=== PATIENT | female | born 1950 | race Caucasian/White ===

== ENCOUNTER → 2020-01-04 09:43 | Outpatient (BNVA) | payer MEDICARE, SELFPAY | PROVIDERS: PCP Family Medicine; Visit Provider Surgery | DX: E66.01 Morbid (severe) obesity due to excess calories (principal); Z68.42 Body mass index [BMI] 45.0-49.9, adult; K21.9 Gastro-esophageal reflux disease without esophagitis; Z98.84 Bariatric surgery status | CPT/HCPCS: 99214 ==

== ENCOUNTER → 2020-01-10 12:24 | Outpatient (BNVA) | payer MEDICARE, SELFPAY | PROVIDERS: PCP Family Medicine; Referring Provider Family Medicine; Visit Provider Internal Medicine | DX: R06.02 Shortness of breath (principal); I10 Essential (primary) hypertension; E66.01 Morbid (severe) obesity due to excess calories; Z68.42 Body mass index [BMI] 45.0-49.9, adult; E78.5 Hyperlipidemia, unspecified; G47.33 Obstructive sleep apnea (adult) (pediatric); Z79.899 Other long term (current) drug therapy; Z99.89 Dependence on other enabling machines and devices | CPT/HCPCS: 99204 ==

== ENCOUNTER 2020-01-12 16:04 | Emergency (ER) | payer MEDICARE, SELFPAY ==
--- NOTE | 2020-01-12 16:14 | ED_ITS ---
HPI - Nausea/Vomiting/Diarrhea General Chief complaint: Dizziness Stated complaint: HEADACE, N/V/D, DIZZY Time Seen by Provider: 01/12/20 16:12 Source: patient and EMS Mode of arrival: EMS Limitations: language barrier History of Present Illness HPI Narrative: 1 hour of sudden dizziness. Patient with vomiting and diarrhea prior. Patient describes dizziness as room spinning MD elicited complaint: nausea, vomiting and diarrhea Onset (ago): hour(s) Description of vomiting: watery Description of diarrhea: watery Severity: moderate Related Data Home Medications Medication Instructions Recorded Confirmed albuterol sulfate 2.5 mg INHALATION QID 01/04/20 01/10/20 albuterol sulfate 90 mcg/actuation 2 puff INHALATION QID 01/04/20 01/10/20 aerosol inhaler ascorbate calcium (vitamin C) 500 500 mg PO DAILY PRN 01/04/20 01/10/20 mg tablet atenolol 25 mg tablet 25 mg PO DAILY 01/04/20 01/10/20 calcium carbonate 600 mg (1,500 1 tab PO DAILY 01/04/20 01/10/20 mg)-vitamin D3 200 unit tablet cholecalciferol (vitamin D3) 50 50 mcg PO DAILY 01/04/20 01/10/20 mcg (2,000 unit) capsule clonazepam 1 mg tablet 1 mg PO BID 01/04/20 01/10/20 fluticasone propionate 220 1 puff INHALATION BID 01/04/20 01/10/20 mcg/actuation HFA aerosol inhaler fluticasone propionate 50 1 spray INTRANASAL BID 01/04/20 01/10/20 mcg/actuation nasal spray,suspension loperamide 2 mg capsule 2 mg PO Q6H PRN 01/04/20 01/10/20 loratadine 10 mg tablet 10 mg PO DAILY 01/04/20 01/10/20 ondansetron 4 mg disintegrating 4 mg PO Q8H PRN 01/04/20 01/10/20 tablet pantoprazole 40 mg tablet,delayed 40 mg PO BID tab 01/04/20 01/10/20 release solifenacin 10 mg tablet 10 mg PO DAILY 01/04/20 01/10/20 sucralfate 100 mg/mL oral 10 ml PO BID 01/04/20 01/10/20 suspension vitamin E 200 unit capsule 200 unit PO DAILY PRN 01/04/20 01/10/20 lisinopril 20 mg tablet 20 mg PO DAILY 01/10/20 01/10/20 pravastatin 40 mg tablet 40 mg PO DAILY 01/10/20 01/10/20 Previous Rx's Medication Instructions Recorded meclizine 25 mg PO TID PRN #10 tab 01/12/20 ondansetron HCl [Zofran] 4 mg PO Q8H PRN #10 tab 01/12/20 Allergies Allergy/AdvReac Type Severity Reaction Status Date / Time atorvastatin [From Lipitor] Allergy Mild HIVES Verified 01/10/20 13:29 Review of Systems Constitutional: Constitutional: Reports no additional constitutional complaints Eyes: Eyes: Reports no additional eye complaints ENT: Reports dizziness Cardiovascular: Cardiovascular: Reports no additional cardiovascular complaints Respiratory: Respiratory: Reports as per HPI Gastrointestinal: Gastrointestinal: Reports no additional gastrointestinal complaints Genitourinary: Genitourinary: Reports no additional female genitourinary complaints Musculoskeletal: Musculoskeletal: Reports no additional musculoskeletal complaints Integumentary/Breasts: Skin/Breast: Denies rash Neurologic: Reports dizziness and Denies Sensory deficit (Neuro) Psychiatric: Psychiatric: Denies anxiety [facility] Past Medical History Medical History 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 Cervicalgia Chronic headaches Dyslipidemia Essential hypertension Fecal incontinence GERD (gastroesophageal reflux disease) Hiatal hernia History of gastroscopy Hypertension Morbid obesity due to excess calories Obstructive sleep apnea Other and unspecified hyperlipidemia Pulmonary nodule, right Thyroid nodule Urinary incontinence Surgical History H/O tooth extraction History of bilateral knee replacement History of bilateral tubal ligation History of carpal tunnel release History of cholecystectomy History of dacryocystorhinostomy History of herniorrhaphy History of laparoscopic appendectomy History of sleeve gastrectomy History of total abdominal hysterectomy and bilateral salpingo-oophorectomy S/p bilateral blepharoplasty Family History Family History Father No problems noted. Mother No problems noted. Daughter No problems noted. Daughter No problems noted. Son No problems noted. Son No problems noted. Social History Social History Alcohol intake: never Smoking Status: Never smoker Use of substances other than those prescribed or required for medical reasons: No Advance Directives: No Advance Directives Information Provided: Yes Physical Exam Vital Signs: Vital Signs: Vital Signs Temp Pulse Resp BP Pulse Ox 01/12/20 18:11 75 135/81 98 01/12/20 17:19 77 01/12/20 16:32 97.6 F 82 20 130/74 93 Body Mass Index 48.2 Const: Other: vomiting Nutritional Appearance: obese Orientation/consciousness: oriented to person and patient oriented x3 Limitations: no limitations HENMT: Head: Yes normal to inspection Ears: external ears normal General nose exam: Normal external nose present Mouth: Normal oral and palatal mucosa present and oropharynx normal Throat: Yes posterior oropharynx normal Eyes: General: appearance normal, both eyes and all related structures Neck: Other: supple Neck: Yes normal visual inspection Chest: Chest palpation & inspection: normal inspection of the chest Resp: Auscultation: clear to auscultation bilaterally Cardio: Jugular venous distension: no JVD Rate: regular rate Rhythm: regular rhythm Heart sounds: S1 normal heart sound present and S2 normal heart sound present GI: Other: obese nontender Palpation (GI): Soft to palpation, nontender and No hepatosplenomegaly present Auscultation: normal bowel sounds : General: Yes no CVA tenderness Back/Spine/Pelvis: Back: no CVA tenderness Skin: General skin exam: no rashes or lesions noted Neuro: General: oriented to person and patient oriented x3 Cranial nerves: Yes CN's II-XII intact bilaterally Motor exam (neuro): 5/5 motor strength present throughout Sensory Exam: No Sensory deficit (Neuro) Extrem: General: Yes normal to inspection Psych: Appearance: grossly normal Course Course Course Narrative: no vomiting resting comfortably MDM - Nausea/Vomiting/Diarrhea MDM Narrative Medical decision making narrative: patient with likely vertigo, will check for COVID and treated her gastritis Lab Data Result diagrams: 01/12/20 17:26 01/12/20 17:26 Labs: Lab Results 01/12/20 01/12/20 Range/Units 17:26 17:26 WBC 8.7 (4.8-10.8) X10*3/uL RBC 4.49 (4.20-5.50) X10*6/uL Hgb 13.6 (12.0-16.0) g/dl Hct 41.4 (37-47) % MCV 92.2 (80-98) fL MCH 30.3 (27.0-33.0) pg MCHC 32.9 (31.0-35.0) g/dl RDW 13.6 (11.0-16.0) % Plt Count 193 (160-400) X10*3/uL MPV 12.6 H (9.4-12.3) fL Immature Gran % (Auto) 0.3 (0.0-0.4) % Neut % (Auto) 77.5 H (45-73) % Lymph % (Auto) 13.6 L (20-40) % [place] % (Auto) 7.4 (2-11) % Eos % (Auto) 1.0 (0-4) % Baso % (Auto) 0.2 (0-2) % Lymph # (Auto) 1.2 (1.2-4.9) X10*3/uL [place] # (Auto) 0.6 (0.1-1.2) X10*3/uL Eos # (Auto) 0.1 (0.0-0.4) X10*3/uL Baso # (Auto) 0.0 (0.0-0.2) X10*3/uL Abs Immat Gran (auto) 0.03 (0.00-0.03) X10*3/uL Absolute Neuts (auto) 6.7 (2.0-8.3) X10*3/uL Absolute Nucleated RBC 0.000 (0.0-0.012) X10*3/uL Nucleated RBC % (auto) 0.0 (0.0-0.2) /100WBC Sodium 144 (135-145) mmol/L Potassium 4.5 (3.3-5.1) mmol/l Chloride 105 (96-108) mmol/L Carbon Dioxide 31 H (22-29) mmol/L Anion Gap 13 (12-20) BUN 20 H (9-16) mg/dL Creatinine 0.88 (0.5-1.4) mg/dL Estim Creat Clear Calc 64.1 Estimated GFR > 60 Random Glucose 133 H (60-115) mg/dL Calcium 10.1 (8.4-10.2) mg/dL Discharge Plan Discharge Clinical Impression: Acute vestibular neuronitis Qualifiers: Laterality: unspecified laterality Qualified Code(s): H81.20 - Vestibular neuronitis, unspecified ear Nausea & vomiting Qualifiers: Vomiting type: unspecified Vomiting Intractability: non-intractable Qualified Code(s): R11.2 - Nausea with vomiting, unspecified Patient Disposition: Home, Self-Care Instructions: Vertigo (ED) Prescriptions: New ondansetron HCl [Zofran] 4 mg tablet 4 mg PO Q8H PRN (Reason: nausea and vomiting) Qty: 10 RF: 0 meclizine 25 mg tablet 25 mg PO TID PRN (Reason: dizziness) Qty: 10 RF: 0 No Action sucralfate [Carafate] 100 mg/mL suspension 10 ml PO BID RF: 0 solifenacin [Vesicare] 10 mg tablet 10 mg PO DAILY RF: 0 clonazepam 1 mg tablet 1 mg PO BID RF: 0 albuterol sulfate 90 mcg/actuation HFA aerosol inhaler 2 puff inhalation QID RF: 0 albuterol sulfate 2.5 mg /3 mL (0.083 %) solution for nebulization 2.5 mg inhalation QID RF: 0 fluticasone propionate [Flonase Allergy Relief] 50 mcg/actuation spray,suspension 1 spray intranasal BID RF: 0 loratadine 10 mg tablet 10 mg PO DAILY RF: 0 cholecalciferol (vitamin D3) 50 mcg (2,000 unit) capsule 50 mcg PO DAILY RF: 0 atenolol 25 mg tablet 25 mg PO DAILY RF: 0 Flovent HFA 220 mcg/actuation HFA aerosol inhaler 1 puff inhalation BID RF: 0 pantoprazole 40 mg tablet,delayed release (DR/EC) 40 mg PO BID RF: 0 loperamide 2 mg capsule 2 mg PO Q6H PRNRF: 0 calcium carbonate-vitamin D3 600 mg(1,500mg) -200 unit tablet 1 tab PO DAILY RF: 0 ondansetron 4 mg tablet,disintegrating 4 mg PO Q8H PRNRF: 0 vitamin E 200 unit capsule 200 unit PO DAILY PRNRF: 0 ascorbate calcium (vitamin C) 500 mg tablet 500 mg PO DAILY PRNRF: 0 lisinopril 20 mg tablet 20 mg PO DAILY RF: 0 pravastatin 40 mg tablet 40 mg PO DAILY RF: 0 Referrals: Ailyn Monge MD [Primary Care Provider] - 2 days
[2020-01-12 16:32] VITALS: BP 128/62; BP 130/74; PULSE 80; PULSE 82; RESP 20; TEMP 36.4; O2SAT 93; O2SAT 97; BMI 48.2
[2020-01-12] MEDS: Meclizine HCl 25 MG TABLET 50 MG PO (17:17)
[2020-01-12] MEDS: 0.9 % Sodium Chloride 500 ML 1000 ML IV (17:18)
[2020-01-12 17:19] VITALS: PULSE 77
[2020-01-12 17:34] LABS: MANUAL DIFF FLAG NO
[2020-01-12 17:35] LABS: Basophils Percent Auto 0.2 % (0-2); Eosinophils Absolute Auto 0.1 X10*3/uL (0.0-0.4); Hematocrit 41.4 % (37-47); Hemoglobin 13.6 g/dl (12.0-16.0); Imm Gran Abs Auto 0.03 X10*3/uL (0.00-0.03); Imm Gran Pct Auto 0.3 % (0.0-0.4); Lymphocytes Absolute Auto 1.2 X10*3/uL (1.2-4.9); Lymphocytes Percent Auto 13.6 % (20-40); Mean Corpuscular HGB Conc 32.9 g/dl (31.0-35.0); Mean Corpuscular Hemoglobin 30.3 pg (27.0-33.0); Mean Corpuscular Volume 92.2 fL (80-98); Mean Platelet Volume 12.6 fL (9.4-12.3); Monocytes Absolute Auto 0.6 X10*3/uL (0.1-1.2); Monocytes Percent Auto 7.4 % (2-11); Neutrophils Absolute Auto 6.7 X10*3/uL (2.0-8.3); Neutrophils Percent Auto 77.5 % (45-73); Platelet Count 193 X10*3/uL (160-400); Red Blood Count 4.49 X10*6/uL (4.20-5.50); Red Cell Distribution Width 13.6 % (11.0-16.0); White Blood Count 8.7 X10*3/uL (4.8-10.8)
--- NOTE | 2020-01-12 18:10 | PC.NURSE ---
pt resting in the stretcher talking on the phone pt reports feeling better, denies dizziness/nausea a this time
[2020-01-12 18:11] VITALS: BP 135/81; PULSE 75; O2SAT 98
[2020-01-12 18:15] LABS: Anion Gap 13 (12-20); Blood Urea Nitrogen 20 mg/dL (9-16); Calcium 10.1 mg/dL (8.4-10.2); Carbon Dioxide 31 mmol/L (22-29); Chloride 105 mmol/L (96-108); Creatinine Clr Calc Pharmacy 64.1; Estimated Glomerular Filt Rate > 60; Glucose Random 133 mg/dL (60-115); Potassium 4.5 mmol/l (3.3-5.1); Sodium 144 mmol/L (135-145)
[2020-01-12 20:00] VITALS: PULSE 83; RESP 16; TEMP 36.4; O2SAT 139
== END 2020-01-12 20:48 | disposition home or self-care (01) ==
PROVIDERS: Emergency Provider Emergency Medicine; PCP Family Medicine
DX: H81.20 Vestibular neuronitis, unspecified ear (principal); R11.2 Nausea with vomiting, unspecified; Z79.899 Other long term (current) drug therapy
CPT/HCPCS: 36415; 80048; 85025; 87635; 96360; 99284

== ENCOUNTER 2020-01-27 08:35 | Outpatient (REF) | payer MEDICARE, SELFPAY | END 2020-01-27 08:36 | disposition home or self-care (01) | LOC: HO.LAB 08:35 | PROVIDERS: Visit Provider Internal Medicine | DX: Z20.828 Contact with and (suspected) exposure to other viral communicable diseases (principal) | CPT/HCPCS: U0003 ==

== ENCOUNTER 2020-02-02 10:18 | Inpatient (IN) | payer MEDICARE, SELFPAY ==
[2020-02-02 10:21] VITALS: BP 120/72; BP 97/65; PULSE 85; PULSE 90; RESP 27; TEMP 37.7; O2SAT 88; O2SAT 91; BMI 52.4
--- NOTE | 2020-02-02 10:22 | ED.SOB ---
HPI - SOB/Dyspnea General Chief Complaint: Dyspnea Stated Complaint: sob/cp/cuellar Time Seen by Provider: 02/02/20 10:22 Source: patient, EMS and foreign language interpreter Mode of arrival: EMS Limitations: no limitations History of Present Illness HPI Narrative: + covid test resulted yesterday (done on 01/26) has been sick for the past few days had a visitor who was COVID positive, EMS found her 85% on RA - 92% on 4L NC does not use O2 at home MD elicited complaint: shortness of breath Pertinent past history: asthma Onset (ago): day(s) (few) Context: recent illness Timing: constant Severity: moderate Exacerbating factors: exertion and coughing Relieving factors: oxygen Known history of: asthma Associated symptoms: chest pain, fever, cough, wheezing and nausea/vomiting Treatment prior to arrival: oxygen Related Data Home Medications Medication Instructions Recorded Confirmed fluticasone propion-salmeterol 1 puff PO BID 02/02/20 02/02/20 mirtazapine 1 tab PO BEDTIME 02/02/20 02/02/20 venlafaxine 1 cap PO DAILY 02/02/20 02/02/20 venlafaxine 150 mg PO 02/02/20 Allergies Allergy/AdvReac Type Severity Reaction Status Date / Time atorvastatin [From Lipitor] Allergy Mild HIVES Verified 01/10/20 13:29 Review of Systems Review of Systems: Constitutional : positive Fever, positive Chills, positive fatigue, positive Malaise ENT/Mouth : no sore throat, positive runny nose Eyes: No Discharge Cardiovascular : pos Chest Pain, pos SOB Respiratory : pos Cough, No Sputum Gastrointestinal : pos Nausea, No Vomiting, No Diarrhea Genitourinary : No Dysuria, No Urinary Frequency Musculoskeletal : positive Myalgia Skin : No rash Neuro : No Headache, no weakness no numbnes All other systems reviewed and are negative All other systems reviewed and are negative [facility] Past Medical History Attestation statement: The following information was validated with the patient. Medical History 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 Cervicalgia Chronic headaches Dyslipidemia Essential hypertension Fecal incontinence GERD (gastroesophageal reflux disease) Hiatal hernia History of gastroscopy Hypertension Morbid obesity due to excess calories Obstructive sleep apnea Other and unspecified hyperlipidemia Pulmonary nodule, right Thyroid nodule Urinary incontinence Surgical History H/O tooth extraction History of bilateral knee replacement History of bilateral tubal ligation History of carpal tunnel release History of cholecystectomy History of dacryocystorhinostomy History of herniorrhaphy History of laparoscopic appendectomy History of sleeve gastrectomy History of total abdominal hysterectomy and bilateral salpingo-oophorectomy S/p bilateral blepharoplasty Family History Family History Father No problems noted. Mother No problems noted. Daughter No problems noted. Daughter No problems noted. Son No problems noted. Son No problems noted. Social History Social History Alcohol intake: never Smoking Status: Never smoker Advance Directives: No Advance Directives Information Provided: No Physical Exam Vital Signs: Vital Signs: Last Vital Signs Temp 99.8 F 02/02/20 10:21 Pulse 85 02/02/20 10:21 Resp 27 H 02/02/20 10:21 BP 97/65 02/02/20 10:21 Pulse Ox 91 L 02/02/20 10:21 Body Mass Index 52.4 Appearance: Alert. Oriented X3. Mild acute distress. Eyes: Pupils equal, round and reactive to light. ENT: Pharynx normal. Neck: Normal inspection. Neck supple. CVS: Normal heart rate and rhythm. Pulses normal. Respiratory: Mild respiratory distress. Tachypnea Breath sounds rhonic and diminished. Abdomen: Soft and nontender. Skin: Skin warm and dry. Normal skin color. Normal skin turgor. Extremities: No lower extremity edema. No calf ttp Neuro: Oriented X 3. No motor deficit. No sensory deficit. Course Course Course Narrative: given O2 needs and CXR will admit for further workup MDM - SOB/Dyspnea MDM Narrative Medical decision making narrative: 69 yo female with asthma + COVID confirmed yesterday - here with URI symptoms chest pain that is reproduceable due to cough, hypoxia doing okay on O2, will need labs, CXR, cultures, IV antibiotics, neb treatment, given O2 need planned admit Lab Data Result diagrams: 02/02/20 10:44 02/02/20 10:44 Labs: Lab Results 02/02/20 02/02/20 02/02/20 Range/Units 10:44 10:44 10:44 WBC 4.6 L (4.8-10.8) X10*3/uL RBC 4.60 (4.20-5.50) X10*6/uL Hgb 13.6 (12.0-16.0) g/dl Hct 41.6 (37-47) % MCV 90.4 (80-98) fL MCH 29.6 (27.0-33.0) pg MCHC 32.7 (31.0-35.0) g/dl RDW 14.6 (11.0-16.0) % Plt Count 139 L D (160-400) X10*3/uL MPV Not Reportable Immature Gran % (Auto) 0.2 (0.0-0.4) % Neut % (Auto) 74.0 H (45-73) % Lymph % (Auto) 16.0 L (20-40) % [place] % (Auto) 9.4 (2-11) % Eos % (Auto) 0.2 (0-4) % Baso % (Auto) 0.2 (0-2) % Lymph # (Auto) 0.7 L (1.2-4.9) X10*3/uL [place] # (Auto) 0.4 (0.1-1.2) X10*3/uL Eos # (Auto) 0.0 (0.0-0.4) X10*3/uL Baso # (Auto) 0.0 (0.0-0.2) X10*3/uL Abs Immat Gran (auto) 0.01 (0.00-0.03) X10*3/uL Absolute Neuts (auto) 3.4 (2.0-8.3) X10*3/uL Absolute Nucleated RBC 0.000 (0.0-0.012) X10*3/uL Nucleated RBC % (auto) 0.0 (0.0-0.2) /100WBC Smear Tech's Comments VERIFIED PT (10.8-13.0) SEC INR (0.9-1.1) APTT (24.1-38.0) SEC Sodium 136 (135-145) mmol/L Potassium 4.6 (3.3-5.1) mmol/l Chloride 99 (96-108) mmol/L Carbon Dioxide 27 (22-29) mmol/L Anion Gap 15 (12-20) BUN 12 (9-16) mg/dL Creatinine 0.79 (0.5-1.4) mg/dL Estim Creat Clear Calc 69.1 Estimated GFR > 60 Random Glucose 120 H (60-115) mg/dL Lactic Acid (0.5-2.0) mmol/L Calcium 7.7 L D (8.4-10.2) mg/dL Magnesium (1.6-2.6) mg/dL Total Bilirubin (0.0-1.0) mg/dL Direct Bilirubin (0.0-0.5) mg/dL AST (5-31) U/L ALT (0-31) U/L Alkaline Phosphatase (39-117) U/L Lactate Dehydrogenase (122-220) U/L Total Creatine Kinase (26-140) U/L Troponin I High Sens (<3.5-17.0) ng/L B-Natriuretic Peptide 12 (<100) pg/mL Total Protein (6.5-8.0) g/dL Albumin (3.5-5.0) g/dL 02/02/20 02/02/20 02/02/20 Range/Units 10:44 10:44 10:44 WBC (4.8-10.8) X10*3/uL RBC (4.20-5.50) X10*6/uL Hgb (12.0-16.0) g/dl Hct (37-47) % MCV (80-98) fL MCH (27.0-33.0) pg MCHC (31.0-35.0) g/dl RDW (11.0-16.0) % Plt Count (160-400) X10*3/uL MPV Immature Gran % (Auto) (0.0-0.4) % Neut % (Auto) (45-73) % Lymph % (Auto) (20-40) % [place] % (Auto) (2-11) % Eos % (Auto) (0-4) % Baso % (Auto) (0-2) % Lymph # (Auto) (1.2-4.9) X10*3/uL [place] # (Auto) (0.1-1.2) X10*3/uL Eos # (Auto) (0.0-0.4) X10*3/uL Baso # (Auto) (0.0-0.2) X10*3/uL Abs Immat Gran (auto) (0.00-0.03) X10*3/uL Absolute Neuts (auto) (2.0-8.3) X10*3/uL Absolute Nucleated RBC (0.0-0.012) X10*3/uL Nucleated RBC % (auto) (0.0-0.2) /100WBC Smear Tech's Comments PT (10.8-13.0) SEC INR (0.9-1.1) APTT (24.1-38.0) SEC Sodium (135-145) mmol/L Potassium (3.3-5.1) mmol/l Chloride (96-108) mmol/L Carbon Dioxide (22-29) mmol/L Anion Gap (12-20) BUN (9-16) mg/dL Creatinine (0.5-1.4) mg/dL Estim Creat Clear Calc Estimated GFR Random Glucose (60-115) mg/dL Lactic Acid 0.8 (0.5-2.0) mmol/L Calcium (8.4-10.2) mg/dL Magnesium 2.0 (1.6-2.6) mg/dL Total Bilirubin 0.2 (0.0-1.0) mg/dL Direct Bilirubin 0.2 (0.0-0.5) mg/dL AST 71 H (5-31) U/L ALT 67 H (0-31) U/L Alkaline Phosphatase 76 (39-117) U/L Lactate Dehydrogenase 594 H (122-220) U/L Total Creatine Kinase 115 (26-140) U/L Troponin I High Sens 9.0 (<3.5-17.0) ng/L B-Natriuretic Peptide (<100) pg/mL Total Protein 6.8 (6.5-8.0) g/dL Albumin 3.8 (3.5-5.0) g/dL 02/02/20 Range/Units 10:45 WBC (4.8-10.8) X10*3/uL RBC (4.20-5.50) X10*6/uL Hgb (12.0-16.0) g/dl Hct (37-47) % MCV (80-98) fL MCH (27.0-33.0) pg MCHC (31.0-35.0) g/dl RDW (11.0-16.0) % Plt Count (160-400) X10*3/uL MPV Immature Gran % (Auto) (0.0-0.4) % Neut % (Auto) (45-73) % Lymph % (Auto) (20-40) % [place] % (Auto) (2-11) % Eos % (Auto) (0-4) % Baso % (Auto) (0-2) % Lymph # (Auto) (1.2-4.9) X10*3/uL [place] # (Auto) (0.1-1.2) X10*3/uL Eos # (Auto) (0.0-0.4) X10*3/uL Baso # (Auto) (0.0-0.2) X10*3/uL Abs Immat Gran (auto) (0.00-0.03) X10*3/uL Absolute Neuts (auto) (2.0-8.3) X10*3/uL Absolute Nucleated RBC (0.0-0.012) X10*3/uL Nucleated RBC % (auto) (0.0-0.2) /100WBC Smear Tech's Comments PT 13.3 H (10.8-13.0) SEC INR 1.1 (0.9-1.1) APTT 34.1 (24.1-38.0) SEC Sodium (135-145) mmol/L Potassium (3.3-5.1) mmol/l Chloride (96-108) mmol/L Carbon Dioxide (22-29) mmol/L Anion Gap (12-20) BUN (9-16) mg/dL Creatinine (0.5-1.4) mg/dL Estim Creat Clear Calc Estimated GFR Random Glucose (60-115) mg/dL Lactic Acid (0.5-2.0) mmol/L Calcium (8.4-10.2) mg/dL Magnesium (1.6-2.6) mg/dL Total Bilirubin (0.0-1.0) mg/dL Direct Bilirubin (0.0-0.5) mg/dL AST (5-31) U/L ALT (0-31) U/L Alkaline Phosphatase (39-117) U/L Lactate Dehydrogenase (122-220) U/L Total Creatine Kinase (26-140) U/L Troponin I High Sens (<3.5-17.0) ng/L B-Natriuretic Peptide (<100) pg/mL Total Protein (6.5-8.0) g/dL Albumin (3.5-5.0) g/dL ECG Data Attestation: I personally reviewed and interpreted this ECG as follows: ECG interpretation date: 02/02/20 ECG interpretation time: 10:33 Interpretation: Rate: 84 Rhythm: NSR [place]: left Normal P waves. Normal ITA. Normal QRS complex. ST T wave : nonspecific no LEO qTC: normal prior studies: no acute ischemia The study has been interpreted contemporaneously by me. . Discharge Plan Discharge Clinical Impression: Pneumonia due to 2019-nCoV, Hypoxia Patient Disposition: Admitted As Inpatient Prescriptions: No Action venlafaxine 75 mg capsule,extended release 24hr 1 cap PO DAILY RF: 0 venlafaxine 150 mg capsule,extended release 24hr 150 mg PO RF: 0 mirtazapine 30 mg tablet 1 tab PO BEDTIME RF: 0 fluticasone propion-salmeterol 250-50 mcg/dose blister with device 1 puff PO BID RF: 0
--- NOTE | 2020-02-02 10:23 | XR_ITS ---
EXAMINATION: XR CHEST CLINICAL INFORMATION: Dyspnea. COMPARISON: Chest 12/11/2019 TECHNIQUE: Frontal view of the chest was obtained. FINDINGS: Lungs are hyperexpanded with diffuse patchy opacities seen in both lungs likely infiltrate versus parenchymal edema. Lung bases cannot clearly visualized. The heart size and pulmonary vascularity is normal. No gross bony abnormality seen. XR/XR chest 1V IMPRESSION: Diffuse bilateral patchy opacities likely infiltrate versus edema. Chest x-ray 12/11/2019 was normal at
--- NOTE | 2020-02-02 10:23 | ECG_ITS ---
Test Reason : SOB,CP Blood Pressure : / mmHG Vent. Rate : 084 BPM Atrial Rate : 084 BPM P-R Int : 134 ms QRS Dur : 090 ms QT Int : 388 ms P-R-T Axes : 030 -42 003 degrees QTc Int : 458 ms Normal sinus rhythm Left axis deviation Pulmonary disease pattern Abnormal ECG When compared with ECG of 14-DEC-2018 07:38, No significant change was found Referred By: Linnea Patel Electronically Signed By:VAN VÁSQUEZ MD
[2020-02-02] MEDS: Albuterol Sulfate (0.083%) 2.5 MG/3 ML VIAL.NEB 5 MG INHALE (10:49)
[2020-02-02 10:58] LABS: Hematocrit 41.6 % (37-47); Hemoglobin 13.6 g/dl (12.0-16.0); MANUAL DIFF FLAG SCAN; Mean Corpuscular HGB Conc 32.7 g/dl (31.0-35.0); Red Cell Distribution Width 14.6 % (11.0-16.0); SCAN SMEAR FLAG 1
[2020-02-02 11:00] LABS: Basophils Percent Auto 0.2 % (0-2); Eosinophils Percent Auto 0.2 % (0-4); Imm Gran Abs Auto 0.01 X10*3/uL (0.00-0.03); Imm Gran Pct Auto 0.2 % (0.0-0.4); Lymphocytes Absolute Auto 0.7 X10*3/uL (1.2-4.9); Mean Corpuscular Hemoglobin 29.6 pg (27.0-33.0); Mean Corpuscular Volume 90.4 fL (80-98); Monocytes Absolute Auto 0.4 X10*3/uL (0.1-1.2); Monocytes Percent Auto 9.4 % (2-11); Neutrophils Absolute Auto 3.4 X10*3/uL (2.0-8.3); Platelet Count 139 X10*3/uL (160-400); White Blood Count 4.6 X10*3/uL (4.8-10.8)
[2020-02-02 11:08] LABS: PLT ABN DIST 1
[2020-02-02 11:08] LABS: INTERNATIONAL NORM RATIO 1.1 (0.9-1.1); Prothrombin Time 13.3 SEC (10.8-13.0)
[2020-02-02 11:11] LABS: Partial Thromboplastin Time 34.1 SEC (24.1-38.0)
[2020-02-02 11:25] LABS: Lactic Acid 0.8 mmol/L (0.5-2.0)
[2020-02-02 11:26] LABS: SLIDE REVIEW VERIFIED
[2020-02-02 11:32] LABS: Anion Gap 15 (12-20); Blood Urea Nitrogen 12 mg/dL (9-16); Calcium 7.7 mg/dL (8.4-10.2); Carbon Dioxide 27 mmol/L (22-29); Chloride 99 mmol/L (96-108); Creatinine Clr Calc Pharmacy 69.1; Estimated Glomerular Filt Rate > 60; Glucose Random 120 mg/dL (60-115); Potassium 4.6 mmol/l (3.3-5.1); Sodium 136 mmol/L (135-145)
[2020-02-02 11:37] LABS: B Type Natriuretic Peptide 12 pg/mL (<100)
[2020-02-02 11:44] LABS: Alanine Aminotransferase 67 U/L (0-31); Albumin Level 3.8 g/dL (3.5-5.0); Alkaline Phosphatase 76 U/L (39-117); Aspartate Amino Transferase 71 U/L (5-31); Bilirubin Direct 0.2 mg/dL (0.0-0.5); Bilirubin Total 0.2 mg/dL (0.0-1.0); Lactate Dehydrogenase 594 U/L (122-220); Total Protein 6.8 g/dL (6.5-8.0)
[2020-02-02 11:52] LABS: Ferritin 459 ng/mL (10-250)
[2020-02-02] MEDS: cefTRIAXone sodium 1 GM in 0.9 % Sodium Chloride 50 ML IV (11:53)
[2020-02-02] MEDS: Azithromycin 500 MG TABLET PO (11:53)
--- NOTE | 2020-02-02 11:54 | PC.NURSE ---
hospitalist in to see pt
[2020-02-02 12:57] VITALS: BP 105/47; PULSE 88; RESP 20; TEMP 37.4; O2SAT 89
--- NOTE | 2020-02-02 13:49 | PC.NURSE ---
REPORT TO BIPIN SANCHEZ.
--- NOTE | 2020-02-02 14:14 | PM.IMHP ---
History of Present Illness Date of Service: 02/02/20 Chief Complaint: shortness of breath, lethargy a 69 years old lady with PMH of hypertension, morbid obesity, HTN among others who presented to the hospital complaining of cough, difficulty breathing For the last 3 days. The patient was tested positive for COVID-19 infection on January 26. She reported doing fairly okay since then but her symptoms started to get worse over the last 3 days with more shortness of breath and coughing. Denies any fever or chills. Appetite acceptable. No change in bowel habit. In the emergency a chest x-ray showed bilateral infiltrates. She was started on nebulizer treatment and admitted for further evaluation and treatment. Review of Systems Review of Systems: No fever, chills , increase generalized weakness No chest pain, palpitation Moderate shortness of breath and coughing No abdominal pain, nausea or vomiting No urinary symptoms No any rash or wounds PMFSH Medical History 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 Cervicalgia Chronic headaches Dyslipidemia Essential hypertension Fecal incontinence GERD (gastroesophageal reflux disease) Hiatal hernia History of gastroscopy Hypertension Morbid obesity due to excess calories Obstructive sleep apnea Other and unspecified hyperlipidemia Pulmonary nodule, right Thyroid nodule Urinary incontinence Family History Father No problems noted. Mother No problems noted. Daughter No problems noted. Daughter No problems noted. Son No problems noted. Son No problems noted. Surgical History H/O tooth extraction History of bilateral knee replacement History of bilateral tubal ligation History of carpal tunnel release History of cholecystectomy History of dacryocystorhinostomy History of herniorrhaphy History of laparoscopic appendectomy History of sleeve gastrectomy History of total abdominal hysterectomy and bilateral salpingo-oophorectomy S/p bilateral blepharoplasty Social History Alcohol intake: never Smoking Status: Never smoker Use of substances other than those prescribed or required for medical reasons: No Advance Directives: No Advance Directives Information Provided: No Meds Allergies Allergy/AdvReac Type Severity Reaction Status Date / Time atorvastatin [From Lipitor] Allergy Mild HIVES Verified 01/10/20 13:29 Home Medications Medication Instructions Recorded Confirmed Type atenolol 1 tab PO BEDTIME 02/02/20 02/02/20 History calcium citrate-vitamin D3 1 tab PO BID 02/02/20 02/02/20 History clonazepam 1.5 tab PO BEDTIME PRN 02/02/20 02/02/20 History dicyclomine 1 cap PO TID PRN 02/02/20 02/02/20 History fluticasone propion-salmeterol 1 puff PO BID 02/02/20 02/02/20 History furosemide 10 mg PO QAM 02/02/20 02/02/20 History levothyroxine 75 mcg PO QAM 02/02/20 02/02/20 History lisinopril 20 mg PO QAM 02/02/20 02/02/20 History loperamide [Anti-Diarrheal 2 mg PO Q6H PRN 02/02/20 02/02/20 History (loperamide)] loratadine 10 mg PO QAM 02/02/20 02/02/20 History mirtazapine 1 tab PO BEDTIME 02/02/20 02/02/20 History omeprazole 20 mg PO BID 02/02/20 02/02/20 History ondansetron HCl 4 mg PO Q8H PRN 02/02/20 02/02/20 History pravastatin 40 mg PO BEDTIME 02/02/20 02/02/20 History sucralfate 10 ml PO BID 02/02/20 02/02/20 History venlafaxine 1 cap PO DAILY 02/02/20 02/02/20 History venlafaxine 150 mg PO DAILY 02/02/20 02/02/20 History Physical Exam Vital Signs and Narrative: Vital Signs: Last Vital Signs Temp 99.3 F 02/02/20 12:57 Pulse 88 02/02/20 12:57 Resp 20 02/02/20 12:57 BP 105/47 L 02/02/20 12:57 Pulse Ox 89 L 02/02/20 12:57 Body Mass Index 52.4 Constitutional : Alert, oriented, hypoxic Neck : Normal inspection, Supple Cardiovascular : RRR, S1 S2, no lower extremity edema Respiratory : decrease bilateral air entry, no crackles, wheezes or rhonchi Gastrointestinal: soft, lax, Normal bowel sounds, Non tender Skin : Warm/Dry, No rash Neurological : Alert & oriented x3, No focal deficit Results Labs CBC and Chem 7: 02/02/20 10:44 02/02/20 10:44 Labs: Laboratory Results - last 24 hr 02/02/20 02/02/20 02/02/20 10:44 10:44 10:44 MCV 90.4 MCH 29.6 MCHC 32.7 RDW 14.6 Plt Count 139 L D MPV Not Reportable Immature Gran % (Auto) 0.2 Neut % (Auto) 74.0 H Lymph % (Auto) 16.0 L [place] % (Auto) 9.4 Eos % (Auto) 0.2 Baso % (Auto) 0.2 Lymph # (Auto) 0.7 L [place] # (Auto) 0.4 Eos # (Auto) 0.0 Baso # (Auto) 0.0 Abs Immat Gran (auto) 0.01 Absolute Neuts (auto) 3.4 Absolute Nucleated RBC 0.000 Nucleated RBC % (auto) 0.0 Smear Tech's Comments VERIFIED PT INR APTT Anion Gap 15 Estim Creat Clear Calc 69.1 Estimated GFR > 60 Random Glucose 120 H Lactic Acid Calcium 7.7 L D Magnesium Ferritin Total Bilirubin Direct Bilirubin AST ALT Alkaline Phosphatase Lactate Dehydrogenase Total Creatine Kinase Troponin I High Sens B-Natriuretic Peptide 12 Total Protein Albumin 02/02/20 02/02/20 02/02/20 10:44 10:44 10:44 MCV MCH MCHC RDW Plt Count MPV Immature Gran % (Auto) Neut % (Auto) Lymph % (Auto) [place] % (Auto) Eos % (Auto) Baso % (Auto) Lymph # (Auto) [place] # (Auto) Eos # (Auto) Baso # (Auto) Abs Immat Gran (auto) Absolute Neuts (auto) Absolute Nucleated RBC Nucleated RBC % (auto) Smear Tech's Comments PT INR APTT Anion Gap Estim Creat Clear Calc Estimated GFR Random Glucose Lactic Acid 0.8 Calcium Magnesium 2.0 Ferritin 459 H Total Bilirubin 0.2 Direct Bilirubin 0.2 AST 71 H ALT 67 H Alkaline Phosphatase 76 Lactate Dehydrogenase 594 H Total Creatine Kinase 115 Troponin I High Sens 9.0 B-Natriuretic Peptide Total Protein 6.8 Albumin 3.8 02/02/20 10:45 MCV MCH MCHC RDW Plt Count MPV Immature Gran % (Auto) Neut % (Auto) Lymph % (Auto) [place] % (Auto) Eos % (Auto) Baso % (Auto) Lymph # (Auto) [place] # (Auto) Eos # (Auto) Baso # (Auto) Abs Immat Gran (auto) Absolute Neuts (auto) Absolute Nucleated RBC Nucleated RBC % (auto) Smear Tech's Comments PT 13.3 H INR 1.1 APTT 34.1 Anion Gap Estim Creat Clear Calc Estimated GFR Random Glucose Lactic Acid Calcium Magnesium Ferritin Total Bilirubin Direct Bilirubin AST ALT Alkaline Phosphatase Lactate Dehydrogenase Total Creatine Kinase Troponin I High Sens B-Natriuretic Peptide Total Protein Albumin Imaging Radiologist's Impressions: Impressions Chest X-Ray 02/02/20 10:23 IMPRESSION: Diffuse bilateral patchy opacities likely infiltrate versus edema. Chest x-ray 12/11/2019 was normal at Assessment and Plan (1) Pneumonia due to 2019-nCoV: Status: Acute (2) Acute respiratory failure with hypoxia: Status: Acute (3) Essential hypertension: Status: Acute (4) Morbid obesity due to excess calories: Problem details: Status: Acute (5) Dyslipidemia: Status: Acute (6) Hypertension: Status: Acute a 69 years old lady with PMH of hypertension, morbid obesity, HTN among others who presented to the hospital complaining of cough, difficulty breathing For the last 3 days. Acute hypoxic respiratory failure Secondary to COVID-19 pneumonia CXR as above O2 level dropped below 90s requiring O2 supplement to keep it Received ceftriaxone and azithromycin emergency, discontinue Keep on doxycycline IV for now Dexamethasone 6 mg DD Start nebulizers ATC and p.r.n. Consider from to severe, to contact id To get pulmonary input Hypertension continue atenolol and lisinopril Hypothyroidism Continue levothyroxine Mood Disorder Continue Effexor and Remeron DVT PPX Lovenox
[2020-02-02 16:00] VITALS: BP 140/78; PULSE 86; RESP 20; TEMP 35.6; O2SAT 93
--- NOTE | 2020-02-02 16:22 | P.CNID_ITS ---
History of Present Illness Data of Consult Service Date: 02/02/20 Requesting physician: Alanis Schulz Primary Care Provider: Unknown Physician HPI Reason for consult: shortness of breath She had visitor to her house last week who had COVID after She was tested 01/26 and found to be positive She has diarrhea ,watery and shortness of breath She has hypoxia and is on NRB now She is speaking in full sentences Review of Systems Review of Systems: Yes all other systems are reviewed and are negative [facility] Past Medical History Medical History 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 Cervicalgia Chronic headaches Dyslipidemia Essential hypertension Fecal incontinence GERD (gastroesophageal reflux disease) Hiatal hernia History of gastroscopy Hypertension Morbid obesity due to excess calories Obstructive sleep apnea Other and unspecified hyperlipidemia Pulmonary nodule, right Thyroid nodule Urinary incontinence Family History Family History Father No problems noted. Mother No problems noted. Daughter No problems noted. Daughter No problems noted. Son No problems noted. Son No problems noted. Surgical History Surgical History H/O tooth extraction History of bilateral knee replacement History of bilateral tubal ligation History of carpal tunnel release History of cholecystectomy History of dacryocystorhinostomy History of herniorrhaphy History of laparoscopic appendectomy History of sleeve gastrectomy History of total abdominal hysterectomy and bilateral salpingo-oophorectomy S/p bilateral blepharoplasty Social History Social History Household Members: Family Household Members Other:: grandson Housing: Apartment Do you presently have visiting nurse or other home services: Yes ([employer]) Alcohol intake: never Smoking Status: Never smoker Use of substances other than those prescribed or required for medical reasons: No Have you been hit, kicked, punched, or otherwise hurt by someone within the past year? If so, by whom?: No Do you feel safe in your current relationship?: No Is there a partner from a previous relationship who is making you feel unsafe now?: No Are you made to feel afraid or neglected: No Advance Directives: No Advance Directives Information Provided: No Do you have thoughts of harming others: None Do you have a plan to hurt others: No Plan Recently lost weight without trying: No Meds Allergies Allergy/AdvReac Type Severity Reaction Status Date / Time atorvastatin [From Lipitor] Allergy Mild HIVES Verified 01/10/20 13:29 Home Medications Medication Instructions Recorded Confirmed Type atenolol 1 tab PO BEDTIME 02/02/20 02/02/20 History calcium citrate-vitamin D3 1 tab PO BID 02/02/20 02/02/20 History clonazepam 1.5 tab PO BEDTIME PRN 02/02/20 02/02/20 History dicyclomine 1 cap PO TID PRN 02/02/20 02/02/20 History fluticasone propion-salmeterol 1 puff PO BID 02/02/20 02/02/20 History furosemide 10 mg PO QAM 02/02/20 02/02/20 History levothyroxine 75 mcg PO QAM 02/02/20 02/02/20 History lisinopril 20 mg PO QAM 02/02/20 02/02/20 History loperamide [Anti-Diarrheal 2 mg PO Q6H PRN 02/02/20 02/02/20 History (loperamide)] loratadine 10 mg PO QAM 02/02/20 02/02/20 History mirtazapine 1 tab PO BEDTIME 02/02/20 02/02/20 History omeprazole 20 mg PO BID 02/02/20 02/02/20 History ondansetron HCl 4 mg PO Q8H PRN 02/02/20 02/02/20 History pravastatin 40 mg PO BEDTIME 02/02/20 02/02/20 History sucralfate 10 ml PO BID 02/02/20 02/02/20 History venlafaxine 1 cap PO DAILY 02/02/20 02/02/20 History venlafaxine 150 mg PO DAILY 02/02/20 02/02/20 History Physical Exam Vital Signs: Vital Signs: Last Vital Signs Temp 99.3 F 02/02/20 12:57 Pulse 88 02/02/20 12:57 Resp 20 02/02/20 12:57 BP 105/47 L 02/02/20 12:57 Pulse Ox 89 L 02/02/20 12:57 Body Mass Index 52.4 Const: General: cooperative Orientation/consciousness: oriented to person, oriented to place and oriented to time HENMT: Head: Yes normal to inspection Ears: hearing grossly normal bilaterally Mouth: oropharynx normal Resp: Other: on high flow oxygen Effort & Inspection: abnormal respiratory pattern Cardio: Rate: regular rate Rhythm: regular rhythm GI: Inspection: Yes normal to inspection Skin: General skin exam: no rashes or lesions noted Neuro: General: oriented to person, oriented to place and oriented to time Extrem: General: Yes normal to inspection Psych: Mental Status: mental status grossly normal Assessment and Plan (1) Pneumonia due to 2019-nCoV: Problem details: She has hypoxia from COVID There are no other respiratory complaints such as no lobar pneumonia, or productive sputum Status: Acute Remdesivir and Dexamethasone Oxygen support Follow daily labs (2) Hypoxia: Status: Acute (3) Acute respiratory failure with hypoxia: Status: Acute Results Labs CBC & Chem 7: 02/02/20 10:44 02/02/20 10:44 Labs: Short CBC 02/02/20 Range/Units 10:44 WBC 4.6 L (4.8-10.8) X10*3/uL Hgb 13.6 (12.0-16.0) g/dl Hct 41.6 (37-47) % Plt Count 139 L D (160-400) X10*3/uL BMP 02/02/20 10:44 Sodium 136 Potassium 4.6 Chloride 99 Carbon Dioxide 27 BUN 12 Creatinine 0.79 Calcium 7.7 L D Cardiac Enzymes 02/02/20 Range/Units 10:44 Total Creatine Kinase 115 (26-140) U/L Liver Function 02/02/20 Range/Units 10:44 Total Bilirubin 0.2 (0.0-1.0) mg/dL Direct Bilirubin 0.2 (0.0-0.5) mg/dL AST 71 H (5-31) U/L ALT 67 H (0-31) U/L Alkaline Phosphatase 76 (39-117) U/L Albumin 3.8 (3.5-5.0) g/dL
[2020-02-02] MEDS: dexAMETHasone sod phosphate 4 MG/ML VIAL 6 MG IVPUSH (16:49)
[2020-02-02] MEDS: Doxycycline Hyclate 100 MG in 0.9 % Sodium Chloride 250 ML 166.67 MG IV (16:50)
[2020-02-02] MEDS: Enoxaparin Sodium 40 MG/0.4 ML SYRINGE SUBCUT (16:50)
[2020-02-02] MEDS: 0.9 % Sodium Chloride Flush 3 ML SYRINGE IVFLUSH (16:51)
[2020-02-02] MEDS: Remdesivir 200 MG in 0.9 % Sodium Chloride 210 ML 125 MG IV (17:59)
--- NOTE | 2020-02-02 18:22 | PC.NURSE ---
Upon arrival to the floor from the emergency department. Routine vital signs being taken by the insulation hoseman and pulse ox only reading 82-83% on 2 l via nc. Patient tritrated up to 6 L via nasal cannula with pulse ox unchanged. Repositioned up in bed. pt talking and neurologically intact. Placed on 55% ventimask with improvmeent up to 87-89%. Hospitalist made aware of pt change in condition. Respiratory called and 100% nonrebreather recommended at this time. Pt on nonrebreather and placed on continous pulse ox with improvement to 94%. Patient unable to tolerate being off o2 while attempting to eat dinner. sao2 as low as 79%. placed on 6L via nasal cannula and 100% nonrebreather with breaks with the mask in between bites. Patient educated to do so. Hospitalist updated on patient again. pt not in respiratory distress with the hypoxia episodes.
[2020-02-02 19:13] VITALS: BP 130/61; PULSE 80; RESP 18; TEMP 37.8; O2SAT 93
[2020-02-02] MEDS: clonazePAM 1 MG TABLET 1.5 MG PO (20:47)
[2020-02-02] MEDS: Dicyclomine HCl 10 MG CAPSULE PO (20:48)
[2020-02-02] MEDS: Mirtazapine 30 MG TABLET PO (20:48)
[2020-02-02] MEDS: Acetaminophen 325 MG TABLET 650 MG PO (20:48)
[2020-02-02 20:49] VITALS: PULSE 81
[2020-02-02] MEDS: Pravastatin Sodium 40 MG TABLET PO (20:49)
[2020-02-02] MEDS: atenoloL 25 MG TABLET PO (20:49)
[2020-02-02] MEDS: Omeprazole 20 MG CAPSULE.DR PO (20:50)
[2020-02-02 22:00] VITALS: TEMP 37.2
--- NOTE | 2020-02-02 23:10 | PM.CCN ---
Critical Care Event Note Summary Code activated: No Narrative: This case had a high probability of a clinically significant, sudden, or life threatening deterioration of this patient's condition which required my full and direct attention, intervention and personal management. 69 yo woman with bilateral COVID-19 pneumonia. Pt sleeping. On NRB FiO2 at 100% on 15L RR 18, Sat 95%. No increase in WOB; no access musc use. Safe to stay on IMC. Critical Care Time (minutes): 30
[2020-02-03] VITALS (15 sets, daily range): BP systolic 98–142; BP diastolic 56–72; PULSE 58–90; RESP 18–20; TEMP 36.1–37.2; O2SAT 90–94
[2020-02-03] MEDS: 0.9 % Sodium Chloride Flush 3 ML SYRINGE IVFLUSH ×4 (00:22→23:22)
[2020-02-03] MEDS: Doxycycline Hyclate 100 MG in 0.9 % Sodium Chloride 250 ML 166.67 MG IV ×2 (02:57→15:24)
--- NOTE | 2020-02-03 06:45 | PC.NURSE ---
Pt noted to have temp last noc of 100.1 oral at 0715pm. No stated complaints at thatr time. Per Dr Massey, order given for Tylenol PO. Tylenol given and temp came down to 99.0 oral at 10pm.
[2020-02-03 08:34] LABS: Hematocrit 45.1 % (37-47); Hemoglobin 14.3 g/dl (12.0-16.0); Imm Gran Abs Auto 0.02 X10*3/uL (0.00-0.03); Imm Gran Pct Auto 0.6 % (0.0-0.4); Lymphocytes Absolute Auto 0.8 X10*3/uL (1.2-4.9); MANUAL DIFF FLAG SCAN; Mean Corpuscular HGB Conc 31.7 g/dl (31.0-35.0); Mean Corpuscular Hemoglobin 29.1 pg (27.0-33.0); Mean Corpuscular Volume 91.7 fL (80-98); Monocytes Absolute Auto 0.5 X10*3/uL (0.1-1.2); Monocytes Percent Auto 15.1 % (2-11); Neutrophils Absolute Auto 2.1 X10*3/uL (2.0-8.3); Neutrophils Percent Auto 61.3 % (45-73); Platelet Count 171 X10*3/uL (160-400); Red Blood Count 4.92 X10*6/uL (4.20-5.50); Red Cell Distribution Width 14.8 % (11.0-16.0); SCAN SMEAR FLAG 1; White Blood Count 3.4 X10*3/uL (4.8-10.8)
[2020-02-03 08:48] LABS: D Dimer 285 NG/ML
[2020-02-03 08:59] LABS: SLIDE REVIEW VERIFIED
[2020-02-03 09:01] LABS: Anion Gap 12 (12-20); Blood Urea Nitrogen 18 mg/dL (9-16); C Reactive Protein 14.96 mg/dL (< or = 0.50); Calcium 7.9 mg/dL (8.4-10.2); Carbon Dioxide 29 mmol/L (22-29); Chloride 103 mmol/L (96-108); Creatinine Clr Calc Pharmacy 70.9; Estimated Glomerular Filt Rate > 60; Glucose Random 121 mg/dL (60-115); Lactate Dehydrogenase 636 U/L (122-220); Sodium 139 mmol/L (135-145)
[2020-02-03] MEDS: Furosemide 20 MG TABLET 10 MG PO (09:07)
[2020-02-03] MEDS: Levothyroxine Sodium 75 MCG TABLET PO (09:08)
[2020-02-03] MEDS: dexAMETHasone sod phosphate 4 MG/ML VIAL 6 MG IVPUSH (09:08)
[2020-02-03] MEDS: Omeprazole 20 MG CAPSULE.DR PO ×2 (09:08→21:44)
[2020-02-03] MEDS: Loratadine 10 MG TABLET PO (09:08)
[2020-02-03] MEDS: Venlafaxine HCl ER 150 MG CAP.ER.24H PO (09:08)
[2020-02-03] MEDS: lisinopriL 20 MG TABLET PO (09:09)
--- NOTE | 2020-02-03 10:19 | MHC.CM.PN ---
Patient is on the Covid Unit; CM spoke with Son/Tyrone @ [phone], with the assistance of a Yard Brakeman. Patient lives in an apartment with her Grandson and she uses a walker to assist with mobility. Patient receives COLLEGE ARCHIVIST & RN visits from [facility] and the goal for dc is to return home. CM has initiated and will follow for dc planning. IMM addressed with Tyrone and the original will be mailed certified letter to him and a copy has been placed on the chart. PCP is from [facility].
[2020-02-03] MEDS: Albuterol Sulfate 90 MCG 8 GM INHALER 4 PUFF INHALE ×3 (11:15→19:57)
--- NOTE | 2020-02-03 11:22 | P.EN_ITS ---
Event Note Date of Service: 02/03/2020 Event Note: 69 yo woman with bilat COVID-19 pneumonia. Sitting up in bed, full A&O, looks thoroughly comfortable and nontoxic. On plain NRBFM set on semi-flush (estimated FiO2 85-95%), RR is 18-20, Sat 87- 90% at this time. No access musc use, no incr in WOB whatsoever. Safe to stay on IMC. I'll see her again tomorrow morning. Time: [id number].
--- NOTE | 2020-02-03 15:20 | P.CONPL_ITS ---
History of Present Illness History of Present Illness Chief complaint: sob/cp/cuellar Narrative: 69 years old lady with PMH of hypertension, morbid obesity, HTN among others who presented to the hospital complaining of cough, difficulty breathing For the last 3 days. The patient was tested positive for COVID-19 infection on January 26. She reported doing fairly okay since then but her symptoms started to get worse over the last 3 days with more shortness of breath and coughing. Denies any fever or chills. Appetite acceptable. No change in bowel habit. She has had worsening respiratory symptoms. In the ER she was initially placed on a non-rebreather and subsequently now on the floor she has required h igh-flow. She still complaining of shortness of breath. She was started on dexamethasone also been this severe. At this point her chest x-ray demonstrates extensive airspace disease and also appears to have further decompensation respiratory status. Therefore, we need, some plasma to treat her worsening respiratory failure. In the room she was able to lay prone and she is going to do awake prone for now. Review of Systems Constitutional: Constitutional: Denies night sweats ENT: Denies change in voice, Denies lip swelling, Denies mouth pain, Reports nasal congestion, Reports nasal discharge and Denies tongue swelling Cardiovascular: Cardiovascular: Denies chest pain and Reports dyspnea Respiratory: Respiratory: Reports cough and Reports dyspnea Gastrointestinal: Gastrointestinal: Reports abdominal pain Musculoskeletal: Musculoskeletal: Denies no additional musculoskeletal complaints Neurologic: Denies Neuro-related abnormal movements Psychiatric: Psychiatric: Denies no additional psychiatric complaints Hematologic/Lymphatic: Hematologic/Lymphatic: Denies easy bleeding and Denies lymphadenopathy Allergic/Immunologic: Allergic/Immunologic: Denies lip swelling and Denies tongue swelling [facility] Past Medical History Medical History 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 Cervicalgia Chronic headaches Dyslipidemia Essential hypertension Fecal incontinence GERD (gastroesophageal reflux disease) Hiatal hernia History of gastroscopy Hypertension Morbid obesity due to excess calories Obstructive sleep apnea Other and unspecified hyperlipidemia Pulmonary nodule, right Thyroid nodule Urinary incontinence Family History Family History Father No problems noted. Mother No problems noted. Daughter No problems noted. Daughter No problems noted. Son No problems noted. Son No problems noted. Surgical History Surgical History H/O tooth extraction History of bilateral knee replacement History of bilateral tubal ligation History of carpal tunnel release History of cholecystectomy History of dacryocystorhinostomy History of herniorrhaphy History of laparoscopic appendectomy History of sleeve gastrectomy History of total abdominal hysterectomy and bilateral salpingo-oophorectomy S/p bilateral blepharoplasty Social History Social History Household Members: Family Household Members Other:: grandson Housing: Apartment Do you presently have visiting nurse or other home services: Yes ([employer]) Alcohol intake: never Smoking Status: Never smoker Use of substances other than those prescribed or required for medical reasons: No Have you been hit, kicked, punched, or otherwise hurt by someone within the past year? If so, by whom?: No Do you feel safe in your current relationship?: No Is there a partner from a previous relationship who is making you feel unsafe now?: No Are you made to feel afraid or neglected: No Advance Directives: No Advance Directives Information Provided: No Do you have thoughts of harming others: None Do you have a plan to hurt others: No Plan Recently lost weight without trying: No Meds Allergies Allergy/AdvReac Type Severity Reaction Status Date / Time atorvastatin [From Lipitor] Allergy Mild HIVES Verified 01/10/20 13:29 Home Medications Medication Instructions Recorded Confirmed Type atenolol 1 tab PO BEDTIME 02/02/20 02/02/20 History calcium citrate-vitamin D3 1 tab PO BID 02/02/20 02/02/20 History clonazepam 1.5 tab PO BEDTIME PRN 02/02/20 02/02/20 History dicyclomine 1 cap PO TID PRN 02/02/20 02/02/20 History fluticasone propion-salmeterol 1 puff PO BID 02/02/20 02/02/20 History furosemide 10 mg PO QAM 02/02/20 02/02/20 History levothyroxine 75 mcg PO QAM 02/02/20 02/02/20 History lisinopril 20 mg PO QAM 02/02/20 02/02/20 History loperamide [Anti-Diarrheal 2 mg PO Q6H PRN 02/02/20 02/02/20 History (loperamide)] loratadine 10 mg PO QAM 02/02/20 02/02/20 History mirtazapine 1 tab PO BEDTIME 02/02/20 02/02/20 History omeprazole 20 mg PO BID 02/02/20 02/02/20 History ondansetron HCl 4 mg PO Q8H PRN 02/02/20 02/02/20 History pravastatin 40 mg PO BEDTIME 02/02/20 02/02/20 History sucralfate 10 ml PO BID 02/02/20 02/02/20 History venlafaxine 1 cap PO DAILY 02/02/20 02/02/20 History venlafaxine 150 mg PO DAILY 02/02/20 02/02/20 History Physical Exam Vital Signs: Vital Signs: Last Vital Signs Temp 97 F 02/03/20 11:02 Pulse 60 02/03/20 11:02 Resp 20 02/03/20 15:19 BP 111/72 02/03/20 11:02 Pulse Ox 90 L 02/03/20 11:02 Body Mass Index 52.4 Const: General: alert and ill appearing HENMT: General nose exam: Abnormal external nose present and Nasal discharge present Eyes: Pupils: Equal, round and reactive pupils present Neck: Neck: Yes normal visual inspection, Yes full ROM and Yes no lymphadenopathy Chest: Chest palpation & inspection: normal inspection of the chest Resp: Auscultation: diminished lung sounds Cardio: Rate: regular rate Rhythm: regular rhythm Heart sounds: S1 normal heart sound present and S2 normal heart sound present GI: Palpation (GI): Soft to palpation and nontender Auscultation: normal bowel sounds : General: Yes no CVA tenderness Back/Spine/Pelvis: Back: no CVA tenderness Skin: General skin exam: rashes and/or lesions noted Neuro: Cranial nerves: Yes Equal, round and reactive pupils present Results Laboratory Findings CBC and BMP: 02/03/20 08:04 02/03/20 08:03 ABG, PT/INR, D-dimer: PT/INR, D-dimer PT 13.3 SEC (10.8-13.0) H 02/02/20 10:45 INR 1.1 (0.9-1.1) 02/02/20 10:45 D-Dimer 285 NG/ML 02/03/20 08:03 Abnormal lab findings: Abnormal Labs 02/02/20 02/02/20 02/02/20 10:44 10:44 10:44 WBC 4.6 L Plt Count 139 L D MPV Immature Gran % (Auto) Neut % (Auto) 74.0 H Lymph % (Auto) 16.0 L [place] % (Auto) Lymph # (Auto) 0.7 L PT BUN Random Glucose 120 H Calcium 7.7 L D Ferritin 459 H AST 71 H ALT 67 H Lactate Dehydrogenase 594 H C-Reactive Protein 02/02/20 02/03/20 02/03/20 10:45 08:03 08:04 WBC 3.4 L Plt Count MPV 13.0 H Immature Gran % (Auto) 0.6 H Neut % (Auto) Lymph % (Auto) [place] % (Auto) 15.1 H Lymph # (Auto) 0.8 L PT 13.3 H BUN 18 H Random Glucose 121 H Calcium 7.9 L Ferritin AST ALT Lactate Dehydrogenase 636 H C-Reactive Protein 14.96 H Microbiology: Microbiology 02/02/20 10:47 Blood - Venous Blood Culture - Preliminary 02/02/20 10:44 Blood - Venous Blood Culture - Preliminary Assessment and Plan (1) Acute respiratory failure with hypoxia: Problem details: Interval progression now on high-flow Status: Acute Continue high-flow to maintain a pulse ox greater than 90% Awake proning (2) Pneumonia due to 2019-nCoV: Problem details: She has hypoxia from COVID There are no other respiratory complaints such as no lobar pneumonia, or productive sputum Status: Acute Continuing Remdisivir Continue decadron IV Add convalecent plasma
[2020-02-03] MEDS: Enoxaparin Sodium 40 MG/0.4 ML SYRINGE SUBCUT (15:24)
--- NOTE | 2020-02-03 16:17 | P.PNIM_ITS ---
Subjective Subjective Date of Service: 02/03/20 Interval History: Seen and evaluated this morning Feels comfortable, denies any fever or chills O2 sat continue to drop with minimal movement Denies any chest pain, palpitation or cough Blood cultures growing Gram-positive cocci Hypoxic events overnight, reviewed by intensive care unit provider, feels safe [place] [facility] [place] Exam Vital Signs: Vital Signs: Last Vital Signs Temp 98.1 F 02/03/20 16:00 Pulse 58 02/03/20 16:00 Resp 20 02/03/20 16:00 BP 98/59 L 02/03/20 16:00 Pulse Ox 91 L 02/03/20 16:00 Body Mass Index 52.4 Constitutional : Alert, oriented, hypoxic Neck : Normal inspection, Supple Cardiovascular : RRR, S1 S2, no lower extremity edema Respiratory : decrease bilateral air entry, no crackles, wheezes or rhonchi Gastrointestinal: soft, lax, Normal bowel sounds, Non tender Skin : Warm/Dry, No rash Neurological : Alert & oriented x3, No focal deficit Objective Data Current Medications Generic Name Dose Route Start Last Admin Trade Name Freq PRN Reason Stop Dose Admin Acetaminophen 650 mg 02/02/20 13:45 02/02/20 20:48 Acetaminophen 325 Mg Tablet PO 650 mg Q6H PRN Administration Pain, Mild (Pain Scale 1-3) Al Hydroxide/Mg Hydroxide 30 ml 02/02/20 13:45 Magnesium Hydrox/Alum Hydrox 30 Ml Oral.Susp PO Q4H PRN Heartburn/Nausea Albuterol Sulfate 4 puff 02/03/20 12:00 02/03/20 15:17 Albuterol Sulfate 90 Mcg 8 Gm Inhaler INHALE 4 puff RQ4H WHILE AWAKE KENZIE Administration Atenolol 25 mg 02/02/20 21:00 02/02/20 20:49 Atenolol 25 Mg Tablet PO 25 mg BEDTIME KENZIE Administration Protocol Clonazepam 1.5 mg 02/02/20 13:45 02/02/20 20:47 Clonazepam 1 Mg Tablet PO 1.5 mg BEDTIME PRN Administration anxiety Dexamethasone Sodium Phosphate 6 mg 02/02/20 13:45 02/03/20 09:08 Dexamethasone Sod Phosphate 4 Mg/Ml Vial IVPUSH 6 mg DAILY KENZIE Administration Dicyclomine HCl 10 mg 02/02/20 13:45 11/06/20 20:48 Dicyclomine Hcl 10 Mg Capsule PO 10 mg TID PRN Administration Diarrhea Enoxaparin Sodium 40 mg 02/02/20 16:00 02/03/20 15:24 Enoxaparin Sodium 40 Mg/0.4 Ml Syringe SUBCUT 40 mg Q24H KENZIE Administration Furosemide 10 mg 02/03/20 09:00 02/03/20 09:07 Furosemide 20 Mg Tablet PO 10 mg DAILY KENZIE Administration Protocol Doxycycline Hyclate 100 mg/ 250 mls @ 166.67 mls/hr 02/02/20 15:00 02/03/20 15:24 Sodium Chloride IV 166.67 mls/hr Q12H KENZIE Administration Remdesivir 200 mg/ Sodium 250 mls @ 125 mls/hr 02/02/20 16:30 02/02/20 20:46 Chloride IV Infused ONCE KENZIE Infusion Remdesivir 100 mg/ Sodium 250 mls @ 125 mls/hr 02/03/20 17:00 Chloride IV 02/06/20 18:59 Q24H KENZIE Levothyroxine Sodium 75 mcg 02/03/20 09:00 02/03/20 09:08 Levothyroxine Sodium 75 Mcg Tablet PO 75 mcg DAILY KENZIE Administration Lisinopril 20 mg 02/03/20 09:00 02/03/20 09:09 Lisinopril 20 Mg Tablet PO 20 mg DAILY KENZIE Administration Protocol Loratadine 10 mg 02/03/20 09:00 02/03/20 09:08 Loratadine 10 Mg Tablet PO 10 mg DAILY KENZIE Administration Mirtazapine 30 mg 02/02/20 21:00 02/02/20 20:48 Mirtazapine 30 Mg Tablet PO 30 mg BEDTIME KENZIE Administration Omeprazole 20 mg 02/02/20 21:00 02/03/20 09:08 Omeprazole 20 Mg Capsule. PO 20 mg BID KENZIE Administration Ondansetron HCl 4 mg 02/02/20 13:45 Ondansetron Hcl 4 Mg/2 Ml Vial IVPUSH Q8H PRN Nausea and Vomiting Pharmacy Consult 1 each 02/02/20 10:22 Consult Rx Perform Med Rec MISCELLANE ONCE PRN Consult order Pravastatin Sodium 40 mg 02/02/20 21:00 02/02/20 20:49 Pravastatin Sodium 40 Mg Tablet PO 40 mg BEDTIME KENZIE Administration Sodium Chloride 3 ml 02/02/20 16:00 02/03/20 15:24 0.9 % Sodium Chloride Flush 3 Ml Syringe IVFLUSH 3 ml QSHIFT KENZIE Administration Venlafaxine HCl 150 mg 02/03/20 09:00 02/03/20 09:08 Venlafaxine Hcl Er 150 Mg Cap.Er.24h PO 150 mg DAILY KENZIE Administration Labs CBC & Chem 7: 02/03/20 08:04 02/03/20 08:03 Microbiology Microbiology Results: Microbiology 02/02/20 10:47 Blood - Venous Blood Culture - Preliminary 02/02/20 10:44 Blood - Venous Blood Culture - Preliminary Assessment and Plan (1) Pneumonia due to 2019-nCoV: Status: Acute (2) Acute respiratory failure with hypoxia: Status: Acute (3) Essential hypertension: Status: Acute (4) Morbid obesity due to excess calories: Problem details: Status: Acute (5) Dyslipidemia: Status: Acute (6) Hypertension: Status: Acute Assessment and Plan: a 69 years old lady with PMH of hypertension, morbid obesity, HTN among others who presented to the hospital complaining of cough, difficulty breathing For the last 3 days. Acute hypoxic respiratory failure Secondary to COVID-19 pneumonia CXR as above O2 level dropped below 90s requiring high-flow Received ceftriaxone and azithromycin emergency, discontinue Keep on doxycycline IV for now Dexamethasone 6 mg DD Inhalers ATC and p.r.n. Started on remdesivir Pulmonology input appreciated, to start plasma Infectious Disease input appreciated Positive blood culture Two bottles growing Gram-positive cocci Covered with doxycycline for now, not septic To discuss with infectious disease, could be contaminant To repeat blood cultures Hypertension continue atenolol and lisinopril Hypothyroidism Continue levothyroxine Mood Disorder Continue Effexor and Remeron DVT PPX Lovenox
[2020-02-03] MEDS: Remdesivir 100 MG in 0.9 % Sodium Chloride 230 ML 125 MG IV (17:21)
[2020-02-03] MEDS: clonazePAM 1 MG TABLET 1.5 MG PO (21:43)
[2020-02-03] MEDS: Dicyclomine HCl 10 MG CAPSULE PO (21:43)
[2020-02-03] MEDS: atenoloL 25 MG TABLET PO (21:44)
[2020-02-03] MEDS: Mirtazapine 30 MG TABLET PO (21:44)
[2020-02-03] MEDS: Pravastatin Sodium 40 MG TABLET PO (21:44)
[2020-02-03] MEDS: Acetaminophen 325 MG TABLET 650 MG PO (21:45)
[2020-02-04] VITALS (14 sets, daily range): BP systolic 88–132; BP diastolic 49–70; PULSE 48–110; RESP 18–24; TEMP 36.1–37.1; O2SAT 85–96
[2020-02-04] MEDS: Doxycycline Hyclate 100 MG in 0.9 % Sodium Chloride 250 ML 166.67 MG IV ×2 (03:12→14:26)
--- NOTE | 2020-02-04 03:25 | PC.NURSE ---
Pt's HR dipped to low 50's and as low as 47-48 multiple times tonite while pt sleeping. Pt able to be very easily aroused and HR would increased to mid 50s to high of 64. Pt denies any CP, palpitations, or any other stated complaints. I'm just sleeping, I'm fine per pt. Will continue to monitor. Safety measures in place and call peters within reach.
--- NOTE | 2020-02-04 06:26 | PM.EVENT ---
Event Note Date of Service: Today Event Note: Pt atenolol has been reduced from 25 to 12.5 due to bradycardia at bedtime. HR between 40-50s.
[2020-02-04 07:25] LABS: MANUAL DIFF FLAG SCAN; Mean Corpuscular Hemoglobin 29.2 pg (27.0-33.0); Mean Platelet Volume 13.1 fL (9.4-12.3); SCAN SMEAR FLAG 1
[2020-02-04 07:27] LABS: Hematocrit 39.7 % (37-47); Hemoglobin 12.4 g/dl (12.0-16.0); Imm Gran Abs Auto 0.03 X10*3/uL (0.00-0.03); Imm Gran Pct Auto 0.4 % (0.0-0.4); Lymphocytes Absolute Auto 1.1 X10*3/uL (1.2-4.9); Lymphocytes Percent Auto 14.1 % (20-40); Mean Corpuscular HGB Conc 31.2 g/dl (31.0-35.0); Mean Corpuscular Volume 93.4 fL (80-98); Monocytes Absolute Auto 0.7 X10*3/uL (0.1-1.2); Monocytes Percent Auto 9.5 % (2-11); Neutrophils Absolute Auto 5.9 X10*3/uL (2.0-8.3); Platelet Count 166 X10*3/uL (160-400); Red Blood Count 4.25 X10*6/uL (4.20-5.50); Red Cell Distribution Width 14.9 % (11.0-16.0); White Blood Count 7.8 X10*3/uL (4.8-10.8)
[2020-02-04] MEDS: Albuterol Sulfate 90 MCG 8 GM INHALER 4 PUFF INHALE ×4 (07:39→19:41)
[2020-02-04 07:49] LABS: Anion Gap 15 (12-20); Blood Urea Nitrogen 27 mg/dL (9-16); Calcium 7.8 mg/dL (8.4-10.2); Carbon Dioxide 25 mmol/L (22-29); Chloride 104 mmol/L (96-108); Creatinine Clr Calc Pharmacy 74.8; Estimated Glomerular Filt Rate > 60; Glucose Random 120 mg/dL (60-115); Potassium 4.8 mmol/l (3.3-5.1); Sodium 139 mmol/L (135-145)
[2020-02-04 07:56] LABS: PLT ABN DIST 1
[2020-02-04] MEDS: dexAMETHasone sod phosphate 4 MG/ML VIAL 6 MG IVPUSH (08:19)
[2020-02-04] MEDS: 0.9 % Sodium Chloride Flush 3 ML SYRINGE IVFLUSH ×3 (08:19→20:38)
[2020-02-04] MEDS: Furosemide 20 MG TABLET 10 MG PO (08:20)
[2020-02-04] MEDS: lisinopriL 20 MG TABLET PO (08:21)
[2020-02-04] MEDS: Venlafaxine HCl ER 150 MG CAP.ER.24H PO (08:21)
[2020-02-04] MEDS: Levothyroxine Sodium 75 MCG TABLET PO (08:21)
[2020-02-04] MEDS: Loratadine 10 MG TABLET PO (08:21)
[2020-02-04] MEDS: Thiamine HCL 100 MG TABLET 200 MG PO ×2 (08:21→20:37)
[2020-02-04] MEDS: Omeprazole 20 MG CAPSULE.DR PO ×2 (08:21→20:37)
[2020-02-04 08:48] LABS: SLIDE REVIEW VERIFIED
--- NOTE | 2020-02-04 13:44 | P.PNIM_ITS ---
Subjective Subjective Date of Service: 02/04/20 Interval History: Seen and evaluated this morning Feels comfortable, denies any fever or chills O2 sat continue to drop with minimal movement Denies any chest pain, palpitation or cough Blood cultures growing coagulase-negative Staph Hypoxic events overnight which while on oxygen, requiring increased oxygen supplement Constitutional No fever, chills or weakness No chest pain, palpitation Reporting shortness of breath with activity but overall feels fine, mild coughing No abdominal pain, nausea or vomiting No urinary symptoms No any rash or wounds Physical Exam Vital Signs: Vital Signs: Last Vital Signs Temp 97.9 F 02/04/20 11:33 Pulse 61 02/04/20 11:33 Resp 22 H 02/04/20 11:33 BP 108/68 02/04/20 11:33 Pulse Ox 96 02/04/20 11:33 Body Mass Index 52.4 Constitutional : Alert, oriented, hypoxic Neck : Normal inspection, Supple Cardiovascular : RRR, S1 S2, no lower extremity edema Respiratory : decrease bilateral air entry, no crackles, wheezes or rhonchi Gastrointestinal: soft, lax, Normal bowel sounds, Non tender Skin : Warm/Dry, No rash Neurological : Alert & oriented x3, No focal deficit Objective Data Current Medications Generic Name Dose Route Start Last Admin Trade Name Freq PRN Reason Stop Dose Admin Acetaminophen 650 mg 02/02/20 13:45 02/03/20 21:45 Acetaminophen 325 Mg Tablet PO 650 mg Q6H PRN Administration Pain, Mild (Pain Scale 1-3) Al Hydroxide/Mg Hydroxide 30 ml 02/02/20 13:45 Magnesium Hydrox/Alum Hydrox 30 Ml Oral.Susp PO Q4H PRN Heartburn/Nausea Albuterol Sulfate 4 puff 02/03/20 12:00 02/04/20 11:25 Albuterol Sulfate 90 Mcg 8 Gm Inhaler INHALE 4 puff RQ4H WHILE AWAKE KENZIE Administration Atenolol 12.5 mg 02/04/20 21:00 Atenolol 25 Mg Tablet PO BEDTIME KENZIE Protocol Clonazepam 1.5 mg 02/02/20 13:45 02/03/20 21:43 Clonazepam 1 Mg Tablet PO 1.5 mg BEDTIME PRN Administration anxiety Dexamethasone Sodium Phosphate 6 mg 02/02/20 13:45 02/04/20 08:19 Dexamethasone Sod Phosphate 4 Mg/Ml Vial IVPUSH 6 mg DAILY KENZIE Administration Dicyclomine HCl 10 mg 02/02/20 13:45 02/03/20 21:43 Dicyclomine Hcl 10 Mg Capsule PO 10 mg TID PRN Administration Diarrhea Enoxaparin Sodium 40 mg 02/02/20 16:00 02/03/20 15:24 Enoxaparin Sodium 40 Mg/0.4 Ml Syringe SUBCUT 40 mg Q24H KENZIE Administration Furosemide 10 mg 02/03/20 09:00 02/04/20 08:20 Furosemide 20 Mg Tablet PO 10 mg DAILY KENZIE Administration Protocol Doxycycline Hyclate 100 mg/ 250 mls @ 166.67 mls/hr 02/02/20 15:00 02/04/20 04:52 Sodium Chloride IV Infused Q12H KENZIE Infusion Remdesivir 100 mg/ Sodium 250 mls @ 125 mls/hr 02/03/20 17:00 02/03/20 19:29 Chloride IV 02/06/20 18:59 Infused Q24H KENZIE Infusion Levothyroxine Sodium 75 mcg 02/03/20 09:00 02/04/20 08:21 Levothyroxine Sodium 75 Mcg Tablet PO 75 mcg DAILY KENZIE Administration Lisinopril 20 mg 02/03/20 09:00 02/04/20 08:21 Lisinopril 20 Mg Tablet PO 20 mg DAILY KENZIE Administration Protocol Loratadine 10 mg 02/03/20 09:00 02/04/20 08:21 Loratadine 10 Mg Tablet PO 10 mg DAILY KENZIE Administration Melatonin 6 mg 02/04/20 21:00 Melatonin 3 Mg Tablet PO BEDTIME KENZIE Mirtazapine 30 mg 02/02/20 21:00 02/03/20 21:44 Mirtazapine 30 Mg Tablet PO 30 mg BEDTIME KENZIE Administration Omeprazole 20 mg 02/02/20 21:00 02/04/20 08:21 Omeprazole 20 Mg Capsule.Dr PO 20 mg BID KENZIE Administration Ondansetron HCl 4 mg 02/02/20 13:45 Ondansetron Hcl 4 Mg/2 Ml Vial IVPUSH Q8H PRN Nausea and Vomiting Pharmacy Consult 1 each 02/02/20 10:22 Consult Rx Perform Med Rec MISCELLANE ONCE PRN Consult order Pravastatin Sodium 40 mg 02/02/20 21:00 02/03/20 21:44 Pravastatin Sodium 40 Mg Tablet PO 40 mg BEDTIME KENZIE Administration Sodium Chloride 3 ml 02/02/20 16:00 02/04/20 08:19 0.9 % Sodium Chloride Flush 3 Ml Syringe IVFLUSH 3 ml QSHIFT KENZIE Administration Thiamine HCl 200 mg 02/04/20 09:00 02/04/20 08:21 Thiamine Hcl 100 Mg Tablet PO 200 mg BID KENZIE Administration Venlafaxine HCl 150 mg 02/03/20 09:00 02/04/20 08:21 Venlafaxine Hcl Er 150 Mg Cap.Er.24h PO 150 mg DAILY KENZIE Administration Labs CBC & Chem 7: 02/04/20 06:26 02/04/20 06:26 Microbiology Microbiology Results: Microbiology 02/02/20 10:47 Blood - Venous Blood Culture - Preliminary Coagulase-neg Staphyloccocus 02/02/20 10:44 Blood - Venous Blood Culture - Preliminary Coagulase-neg Staphyloccocus Assessment and Plan (1) Pneumonia due to 2019-nCoV: Status: Acute (2) Acute respiratory failure with hypoxia: Status: Acute (3) Essential hypertension: Status: Acute (4) Morbid obesity due to excess calories: Problem details: Status: Acute (5) Dyslipidemia: Status: Acute (6) Hypertension: Status: Acute Assessment and Plan: a 69 years old lady with PMH of hypertension, morbid obesity, HTN among others who presented to the hospital complaining of cough, difficulty breathing For th e last 3 days. Acute hypoxic respiratory failure Secondary to COVID-19 pneumonia CXR as above O2 level dropped below 90s requiring high-flow Keep on doxycycline IV for now Dexamethasone 6 mg DD Inhalers ATC and p.r.n. Started on remdesivir Pulmonology input appreciated, to start plasma Infectious Disease input appreciated Positive blood culture Seems to be contaminant of coagulase-negative Staph On doxycycline Id to follow Pending repeat blood cultures Hypertension continue atenolol and lisinopril Hypothyroidism Continue levothyroxine Mood Disorder Continue Effexor and Remeron DVT PPX Lovenox
[2020-02-04] MEDS: Enoxaparin Sodium 40 MG/0.4 ML SYRINGE SUBCUT (14:25)
--- NOTE | 2020-02-04 15:58 | PM.EVENT ---
Event Note Date of Service: 02/04/2020 Event Note: 69 yo woman with bilat COVID-19 pneumonia. Lying almost flat in bed, legs crossed, smiling and waving to me. Looks thoroughly comfortable and nontoxic, breathing easy. On HFNC 60L/100% with NRBFM on 15L. RR is about 20, with Sat 94%. No access musc use, no incr in WOB whatsoever. Safe to stay on IMC. Recommend the following: - Increase Lovenox to at least 80 mg bid - Change steroids to Solumedrol 80 mg bid - Add Pepcid 40 mg bid (oral or IV) - Add Vit D 50,000 units po, one dose, if she hasn't had it already - Add Vit C 1000 mg po qid - Add atorvastatin 80 mg daily (if no contraindication) - Check magnesium level daily, keep above 2.0. Time: 60388
[2020-02-04] MEDS: Remdesivir 100 MG in 0.9 % Sodium Chloride 230 ML 125 MG IV (16:47)
[2020-02-04] MEDS: atenoloL 25 MG TABLET 12.5 MG PO (20:37)
[2020-02-04] MEDS: clonazePAM 1 MG TABLET 1.5 MG PO (20:37)
[2020-02-04] MEDS: Melatonin 3 MG TABLET 6 MG PO (20:37)
[2020-02-04] MEDS: Pravastatin Sodium 40 MG TABLET PO (20:37)
[2020-02-04] MEDS: Mirtazapine 30 MG TABLET PO (20:37)
[2020-02-05] VITALS (12 sets, daily range): BP systolic 111–142; BP diastolic 57–79; PULSE 59–76; RESP 16–22; TEMP 36.1–36.9; O2SAT 86–91; BMI 52.4
[2020-02-05] MEDS: Doxycycline Hyclate 100 MG in 0.9 % Sodium Chloride 250 ML 166.67 MG IV (02:51)
[2020-02-05] MEDS: Albuterol Sulfate 90 MCG 8 GM INHALER 4 PUFF INHALE ×4 (07:13→19:07)
[2020-02-05] MEDS: Cholecalciferol (Vitamin D3) 25 MCG TABLET 50 MCG PO (08:58)
[2020-02-05] MEDS: Furosemide 20 MG TABLET 10 MG PO (08:58)
[2020-02-05] MEDS: Enoxaparin Sodium 80 MG/0.8 ML SYRINGE SUBCUT ×2 (08:58→20:47)
[2020-02-05] MEDS: lisinopriL 20 MG TABLET PO (08:59)
[2020-02-05] MEDS: 0.9 % Sodium Chloride Flush 3 ML SYRINGE IVFLUSH ×3 (08:59→20:47)
[2020-02-05] MEDS: Loratadine 10 MG TABLET PO (08:59)
[2020-02-05] MEDS: Levothyroxine Sodium 75 MCG TABLET PO (08:59)
[2020-02-05] MEDS: Omeprazole 20 MG CAPSULE.DR PO ×2 (08:59→20:45)
[2020-02-05] MEDS: Venlafaxine HCl ER 150 MG CAP.ER.24H PO (08:59)
[2020-02-05] MEDS: Thiamine HCL 100 MG TABLET 200 MG PO ×2 (08:59→20:45)
[2020-02-05 11:04] LABS: Hematocrit 42.3 % (37-47); Hemoglobin 13.4 g/dl (12.0-16.0); Mean Corpuscular HGB Conc 31.7 g/dl (31.0-35.0); Mean Corpuscular Hemoglobin 29.2 pg (27.0-33.0); Mean Corpuscular Volume 92.2 fL (80-98); Mean Platelet Volume 12.5 fL (9.4-12.3); Platelet Count 222 X10*3/uL (160-400); Red Blood Count 4.59 X10*6/uL (4.20-5.50); Red Cell Distribution Width 14.9 % (11.0-16.0); White Blood Count 8.8 X10*3/uL (4.8-10.8)
[2020-02-05 11:15] LABS: D Dimer 400 NG/ML
--- NOTE | 2020-02-05 11:26 | MHC.CM.PN ---
Patient continues on high flow oxygen. No DC today. DP home [employer]. Family will transport.
[2020-02-05 11:29] LABS: C Reactive Protein 5.26 mg/dL (< or = 0.50); Lactate Dehydrogenase 600 U/L (122-220)
[2020-02-05 11:30] LABS: Anion Gap 13 (12-20); Blood Urea Nitrogen 29 mg/dL (9-16); Carbon Dioxide 27 mmol/L (22-29); Chloride 110 mmol/L (96-108); Creatinine Clr Calc Pharmacy 74.8; Estimated Glomerular Filt Rate > 60; Glucose Random 85 mg/dL (60-115); Potassium 4.4 mmol/l (3.3-5.1); Sodium 146 mmol/L (135-145)
[2020-02-05 11:32] LABS: Magnesium 2.1 mg/dL (1.6-2.6)
[2020-02-05 11:41] LABS: Calcium 8.7 mg/dL (8.4-10.2)
--- NOTE | 2020-02-05 11:41 | HO.PM.IMPN ---
Subjective Subjective Interval History: Seen and evaluated this morning Feels comfortable, denies any fever or chills O2 sat continue to drop mid to low 80s with minimal movement while on high-flow and non-rebreather mask Denies any chest pain, palpitation Feels show mild shortness of breath but no pain Hypoxic events overnight which while on oxygen, requiring increased oxygen supplement Constitutional No fever, chills or weakness No chest pain, palpitation mild shortness of breath and coughing No abdominal pain, nausea or vomiting No urinary symptoms No any rash or wounds Physical Exam Vital Signs: Vital Signs: Last Vital Signs Temp 97.9 F 02/05/20 11:15 Pulse 69 02/05/20 11:15 Resp 22 H 02/05/20 11:25 BP 111/57 L 02/05/20 11:15 Pulse Ox 90 L 02/05/20 11:15 Body Mass Index 52.4 Constitutional : Alert, oriented, hypoxic Neck : Normal inspection, Supple Cardiovascular : RRR, S1 S2, no lower extremity edema Respiratory : decrease bilateral air entry, no crackles, wheezes but scattered rhonchi Gastrointestinal: soft, lax, Normal bowel sounds, Non tender Skin : Warm/Dry, No rash Neurological : Alert & oriented x3, No focal deficit Objective Data Current Medications Generic Name Dose Route Start Last Admin Trade Name Freq PRN Reason Stop Dose Admin Acetaminophen 650 mg 02/02/20 13:45 02/03/20 21:45 Acetaminophen 325 Mg Tablet PO 650 mg Q6H PRN Administration Pain, Mild (Pain Scale 1-3) Al Hydroxide/Mg Hydroxide 30 ml 02/02/20 13:45 Magnesium Hydrox/Alum Hydrox 30 Ml Oral.Susp PO Q4H PRN Heartburn/Nausea Albuterol Sulfate 4 puff 02/03/20 12:00 02/05/20 11:22 Albuterol Sulfate 90 Mcg 8 Gm Inhaler INHALE 4 puff RQ4H WHILE AWAKE KENZIE Administration Atenolol 12.5 mg 02/04/20 21:00 02/04/20 20:37 Atenolol 25 Mg Tablet PO 12.5 mg BEDTIME KENZIE Administration Protocol Clonazepam 1.5 mg 02/02/20 13:45 02/04/20 20:37 Clonazepam 1 Mg Tablet PO 1.5 mg BEDTIME PRN Administration anxiety Dicyclomine HCl 10 mg 02/02/20 13:45 02/03/20 21:43 Dicyclomine Hcl 10 Mg Capsule PO 10 mg TID PRN Administration Diarrhea Enoxaparin Sodium 80 mg 02/05/20 09:00 02/05/20 08:58 Enoxaparin Sodium 80 Mg/0.8 Ml Syringe SUBCUT 80 mg Q12H KENZIE Administration Furosemide 10 mg 02/03/20 09:00 02/05/20 08:58 Furosemide 20 Mg Tablet PO 10 mg DAILY KENZIE Administration Protocol Remdesivir 100 mg/ Sodium 250 mls @ 125 mls/hr 02/03/20 17:00 02/04/20 18:55 Chloride IV 02/06/20 18:59 Infused Q24H KENZIE Infusion Levothyroxine Sodium 75 mcg 02/03/20 09:00 02/05/20 08:59 Levothyroxine Sodium 75 Mcg Tablet PO 75 mcg DAILY KENZIE Administration Lisinopril 20 mg 02/03/20 09:00 02/05/20 08:59 Lisinopril 20 Mg Tablet PO 20 mg DAILY KENZIE Administration Protocol Loratadine 10 mg 02/03/20 09:00 02/05/20 08:59 Loratadine 10 Mg Tablet PO 10 mg DAILY KENZIE Administration Melatonin 6 mg 02/04/20 21:00 02/04/20 20:37 Melatonin 3 Mg Tablet PO 6 mg BEDTIME KENZIE Administration Methylprednisolone Sodium Succinate 40 mg 02/05/20 09:00 02/05/20 08:58 Methylprednisolone Sod Succ/Pf 40 Mg/Ml Vial IVPUSH 40 mg DAILY KENZIE Administration Mirtazapine 30 mg 02/02/20 21:00 02/04/20 20:37 Mirtazapine 30 Mg Tablet PO 30 mg BEDTIME KENZIE Administration Omeprazole 20 mg 02/02/20 21:00 02/05/20 08:59 Omeprazole 20 Mg Capsule.Dr PO 20 mg BID KENZIE Administration Ondansetron HCl 4 mg 02/02/20 13:45 Ondansetron Hcl 4 Mg/2 Ml Vial IVPUSH Q8H PRN Nausea and Vomiting Pharmacy Consult 1 each 02/02/20 10:22 Consult Rx Perform Med Rec MISCELLANE ONCE PRN Consult order Pravastatin Sodium 80 mg 02/05/20 21:00 Pravastatin Sodium 80 Mg Tablet PO BEDTIME KENZIE Sodium Chloride 3 ml 02/02/20 16:00 02/05/20 08:59 0.9 % Sodium Chloride Flush 3 Ml Syringe IVFLUSH 3 ml QSHIFT KENZIE Administration Thiamine HCl 200 mg 02/04/20 09:00 02/05/20 08:59 Thiamine Hcl 100 Mg Tablet PO 200 mg BID KENZIE Administration Venlafaxine HCl 150 mg 02/03/20 09:00 02/05/20 08:59 Venlafaxine Hcl Er 150 Mg Cap.Er.24h PO 150 mg DAILY KENZIE Administration Labs CBC & Chem 7: 02/05/20 10:47 02/05/20 10:47 Microbiology Microbiology Results: Microbiology 02/02/20 10:47 Blood - Venous Blood Culture - Preliminary Coagulase-neg Staphyloccocus 02/02/20 10:44 Blood - Venous Blood Culture - Preliminary Coagulase-neg Staphyloccocus 02/03/20 11:41 Blood - Venous Blood Culture - Preliminary No growth after 24 hours. 02/03/20 11:41 Blood - Venous Blood Culture - Preliminary No growth after 24 hours. Assessment and Plan (1) Pneumonia due to 2019-nCoV: Status: Acute (2) Acute respiratory failure with hypoxia: Status: Acute (3) Essential hypertension: Status: Acute (4) Morbid obesity due to excess calories: Problem details: Status: Acute (5) Dyslipidemia: Status: Acute (6) Hypertension: Status: Acute Assessment and Plan: a 69 years old lady with PMH of hypertension, morbid obesity, HTN among others who presented to the hospital complaining of cough, difficulty breathing For the last 3 days. Acute hypoxic respiratory failure Secondary to COVID-19 pneumonia CXR as above O2 level droppeing to 80s requiring high-flow and non-rebreather mask Keep on doxycycline IV for now Change Dexamethasone to Solumedrol Start full-dose Lovenox To give vitamin-C and vitamin-D Inhalers ATC and p.r.n. Continue on remdesivir Received treatment with plasma Pulmonology and Infectious Disease input appreciated Evaluated by microstrategy architect developer, collin butcher appreciated, will continue to monitor the need to go for the unit Positive blood culture Seems to be contaminant of coagulase-negative Staph On doxycycline Id to follow negative repeat blood cultures Hypertension continue atenolol and lisinopril Hypothyroidism Continue levothyroxine Mood Disorder Continue Effexor and Remeron DVT PPX Lovenox
[2020-02-05] MEDS: ondansetron HCL 4 MG/2 ML VIAL IVPUSH (12:33)
[2020-02-05] MEDS: Remdesivir 100 MG in 0.9 % Sodium Chloride 230 ML 125 MG IV (16:05)
[2020-02-05] MEDS: Pravastatin Sodium 80 MG TABLET PO (20:45)
[2020-02-05] MEDS: Melatonin 3 MG TABLET 6 MG PO (20:45)
[2020-02-05] MEDS: Mirtazapine 30 MG TABLET PO (20:45)
[2020-02-05] MEDS: atenoloL 25 MG TABLET 12.5 MG PO (20:46)
[2020-02-05] MEDS: clonazePAM 1 MG TABLET 1.5 MG PO (20:46)
[2020-02-06] VITALS (17 sets, daily range): BP systolic 96–129; BP diastolic 50–64; PULSE 52–92; RESP 18–57; TEMP 36.1–37.1; O2SAT 78–93
--- NOTE | 2020-02-06 | XR_ITS ---
EXAMINATION: XR CHEST CLINICAL INFORMATION: Hypoxic respiratory failure, Covid 19 infection. COMPARISON: None TECHNIQUE: Frontal view of the chest was obtained. FINDINGS: Again seen is bilateral diffuse airspace disease which appears worse when compared to the prior study. It is difficult to exclude pleural effusions. Heart size upper limits of normal. XR/XR chest 1V IMPRESSION: Worsening bilateral pulmonary infiltrates with diffuse airspace disease.
[2020-02-06] MEDS: Morphine Sulfate 4 MG/ML CARTRIDGE IVPUSH (01:59)
--- NOTE | 2020-02-06 02:08 | PC.NURSE ---
PT BECAME INCREASINGLY CONFUSED TONIGHT AND WAS CONSTANTLY PULLING OFF HER O2 AND SATS DROPPING TO 70S. PT HAS BEEN CONSISTENTLY HYPOXIC EVEN WITH O2 ON WITH SATS 82-86%. SHE REMAINS ON HIGH FLOW 60L 100% AND NRB 15L. LUNGS ARE DIMINISHED THROUGHOUT. MD NOTIFIED. PT GIVEN 4MG IV MORPHINE WITH NO EFFECT ON RESPIRATORY STATUS. O2 SATS STAYING 82-84%. RR 38. MD AWARE AND IS CURRENTLY CALLING FOR CRITICAL CARE CONSULT.
--- NOTE | 2020-02-06 03:45 | PC.NURSE ---
PA FROM ICU UP TO SEE PT. PT IS NOT IN ACUTE RESPIRATORY DISTRESS AND HE FEELS SHE IS NOT IN NEED OF ICU CARE AT THIS TIME. O2 STS REMAIN LOW 80S. PT CONTINUES TO PULL OFF O2. WILL CONTINUE TO MONITOR.
[2020-02-06] MEDS: Haloperidol Lactate 5 MG/ML VIAL 2.5 MG IVPUSH (03:59)
[2020-02-06 07:07] LABS: Hemoglobin 12.8 g/dl (12.0-16.0); Mean Corpuscular Hemoglobin 29.4 pg (27.0-33.0); Mean Platelet Volume 12.5 fL (9.4-12.3); Platelet Count 232 X10*3/uL (160-400); Red Blood Count 4.35 X10*6/uL (4.20-5.50); Red Cell Distribution Width 14.7 % (11.0-16.0); White Blood Count 10.7 X10*3/uL (4.8-10.8)
[2020-02-06] MEDS: Albuterol Sulfate 90 MCG 8 GM INHALER 4 PUFF INHALE ×3 (07:34→15:47)
[2020-02-06 07:38] LABS: Anion Gap 13 (12-20); Blood Urea Nitrogen 28 mg/dL (9-16); Calcium 8.3 mg/dL (8.4-10.2); Carbon Dioxide 27 mmol/L (22-29); Chloride 107 mmol/L (96-108); Creatinine Clr Calc Pharmacy 79.1; Estimated Glomerular Filt Rate > 60; Glucose Random 105 mg/dL (60-115); Potassium 4.4 mmol/l (3.3-5.1); Sodium 143 mmol/L (135-145)
[2020-02-06] MEDS: 0.9 % Sodium Chloride Flush 3 ML SYRINGE IVFLUSH ×2 (10:07→17:47)
[2020-02-06] MEDS: Enoxaparin Sodium 80 MG/0.8 ML SYRINGE SUBCUT (10:07)
[2020-02-06 10:20] LABS: Pt Ventilation O2% 100%
[2020-02-06 10:22] LABS: ABG PCO2 43 mmhg (32-45); Base Excess ABG 1.3; HCO3 ABG 27 mmol/l (22-26); PO2 ABG 51 mmhg (83-108); pH ABG 7.41 (7.35-7.45)
[2020-02-06 10:23] LABS: Oxygen Saturation ABG 87.4 %
[2020-02-06] MEDS: Furosemide 40 MG/4 ML VIAL IVPUSH (13:09)
--- NOTE | 2020-02-06 13:23 | PC.NURSE ---
Addendum entered by Samantha Spaulding RN 02/06/20 18:01: New order to TXR to ICU at this time Addendum entered by Samantha Spaulding RN 02/06/20 17:30: Pt didnt eat any meals today, too sleepy. Flynn put out ~1100ml thus far. In evening ~1700 pt began to desat 81-84% MD and resp notified- resp to room but pt is already at maxed out at 100% 60L hi lo and nonrebreather. MD and ICU MD to room as well to assess pt as well. Pt VS HR 60s BP 98/50 RR 22 sat now 89%. Pt seems to have her sat comes up once moved around in the bed. Will wake up with some shaking but falls back asleep quickly. STAT CXR and ABGs ordered. ICU MD not taking pt at this time as is not in distress and will wake up; is ok with sat 85 and above. CXR pending at this time. po2 is 47. PT currently sat 85-89% at this time. Pt has woken up a few times and pulls off both masks and desats to ~70s- continuously going in immediately to place masks back on patient. Will report situation to oncoming RN Original Note: Pt sat 85-88% on 100% 60L hiflo and 15L nonrebreather. Pt seemed to be a bit more drowsy this morning vs yesterday. Refused food even when aide offeed help. Pt rolls over and goes back to bed quickly. Will open eyes to shaking or pain- not just to speaking to her. discussed with MD - New set of ABGs ordered this am - see labs for #s, none critical at this time ICU MD took look at pt to assess need for ICU transfer or not - reccomended IV lasix and flynn cath at this time and to stay on IMC Two RNs to room to put in Flynn - pt getting very agitated - pulling off both masks, swinging at this RNs. yelling. Pt face turning blue, sat 70% - RNs trying to get pt to put masks back on but fighting. Two Irish speaking aides and two RNs eventually able to calm the patient down and able to put her masks back on. Explained to pt need for Flynn cath at this time- pt agreeable but then combative when insertion occurred- catheter was successfully placed and is draining clear yellow urine at this time. one time dose of IV lasix given. Pt now back to being sleepy, resting in bed with bursts of waking up and pulling mask off- telesitter in place and calling staff when pt does so, in order to get in there soon as possible to keep sats up. other high fall risk measures remain in place. sat 91% at this time on nonrebreather and hiflo
--- NOTE | 2020-02-06 15:36 | HO.PM.IMPN ---
Subjective Subjective Date of Service: 02/06/20 Interval History: the patient was seen and evaluated this morning Laying in bed, a sleepy, looks lethargic, wakes up upon stimulation but not as alert as the day before reported episodes of anxiety and restlessness overnight requiring IV Haldol doses Evaluated by ICU team who recommended no need to transfer her to to the unit Review of Systems Patient encephalopathic Physical Exam Vital Signs: Vital Signs: Last Vital Signs Temp 97.6 F 02/06/20 12:00 Pulse 62 02/06/20 12:00 Resp 22 H 02/06/20 12:00 BP 119/64 02/06/20 12:00 Pulse Ox 90 L 02/06/20 12:00 Body Mass Index 52.4 Constitutional : lethargic, hypoxic, on high-flow and non-rebreather oxygen Neck : Normal inspection, Supple Cardiovascular : RRR, S1 S2, trace lower extremity edema Respiratory : decrease bilateral air entry, no crackles, wheezes but scattered rhonchi Gastrointestinal: soft, lax, Normal bowel sounds, Non tender Skin : Warm/Dry, No rash Neurological : lethargic and sleepy, encephalopathic, No focal deficit Objective Data Current Medications Generic Name Dose Route Start Last Admin Trade Name Freq PRN Reason Stop Dose Admin Acetaminophen 650 mg 02/02/20 13:45 02/03/20 21:45 Acetaminophen 325 Mg Tablet PO 650 mg Q6H PRN Administration Pain, Mild (Pain Scale 1-3) Al Hydroxide/Mg Hydroxide 30 ml 02/02/20 13:45 Magnesium Hydrox/Alum Hydrox 30 Ml Oral.Susp PO Q4H PRN Heartburn/Nausea Albuterol Sulfate 4 puff 02/03/20 12:00 02/06/20 11:42 Albuterol Sulfate 90 Mcg 8 Gm Inhaler INHALE 4 puff RQ4H WHILE AWAKE KENZIE Administration Atenolol 12.5 mg 02/04/20 21:00 02/05/20 20:46 Atenolol 25 Mg Tablet PO 12.5 mg BEDTIME KENZIE Administration Protocol Dicyclomine HCl 10 mg 02/02/20 13:45 02/03/20 21:43 Dicyclomine Hcl 10 Mg Capsule PO 10 mg TID PRN Administration Diarrhea Enoxaparin Sodium 40 mg 02/07/20 10:00 Enoxaparin Sodium 40 Mg/0.4 Ml Syringe SUBCUT Q24H KENZIE Furosemide 10 mg 02/03/20 09:00 02/06/20 10:11 Furosemide 20 Mg Tablet PO Not Given DAILY KENZIE Protocol Remdesivir 100 mg/ Sodium 250 mls @ 125 mls/hr 02/03/20 17:00 02/05/20 18:26 Chloride IV 02/06/20 18:59 Infused Q24H KENZIE Infusion Levothyroxine Sodium 75 mcg 02/03/20 09:00 02/06/20 10:11 Levothyroxine Sodium 75 Mcg Tablet PO Not Given DAILY KENZIE Lisinopril 20 mg 02/03/20 09:00 02/06/20 10:11 Lisinopril 20 Mg Tablet PO Not Given DAILY KENZIE Protocol Loratadine 10 mg 02/03/20 09:00 02/06/20 10:11 Loratadine 10 Mg Tablet PO Not Given DAILY KENZIE Melatonin 6 mg 02/04/20 21:00 02/05/20 20:45 Melatonin 3 Mg Tablet PO 6 mg BEDTIME KENZIE Administration Methylprednisolone Sodium Succinate 40 mg 02/05/20 09:00 02/06/20 10:07 Methylprednisolone Sod Succ/Pf 40 Mg/Ml Vial IVPUSH 40 mg DAILY KENZIE Administration Mirtazapine 30 mg 02/02/20 21:00 02/05/20 20:45 Mirtazapine 30 Mg Tablet PO 30 mg BEDTIME KENZIE Administration Omeprazole 20 mg 02/02/20 21:00 02/06/20 10:11 Omeprazole 20 Mg Capsule.Dr PO Not Given BID KENZIE Ondansetron HCl 4 mg 02/02/20 13:45 02/05/20 12:33 Ondansetron Hcl 4 Mg/2 Ml Vial IVPUSH 4 mg Q8H PRN Administration Nausea and Vomiting Pharmacy Consult 1 each 02/02/20 10:22 Consult Rx Perform Med Rec MISCELLANE ONCE PRN Consult order Pravastatin Sodium 80 mg 02/05/20 21:00 02/05/20 20:45 Pravastatin Sodium 80 Mg Tablet PO 80 mg BEDTIME KENZIE Administration Quetiapine Fumarate 50 mg 02/06/20 21:00 Quetiapine Fumarate 50 Mg Tablet PO BEDTIME KENZIE Sodium Chloride 3 ml 02/02/20 16:00 02/06/20 10:07 0.9 % Sodium Chloride Flush 3 Ml Syringe IVFLUSH 3 ml QSHIFT KENZIE Administration Thiamine HCl 200 mg 02/04/20 09:00 02/06/20 10:11 Thiamine Hcl 100 Mg Tablet PO Not Given BID KENZIE Venlafaxine HCl 150 mg 02/03/20 09:00 02/06/20 10:12 Venlafaxine Hcl Er 150 Mg Cap.Er.24h PO Not Given DAILY KENZIE Labs CBC & Chem 7: 02/06/20 06:08 02/06/20 06:08 Microbiology Microbiology Results: Microbiology 02/02/20 10:47 Blood - Venous Blood Culture - Preliminary Staphylococcus epidermidis 02/02/20 10:44 Blood - Venous Blood Culture - Preliminary Coagulase-neg Staphyloccocus Coagulase-neg Staphyloccocus#2 02/03/20 11:41 Blood - Venous Blood Culture - Preliminary No growth after 48 hours. 02/03/20 11:41 Blood - Venous Blood Culture - Preliminary No growth after 48 hours. Assessment and Plan (1) Pneumonia due to 2019-nCoV: Status: Acute (2) Acute respiratory failure with hypoxia: Status: Acute (3) Essential hypertension: Status: Acute (4) Morbid obesity due to excess calories: Problem details: Status: Acute (5) Dyslipidemia: Status: Acute (6) Hypertension: Status: Acute Assessment and Plan: a 69 years old lady with PMH of hypertension, morbid obesity, HTN among others who presented to the hospital complaining of cough, difficulty breathing For the last 3 days. Acute hypoxic respiratory failure Secondary to COVID-19 pneumonia O2 level droppeing to 80s requiring high-flow and non-rebreather mask Keep on doxycycline IV for now Change Dexamethasone to Solumedrol To give vitamin-C and vitamin-D Inhalers ATC and p.r.n. Continue on remdesivir Received treatment with plasma Pulmonology and Infectious Disease input appreciated Toxic encephalopathy Secondary to being medicated by Haldol overnight for anxiety Avoid using extra dose of Haldol Re orientation Acute hyperactive delirium secondary to illness, hospital stay, steroid usage keeps removing the oxygen and oxygen level drops to 70s Recurrent Re orientation Discontinue benzodiazepine To use Seroquel at bedtime Positive blood culture contaminant of coagulase-negative Staph On doxycycline Id to follow negative repeat blood cultures Hypertension continue atenolol and lisinopril Hypothyroidism Continue levothyroxine Mood Disorder Continue Effexor and Remeron DVT PPX Lovenox
--- NOTE | 2020-02-06 17:10 | P.EN_ITS ---
Event Note Date of Service: 02/06/20 Event Note: I was contacted by the nurse around for sort to evaluate the sandeep ent for worsening hypoxemia and altered mentation. I went to the bedside along with the respiratory therapist. Patient is maxed out on oxygen 100% high-flow and non-rebreather. She is mentally altered and barely waking up her eyes with stimulation. She is mildly tachypneic mid 20s. To check ABG and repeat chest x-ray Discussed with Dr. Feng from ICU as the patient might need to be intubated at this point Given the continuous deterioration over the last day. He will evaluate the patient and decide on the next step
[2020-02-06 17:32] LABS: Pt Ventilation O2% 100%
[2020-02-06 17:34] LABS: ABG PCO2 46 mmhg (32-45); Base Excess ABG 3.4; HCO3 ABG 29 mmol/l (22-26); pH ABG 7.41 (7.35-7.45)
[2020-02-06 17:35] LABS: Oxygen Saturation ABG 82.6 %
[2020-02-06 17:36] LABS: PO2 ABG 47 mmhg (83-108)
[2020-02-06] MEDS: Remdesivir 100 MG in 0.9 % Sodium Chloride 230 ML 125 MG IV (17:45)
--- NOTE | 2020-02-06 19:33 | PC.NURSE ---
PT ADMITT[place] [facility] [place] REBREATHER AND KEEPS PULLING MASK OFF /PLACED ON BIPAP 12 THEN INCREASED TO 14 WITH IMPROVEMENT IN 02 TO 90& TV 367 MV 11.3 PT SEEMED TO SETTLE DOWN
--- NOTE | 2020-02-06 20:50 | W.PM.CCCN ---
History of Present Illness Data of Consult Service Date: 02/06/20 Requesting physician: Connie Garcia Primary Care Provider: Unknown HPI Reason for consult: Acute respiratory failure with hypoxemia, transfer from the floor to ICU HPI: Patient who is a 69-year-old female and has an underlying history of asthma, Carlson's esophagus, benign neoplasm of the colon, cervicalgia, chronic headache, hypertension, hyperlipidemia, fecal incontinence, GERD, hiatal hernia, hypertension, morbid obesity, obstructive sleep apnea, right pulmonary nodule, thyroid nodule, urinary incontinence, she was initially seen in the emergency room on 02/02/2020 with complaints of shortness of breath, cough, chest pain and headache, she was given the result of a positive COVID test done on 01/26 and had been sick for the past few days prior to admission. The ER workup did not reveal any signs of sepsis, lab work was overall unremarkable and there was no electrolyte abnormalities. At the time, the patient was found to have an O2 sat of 85% on room air improved with nasal cannula at 4 L, she does not use oxygen at home. Patient has been on the floor and was being treated with steroids and remdesivir; patient did have p.r.n. inhalers but no nebulizations was given, she was treated with full-dose subcu heparin for a few days. Due to mental status changes and agitation, although had been given. I did see the patient last night per the hospitalist's request and at the time, the patient was not hypoxic, she had a few short-lived runs of oxygen levels in the high 80s but her mental status appeared well when I spoke to her in [place], her lungs were clear and she was tolerating the high-flow O2 and non-rebreather mask well without any accessory muscle usage or tachypnea. This evening however the patient had decompensated, her oxygen level had dropped to as low as 78% while on the non-rebreather mask as well as high-flow O2 and her blood gas revealed a slight increase in her CO2. Due to concerns of worsening hypoxic status and decompensation, patient was transferred to the ICU where she was immediately placed on CPAP. ROS: Denies headache, no visual changes, lightheadedness or dizziness, no history of seizures or strokes, no history of eye or ear problems, no sore throat, sputum production, denies chest pain, palpitations, no coronary disease, pulmonary disease, no hemoptysis, denies any melena, hematochezia, liver or kidney problems, no dysuria, hematuria, no leg swelling, no history of DVT or PE. All other review of systems negative. Past Medical History: As above Past Surgical History: bilateral knee replacement surgery, tubal ligation, carpal tunnel release, cholecystectomy, herniorrhaphy, appendectomy, gastric sleeve surgery, TAHSOO, bilateral blepharoplasty Family history: Noncontributory Social History: Lives at home there is no history of alcohol Tylenol or drug use. CODE STATUS: FULL CODE Baseline Functionality: Normally ambulates on her own without any assistive devices, lives at home. Does not use oxygen. Allergies: Lipitor (hives) Home Medications: Atenolol unknown does 1 tablet at bedtime Vitamin D3 1 tablet p.o. b.i.d. Clonazepam and unknown dose 1.5 tablets at bedtime Dicyclomine 1 cap p.o. t.i.d. p.r.n. Fluticasone 1 puff p.o. b.i.d. Lasix 10 mg p.o. daily Levothyroxine 75 mcg p.o. daily Lisinopril 20 mg p.o. daily Loperamide 2 mg p.o. q.6 hours p.r.n. Loratadine 10 mg daily mirtazapine 1 tablet at bedtime unknown dose Omeprazole 20 mg p.o. b.i.d. Ondansetron 4 mg p.o. q.8 hours p.r.n. Pravastatin 40 mg p.o. at bedtime Sucralfate 10 mL p.o. b.i.d. venlafaxine 150 mg p.o. daily PHYSICAL EXAM: VS: Blood pressure 1 nodule 56, heart rate 63, respirations 20, O2 sat 93% on CPAP of 14 with FiO2 of 75. General: Alert oriented x3 no acute distress. Speaking full sentences in [place]. Speech is well articulated, thought process is coherent. Following all commands. Skin: Intact, no lesions, edema, erythema, clubbing or cyanosis. No ulcers. HEENT: Head is normocephalic, atraumatic, pupils equal round reactive to light accommodation bilaterally. Extraocular movements appear intact. Buccal mucosa is moist, Neck is supple without lymphadenopathy. Cardiac: Clear S1-S2, no murmurs rubs or gallops. Pulmonary: Clear to auscultation, no wheezes, rales or rhonchi. Abdomen: Protuberant, positive bowel sounds in all 4 quadrants. Soft, nontender, no rebound or guarding. Musculoskeletal: Moving all 4 extremities upon request a major joints, there is no crepitus or tenderness. The strength is 5/5 bilaterally and throughout all 4 extremities. Gait not assessed at this point. Neurologic: As above, cranial nerves 2-12 are grossly intact. No focal deficits noted. Motor strength as above. Vascular: 2+ pulses upper and lower extremities distally. SIGNIFICANT LABORATORY DATA: Today's labs show white count 10.7, hemoglobin 12.8, hematocrit 40, platelet count 242, sodium 143, potassium 4.4, chloride 107, carbon dioxide 27, BUN 28, creatinine 0.69, calcium 8.3. Review of her previous labs do not show significant increase in her D-dimer. Blood gas from these even in shows pH of 7.41, pCO2 of 46, PO2 47, HC03 of 29 base excess 3.4. Initial microbiology results showed Staph epi and coagulase-negative staphylococci, BUT repeat blood cultures showed no growth after 48 hours. REVIEW OF IMAGES: Worsening bilateral pulmonary infiltrates with diffuse airspace disease. EKG REVIEW: EKG from 02/02/2020 shows normal sinus rhythm, left axis deviation, pulmonary disease pattern, no significant changes in comparison to prior EKG from 2019. ASSESSMENT AND PLAN: 1. Acute hypoxic respiratory failure 2. COVID-19 infection and viral Infiltrates 3. Acute kidney injury with BUN to creatinine ratio greater than 40 4. Clinical dehydration likely due to insensible losses 5. History of asthma which may be contributing to 1. 6. History of hypertension, stable 7. Obstructive sleep apnea Patient is transferred to ICU, was placed on CPAP of 12 which she did not tolerate, we had to increase this to 14 and with an FiO2 of 75, she has an O2 sat of 90-92%. It is unclear if the patient uses CPAP at home. I will start DuoNebs 4 times a day for wheezing and bronchoconstriction. Start her on gentle IV fluids as she is oliguric and her Bun/Cr ratio is > 40; repeat labs in the morning including a blood gas. Monitor I's and O's. Continue with other medications, including steroids, she has completed the treatment with remdesivir. GI PROPHYLAXIS: Omeprazole DVT PROPHYLAXIS: Lovenox 40 mg subcu daily Critical care time used for critical evaluation of this patient, diagnosis, treatment and coordination of care, review her records and documentation TOTAL CRITICAL CARE TIME 90 MIN . Patient's care was discussed in detail with Dr. Feng. He is aware of all the above as well as the plan of care for this patient. Review of Systems Neurologic: Denies Neuro-related abnormal movements PMFSH Past Medical History Medical History 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 Cervicalgia Chronic headaches Dyslipidemia Essential hypertension Fecal incontinence GERD (gastroesophageal reflux disease) Hiatal hernia History of gastroscopy Hypertension Morbid obesity due to excess calories Obstructive sleep apnea Other and unspecified hyperlipidemia Pulmonary nodule, right Thyroid nodule Urinary incontinence Family History Family History Father No problems noted. Mother No problems noted. Daughter No problems noted. Daughter No problems noted. Son No problems noted. Son No problems noted. Surgical History Surgical History H/O tooth extraction History of bilateral knee replacement History of bilateral tubal ligation History of carpal tunnel release History of cholecystectomy History of dacryocystorhinostomy History of herniorrhaphy History of laparoscopic appendectomy History of sleeve gastrectomy History of total abdominal hysterectomy and bilateral salpingo-oophorectomy S/p bilateral blepharoplasty Social History Social History Household Members: Family Household Members Other:: grandson Housing: Apartment Do you presently have visiting nurse or other home services: Yes ([employer]) Alcohol intake: never Smoking Status: Never smoker Use of substances other than those prescribed or required for medical reasons: No Currently Displaying Signs/Symptoms of Drug Intoxication Withdrawal: No Have you been hit, kicked, punched, or otherwise hurt by someone within the past year? If so, by whom?: No Do you feel safe in your current relationship?: No Is there a partner from a previous relationship who is making you feel unsafe now?: No Are you made to feel afraid or neglected: No Advance Directives: No Advance Directives Information Provided: No Do you have thoughts of harming others: None Do you have a plan to hurt others: No Plan Recently lost weight without trying: No Meds Allergies Allergy/AdvReac Type Severity Reaction Status Date / Time atorvastatin [From Lipitor] Allergy Mild HIVES Verified 01/10/20 13:29 Home Medications Medication Instructions Recorded Confirmed Type atenolol 1 tab PO BEDTIME 02/02/20 02/02/20 History calcium citrate-vitamin D3 1 tab PO BID 02/02/20 02/02/20 History clonazepam 1.5 tab PO BEDTIME PRN 02/02/20 02/02/20 History dicyclomine 1 cap PO TID PRN 02/02/20 02/02/20 History fluticasone propion-salmeterol 1 puff PO BID 02/02/20 02/02/20 History furosemide 10 mg PO QAM 02/02/20 02/02/20 History levothyroxine 75 mcg PO QAM 02/02/20 02/02/20 History lisinopril 20 mg PO QAM 02/02/20 02/02/20 History loperamide [Anti-Diarrheal 2 mg PO Q6H PRN 02/02/20 02/02/20 History (loperamide)] loratadine 10 mg PO QAM 02/02/20 02/02/20 History mirtazapine 1 tab PO BEDTIME 02/02/20 02/02/20 History omeprazole 20 mg PO BID 02/02/20 02/02/20 History ondansetron HCl 4 mg PO Q8H PRN 02/02/20 02/02/20 History pravastatin 40 mg PO BEDTIME 02/02/20 02/02/20 History sucralfate 10 ml PO BID 02/02/20 02/02/20 History venlafaxine 1 cap PO DAILY 02/02/20 02/02/20 History venlafaxine 150 mg PO DAILY 02/02/20 02/02/20 History Physical Exam Vital Signs: Vital Signs: Last Vital Signs Temp 98 F 02/06/20 18:51 Pulse 63 02/06/20 18:51 Resp 28 H 02/06/20 20:43 BP 120/64 02/06/20 18:51 Pulse Ox 78 L 02/06/20 18:51 Body Mass Index 52.4 Results Labs CBC & Chem 7: 02/06/20 06:08 02/06/20 06:08 Labs: Short CBC 02/06/20 Range/Units 06:08 WBC 10.7 (4.8-10.8) X10*3/uL Hgb 12.8 (12.0-16.0) g/dl Hct 40.0 (37-47) % Plt Count 232 (160-400) X10*3/uL BMP 02/06/20 06:08 Sodium 143 Potassium 4.4 Chloride 107 Carbon Dioxide 27 BUN 28 H Creatinine 0.69 Calcium 8.3 L Microbiology Microbiology Results: Microbiology 02/02/20 10:47 Blood - Venous Blood Culture - Preliminary Staphylococcus epidermidis 02/02/20 10:44 Blood - Venous Blood Culture - Preliminary Coagulase-neg Staphyloccocus Coagulase-neg Staphyloccocus#2 02/03/20 11:41 Blood - Venous Blood Culture - Preliminary No growth after 48 hours. 02/03/20 11:41 Blood - Venous Blood Culture - Preliminary No growth after 48 hours.
[2020-02-06] MEDS: Sodium Chloride 0.45 % 1,000 ML 80 ML IVCONT (21:38)
[2020-02-07] VITALS (34 sets, daily range): BP systolic 90–145; BP diastolic 47–89; PULSE 54–101; RESP 18–36; TEMP 36.3–37.6; O2SAT 88–98; BMI 52.4
--- NOTE | 2020-02-07 | XR_ITS ---
EXAMINATION: XR CHEST CLINICAL INFORMATION: ET tube placement COMPARISON: Previous chest x-ray from yesterday TECHNIQUE: Frontal view of the chest was obtained. FINDINGS: There is a new endotracheal tube with tip projecting over the right proximal mainstem bronchus. There is a nasogastric tube projects over the stomach. The tip is not seen. The right is a right jugular line with tip projecting over the SVC. The cardiac, hilar and mediastinal contours appear prominent. This may be related to increasing adjacent airspace disease. Lung volumes are low. There is bilateral diffuse multilobar airspace disease increased from yesterday's exam. There is no pleural effusion or pneumothorax. XR/XR chest 1V IMPRESSION: Endotracheal tube tip projects over the right proximal mainstem bronchus. Nasogastric tube projects over the stomach. Tip is not seen. Right jugular line tip projects over SVC. Low lung volumes and increasing bilateral multilobar airspace disease.
[2020-02-07] MEDS: 0.9 % Sodium Chloride Flush 3 ML SYRINGE IVFLUSH ×2 (00:05→16:18)
[2020-02-07] MEDS: Morphine Sulfate 2 MG/ML CARTRIDGE IVPUSH ×2 (03:28→05:21)
[2020-02-07 06:07] LABS: Hematocrit 40.8 % (37-47); Hemoglobin 13.1 g/dl (12.0-16.0); Mean Corpuscular HGB Conc 32.1 g/dl (31.0-35.0); Mean Corpuscular Hemoglobin 29.2 pg (27.0-33.0); Mean Corpuscular Volume 91.1 fL (80-98); Mean Platelet Volume 12.4 fL (9.4-12.3); Platelet Count 195 X10*3/uL (160-400); Red Blood Count 4.48 X10*6/uL (4.20-5.50); Red Cell Distribution Width 15.1 % (11.0-16.0); White Blood Count 12.6 X10*3/uL (4.8-10.8)
[2020-02-07 06:26] LABS: Albumin Level 3.2 g/dL (3.5-5.0); Anion Gap 17 (12-20); Blood Urea Nitrogen 37 mg/dL (9-16); Calcium 8.4 mg/dL (8.4-10.2); Carbon Dioxide 22 mmol/L (22-29); Chloride 106 mmol/L (96-108); Creatinine Clr Calc Pharmacy 76.9; Estimated Glomerular Filt Rate > 60; Glucose Random 99 mg/dL (60-115); Magnesium 2.2 mg/dL (1.6-2.6); Phosphorus 3.1 mg/dL (2.7-4.5); Potassium 4.1 mmol/l (3.3-5.1); Sodium 141 mmol/L (135-145)
[2020-02-07 06:32] LABS: Base Excess VBG -0.4 mmol/L; HCO3 VBG 21 mmol/L; Oxygen Saturation VBG 98.5 %; PCO2 VBG 25 mmhg; PO2 VBG 118 mmhg; pH VBG 7.53 (7.32-7.43)
[2020-02-07] MEDS: Haloperidol Lactate 5 MG/ML VIAL 10 MG IM (08:32)
[2020-02-07] MEDS: Albuterol/Iprat 2.5/0.5MG 3 ML AMPUL.NEB INHALE (08:35)
--- NOTE | 2020-02-07 09:09 | W.PM.CCHP ---
Procedures Intubation Consent for Procedure: Emergent-no informed consent obtained Sedative: other (etomidate) Laryngoscope: fiber optic video scope ET tube size: 7.5 ET tube uncuffed: No Tube placement confirmation: visualized tube passing through cords, equal breath sounds bilaterally and confirmation by capnometry Patient tolerated procedure: well Intubation complications: none
--- NOTE | 2020-02-07 09:47 | W.PM.CCHP ---
Procedures Central Line Placement Right IJ: Consent for Procedure: Emergent-no informed consent obtained Sterile Technique Used: Yes MD prep: mask, gown and gloves Central line prep: Povidone-Iodine 1% Ultrasound used for placement: Yes Central line lumen inserted: triple Post procedure: sutured in place Post procedure x-ray: tip of catheter in good position Patient tolerated procedure: well Complications: none
[2020-02-07] MEDS: fentaNYL citrate/PF 100 MCG/2 ML VIAL IVPUSH (10:33)
[2020-02-07] MEDS: Levothyroxine Sodium 75 MCG TABLET PO (10:47)
[2020-02-07] MEDS: Enoxaparin Sodium 40 MG/0.4 ML SYRINGE SUBCUT (10:47)
[2020-02-07] MEDS: fentaNYL citrate/NS 1,000 MCG/100 ML PLAST..BAG 10 MCG IVCONT ×2 (11:07→16:18)
--- NOTE | 2020-02-07 11:16 | MHC.CLN ---
IF TF NEEDED; RECOMMEND PROMOTE AT MAX GOAL RATE 35CC/HR WITH 120CC FREE WATER Q 6HRS TO PROVIDE 840KCALS (23KCALS/KG), 52G PROTEIN (1.3G/KG), 1185CC TOTAL WATER FROM FORMULA AND FLUSHES (30CC/HR) MONITOR TOLERANCE, RESIDUALS AND LYTES
--- NOTE | 2020-02-07 11:35 | PM.CCPN ---
Subjective Subjective Date of Service: 02/07/20 Interval History: 69-year-old lady with underlying history of asthma morbid obesity CARTER, hypertension, anxiety/depression positive for COVID-19 outpatient on 01/27/2020, admitted with dyspnea on 02/02/2020. Hospital course complicated by progressive hypoxemia requiring transfer to intensive care unit on 02/06/2020 and intubation 02/07/2020. Patient has received remdesivir and dexamethasone. Physical Exam Vital Signs: Vital Signs: Last Vital Signs Temp 99.1 F 02/07/20 08:00 Pulse 98 02/07/20 10:00 Resp 25 H 02/07/20 10:00 BP 110/65 02/07/20 10:00 Pulse Ox 92 02/07/20 10:00 Body Mass Index 52.4 Const: General: no acute distress and other ( Sedated on the vent) Nutritional Appearance: obese Eyes: Sclerae: sclerae normal EOM: EOMs intact bilaterally Neck: Neck: Yes no lymphadenopathy, Yes trachea midline and Yes supple Resp: Auscultation: crackles bilateral and diffuse Cardio: Rate: regular rate Rhythm: regular rhythm Heart sounds: no gallops, no murmurs and no rubs GI: Palpation (GI): Soft to palpation and Other GI palpation findings present ( Nontender) Auscultation: normal bowel sounds Extrem: General: No clubbing, No cyanosis and Yes edema ( 1+ bilateral) Objective Data Labs CBC & Chem 7: 02/07/20 05:36 02/07/20 05:36 Labs: Laboratory Results - last 24 hr 02/06/20 02/07/20 02/07/20 17:20 05:36 05:36 WBC 12.6 H RBC 4.48 Hgb 13.1 Hct 40.8 MCV 91.1 MCH 29.2 MCHC 32.1 RDW 15.1 Plt Count 195 MPV 12.4 H Absolute Nucleated RBC 0.000 Nucleated RBC % (auto) 0.0 ABG pH 7.41 ABG pCO2 46 H ABG pO2 47 L* ABG HCO3 29 H ABG O2 Saturation 82.6 ABG Base Excess 3.4 VBG pH VBG pCO2 VBG Oxygen Liters/Min VBG pO2 VBG HCO3 VBG O2 Saturation VBG Base Excess Oxygen Given 100% Sodium 141 Potassium 4.1 Chloride 106 Carbon Dioxide 22 Anion Gap 17 BUN 37 H Creatinine 0.71 Estim Creat Clear Calc 76.9 Estimated GFR > 60 Random Glucose 99 Calcium 8.4 Phosphorus 3.1 Magnesium 2.2 Albumin 3.2 L 02/07/20 02/07/20 05:36 05:37 WBC RBC Hgb Hct MCV MCH MCHC RDW Plt Count MPV Absolute Nucleated RBC Nucleated RBC % (auto) ABG pH ABG pCO2 ABG pO2 ABG HCO3 ABG O2 Saturation ABG Base Excess VBG pH 7.53 H VBG pCO2 25 VBG Oxygen Liters/Min Not Reportable VBG pO2 118 VBG HCO3 21 VBG O2 Saturation 98.5 VBG Base Excess -0.4 Oxygen Given Sodium Potassium Chloride Carbon Dioxide Anion Gap BUN Creatinine Estim Creat Clear Calc Estimated GFR Random Glucose Calcium Phosphorus Cancelled Magnesium Cancelled Albumin Cancelled Microbiology Microbiology Results: Microbiology 02/02/20 10:47 Blood - Venous Blood Culture - Final Staphylococcus epidermidis 02/02/20 10:44 Blood - Venous Blood Culture - Final Staphylococcus epidermidis Staphylococcus epidermidis#2 02/03/20 11:41 Blood - Venous Blood Culture - Preliminary No growth after 48 hours. 02/03/20 11:41 Blood - Venous Blood Culture - Preliminary No growth after 48 hours. Progress Note: A&P Assessment and plan (1) Acute respiratory failure with hypoxia: Status: Acute Assessment and Plan: Assessment: 69-year-old lady with underlying morbid obesity, asthma, CARTER admitted with acute hypoxic respiratory failure secondary COVID-19 ARDS with progressive hypoxemia, now requiring ventilatory support. Plan: Neuro: No acute issues. Cardiac: No acute issues. Pulmonary: COVID-19 related acute hypoxic respiratory failure /ARDS. Continue to titrate off ventilatory support as tolerated. Renal: No acute issues. Endo: No acute issues. GI: No acute issues. ID: No acute issues Heme/Onc: No acute issues. Psych: Underlying depression with psychotic features. Miscellaneous: No acute issues. Prophylaxis: Lovenox, famotidine Diet: tube feeds Critical care time spent: 90 minutes excluding separately billable procedures (2) Acute respiratory distress syndrome (ARDS) due to COVID-19 virus: Status: Acute Time Spent With Patient Time: Total time spent is greater than 50% in coordination of care (as documented) at patient's floor/unit and/or counseling patient: Total time spent with greater than 50% in coordination of care (as documented) at patient's floor/unit and/or counseling patient:: 0 Critical Care Time Critical Care Time (minutes): 90
[2020-02-07] MEDS: Albumin Human 25 % 100 ML IV ×2 (13:38→20:39)
[2020-02-07] MEDS: propofoL 1,000 MG/100 ML VIAL 32.94 MG IVCONT (13:39)
[2020-02-07] MEDS: Chlorhexidine Gluc Oral Rinse 15 ML MOUTHWASH BUCCAL ×2 (13:40→20:39)
[2020-02-07] MEDS: Midazolam HCl/PF 2 MG/2 ML VIAL 4 MG IM (13:40)
--- NOTE | 2020-02-07 14:38 | PC.NURSE ---
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
[2020-02-07 15:07] LABS: Dexamethasone >1000 ng/dL
[2020-02-07] MEDS: propofoL 1,000 MG/100 ML VIAL 19.76 MG IVCONT (20:39)
[2020-02-08] VITALS (29 sets, daily range): BP systolic 90–137; BP diastolic 49–69; PULSE 58–102; RESP 11–25; TEMP 36.5–38.1; O2SAT 89–98
[2020-02-08] MEDS: 0.9 % Sodium Chloride Flush 3 ML SYRINGE IVFLUSH ×4 (00:22→23:23)
[2020-02-08] MEDS: Albumin Human 25 % 100 ML IV ×2 (00:42→06:46)
[2020-02-08] MEDS: propofoL 1,000 MG/100 ML VIAL 9.88 MG IVCONT (04:09)
[2020-02-08] MEDS: fentaNYL citrate/NS 1,000 MCG/100 ML PLAST..BAG 7 MCG IVCONT (04:09)
[2020-02-08 06:07] LABS: Basophils Percent Auto 0.1 % (0-2); Hematocrit 36.3 % (37-47); Hemoglobin 11.1 g/dl (12.0-16.0); Imm Gran Abs Auto 0.12 X10*3/uL (0.00-0.03); Lymphocytes Absolute Auto 0.6 X10*3/uL (1.2-4.9); Lymphocytes Percent Auto 5.2 % (20-40); MANUAL DIFF FLAG SCAN; Mean Corpuscular HGB Conc 30.6 g/dl (31.0-35.0); Mean Corpuscular Hemoglobin 29.1 pg (27.0-33.0); Mean Corpuscular Volume 95.3 fL (80-98); Mean Platelet Volume 12.1 fL (9.4-12.3); Monocytes Absolute Auto 0.4 X10*3/uL (0.1-1.2); Monocytes Percent Auto 3.5 % (2-11); Neutrophils Absolute Auto 10.5 X10*3/uL (2.0-8.3); Neutrophils Percent Auto 90.2 % (45-73); Platelet Count 248 X10*3/uL (160-400); Red Blood Count 3.81 X10*6/uL (4.20-5.50); Red Cell Distribution Width 15.5 % (11.0-16.0); SCAN SMEAR FLAG 1; White Blood Count 11.6 X10*3/uL (4.8-10.8)
[2020-02-08 06:32] LABS: SLIDE REVIEW VERIFIED
[2020-02-08 06:42] LABS: Base Excess VBG 3.1 mmol/L; HCO3 VBG 30 mmol/L; Oxygen Saturation VBG 88.8 %; PCO2 VBG 65 mmhg; PO2 VBG 59 mmhg; pH VBG 7.29 (7.32-7.43)
[2020-02-08 06:57] LABS: Alanine Aminotransferase 26 U/L (0-31); Albumin Level 3.8 g/dL (3.5-5.0); Alkaline Phosphatase 67 U/L (39-117); Anion Gap 15 (12-20); Aspartate Amino Transferase 28 U/L (5-31); Bilirubin Total 0.5 mg/dL (0.0-1.0); Blood Urea Nitrogen 54 mg/dL (9-16); Calcium 8.9 mg/dL (8.4-10.2); Carbon Dioxide 28 mmol/L (22-29); Chloride 108 mmol/L (96-108); Creatinine Clr Calc Pharmacy 49.2; Estimated Glomerular Filt Rate 48; Glucose Random 103 mg/dL (60-115); Magnesium 2.6 mg/dL (1.6-2.6); Phosphorus 4.6 mg/dL (2.7-4.5); Potassium 4.6 mmol/l (3.3-5.1); Sodium 146 mmol/L (135-145); Total Protein 6.3 g/dL (6.5-8.0)
[2020-02-08] MEDS: Famotidine/PF 20 MG/2 ML VIAL IVPUSH (10:37)
[2020-02-08] MEDS: Chlorhexidine Gluc Oral Rinse 15 ML MOUTHWASH BUCCAL ×3 (10:37→22:42)
[2020-02-08] MEDS: Enoxaparin Sodium 40 MG/0.4 ML SYRINGE SUBCUT (10:37)
[2020-02-08] MEDS: Levothyroxine Sodium 75 MCG TABLET PO (10:38)
--- NOTE | 2020-02-08 10:38 | PM.CCPN ---
Subjective Subjective Date of Service: 02/08/20 Interval History: 69-year-old lady with underlying history of asthma morbid obesity CARTER, hypertension, anxiety/depression positive for COVID-19 outpatient on 01/27/2020, admitted with dyspnea on 02/02/2020. Hospital course complicated by progressive hypoxemia requiring transfer to intensive care unit on 02/06/2020 and intubation 02/07/2020. Patient has received remdesivir and dexamethasone. No events overnight. Physical Exam Vital Signs: Vital Signs: Last Vital Signs Temp 99.3 F 02/08/20 10:00 Pulse 76 02/08/20 10:00 Resp 17 02/08/20 10:00 BP 113/55 L 02/08/20 10:00 Pulse Ox 93 02/08/20 10:00 Body Mass Index 52.4 Const: General: no acute distress and other ( Sedated on the vent) Nutritional Appearance: obese Eyes: Sclerae: sclerae normal Neck: Neck: Yes no lymphadenopathy, Yes trachea midline and Yes supple Resp: Auscultation: crackles bilateral and diffuse Cardio: Rate: regular rate Rhythm: regular rhythm Heart sounds: no gallops, no murmurs and no rubs GI: Palpation (GI): Soft to palpation and Other GI palpation findings present ( Nontender) Auscultation: normal bowel sounds Extrem: General: No clubbing, No cyanosis and Yes edema ( 1+ bilateral) Objective Data Labs CBC & Chem 7: 02/08/20 05:42 02/08/20 05:42 Labs: Laboratory Results - last 24 hr 02/03/20 02/08/20 02/08/20 08:12 05:42 05:42 WBC 11.6 H RBC 3.81 L Hgb 11.1 L Hct 36.3 L MCV 95.3 MCH 29.1 MCHC 30.6 L RDW 15.5 Plt Count 248 D MPV 12.1 Immature Gran % (Auto) 1.0 H Neut % (Auto) 90.2 H Lymph % (Auto) 5.2 L [place] % (Auto) 3.5 Eos % (Auto) 0.0 Baso % (Auto) 0.1 Lymph # (Auto) 0.6 L [place] # (Auto) 0.4 Eos # (Auto) 0.0 Baso # (Auto) 0.0 Abs Immat Gran (auto) 0.12 H Absolute Neuts (auto) 10.5 H Absolute Nucleated RBC 0.000 Nucleated RBC % (auto) 0.0 Smear Tech's Comments VERIFIED VBG pH VBG pCO2 VBG Oxygen Liters/Min VBG pO2 VBG HCO3 VBG O2 Saturation VBG Base Excess Sodium 146 H Potassium 4.6 Chloride 108 Carbon Dioxide 28 Anion Gap 15 BUN 54 H Creatinine 1.11 Estim Creat Clear Calc 49.2 Estimated GFR 48 Random Glucose 103 Calcium 8.9 Phosphorus 4.6 H Magnesium 2.6 Total Bilirubin 0.5 AST 28 D ALT 26 Alkaline Phosphatase 67 Total Protein 6.3 L Albumin 3.8 Dexamethasone >1000 02/08/20 05:42 WBC RBC Hgb Hct MCV MCH MCHC RDW Plt Count MPV Immature Gran % (Auto) Neut % (Auto) Lymph % (Auto) [place] % (Auto) Eos % (Auto) Baso % (Auto) Lymph # (Auto) [place] # (Auto) Eos # (Auto) Baso # (Auto) Abs Immat Gran (auto) Absolute Neuts (auto) Absolute Nucleated RBC Nucleated RBC % (auto) Smear Tech's Comments VBG pH 7.29 L VBG pCO2 65 VBG Oxygen Liters/Min Not Reportable VBG pO2 59 VBG HCO3 30 VBG O2 Saturation 88.8 VBG Base Excess 3.1 Sodium Potassium Chloride Carbon Dioxide Anion Gap BUN Creatinine Estim Creat Clear Calc Estimated GFR Random Glucose Calcium Phosphorus Magnesium Total Bilirubin AST ALT Alkaline Phosphatase Total Protein Albumin Dexamethasone Microbiology Microbiology Results: Microbiology 02/02/20 10:47 Blood - Venous Blood Culture - Final Staphylococcus epidermidis 02/02/20 10:44 Blood - Venous Blood Culture - Final Staphylococcus epidermidis Staphylococcus epidermidis#2 02/03/20 11:41 Blood - Venous Blood Culture - Preliminary No growth after 48 hours. 02/03/20 11:41 Blood - Venous Blood Culture - Preliminary No growth after 48 hours. Progress Note: A&P Assessment and plan (1) Acute respiratory distress syndrome (ARDS) due to COVID-19 virus: Status: Acute Assessment and Plan: Assessment: 69-year-old lady with underlying morbid obesity, asthma, CARTER admitted with acute hypoxic respiratory failure secondary COVID-19 ARDS with progressive hypoxemia, now requiring ventilatory support. Plan: Neuro: No acute issues. Cardiac: No acute issues. Pulmonary: COVID-19 related acute hypoxic respiratory failure /ARDS. Continue to titrate off ventilatory support as tolerated. Renal: No acute issues. Endo: No acute issues. GI: No acute issues. ID: No acute issues Heme/Onc: No acute issues. Psych: Underlying depression with psychotic features. Miscellaneous: No acute issues. Prophylaxis: Lovenox, famotidine Diet: tube feeds Critical care time spent: 60 minutes (2) Acute respiratory failure with hypoxia: Status: Acute Time Spent With Patient Time: Total time spent is greater than 50% in coordination of care (as documented) at patient's floor/unit and/or counseling patient: Total time spent with greater than 50% in coordination of care (as documented) at patient's floor/unit and/or counseling patient:: 0 Critical Care Time Critical Care Time (minutes): 60
[2020-02-08] MEDS: lamoTRIgine 25 MG TABLET PO ×2 (13:06→22:42)
[2020-02-08] MEDS: propofoL 1,000 MG/100 ML VIAL 22.4 MG IVCONT (14:28)
[2020-02-08] MEDS: fentaNYL citrate/NS 1,000 MCG/100 ML PLAST..BAG 8 MCG IVCONT (16:56)
[2020-02-08] MEDS: propofoL 1,000 MG/100 ML VIAL 17.13 MG IVCONT (19:04)
--- NOTE | 2020-02-08 19:31 | PC.NURSE ---
Assumed care at 05:00. Patient sedated on propofol and fentanyl, arousable to light pain, + cough and + gag, becomes restless with oral care and suctioning. Found to be pulling at restraints, stacking breaths, bucking vent, tachycardia, and restless, still not following commands, required uptitration of propofol to a max of 36 and now back down to 26; fentanyl uptitrated to 80 for vent synchrony, well tolerated. patient with thick white oral secretions initially, appears to be mouth moisturizer, patient was blocking mouth care with tongue initially, but with successive mouthcare, oral secretions clear. Small amount of inline secretions, clear, thin. Lung sounds dim at bases. Continues with #7.5 ETT, 20 cm maryjo, AC settings 18; 450; 10; 70% FiO2; mn
[2020-02-08] MEDS: Mirtazapine 30 MG TABLET PO (22:42)
[2020-02-09] VITALS (30 sets, daily range): BP systolic 89–144; BP diastolic 50–69; PULSE 65–124; RESP 17–35; TEMP 37.5–38.1; O2SAT 87–94
[2020-02-09] MEDS: propofoL 1,000 MG/100 ML VIAL 19.76 MG IVCONT ×2 (00:23→04:58)
[2020-02-09] MEDS: fentaNYL citrate/NS 1,000 MCG/100 ML PLAST..BAG 10 MCG IVCONT (04:57)
[2020-02-09 06:04] LABS: Basophils Percent Auto 0.1 % (0-2); Hematocrit 36.2 % (37-47); Imm Gran Abs Auto 0.18 X10*3/uL (0.00-0.03); Imm Gran Pct Auto 1.8 % (0.0-0.4); Lymphocytes Absolute Auto 0.6 X10*3/uL (1.2-4.9); Lymphocytes Percent Auto 5.7 % (20-40); MANUAL DIFF FLAG SCAN; Mean Corpuscular HGB Conc 30.4 g/dl (31.0-35.0); Mean Corpuscular Hemoglobin 29.3 pg (27.0-33.0); Mean Corpuscular Volume 96.5 fL (80-98); Mean Platelet Volume 11.7 fL (9.4-12.3); Monocytes Absolute Auto 0.4 X10*3/uL (0.1-1.2); Monocytes Percent Auto 4.1 % (2-11); Neutrophils Percent Auto 88.3 % (45-73); Platelet Count 240 X10*3/uL (160-400); Red Blood Count 3.75 X10*6/uL (4.20-5.50); Red Cell Distribution Width 15.4 % (11.0-16.0); SCAN SMEAR FLAG 1; White Blood Count 10.2 X10*3/uL (4.8-10.8)
[2020-02-09 06:12] LABS: SLIDE REVIEW VERIFIED
[2020-02-09 06:33] LABS: PCO2 VBG 60 mmhg; PO2 VBG 47 mmhg; pH VBG 7.33 (7.32-7.43)
[2020-02-09 06:34] LABS: Base Excess VBG 3.3 mmol/L; HCO3 VBG 31 mmol/L; Oxygen Saturation VBG 82.9 %
[2020-02-09 06:51] LABS: Albumin Level 3.8 g/dL (3.5-5.0); Anion Gap 11 (12-20); Blood Urea Nitrogen 63 mg/dL (9-16); Calcium 9.5 mg/dL (8.4-10.2); Carbon Dioxide 32 mmol/L (22-29); Chloride 108 mmol/L (96-108); Estimated Glomerular Filt Rate 51; Glucose Random 133 mg/dL (60-115); Potassium 4.8 mmol/l (3.3-5.1); Sodium 146 mmol/L (135-145)
[2020-02-09] MEDS: 0.9 % Sodium Chloride Flush 3 ML SYRINGE IVFLUSH ×3 (08:00→23:51)
[2020-02-09] MEDS: Famotidine/PF 20 MG/2 ML VIAL IVPUSH (08:00)
[2020-02-09] MEDS: Chlorhexidine Gluc Oral Rinse 15 ML MOUTHWASH BUCCAL ×3 (08:00→20:26)
[2020-02-09] MEDS: Levothyroxine Sodium 75 MCG TABLET PO (08:01)
[2020-02-09] MEDS: lamoTRIgine 25 MG TABLET PO ×2 (08:01→20:27)
--- NOTE | 2020-02-09 09:59 | MHC.CLN ---
F/U PROMOTE RUNNING AT MAX GOAL RATE 35CC/HR WITH 120CC FREE WATER Q 6HRS TO PROVIDE 840KCALS (23KCALS/KG), 52G PROTEIN (1.3G/KG), 1185CC TOTAL WATER FROM FORMULA AND FLUSHES (30CC/HR) RECOMMEND INCREASING WATER FLUSHES TO 240CC Q 6 HRS; 1665CC TOTAL (27CC/KG BASED ON IBW) MONITOR TOLERANCE, RESIDUALS AND LYTES FOLLOWING
[2020-02-09] MEDS: propofoL 1,000 MG/100 ML VIAL 21.08 MG IVCONT (10:52)
[2020-02-09] MEDS: Enoxaparin Sodium 40 MG/0.4 ML SYRINGE SUBCUT (10:53)
[2020-02-09] MEDS: fentaNYL citrate/NS 1,000 MCG/100 ML PLAST..BAG 15 MCG IVCONT (14:11)
--- NOTE | 2020-02-09 14:12 | P.PNCC_ITS ---
Subjective Subjective Date of Service: 02/09/20 Interval History: 69-year-old lady with underlying history of asthma morbid obesity CARTER, hypertension, anxiety/depression positive for COVID-19 outpatient on 01/27/2020, admitted with dyspnea on 02/02/2020. Hospital course complicated by progressive hypoxemia requiring transfer to intensive care unit on 02/06/2020 and intubation 02/07/2020. Patient has received remdesivir and dexamethasone. No events overnight. Physical Exam Vital Signs: Vital Signs: Last Vital Signs Temp 100.4 F 02/09/20 13:57 Pulse 75 02/09/20 13:57 Resp 18 02/09/20 13:57 BP 100/57 L 02/09/20 13:57 Pulse Ox 93 02/09/20 13:57 Body Mass Index 52.4 Const: General: no acute distress and other ( Sedated on the vent) Nutritional Appearance: obese Eyes: Sclerae: sclerae normal EOM: EOMs intact bilaterally Neck: Neck: Yes no lymphadenopathy, Yes trachea midline and Yes supple Resp: Auscultation: crackles bilateral and diffuse Cardio: Rate: regular rate Rhythm: regular rhythm Heart sounds: no gallops, no murmurs and no rubs GI: Palpation (GI): Soft to palpation and Other GI palpation findings present ( Nontender) Auscultation: normal bowel sounds Extrem: General: No clubbing, No cyanosis and Yes edema ( 1+ bilateral) Objective Data Labs CBC & Chem 7: 02/09/20 05:40 02/09/20 05:40 Labs: Laboratory Results - last 24 hr 02/09/20 02/09/20 02/09/20 05:30 05:40 05:40 WBC 10.2 RBC 3.75 L Hgb 11.0 L Hct 36.2 L MCV 96.5 MCH 29.3 MCHC 30.4 L RDW 15.4 Plt Count 240 MPV 11.7 Immature Gran % (Auto) 1.8 H Neut % (Auto) 88.3 H Lymph % (Auto) 5.7 L [place] % (Auto) 4.1 Eos % (Auto) 0.0 Baso % (Auto) 0.1 Lymph # (Auto) 0.6 L [place] # (Auto) 0.4 Eos # (Auto) 0.0 Baso # (Auto) 0.0 Abs Immat Gran (auto) 0.18 H Absolute Neuts (auto) 9.0 H Absolute Nucleated RBC 0.000 Nucleated RBC % (auto) 0.0 Smear Tech's Comments VERIFIED VBG pH 7.33 VBG pCO2 60 VBG Oxygen Liters/Min Not Reportable VBG pO2 47 VBG HCO3 31 VBG O2 Saturation 82.9 VBG Base Excess 3.3 Sodium 146 H Potassium 4.8 Chloride 108 Carbon Dioxide 32 H Anion Gap 11 L BUN 63 H Creatinine 1.07 Estim Creat Clear Calc 51.0 Estimated GFR 51 Random Glucose 133 H Calcium 9.5 D Phosphorus 3.0 Magnesium 3.0 H Albumin 3.8 Microbiology Microbiology Results: Microbiology 02/03/20 11:41 Blood - Venous Blood Culture - Final No growth after 5 days. 02/03/20 11:41 Blood - Venous Blood Culture - Final No growth after 5 days. 02/02/20 10:47 Blood - Venous Blood Culture - Final Staphylococcus epidermidis 02/02/20 10:44 Blood - Venous Blood Culture - Final Staphylococcus epidermidis Staphylococcus epidermidis#2 Progress Note: A&P Assessment and plan (1) Acute respiratory distress syndrome (ARDS) due to COVID-19 virus: Status: Acute Assessment and Plan: Assessment: 69-year-old lady with underlying morbid obesity, asthma, CARTER admitted with acute hypoxic respiratory failure secondary COVID-19 ARDS with progressive hypoxemia, now requiring ventilatory support. Plan: Neuro: No acute issues. Cardiac: No acute issues. Pulmonary: COVID-19 related acute hypoxic respiratory failure /ARDS. Continue to titrate off ventilatory support as tolerated. Renal: No acute issues. Endo: No acute issues. GI: No acute issues. ID: viral sepsis secondary to COVID-19. Continue on systemic glucocorticoids. Heme/Onc: No acute issues. Psych: Underlying depression with psychotic features. Miscellaneous: No acute issues. Prophylaxis: Lovenox, famotidine Diet: tube feeds Critical care time spent: 60 minutes (2) Acute respiratory failure with hypoxia: Status: Acute Time Spent With Patient Time: Total time spent is greater than 50% in coordination of care (as documented) at patient's floor/unit and/or counseling patient: Total time spent with greater than 50% in coordination of care (as documented) at patient's floor/unit and/or counseling patient:: 0 Critical Care Time Critical Care Time (minutes): 60
[2020-02-09] MEDS: propofoL 1,000 MG/100 ML VIAL 32.94 MG IVCONT ×2 (16:15→17:10)
[2020-02-09] MEDS: propofoL 200 MG/20 ML VIAL 20 MG IVPUSH (19:41)
--- NOTE | 2020-02-09 19:48 | PC.NURSE ---
CARE ASSUMED AT 07:00. SEDATE ON PROPOFOL 30 GTT AND FENTANYL 100 GTT STRUGGLES WITH ORAL AND ETT SUCTIONING. SEDATION VACATION OK'D PER DR. WINTERS, VERY POOR TOLERATION BY PATIENT: DID NOT FOLLOW COMMANDS, WAS VERY AGITATED AND ANXIOUS AND NOT CONSOLABLE OR REDIRECTABLE, AND WAS VERY DIFFICULT TO RE-SEDATE. PROPOFOL UP TO 50, NOW DOWN TO 40. FENTANYL GTT UP TO 160, NOW 140. PAT ON MONITOR WITH SINUS ARRHYTHMIA AND FREQUENT PACS AND PVCS. DR. WINTERS AT BEDSIDE, ORDERED IV PUSH PROPOFOL WELL CARDIZEM GTT, BUT PATIENT'S TACHYCARDIA RESOLVED BEFORE CARDIZEM STARTED. TRANSIENT LOW BPS AFTER PROPOFOL BOLUS; MD AWARE AND ORDER FOR LEVOPHED, WHICH WHEN STARTED IMMEDIATELY RASIED BP TO 170'S/107 RANGE, AND WAS IMMEDIATELY SHUT OFF. PATIENT NOW MORE STABLE BUT ON HIGHER SEDATION; TOLERATES REPOSITIONING AND SUCTIONING, +COUGH AND + GAG, PUPILS EQUAL AND REACTIVE TO LIGHT. CONTINUES ON AC/VC SETTINGS AC 18; TV 450; PEEP 10; FIO2 80%. MINUTE VOLUMES 9-10. INLINE SECRETIONS SMALL CLEAR AND THIN, MINIMAL ORAL SECRETIONS. TF DIET H20 FLUSHES INCREASED TO 240 Q6 HOURS. NO BM THIS SHIFT. UOP 35-75 CCS / HOUR, AND DARK TERE COLORED.
[2020-02-09] MEDS: Mirtazapine 30 MG TABLET PO (20:26)
[2020-02-09] MEDS: propofoL 1,000 MG/100 ML VIAL 26.35 MG IVCONT (20:27)
[2020-02-09] MEDS: fentaNYL citrate/NS 1,000 MCG/100 ML PLAST..BAG 14 MCG IVCONT (21:36)
[2020-02-10] VITALS (32 sets, daily range): BP systolic 86–132; BP diastolic 50–81; PULSE 49–71; RESP 17–18; TEMP 36.4–37.6; O2SAT 9–96
[2020-02-10] MEDS: propofoL 1,000 MG/100 ML VIAL 26.35 MG IVCONT (00:52)
[2020-02-10] MEDS: propofoL 1,000 MG/100 ML VIAL 19.76 MG IVCONT ×2 (05:40→11:35)
[2020-02-10 05:53] LABS: MANUAL DIFF FLAG NO
[2020-02-10 05:54] LABS: Basophils Percent Auto 0.1 % (0-2); Eosinophils Percent Auto 0.3 % (0-4); Hematocrit 36.7 % (37-47); Hemoglobin 11.1 g/dl (12.0-16.0); Imm Gran Abs Auto 0.25 X10*3/uL (0.00-0.03); Imm Gran Pct Auto 2.4 % (0.0-0.4); Lymphocytes Absolute Auto 0.9 X10*3/uL (1.2-4.9); Lymphocytes Percent Auto 8.1 % (20-40); Mean Corpuscular HGB Conc 30.2 g/dl (31.0-35.0); Mean Corpuscular Volume 95.8 fL (80-98); Mean Platelet Volume 11.6 fL (9.4-12.3); Monocytes Absolute Auto 0.5 X10*3/uL (0.1-1.2); Monocytes Percent Auto 4.9 % (2-11); Neutrophils Absolute Auto 8.9 X10*3/uL (2.0-8.3); Neutrophils Percent Auto 84.2 % (45-73); Platelet Count 243 X10*3/uL (160-400); Red Blood Count 3.83 X10*6/uL (4.20-5.50); Red Cell Distribution Width 15.2 % (11.0-16.0); White Blood Count 10.5 X10*3/uL (4.8-10.8)
[2020-02-10 06:02] LABS: Base Excess VBG 1.8 mmol/L; HCO3 VBG 29 mmol/L; Oxygen Saturation VBG 89.7 %; PCO2 VBG 58 mmhg; PO2 VBG 58 mmhg; pH VBG 7.32 (7.32-7.43)
[2020-02-10 06:20] LABS: Albumin Level 3.5 g/dL (3.5-5.0); Anion Gap 11 (12-20); Blood Urea Nitrogen 66 mg/dL (9-16); Calcium 9.4 mg/dL (8.4-10.2); Carbon Dioxide 30 mmol/L (22-29); Chloride 106 mmol/L (96-108); Estimated Glomerular Filt Rate 52; Glucose Random 155 mg/dL (60-115); Magnesium 2.9 mg/dL (1.6-2.6); Phosphorus 3.3 mg/dL (2.7-4.5); Potassium 4.8 mmol/l (3.3-5.1); Sodium 142 mmol/L (135-145)
[2020-02-10] MEDS: fentaNYL citrate/NS 1,000 MCG/100 ML PLAST..BAG 10 MCG IVCONT (07:14)
[2020-02-10] MEDS: lamoTRIgine 25 MG TABLET PO ×2 (08:36→21:30)
[2020-02-10] MEDS: Chlorhexidine Gluc Oral Rinse 15 ML MOUTHWASH BUCCAL ×3 (08:36→21:30)
[2020-02-10] MEDS: Famotidine/PF 20 MG/2 ML VIAL IVPUSH (08:36)
[2020-02-10] MEDS: Levothyroxine Sodium 75 MCG TABLET PO (08:36)
[2020-02-10] MEDS: 0.9 % Sodium Chloride Flush 3 ML SYRINGE IVFLUSH ×3 (08:36→23:35)
[2020-02-10] MEDS: Enoxaparin Sodium 40 MG/0.4 ML SYRINGE SUBCUT (08:36)
--- NOTE | 2020-02-10 09:03 | PC.NURSE ---
Addendum entered by Blanca Camarillo RN 02/10/20 13:49: HR dipping into 20s. Propofol decreased from 30mcg/kg/min to 28mcg/kg/min. Fentanyl increased from 100cg/hr to 150mcg/hr. Pt compliant with vent at this time. HR now in 60s Sinus radha. Daughter Martha able to speak to her mother via [employer]. Update given. Addendum entered by Blanca Camarillo RN 02/10/20 09:19: Pt still unable to tollerate lower dose of propofol as she is non-compliant with the vent. Her rate was increased back to 30mcg/kg/hr. Levophed remains off. Will continues to assess BP. Original Note: Pt bradicardic starting overnight. She was well sedate with miniman cough/gag with suctioning and flaccid with repositioning. Propofol weaned from 30mcg/kg/min to 25mcg/kg/min. HR and BP trending up well but pt unable to tollerate that dose with non-compliance on the vent observed. She was increased to 27.5mcg/kg/min with good vent compliance and improvement in HR and trend up in BP. Levophed turned off. Will re-assess BP.
--- NOTE | 2020-02-10 10:10 | PM.CCPN ---
Subjective Subjective Date of Service: 02/10/20 Interval History: 69-year-old lady with underlying history of asthma morbid obesity CARTER, hypertension, anxiety/depression positive for COVID-19 outpatient on 01/27/2020, admitted with dyspnea on 02/02/2020. Hospital course complicated by progressive hypoxemia requiring transfer to intensive care unit on 02/06/2020 and intubation 02/07/2020. Patient has received remdesivir and dexamethasone. Events overnight. Continues to have high FiO2 requirements. Physical Exam Vital Signs: Vital Signs: Last Vital Signs Temp 98.4 F 02/10/20 10:00 Pulse 70 02/10/20 10:00 Resp 18 02/10/20 10:00 BP 113/71 02/10/20 10:00 Pulse Ox 95 02/10/20 10:00 Body Mass Index 52.4 Const: General: no acute distress and other ( sedated on the vent) Nutritional Appearance: obese Eyes: Sclerae: sclerae normal Neck: Neck: Yes no lymphadenopathy, Yes trachea midline and Yes supple Resp: Auscultation: crackles bilateral and diffuse Cardio: Rate: regular rate Rhythm: regular rhythm Heart sounds: no gallops, no murmurs and no rubs GI: Palpation (GI): Soft to palpation and Other GI palpation findings present ( Nontender) Auscultation: normal bowel sounds Extrem: General: No clubbing, No cyanosis and Yes edema ( 1+ bilateral) Objective Data Labs CBC & Chem 7: 02/10/20 05:40 02/10/20 05:40 Labs: Laboratory Results - last 24 hr 02/10/20 02/10/20 02/10/20 05:40 05:40 05:40 WBC 10.5 RBC 3.83 L Hgb 11.1 L Hct 36.7 L MCV 95.8 MCH 29.0 MCHC 30.2 L RDW 15.2 Plt Count 243 MPV 11.6 Immature Gran % (Auto) 2.4 H Neut % (Auto) 84.2 H Lymph % (Auto) 8.1 L [place] % (Auto) 4.9 Eos % (Auto) 0.3 Baso % (Auto) 0.1 Lymph # (Auto) 0.9 L [place] # (Auto) 0.5 Eos # (Auto) 0.0 Baso # (Auto) 0.0 Abs Immat Gran (auto) 0.25 H Absolute Neuts (auto) 8.9 H Absolute Nucleated RBC 0.000 Nucleated RBC % (auto) 0.0 VBG pH 7.32 VBG pCO2 58 VBG Oxygen Liters/Min TNP VBG pO2 58 VBG HCO3 29 VBG O2 Saturation 89.7 VBG Base Excess 1.8 Sodium 142 Potassium 4.8 Chloride 106 Carbon Dioxide 30 H Anion Gap 11 L BUN 66 H Creatinine 1.05 Estim Creat Clear Calc 52.0 Estimated GFR 52 Random Glucose 155 H Calcium 9.4 Phosphorus 3.3 Magnesium 2.9 H Albumin 3.5 Microbiology Microbiology Results: Microbiology 02/03/20 11:41 Blood - Venous Blood Culture - Final No growth after 5 days. 02/03/20 11:41 Blood - Venous Blood Culture - Final No growth after 5 days. 02/02/20 10:47 Blood - Venous Blood Culture - Final Staphylococcus epidermidis 02/02/20 10:44 Blood - Venous Blood Culture - Final Staphylococcus epidermidis Staphylococcus epidermidis#2 Progress Note: A&P Assessment and plan (1) Acute respiratory distress syndrome (ARDS) due to COVID-19 virus: Status: Acute Assessment and Plan: Assessment: 69-year-old lady with underlying morbid obesity, asthma, CARTER admitted with acute hypoxic respiratory failure secondary COVID-19 ARDS with progressive hypoxemia, now requiring ventilatory support. Plan: Neuro: No acute issues. Cardiac: No acute issues. Pulmonary: COVID-19 related acute hypoxic respiratory failure /ARDS. Continue to titrate off ventilatory support as tolerated. Renal: No acute issues. Endo: No acute issues. GI: No acute issues. ID: Viral sepsis secondary to COVID-19. Continue on systemic glucocorticoids. Heme/Onc: No acute issues. Psych: Underlying depression with psychotic features. Miscellaneous: No acute issues. Prophylaxis: Lovenox, famotidine Diet: tube feeds Critical care time spent: 60 minutes (2) Acute respiratory failure with hypoxia: Status: Acute (3) Morbid obesity due to excess calories: Problem details: Status: Acute Time Spent With Patient Time: Total time spent is greater than 50% in coordination of care (as documented) at patient's floor/unit and/or counseling patient: Total time spent with greater than 50% in coordination of care (as documented) at patient's floor/unit and/or counseling patient:: 0 Critical Care Time Critical Care Time (minutes): 60
--- NOTE | 2020-02-10 14:34 | MHC.CM.PN ---
Patient remains intubated/vented in ICU. Patient is from home with services through [facility]. Continue to monitor for d/c needs.
[2020-02-10] MEDS: propofoL 1,000 MG/100 ML VIAL 18.45 MG IVCONT (15:46)
[2020-02-10] MEDS: fentaNYL citrate/NS 1,000 MCG/100 ML PLAST..BAG 15 MCG IVCONT (15:47)
[2020-02-10] MEDS: Mirtazapine 30 MG TABLET PO (21:30)
[2020-02-10] MEDS: propofoL 1,000 MG/100 ML VIAL 15.81 MG IVCONT (21:31)
[2020-02-10] MEDS: fentaNYL citrate/NS 1,000 MCG/100 ML PLAST..BAG 17.5 MCG IVCONT (21:31)
[2020-02-11] VITALS (30 sets, daily range): BP systolic 94–142; BP diastolic 55–77; PULSE 51–72; RESP 17–19; TEMP 36.4–37.6; O2SAT 92–97
--- NOTE | 2020-02-11 | XR_ITS ---
EXAMINATION: XR CHEST CLINICAL INFORMATION: Hypoxia COMPARISON: Chest x-ray 02/07/2020 TECHNIQUE: Frontal view of the chest was obtained. FINDINGS: Endotracheal tube terminates approximately 6 cm above the level of the jenna.. Enteric tube is poorly visualized but appears to terminate below the level of the diaphragm. Right IJ catheter in similar position terminating within the mid SVC. Stable cardiac silhouette. The lungs are adequately aerated. Patchy bilateral airspace disease appears similar in prominence although there does appear to be slightly improved aeration of the lung bases. No gross lobar consolidation appreciated. No pleural effusion or pneumothorax. XR/XR chest 1V IMPRESSION: -Stable support apparatus. -Persistent patchy bilateral airspace disease although there does appear to be slightly improved aeration of the lung bases.
[2020-02-11] MEDS: fentaNYL citrate/NS 1,000 MCG/100 ML PLAST..BAG 15 MCG IVCONT ×4 (02:16→17:40)
[2020-02-11] MEDS: propofoL 1,000 MG/100 ML VIAL 15.81 MG IVCONT ×3 (02:16→15:26)
[2020-02-11 05:25] LABS: MANUAL DIFF FLAG NO
[2020-02-11 05:29] LABS: Eosinophils Absolute Auto 0.1 X10*3/uL (0.0-0.4); Eosinophils Percent Auto 1.6 % (0-4); Hematocrit 35.1 % (37-47); Hemoglobin 10.8 g/dl (12.0-16.0); Imm Gran Abs Auto 0.16 X10*3/uL (0.00-0.03); Imm Gran Pct Auto 2.4 % (0.0-0.4); Lymphocytes Absolute Auto 0.8 X10*3/uL (1.2-4.9); Lymphocytes Percent Auto 11.5 % (20-40); Mean Corpuscular HGB Conc 30.8 g/dl (31.0-35.0); Mean Corpuscular Hemoglobin 29.4 pg (27.0-33.0); Mean Corpuscular Volume 95.6 fL (80-98); Mean Platelet Volume 11.1 fL (9.4-12.3); Monocytes Absolute Auto 0.5 X10*3/uL (0.1-1.2); Monocytes Percent Auto 6.7 % (2-11); Neutrophils Absolute Auto 5.2 X10*3/uL (2.0-8.3); Neutrophils Percent Auto 77.8 % (45-73); Platelet Count 196 X10*3/uL (160-400); Red Blood Count 3.67 X10*6/uL (4.20-5.50); Red Cell Distribution Width 14.6 % (11.0-16.0); White Blood Count 6.7 X10*3/uL (4.8-10.8)
[2020-02-11 05:37] LABS: Base Excess VBG 5.4 mmol/L; HCO3 VBG 34 mmol/L; Oxygen Saturation VBG 91.6 %; PCO2 VBG 69 mmhg; PO2 VBG 61 mmhg; pH VBG 7.31 (7.32-7.43)
[2020-02-11 05:58] LABS: Albumin Level 3.1 g/dL (3.5-5.0); Anion Gap 8 (12-20); Blood Urea Nitrogen 58 mg/dL (9-16); Calcium 9.2 mg/dL (8.4-10.2); Carbon Dioxide 34 mmol/L (22-29); Chloride 106 mmol/L (96-108); Estimated Glomerular Filt Rate > 60; Glucose Random 110 mg/dL (60-115); Magnesium 2.6 mg/dL (1.6-2.6); Potassium 5.2 mmol/l (3.3-5.1); Sodium 143 mmol/L (135-145)
[2020-02-11] MEDS: Enoxaparin Sodium 40 MG/0.4 ML SYRINGE SUBCUT (08:21)
[2020-02-11] MEDS: Chlorhexidine Gluc Oral Rinse 15 ML MOUTHWASH BUCCAL ×3 (08:21→20:43)
[2020-02-11] MEDS: Levothyroxine Sodium 75 MCG TABLET PO (08:22)
[2020-02-11] MEDS: Famotidine/PF 20 MG/2 ML VIAL IVPUSH (08:22)
[2020-02-11] MEDS: lamoTRIgine 25 MG TABLET PO ×2 (08:22→20:43)
--- NOTE | 2020-02-11 10:16 | P.PNCC_ITS ---
Subjective Subjective Date of Service: 02/11/20 Interval History: 69-year-old lady with underlying history of asthma morbid obesity CARTER, hypertension, anxiety/depression positive for COVID-19 outpatient on 01/27/2020, admitted with dyspnea on 02/02/2020. Hospital course complicated by progressive hypoxemia requiring transfer to intensive care unit on 02/06/2020 and intubation 02/07/2020. Patient has received remdesivir and dexamethasone. No events overnight. FiO2 requirements are slowly improving. Physical Exam Vital Signs: Vital Signs: Last Vital Signs Temp 97.5 F 02/11/20 04:04 Pulse 62 02/11/20 06:05 Resp 18 02/11/20 06:05 BP 109/62 02/11/20 06:05 Pulse Ox 95 02/11/20 06:05 Body Mass Index 52.4 Const: General: no acute distress and other ( Sedated on the vent) Nutritional Appearance: obese Eyes: Sclerae: sclerae normal EOM: EOMs intact bilaterally Neck: Neck: Yes no lymphadenopathy, Yes trachea midline and Yes supple Resp: Effort & Inspection: normal respiratory effort and no respiratory distress Auscultation: clear to auscultation bilaterally Cardio: Rate: regular rate Rhythm: regular rhythm Heart sounds: no gallops, no murmurs and no rubs GI: Palpation (GI): Soft to palpation and Other GI palpation findings present ( Nontender) Auscultation: normal bowel sounds Extrem: General: No clubbing, No cyanosis and Yes edema ( 1+ bilateral) Objective Data Labs CBC & Chem 7: 02/11/20 05:06 02/11/20 05:06 Labs: Laboratory Results - last 24 hr 02/11/20 02/11/20 02/11/20 05:06 05:06 05:06 WBC 6.7 RBC 3.67 L Hgb 10.8 L Hct 35.1 L MCV 95.6 MCH 29.4 MCHC 30.8 L RDW 14.6 Plt Count 196 MPV 11.1 Immature Gran % (Auto) 2.4 H Neut % (Auto) 77.8 H Lymph % (Auto) 11.5 L [place] % (Auto) 6.7 Eos % (Auto) 1.6 Baso % (Auto) 0.0 Lymph # (Auto) 0.8 L [place] # (Auto) 0.5 Eos # (Auto) 0.1 Baso # (Auto) 0.0 Abs Immat Gran (auto) 0.16 H Absolute Neuts (auto) 5.2 Absolute Nucleated RBC 0.000 Nucleated RBC % (auto) 0.0 VBG pH 7.31 L VBG pCO2 69 VBG Oxygen Liters/Min TNP VBG pO2 61 VBG HCO3 34 VBG O2 Saturation 91.6 VBG Base Excess 5.4 Sodium 143 Potassium 5.2 H Chloride 106 Carbon Dioxide 34 H Anion Gap 8 L BUN 58 H Creatinine 0.78 Estim Creat Clear Calc 70.0 Estimated GFR > 60 Random Glucose 110 Calcium 9.2 Phosphorus 3.0 Magnesium 2.6 Albumin 3.1 L Microbiology Microbiology Results: Microbiology 02/03/20 11:41 Blood - Venous Blood Culture - Final No growth after 5 days. 02/03/20 11:41 Blood - Venous Blood Culture - Final No growth after 5 days. 02/02/20 10:47 Blood - Venous Blood Culture - Final Staphylococcus epidermidis 02/02/20 10:44 Blood - Venous Blood Culture - Final Staphylococcus epidermidis Staphylococcus epidermidis#2 Progress Note: A&P Assessment and plan (1) Acute respiratory distress syndrome (ARDS) due to COVID-19 virus: Status: Acute Assessment and Plan: Assessment: 69-year-old lady with underlying morbid obesity, asthma, CARTER admitted with acute hypoxic respiratory failure secondary COVID-19 ARDS with progressive hypoxemia, now requiring ventilatory support. Plan: Neuro: No acute issues. Cardiac: No acute issues. Pulmonary: COVID-19 related acute hypoxic respiratory failure /ARDS. Improving slowly. Continue to titrate off ventilatory support as tolerated. Renal: No acute issues. Endo: No acute issues. GI: No acute issues. ID: Viral sepsis secondary to COVID-19. Continue on systemic glucocorticoids. Heme/Onc: No acute issues. Psych: Underlying depression with psychotic features. Miscellaneous: No acute issues. Prophylaxis: Lovenox, famotidine Diet: tube feeds Critical care time spent: 60 minutes (2) Acute respiratory failure with hypoxia: Status: Acute Time Spent With Patient Time: Total time spent is greater than 50% in coordination of care (as documented) at patient's floor/unit and/or counseling patient: Total time spent with greater than 50% in coordination of care (as documented) at patient's floor/unit and/or counseling patient:: 0 Critical Care Time Critical Care Time (minutes): 60
[2020-02-11] MEDS: Furosemide 20 MG/2 ML VIAL IVPUSH (10:23)
[2020-02-11] MEDS: 0.9 % Sodium Chloride Flush 3 ML SYRINGE IVFLUSH ×3 (10:24→20:43)
--- NOTE | 2020-02-11 14:55 | PC.NURSE ---
sedation vacation x30 minutes propofol decreased to 22mcg/kg/min fentanyl decreased to 100mcg/hr
[2020-02-11] MEDS: Mirtazapine 30 MG TABLET PO (20:43)
[2020-02-11] MEDS: propofoL 1,000 MG/100 ML VIAL 9.88 MG IVCONT (23:15)
[2020-02-12] VITALS (32 sets, daily range): BP systolic 88–185; BP diastolic 58–113; PULSE 48–131; RESP 12–68; TEMP 36.6–37.5; O2SAT 89–96
--- NOTE | 2020-02-12 | CT_ITS ---
EXAMINATION: CT ANGIOGRAM BRAIN, HEAD CLINICAL INFORMATION: Altered mental status. COMPARISON: CT scan of the head 11/10/2017. TECHNIQUE: Test bolus sequences followed by intravenous administration of 75 mL of Omnipaque 350 intravenous contrast. Helical imaging was performed in the axial plane from the skull base to the vertex. Delayed postcontrast imaging of the head was also performed. The data was processed at the automation technologist workstation for generation of MIP sequences. Three-dimensional volume rendered reformatted images were also generated at an offline 3-D workstation. Arterial stenoses are measured in accordance with NASCET criteria or similar method if applicable. This CT examination was performed using dose optimization techniques as appropriate, variously including the following: *Automated exposure control *Adjustment of mA and/or kV according to patient size (this includes techniques or standardized protocols for targeted exams where dose is matched to indication/reason for exam; i.e. extremities or head) *Use of iterative reconstruction technique DLP: 2475 mGy-cm FINDINGS: There is an acute intraparenchymal hematoma involving the subcortical white matter of the right cerebral hemisphere at the junction of the temporal and occipital lobes best illustrated on axial image 37 of 86 series 7 measuring approximately 1.2 cm in diameter and there is a margin of perilesional vasogenic edema. A much smaller subcortical hematoma within the left cerebral hemisphere measuring 0.6 cm in diameter is well visualized on axial image 31 of the same series. There are multiple additional tiny foci of acute blood visualized within the subcortical white matter of both frontal lobes and the corpus callosum. A trace volume of acute subarachnoid blood is also visualized within a sulcus over the left frontal convexity best illustrated on axial image 23 of 35 series 5. There is no intracranial mass effect or midline shift. No abnormal extra-axial collection. Lateral and third ventricles are proportionate to the subarachnoid spaces. No hydrocephalus. Delayed postcontrast images reveal no central filling defect within the dural venous sinuses to suggest the presence of an acute venous sinus thrombosis. The distal extra cranial internal carotid arteries are widely patent. The intracranial internal carotid arteries are patent. The intradural vertebral artery segments and basilar artery are patent. Anterior, middle, and posterior cerebral artery complexes are normal. No high-grade stenosis or proximal occlusion is visualized within the intracranial vessels. CT/CT angio head IMPRESSION: There are multiple acute intraparenchymal hemorrhages primarily distributed within the subcortical white matter of both cerebral hemispheres and within the corpus callosum, the etiology of which is uncertain on the basis of this examination. There is also trace acute subarachnoid blood layering within one of the sulci over the left cerebral convexity. In the absence of recent trauma these findings may represent a manifestation of cerebral amyloid angiopathy or an underlying coagulopathy. No evidence of dural venous sinus thrombosis is demonstrated on delayed postcontrast imaging. Arterial bolus phase reveals no acute arterial finding. Specifically no high-grade stenosis or proximal occlusion is visualized within the intracranial vessels. This critical result was discussed with Yani Wooten MD at 6:08 PM on 02/12/2020 and it was ascertained that the content and urgency of the report was understood at the time of direct communication.
--- NOTE | 2020-02-12 | XR_ITS ---
EXAMINATION: XR ABDOMEN KUB CLINICAL INDICATION: Intolerance of tube feedings. COMPARISON: Radionuclide gastric emptying study 05/11/2019; chest radiograph 02/11/2020. TECHNIQUE: AP x3 views of the abdomen. FINDINGS: There is mild gaseous distention of the stomach. There is scattered gas in the small and large bowel of normal caliber. There is no pneumatosis or abnormal collections of gas. Surgical clips seen right abdomen and small mesh ring tacks overlying lower quadrants. There is nasogastric tube with distal end overlying the stomach. Temperature probe seen overlying the distal thoracic esophagus. There is right internal jugular central venous line with tip at mid SVC. Pulmonary scattered airspace opacities similar to decreased from prior chest radiograph. XR/XR KUB IMPRESSION: 1. Mild gaseous distention of the stomach. Scattered gas in small and large bowel of normal caliber. 2. NG tube in stomach. 3. Pulmonary groundglass opacity stable to decreased from prior chest 02/11/2020.
[2020-02-12] MEDS: fentaNYL citrate/NS 1,000 MCG/100 ML PLAST..BAG 10 MCG IVCONT (03:50)
[2020-02-12 05:47] LABS: MANUAL DIFF FLAG NO
[2020-02-12 05:50] LABS: Basophils Percent Auto 0.1 % (0-2); Eosinophils Absolute Auto 0.1 X10*3/uL (0.0-0.4); Eosinophils Percent Auto 0.6 % (0-4); Hematocrit 40.9 % (37-47); Hemoglobin 12.9 g/dl (12.0-16.0); Imm Gran Abs Auto 0.29 X10*3/uL (0.00-0.03); Imm Gran Pct Auto 2.8 % (0.0-0.4); Lymphocytes Absolute Auto 1.3 X10*3/uL (1.2-4.9); Lymphocytes Percent Auto 12.9 % (20-40); Mean Corpuscular HGB Conc 31.5 g/dl (31.0-35.0); Mean Corpuscular Hemoglobin 29.4 pg (27.0-33.0); Mean Corpuscular Volume 93.2 fL (80-98); Mean Platelet Volume 11.3 fL (9.4-12.3); Monocytes Absolute Auto 0.8 X10*3/uL (0.1-1.2); Monocytes Percent Auto 7.4 % (2-11); Neutrophils Absolute Auto 7.8 X10*3/uL (2.0-8.3); Neutrophils Percent Auto 76.2 % (45-73); Platelet Count 223 X10*3/uL (160-400); Red Blood Count 4.39 X10*6/uL (4.20-5.50); Red Cell Distribution Width 14.1 % (11.0-16.0); White Blood Count 10.3 X10*3/uL (4.8-10.8)
[2020-02-12 05:57] LABS: Base Excess VBG 4.6 mmol/L; HCO3 VBG 29 mmol/L; Oxygen Saturation VBG 85.6 %; PCO2 VBG 42 mmhg; PO2 VBG 47 mmhg; pH VBG 7.46 (7.32-7.43)
--- NOTE | 2020-02-12 06:06 | PC.NURSE ---
UPON INITIAL ASSESSMENT, PT FLACCID, NOT RESTRAINED, PROPOFOL AT 20 AND FENTANYL AT 100. SBP 80s, HR 40-60s. AT APPROX 0400, SBP 160s, HR 120s, RR 30, PT REACHING FOR ETT, BUCKING VENT. RESTRAINTS APPLIED. SEDATION TITRATED PER EMAR. ETT #7.5, 22 MARILU. AC SETTINGS CURRENTLY 18/450/8/45%. PARMAR IN PLACE, UOP 50-100 ML/HR. NO SKIN ISSUES. REPO Q2H, AIR LOSS BED.
[2020-02-12 06:16] LABS: Albumin Level 3.8 g/dL (3.5-5.0); Anion Gap 15 (12-20); Blood Urea Nitrogen 56 mg/dL (9-16); Calcium 9.9 mg/dL (8.4-10.2); Carbon Dioxide 31 mmol/L (22-29); Chloride 101 mmol/L (96-108); Creatinine Clr Calc Pharmacy 63.5; Estimated Glomerular Filt Rate > 60; Glucose Random 99 mg/dL (60-115); Magnesium 2.4 mg/dL (1.6-2.6); Phosphorus 2.4 mg/dL (2.7-4.5); Potassium 4.7 mmol/l (3.3-5.1); Sodium 142 mmol/L (135-145)
--- NOTE | 2020-02-12 07:07 | PM.CCPN ---
Subjective Subjective Date of Service: 02/12/20 Interval History: 69-year-old morbidly obese individual with underlying hypertension presents with bilateral COVID-19 pneumonitis and ARDS with acute hypoxic respiratory failure and altered mental status with agitated delirium requiring intubation and currently has had FiO2 weaned to 45% and has a minutes ventilatory requirement now of under 9 liters/minute and significant weaning of positive expiratory pressure and we might consider weaning the sedation and assessing cognitive function and if appropriate attempt weaning ventilator and I have checked the serial chest x-rays which are clearing and reflect her improved clinical course Physical Exam Vital Signs: Vital Signs: Last Vital Signs Temp 98.8 F 02/12/20 07:00 Pulse 68 02/12/20 07:00 Resp 18 02/12/20 07:00 BP 97/58 L 02/12/20 07:00 Pulse Ox 91 L 02/12/20 07:00 Body Mass Index 52.4 Const: Other: we weaned sedation this morning and the patient had no demonstrable cognitive function and became increasingly agitated and then on pressure support markedly tachypneic with considerable respiratory work neurologically she was nonfocal with equal tone and reflexes and strength cardiac exam with normal S1 and S2 no gallops or murmurs good bilateral carotid upstrokes and no neck vein distension chest with coarse ventilator breath sounds but copious secretions abdomen is soft with positive bowel sounds and nontender with no organomegaly extremities with no evidence of livedo or acrocyanosis and peripheral pulses are palpable Objective Data Labs CBC & Chem 7: 02/12/20 05:32 02/12/20 05:32 Labs: Laboratory Results - last 24 hr 02/12/20 02/12/20 02/12/20 05:32 05:32 05:32 WBC 10.3 RBC 4.39 Hgb 12.9 Hct 40.9 MCV 93.2 MCH 29.4 MCHC 31.5 RDW 14.1 Plt Count 223 MPV 11.3 Immature Gran % (Auto) 2.8 H Neut % (Auto) 76.2 H Lymph % (Auto) 12.9 L [place] % (Auto) 7.4 Eos % (Auto) 0.6 Baso % (Auto) 0.1 Lymph # (Auto) 1.3 [place] # (Auto) 0.8 Eos # (Auto) 0.1 Baso # (Auto) 0.0 Abs Immat Gran (auto) 0.29 H Absolute Neuts (auto) 7.8 Absolute Nucleated RBC 0.000 Nucleated RBC % (auto) 0.0 VBG pH 7.46 H VBG pCO2 42 VBG Oxygen Liters/Min Not Reportable VBG pO2 47 VBG HCO3 29 VBG O2 Saturation 85.6 VBG Base Excess 4.6 Sodium 142 Potassium 4.7 Chloride 101 Carbon Dioxide 31 H Anion Gap 15 BUN 56 H Creatinine 0.86 Estim Creat Clear Calc 63.5 Estimated GFR > 60 Random Glucose 99 Calcium 9.9 D Phosphorus 2.4 L Magnesium 2.4 Albumin 3.8 D Microbiology Microbiology Results: Microbiology 02/03/20 11:41 Blood - Venous Blood Culture - Final No growth after 5 days. 02/03/20 11:41 Blood - Venous Blood Culture - Final No growth after 5 days. 02/02/20 10:47 Blood - Venous Blood Culture - Final Staphylococcus epidermidis 02/02/20 10:44 Blood - Venous Blood Culture - Final Staphylococcus epidermidis Staphylococcus epidermidis#2 Progress Note: A&P Assessment and plan (1) Acute respiratory distress syndrome (ARDS) due to COVID-19 virus: Status: Acute (2) Acute respiratory failure with hypoxia: Status: Acute (3) Pneumonia due to 2019-nCoV: Status: Acute (4) Hypoxia: Status: Acute (5) Other and unspecified hyperlipidemia: Status: Acute (6) Essential hypertension: Status: Acute (7) SOB (shortness of breath): Status: Acute (8) Morbid obesity due to excess calories: Problem details: Status: Acute (9) Dyslipidemia: Status: Acute (10) Hypertension: Status: Acute (11) Delirium due to another medical condition, acute, hyperactive: Status: Acute Assessment and Plan: because of persistent ileus and intolerance to tube feedings did a flat plate of the abdomen which failed to show an obstructive pattern nor even a significant ileus pattern and there was no free air will order a CT scan of the head with contrast specially venous phase because of potential COVID related hypercoagulability to rule out anatomic disease including venous thrombosis recent dated on dexmedetomidine and placed on assist control Time Spent With Patient Time: Total time spent is greater than 50% in coordination of care (as documented) at patient's floor/unit and/or counseling patient: Total time spent with greater than 50% in coordination of care (as documented) at patient's floor/unit and/or counseling patient:: 60
[2020-02-12] MEDS: 0.9 % Sodium Chloride Flush 3 ML SYRINGE IVFLUSH ×2 (07:33→17:01)
[2020-02-12] MEDS: Famotidine/PF 20 MG/2 ML VIAL IVPUSH (07:33)
[2020-02-12] MEDS: propofoL 1,000 MG/100 ML VIAL 19.76 MG IVCONT (07:34)
[2020-02-12] MEDS: Levothyroxine Sodium 75 MCG TABLET PO (07:34)
[2020-02-12] MEDS: lamoTRIgine 25 MG TABLET PO ×2 (07:34→20:48)
[2020-02-12] MEDS: Chlorhexidine Gluc Oral Rinse 15 ML MOUTHWASH BUCCAL ×3 (07:34→20:48)
--- NOTE | 2020-02-12 09:25 | ECG_ITS ---
Test Reason : rhythm change Blood Pressure : / mmHG Vent. Rate : 059 BPM Atrial Rate : 059 BPM P-R Int : 144 ms QRS Dur : 096 ms QT Int : 438 ms P-R-T Axes : 004 -24 -06 degrees QTc Int : 433 ms Sinus bradycardia Left anterior fascicular block T-wave inversion in Inferior leads Abnormal ECG No previous ECGs available Referred By: Josy Valenzuela Electronically Signed By:VAN VÁSQUEZ MD
--- NOTE | 2020-02-12 09:44 | MHC.CLN ---
F/U POSSIBLE EXTUBATION TODAY PROMOTE WAS ON HOLD D/T HIGH RESIDUAL TO RE-START TODAY; MAX GOAL RATE 35CC/HR WITH 240CC FREE WATER Q 6HRS TO PROVIDE 840KCALS (1188KCALS WITH SEDATION; 30KCALS/KG BASED ON IBW), 52G PROTEIN (1.3G/KG), 1665CC TOTAL WATER FROM FORMULA AND FLUSHES (27CC/KG BASED ON IBW) MONITOR TOLERANCE, RESIDUALS AND LYTES FOLLOWING
[2020-02-12] MEDS: dexmedeTOMIDidine HCL/NS 400 MCG/100 ML INFUS..BTL 10.98 MCG IVCONT (10:56)
--- NOTE | 2020-02-12 11:13 | PC.NURSE ---
07:45 Started sedation vacation per MD. 09:00 patient placed on PSv 20/5 45%. Patient noted to be bucking the vent, bitting ET, and kicking her feed but unable to open her eyes or follow commands. HR 120s and SBP 180s. 10:45 patient started on Percedex per MD. Per MD, patient's weight for Percedex IV pump set to 100 kg.
[2020-02-12] MEDS: Midazolam HCl/PF 2 MG/2 ML VIAL 4 MG IVPUSH (11:35)
[2020-02-12] MEDS: Lactated Ringers 1,000 ML 100 ML IVCONT (12:05)
[2020-02-12] MEDS: Enoxaparin Sodium 40 MG/0.4 ML SYRINGE SUBCUT (12:05)
[2020-02-12] MEDS: dilTIAZem HCL 125 MG in 0.9 % Sodium Chloride 100 ML 10 MG IVCONT (12:06)
[2020-02-12] MEDS: dexmedeTOMIDidine HCL/NS 400 MCG/100 ML INFUS..BTL 27.45 MCG IVCONT ×2 (14:31→18:13)
[2020-02-12] MEDS: iohexoL 350 MG/ML 100 ML INFUS..BTL IV (16:32)
[2020-02-12] MEDS: Lactated Ringers 1,000 ML 200 ML IVCONT (17:05)
[2020-02-12 19:32] LABS: INTERNATIONAL NORM RATIO 1.1 (0.9-1.1)
[2020-02-12 19:34] LABS: Partial Thromboplastin Time 29.8 SEC (24.1-38.0)
[2020-02-12 19:35] LABS: D Dimer 4469 NG/ML
[2020-02-12 19:54] LABS: Erythrocyte Sedimentation Rate 28 MM/HR (0-20)
[2020-02-12] MEDS: propofoL 1,000 MG/100 ML VIAL 13.18 MG IVCONT (20:44)
[2020-02-12] MEDS: Mirtazapine 30 MG TABLET PO (20:48)
[2020-02-13] VITALS (31 sets, daily range): BP systolic 100–156; BP diastolic 59–97; PULSE 52–90; RESP 14–28; TEMP 20–37.6; O2SAT 93–99
[2020-02-13] MEDS: Lactated Ringers 1,000 ML 100 ML IVCONT ×3 (00:10→19:38)
[2020-02-13] MEDS: propofoL 1,000 MG/100 ML VIAL 26.35 MG IVCONT ×7 (02:36→22:37)
[2020-02-13 05:47] LABS: MANUAL DIFF FLAG NO
[2020-02-13 05:51] LABS: Basophils Percent Auto 0.1 % (0-2); Eosinophils Percent Auto 0.3 % (0-4); Hematocrit 37.1 % (37-47); Hemoglobin 11.8 g/dl (12.0-16.0); Imm Gran Abs Auto 0.16 X10*3/uL (0.00-0.03); Imm Gran Pct Auto 1.4 % (0.0-0.4); Lymphocytes Absolute Auto 1.3 X10*3/uL (1.2-4.9); Lymphocytes Percent Auto 11.3 % (20-40); Mean Corpuscular HGB Conc 31.8 g/dl (31.0-35.0); Mean Corpuscular Hemoglobin 29.2 pg (27.0-33.0); Mean Corpuscular Volume 91.8 fL (80-98); Mean Platelet Volume 11.5 fL (9.4-12.3); Monocytes Absolute Auto 0.9 X10*3/uL (0.1-1.2); Monocytes Percent Auto 8.5 % (2-11); Neutrophils Absolute Auto 8.7 X10*3/uL (2.0-8.3); Neutrophils Percent Auto 78.4 % (45-73); Platelet Count 187 X10*3/uL (160-400); Red Blood Count 4.04 X10*6/uL (4.20-5.50); Red Cell Distribution Width 13.8 % (11.0-16.0); White Blood Count 11.1 X10*3/uL (4.8-10.8)
[2020-02-13 06:06] LABS: Base Excess VBG 7.4 mmol/L; HCO3 VBG 33 mmol/L; PCO2 VBG 49 mmhg; PO2 VBG 36 mmhg; pH VBG 7.44 (7.32-7.43)
[2020-02-13 06:18] LABS: Albumin Level 3.2 g/dL (3.5-5.0); Anion Gap 10 (12-20); Blood Urea Nitrogen 42 mg/dL (9-16); Carbon Dioxide 33 mmol/L (22-29); Chloride 104 mmol/L (96-108); Creatinine Clr Calc Pharmacy 73.8; Estimated Glomerular Filt Rate > 60; Glucose Random 80 mg/dL (60-115); Magnesium 2.1 mg/dL (1.6-2.6); Phosphorus 2.7 mg/dL (2.7-4.5); Potassium 4.2 mmol/l (3.3-5.1); Sodium 143 mmol/L (135-145)
[2020-02-13] MEDS: levoFLOXacin/D5W 750 MG/150 ML PIGGYBACK 100 MG IV (07:58)
[2020-02-13] MEDS: Famotidine/PF 20 MG/2 ML VIAL IVPUSH (07:58)
[2020-02-13] MEDS: Chlorhexidine Gluc Oral Rinse 15 ML MOUTHWASH BUCCAL ×3 (07:58→20:06)
[2020-02-13] MEDS: Levothyroxine Sodium 75 MCG TABLET PO (07:58)
[2020-02-13] MEDS: 0.9 % Sodium Chloride Flush 3 ML SYRINGE IVFLUSH ×3 (07:58→23:19)
[2020-02-13] MEDS: lamoTRIgine 25 MG TABLET PO ×2 (07:58→20:06)
--- NOTE | 2020-02-13 09:25 | EEG_ITS ---
The background activity consists of low voltage 3 to 4 hertz delta with superimposed 1 hertz sharp and slow complexes that are blunted and are seen with a frontal accentuation symmetrically over both hemispheres with 1 hertz periodic discharge throughout on the EEG. No clinical seizures are identified. The patient was on propofol. IMPRESSION: This is a markedly abnormal EEG due to diffuse background slowing and periodic [id number] voltage, blunted sharp and slow complexes seen over both hemispheres that appeared These findings can be seen in the background of cerebral hypoxia, encephalitis as well as metabolic encephalopathies. There is no definite evidence of a status epilepticus. Followup EEG in 24 to 48 hours is recommended. MD YULIYA Camargo/OWEN / [id number]
--- NOTE | 2020-02-13 09:30 | CA_ITS ---
Transthoracic Echocardiogram Patient (Last, First, Middle): Sade Ascencio, Gender: Female Date of : 1950 Age: 69 Procedure Date: 02/13/2020 Procedure Type: Transthoracic Echocardiogram Location: ICU Height: 149.86 cm Weight: 109.77 kg BSA: 2.00 m2 Heart Rate: bpm BP: 134 / 84 mmHg Manager Technical Sales: MARIELA Hua MD: Yani Wooten MD Symptoms: bilat cerebral infarcts Study Quality: Technically Difficult ECG Rhythm: Sinus Conclusions: - The left ventricular systolic function is normal. The visually estimated ejection fraction is between 60-65%. - No obvious valvular pathology seen on this study. Findings Left Ventricle Normal left ventricular cavity size. The left ventricular systolic function is normal. The visually estimated ejection fraction is between 60-65%. There is no evidence of regional wall motion abnormalities. Evidence suggests grade I (mild) diastolic dysfunction. Right Ventricle Normal right ventricular cavity size and systolic function. Atria The left atrium is moderately dilated. The right atrium is normal in size. Aortic Valve There is a normal trileaflet aortic valve. There is mild calcification of the aortic valve. There is no aortic valve stenosis. There is trace (trivial) aortic valve regurgitation. Mitral Valve The mitral valve appears normal. There is mild mitral annular calcification. There is trace mitral valve regurgitation. There is no mitral valve stenosis. Pulmonic Valve The pulmonic valve was not well visualized. Tricuspid Valve Normal tricuspid valve structure. There is trace tricuspid valve regurgitation. Estimated RVSP 33mmHg + RAP (patient on ventilator). Great Vessels There is mild dilatation of the ascending aorta measuring 3.70 cm. Venous The inferior vena cava is normal in size and collapses greater than 50% with inspiration. Pericardium/Pleural There is no evidence of pericardial effusion. Prior Study Comparison No prior study available for comparison. Recommendations, Care & Conclusions No obvious valvular pathology seen on this study. Measurements 2D Linear Measurements Ao Root: 3.50 2.1-3.5 cm LA Diam: 3.70 2.7-3.8/3.0-4.0 cm LVOT Diam: 2.00 3.0+(-)1.3 cm 2D Systolic Function EF 4C: 57.60 >55% EF 2C: 75.00 >55% EF BiP: 66.20 >55% Mitral Valve MV Pk E: 0.56 MV PK A: 0.77 MV Decel Time: 158.00 E/A: 0.70 E'Lateral: 9.14 E'Medial: 4.46 E/E' Med: 12.50 E/E' Lat: 6.10 Aortic Valve AoV Pk Jorge: 1.68 AoV Mn Jorge: 1.31 AoV VTI: 0.29 AoV Pk Grad: 11.00 Aov Mn Grad: 7.00 DANNY Cont.VTI: 2.55 LVOT LVOT Pk Jorge: 1.39 LVOT Mn Jorge: 0.84 LVOT VTI: 0.24 LVOT Pk Grad: 8.00 LVOT Mn Grad: 3.00 LVOT Diam: 2.00 LVOT Area: 3.14 Diastolic Function MV Pk E: 0.56 MV Pk A: 0.77 E/A: 0.70 E'Medial: 4.46 E/E' Med: 12.50 E' Laterial: 9.14 E/E' Lat: 6.10 Tricuspid Valve RA Press: 8.00 Great Vessels Aorta Ao Root-2D: 3.50 2.0-3.7 cm Ao Asc: 3.70 2.1-3.4 cm Updated in Other Vendor System with Status of Final Gurvinder Skinner MD electronically signed on 02/13/2020 5:21:47 PM with status of Final
--- NOTE | 2020-02-13 12:10 | P.PNCC_ITS ---
Subjective Subjective Date of Service: 02/13/20 Interval History: 69-year-old female with severe bilateral COVID-19 pneumonitis and ARDS who was progressing on the ventilator with reduced FiO2 but unable to wean because of persistent delirium and CT scan with contrast indicated multiple bilateral hemorrhagic infarcts in the face of a rising D-dimer at 4000 but no evidence of venous thrombosis beginning to produce marked increase in in sputum and culture was obtained and g stain failed to reveal any organisms but just significant polys blood culture from the 6th grew 2/2 bottles of methicillin sensitive Staph epidermidis susceptible to Levaquin which I gave her 1 dose of today and echo shows preserved LV and RV function just a small area of nonspecific thickening on 1 of the aortic valve, sugars and will probably at some point need a transesophageal echo but there is no significant valvular dysfunction based on this vascular finding intracranially I increased the steroids but I believe it is overall safer to maintain the DVT prophylaxis with 40 mg of once daily Lovenox Physical Exam Vital Signs: Vital Signs: Last Vital Signs Temp 99.3 F 02/13/20 11:49 Pulse 86 02/13/20 11:49 Resp 14 02/13/20 11:49 BP 144/88 H 02/13/20 11:49 Pulse Ox 97 02/13/20 11:49 Body Mass Index 52.4 Const: Other: on exam she is neurologically nonfocal and is arousable to pain with equal tone and reflexes no neck vein distension and normal bilateral carotid upstrokes and normal S1 and S2 with no gallops or murmurs chest with coarse bilateral ventilator related sounds abdomen is benign reduced but present bowel sounds but not distended and no guarding extremities with preserved skin no decubiti I know livedo and no acrocyanosis Objective Data Labs CBC & Chem 7: 02/13/20 05:35 02/13/20 05:35 Labs: Laboratory Results - last 24 hr 02/12/20 02/12/20 02/13/20 18:23 18:52 05:35 WBC 11.1 H RBC 4.04 L Hgb 11.8 L Hct 37.1 MCV 91.8 MCH 29.2 MCHC 31.8 RDW 13.8 Plt Count 187 MPV 11.5 Immature Gran % (Auto) 1.4 H Neut % (Auto) 78.4 H Lymph % (Auto) 11.3 L [place] % (Auto) 8.5 Eos % (Auto) 0.3 Baso % (Auto) 0.1 Lymph # (Auto) 1.3 [place] # (Auto) 0.9 Eos # (Auto) 0.0 Baso # (Auto) 0.0 Abs Immat Gran (auto) 0.16 H Absolute Neuts (auto) 8.7 H Absolute Nucleated RBC 0.000 Nucleated RBC % (auto) 0.0 ESR 28 H PT 13.0 INR 1.1 APTT 29.8 D-Dimer 4469 VBG pH VBG pCO2 VBG pO2 VBG HCO3 VBG O2 Saturation VBG Base Excess Sodium Potassium Chloride Carbon Dioxide Anion Gap BUN Creatinine Estim Creat Clear Calc Estimated GFR Random Glucose Calcium Phosphorus Magnesium Albumin 02/13/20 02/13/20 05:35 05:35 WBC RBC Hgb Hct MCV MCH MCHC RDW Plt Count MPV Immature Gran % (Auto) Neut % (Auto) Lymph % (Auto) [place] % (Auto) Eos % (Auto) Baso % (Auto) Lymph # (Auto) [place] # (Auto) Eos # (Auto) Baso # (Auto) Abs Immat Gran (auto) Absolute Neuts (auto) Absolute Nucleated RBC Nucleated RBC % (auto) ESR PT INR APTT D-Dimer VBG pH 7.44 H VBG pCO2 49 VBG pO2 36 VBG HCO3 33 VBG O2 Saturation 70.0 VBG Base Excess 7.4 Sodium 143 Potassium 4.2 Chloride 104 Carbon Dioxide 33 H Anion Gap 10 L BUN 42 H Creatinine 0.74 Estim Creat Clear Calc 73.8 Estimated GFR > 60 Random Glucose 80 Calcium 9.0 D Phosphorus 2.7 Magnesium 2.1 Albumin 3.2 L Microbiology Microbiology Results: Microbiology 02/12/20 19:13 Sputum - Suctioned Gram Stain - Final 02/12/20 19:13 Sputum - Suctioned Sputum Culture - Preliminary Culture in progress. 02/03/20 11:41 Blood - Venous Blood Culture - Final No growth after 5 days. 02/03/20 11:41 Blood - Venous Blood Culture - Final No growth after 5 days. 02/02/20 10:47 Blood - Venous Blood Culture - Final Staphylococcus epidermidis 02/02/20 10:44 Blood - Venous Blood Culture - Final Staphylococcus epidermidis Staphylococcus epidermidis#2 Progress Note: A&P Assessment and plan (1) Delirium due to another medical condition, acute, hyperactive: Status: Acute (2) Acute respiratory distress syndrome (ARDS) due to COVID-19 virus: Status: Acute (3) Acute respiratory failure with hypoxia: Status: Acute (4) Pneumonia due to 2019-nCoV: Status: Acute (5) Hypoxia: Status: Acute (6) Other and unspecified hyperlipidemia: Status: Acute (7) Essential hypertension: Status: Acute (8) SOB (shortness of breath): Status: Acute (9) Morbid obesity due to excess calories: Problem details: Status: Acute (10) Dyslipidemia: Status: Acute (11) Hypertension: Status: Acute (12) Cerebrovascular accident, embolic: Status: Acute Assessment and Plan: given the potentially embolic situation echo done raising a question of a small vegetation on aortic valvular, sure which needs transesophageal echo corroboration but more likely some insight to venous or arterial thrombosis and with the elevated D-dimer I a.m. increasing the Decadron but due to hemorrhagic nature I can not increase anticoagulation but have discussed this issue with the neuro ICU at [facility] and they have agreed to take her as a patient will check EEG today just to be sure were not missing some nonconvulsive complex seizure Time Spent With Patient Time: Total time spent is greater than 50% in coordination of care (as documented) at patient's floor/unit and/or counseling patient: Total time spent with greater than 50% in coordination of care (as documented) at patient's floor/unit and/or counseling patient:: 45
[2020-02-13] MEDS: Caspofungin Acetate 70 MG in 0.9 % Sodium Chloride 250 ML 250 MG IV (12:44)
[2020-02-13] MEDS: Enoxaparin Sodium 40 MG/0.4 ML SYRINGE SUBCUT (15:38)
--- NOTE | 2020-02-13 18:34 | P.CNNE_ITS ---
History of Present Illness Data of Consult Service Date: 02/13/20 Primary Care Provider: Unknown Physician HPI Reason for consult: altered mental status and cerebral hemorrhages or complicating COVID 19 This is a 69-year-old woman with a history of hypertension and obesity who tested positive for Covid 19 on January 26 and was doing fairly well till February 01 when she started to have more shortness of breath and presented to the emergency room where she was found to have bilateral infiltrates in the lungs and was admitted. She has been in the ICU now for 10 days on a vent and every attempt to wean off the vent has led to agitation and her mental status has not improved. Part of her workup included a CT scan of the brain that was done today, on February 12, and showed a subcortical cerebral hemorrhage about 1.5cm with some surrounding edema in the right posterior parietal occipital and temporal region and a smaller intracerebral hemorrhage of 1 cm in the left temporoparietal region as well has multiple punctate areas of cortical hemorrhages throughout both hemispheres as well has some evidence of a small amount of subarachnoid blood. Subsequently, she had an EEG to rule out status epilepticus. The EEG showed continuous 1 Hz periodic complexes with a blunted sharp and slow wave diffusely over both hemispheres with a frontal accentuatioon consistent with diffuse cerebral dysfunction such as seen with hypoxic encephalopathy, encephalitis, and sometimes with metabolic encephalopathies. The patient did not show any definite evidence of status epilepticus on the EEG. I was asked to evaluate her. Patient is on propofol and on a vent and therefore examination was not conducted. Review of Systems Eyes: Eyes: Reports no additional eye complaints ENT: Reports system reviewed and no additional complaints, except as documented Cardiovascular: Cardiovascular: Reports no additional cardiovascular complaints Respiratory: Respiratory: Reports no additional respiratory complaints Gastrointestinal: Gastrointestinal: Reports no additional gastrointestinal complaints Musculoskeletal: Musculoskeletal: Reports no additional musculoskeletal complaints Integumentary/Breasts: Skin/Breast: Reports system reviewed and no additional complaints, except as docu Neurologic: Denies Neuro-related abnormal movements Psychiatric: Psychiatric: Reports as per HPI Endocrine: Endocrine: Reports no additional endocrine complaints Hematologic/Lymphatic: Hematologic/Lymphatic: Reports no additional hematologic/lymphatic complaints Allergic/Immunologic: Allergic/Immunologic: Reports no additional allergic/immunologic complaints PMFSH Past Medical History Medical History 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 Cervicalgia Chronic headaches Dyslipidemia Essential hypertension Fecal incontinence GERD (gastroesophageal reflux disease) Hiatal hernia History of gastroscopy Hypertension Morbid obesity due to excess calories Obstructive sleep apnea Other and unspecified hyperlipidemia Pulmonary nodule, right Thyroid nodule Urinary incontinence Family History Family History Father No problems noted. Mother No problems noted. Daughter No problems noted. Daughter No problems noted. Son No problems noted. Son No problems noted. Surgical History Surgical History H/O tooth extraction History of bilateral knee replacement History of bilateral tubal ligation History of carpal tunnel release History of cholecystectomy History of dacryocystorhinostomy History of herniorrhaphy History of laparoscopic appendectomy History of sleeve gastrectomy History of total abdominal hysterectomy and bilateral salpingo-oophorectomy S/p bilateral blepharoplasty Social History Social History Household Members: Family Household Members Other:: grandson Housing: Apartment Do you presently have visiting nurse or other home services: Yes ([employer]) Alcohol intake: never Smoking Status: Never smoker Use of substances other than those prescribed or required for medical reasons: No Currently Displaying Signs/Symptoms of Drug Intoxication Withdrawal: No Have you been hit, kicked, punched, or otherwise hurt by someone within the past year? If so, by whom?: No Do you feel safe in your current relationship?: No Is there a partner from a previous relationship who is making you feel unsafe now?: No Are you made to feel afraid or neglected: No Advance Directives: No Advance Directives Information Provided: No Do you have thoughts of harming others: None Do you have a plan to hurt others: No Plan Recently lost weight without trying: No Meds Allergies Allergy/AdvReac Type Severity Reaction Status Date / Time atorvastatin [From Lipitor] Allergy Mild HIVES Verified 01/10/20 13:29 Home Medications Medication Instructions Recorded Confirmed Type atenolol 1 tab PO BEDTIME 02/02/20 02/02/20 History calcium citrate-vitamin D3 1 tab PO BID 02/02/20 02/02/20 History clonazepam 1.5 tab PO BEDTIME PRN 02/02/20 02/02/20 History dicyclomine 1 cap PO TID PRN 02/02/20 02/02/20 History fluticasone propion-salmeterol 1 puff PO BID 02/02/20 02/02/20 History furosemide 10 mg PO QAM 02/02/20 02/02/20 History levothyroxine 75 mcg PO QAM 02/02/20 02/02/20 History lisinopril 20 mg PO QAM 02/02/20 02/02/20 History loperamide [Anti-Diarrheal 2 mg PO Q6H PRN 02/02/20 02/02/20 History (loperamide)] loratadine 10 mg PO QAM 02/02/20 02/02/20 History mirtazapine 1 tab PO BEDTIME 02/02/20 02/02/20 History omeprazole 20 mg PO BID 02/02/20 02/02/20 History ondansetron HCl 4 mg PO Q8H PRN 02/02/20 02/02/20 History pravastatin 40 mg PO BEDTIME 02/02/20 02/02/20 History sucralfate 10 ml PO BID 02/02/20 02/02/20 History venlafaxine 1 cap PO DAILY 02/02/20 02/02/20 History venlafaxine 150 mg PO DAILY 02/02/20 02/02/20 History Physical Exam Vital Signs: Vital Signs: Last Vital Signs Temp 99.0 F 02/13/20 18:00 Pulse 75 02/13/20 18:00 Resp 15 02/13/20 18:00 BP 134/78 02/13/20 18:00 Pulse Ox 96 02/13/20 18:00 Body Mass Index 52.4 Const: Other: Patient is on propofol and intubated on a respirator Nutritional Appearance: well nourished and obese HENMT: Head: Yes normal to inspection, Yes normocephalic and Yes atraumatic General nose exam: Normal external nose present Eyes: General: appearance normal, both eyes and all related structures Alignment and Position: alignment normal Eyelids: Yes eyelids normal Conjunctivae: conjunctivae normal Sclerae: sclerae normal Corneas: corneas normal Direct Ophthalmoscopy: normal light reflex Neck: Neck: Yes normal visual inspection and Yes full ROM Thyroid: Thyroid normal Carotids: normal carotid upstroke and bounding pulses Chest: Chest palpation & inspection: normal inspection of the chest Resp: Other: vented Auscultation: diminished lung sounds Cardio: Rate: regular rate Rhythm: regular rhythm Heart sounds: S1 nor mal heart sound present and S2 normal heart sound present Peripheral pulses: Peripheral pulses 2+ throughout GI: Inspection: Yes normal to inspection Percussion: Yes normal to percussion Auscultation: normal bowel sounds Rectal Exam - Female: deferred Back/Spine/Pelvis: Cervical Spine: normal cervical lordosis and cervical ROM normal Thoracic/Lumbar Spine: thoracic and lumbar spine normal to inspection Skin: General skin exam: no rashes or lesions noted Neuro: Other: Unresponsive. A meaningful neurological examination will could not be conducted because the patient is paralyzed on propofol on a vent Speech: Other speech findings present (Neuro) Deep tendon reflexes (DTR's): Right triceps reflex intensity grade: 0, Left triceps reflex intensity grade: 0, Rt Biceps (C5, C6): 0, Left biceps reflex intensity grade: 0, Right brachioradialis reflex intensity grade: 2+, Left brachioradialis reflex intensity grade: 2+, Right patellar reflex intensity grade: 0, Left patellar reflex intensity grade: 0, Right ankle reflex intensity grade: 0 and Left ankle reflex intensity grade: 0 Plantar Reflex Responses: downgoing: right, left and bilateral Pupils: Normal pupillary reactivity/response: bilateral Extrem: General: Yes normal to inspection, Yes normal exam except as noted and Yes no pedal edema Psych: Appearance: grossly normal Mental Status: mental status grossly normal Speech and movement: Normal speech and movement present and Clear speech present Affect: normal affect Attitude: cooperative Thought process: Normal thought process present Results Labs CBC & Chem 7: 02/13/20 05:35 02/13/20 05:35 Labs: Short CBC 02/13/20 Range/Units 05:35 WBC 11.1 H (4.8-10.8) X10*3/uL Hgb 11.8 L (12.0-16.0) g/dl Hct 37.1 (37-47) % Plt Count 187 (160-400) X10*3/uL BMP 02/13/20 05:35 Sodium 143 Potassium 4.2 Chloride 104 Carbon Dioxide 33 H BUN 42 H Creatinine 0.74 Calcium 9.0 D Liver Function 11/17/20 Range/Units 05:35 Albumin 3.2 L (3.5-5.0) g/dL Microbiology Microbiology Results: Microbiology 02/12/20 19:13 Sputum - Suctioned Gram Stain - Final 02/12/20 19:13 Sputum - Suctioned Sputum Culture - Preliminary Culture in progress. 02/03/20 11:41 Blood - Venous Blood Culture - Final No growth after 5 days. 02/03/20 11:41 Blood - Venous Blood Culture - Final No growth after 5 days. 02/02/20 10:47 Blood - Venous Blood Culture - Final Staphylococcus epidermidis 02/02/20 10:44 Blood - Venous Blood Culture - Final Staphylococcus epidermidis Staphylococcus epidermidis#2 Assessment and Plan (1) Cerebrovascular accident, embolic: Problem details: Multiple areas of cerebral hemorrhage over both hemispheres most of which are punctate except for 2 areas in the right temporal parietal and left temporal parietal areas Status: Acute Continue current dose of Decadron. No surgical intervention is indicated. There is no evidence of intracranial vascular occlusion and no evidence of cerebral sinus thrombosis (2) Delirium due to another medical condition, acute, hyperactive: Status: Acute Treatment of medical problems Covid and Decadron (3) Acute respiratory distress syndrome (ARDS) due to COVID-19 virus: Status: Acute (4) Pneumonia due to 2019-nCoV: Status: Acute (5) Hypoxia: Status: Acute (6) Essential hypertension: Status: Acute (7) Morbid obesity due to excess calories: Problem details: Status: Acute Procedures Abscess I/D Date of Service: 02/13/20
[2020-02-13] MEDS: dexAMETHasone sod phosphate 4 MG/ML VIAL 6 MG IVPUSH (20:06)
[2020-02-14] VITALS (16 sets, daily range): BP systolic 99–143; BP diastolic 57–96; PULSE 0–86; RESP 13–62; TEMP 36.1–37.5; O2SAT 91–99
[2020-02-14] MEDS: propofoL 1,000 MG/100 ML VIAL 26.35 MG IVCONT ×2 (02:21→05:56)
[2020-02-14 05:56] LABS: Hematocrit 32.5 % (37-47); Hemoglobin 10.7 g/dl (12.0-16.0); Imm Gran Abs Auto 0.11 X10*3/uL (0.00-0.03); Imm Gran Pct Auto 1.4 % (0.0-0.4); Lymphocytes Absolute Auto 0.6 X10*3/uL (1.2-4.9); Lymphocytes Percent Auto 7.9 % (20-40); MANUAL DIFF FLAG SCAN; Mean Corpuscular HGB Conc 32.9 g/dl (31.0-35.0); Mean Corpuscular Hemoglobin 29.6 pg (27.0-33.0); Mean Platelet Volume 12.3 fL (9.4-12.3); Monocytes Absolute Auto 0.5 X10*3/uL (0.1-1.2); Monocytes Percent Auto 6.4 % (2-11); Neutrophils Absolute Auto 6.6 X10*3/uL (2.0-8.3); Neutrophils Percent Auto 84.3 % (45-73); Platelet Count 164 X10*3/uL (160-400); Red Blood Count 3.61 X10*6/uL (4.20-5.50); Red Cell Distribution Width 13.9 % (11.0-16.0); SCAN SMEAR FLAG 1; White Blood Count 7.9 X10*3/uL (4.8-10.8)
[2020-02-14] MEDS: Lactated Ringers 1,000 ML 100 ML IVCONT (05:56)
[2020-02-14 06:02] LABS: SLIDE REVIEW VERIFIED
[2020-02-14 06:23] LABS: Base Excess VBG 8.4 mmol/L; D Dimer 3471 NG/ML; HCO3 VBG 32 mmol/L; Oxygen Saturation VBG 73.2 %; PCO2 VBG 42 mmhg; PO2 VBG 35 mmhg; pH VBG 7.51 (7.32-7.43)
[2020-02-14 06:36] LABS: Anion Gap 11 (12-20); Blood Urea Nitrogen 27 mg/dL (9-16); Carbon Dioxide 30 mmol/L (22-29); Chloride 102 mmol/L (96-108); Creatinine Clr Calc Pharmacy 73.8; Estimated Glomerular Filt Rate > 60; Glucose Random 128 mg/dL (60-115); Magnesium 2.1 mg/dL (1.6-2.6); Phosphorus 4.1 mg/dL (2.7-4.5); Potassium 4.2 mmol/l (3.3-5.1); Sodium 139 mmol/L (135-145)
--- NOTE | 2020-02-14 06:41 | PC.NURSE ---
brother in-law kaitlynn and daughter called for status reort. using kazakh interpretter questions answered and plan care discussed. pt is sedated. she has episodes of coughing jags where she has abnormal extension of upper extremities. tongue protrudes from mouth. she does not follow commands. awaiting bed availability at [facility]. pt has needed frequent endotracheal suctioning. thick lee secreations removed from airway. breath sounds are with scattered i/e rhonchi. hemodynamically stable. ecg displays sb-sr. propofol has been increased to 50mg/kg/hr for ventilatory management. tube feedings advanced to 30 ml/hr. free water 240 ml q 6hr. u/o has been 100-200ml/hr. pt incontinent of a large liquid brown stool.
[2020-02-14 07:44] LABS: SARS COV2 IgG Positive (Negative)
[2020-02-14] MEDS: Chlorhexidine Gluc Oral Rinse 15 ML MOUTHWASH BUCCAL (07:52)
[2020-02-14] MEDS: dexAMETHasone sod phosphate 4 MG/ML VIAL 6 MG IVPUSH (07:52)
[2020-02-14] MEDS: levoFLOXacin/D5W 500 MG/100 ML PIGGYBACK 100 MG IV (07:52)
[2020-02-14] MEDS: 0.9 % Sodium Chloride Flush 3 ML SYRINGE IVFLUSH (07:53)
[2020-02-14] MEDS: Famotidine/PF 20 MG/2 ML VIAL IVPUSH (07:53)
[2020-02-14] MEDS: lamoTRIgine 25 MG TABLET PO (07:53)
[2020-02-14] MEDS: Levothyroxine Sodium 75 MCG TABLET PO (07:53)
--- NOTE | 2020-02-14 08:55 | P.DS_ITS ---
DS: Providers Provider Date of admission: 02/02/20 12:51 Date of discharge: 02/14/20 Primary care physician: Unknown Physician Admitting clinician: Alanis Schulz Attending physician on admission: Alanis Schulz Consults: 02/02/20 12:51 Consult to Infectious Diseases Routine Consulting Provider: Sarah Howard Reason for consultation: Eval for hypoxic faiure 2/2 Covid19 infection Consult to Pulmonology Routine Consulting Provider: [facility] Reason for consultation: Evaluation for hypoxic resp. failure 2/2 Covid19 02/12/20 18:10 Consult to Neurology Routine Consulting Provider: [facility] Reason for consultation: multiple bilat. hemorrhagic infarcts Has provider been notified: Yes Attending physician on discharge: Yani Wooten Discharging clinician: Yani Wooten DS: Transfer Hospital Acceptance Reason for Transfer: multiple bilateral hemorrhagic subcortical infarcts with persistent delirium Name of Facility: [facility] to neurocritical care unit Accepting Provider: Dr. Jony Cunningham DS: Diagnosis Discharge Diagnosis (1) Cerebrovascular accident, embolic: Status: Acute Problem details: Multiple areas of cerebral hemorrhage over both hemispheres most of which are punctate except for 2 areas in the right temporal parietal and left temporal parietal areas (2) Delirium due to another medical condition, acute, hyperactive: Status: Acute Problem details: blood cultures that were done on February 01 showed 2/2 bottles with methicillin sensitive Staph epidermidis and was not treated so I began treating on February 12 with Levaquin so today is day 2 and there was 1 small area of thickening on a commissure of the aortic valve which might need therefore a DON to confirm or rule out endocarditis given her cerebral picture (3) Acute respiratory distress syndrome (ARDS) due to COVID-19 virus: Status: Acute Problem details: now intubated 8-9 days with a right internal jugular triple-lumen central venous pressure catheter (4) Pneumonia due to 2019-nCoV: Status: Acute Problem details: already received complete course of remdesivir and IV Decadron (5) Hypoxia: Status: Acute Problem details: current FiO2 is about 50% with tidal volume between 506 100 cc on assist control (6) Essential hypertension: Status: Acute Problem details: well controlled with normal bedside echocardiography indicating normal LV and RV function (7) Morbid obesity due to excess calories: Status: Acute Problem details: she has a history of untreated obstructive sleep apnea and background of reflux with Carlson's esophagus and most recent H pylori positivity was in September DS: Medications Discharge Medications Home Medications: Home Medications Medication Instructions Recorded Confirmed atenolol 1 tab PO BEDTIME 02/02/20 02/02/20 calcium citrate-vitamin D3 1 tab PO BID 02/02/20 02/02/20 clonazepam 1.5 tab PO BEDTIME PRN 02/02/20 02/02/20 dicyclomine 1 cap PO TID PRN 02/02/20 02/02/20 fluticasone propion-salmeterol 1 puff PO BID 02/02/20 02/02/20 furosemide 10 mg PO QAM 02/02/20 02/02/20 levothyroxine 75 mcg PO QAM 02/02/20 02/02/20 lisinopril 20 mg PO QAM 02/02/20 02/02/20 loperamide [Anti-Diarrheal 2 mg PO Q6H PRN 02/02/20 02/02/20 (loperamide)] loratadine 10 mg PO QAM 02/02/20 02/02/20 mirtazapine 1 tab PO BEDTIME 02/02/20 02/02/20 omeprazole 20 mg PO BID 02/02/20 02/02/20 ondansetron HCl 4 mg PO Q8H PRN 02/02/20 02/02/20 pravastatin 40 mg PO BEDTIME 02/02/20 02/02/20 sucralfate 10 ml PO BID 02/02/20 02/02/20 venlafaxine 1 cap PO DAILY 02/02/20 02/02/20 venlafaxine 150 mg PO DAILY 02/02/20 02/02/20 DS: Summary Hospital Course Hospital Course: so she has been in the hospital for 18 days intubated for 8-9 during which time we have been able to wean her FiO2 and her peep and chest x-ray is definitely clearing and surveillance sputum culture for 2 days shows no growth and currently being treated for a positive blood culture 2/2 bottles from the 6th that showed JANNA he but no treatment until yesterday when I started her on IV Levaquin and today's weaning trial still does not demonstrate cognitive function although she is awakening with less agitation which in itself is a positive nonfocal exam including bilaterally reactive pupils currently accepting feedings up to 30 cc/hour no longer having residuals and she never had renal dysfunction or cardiac dysfunction as a complication but with such a long persistent delirium CT scan that was done showed multiple bilateral hemorrhagic infarcts with an elevated D-dimer of of 4500 and other than replacing her on high-dose Decadron I felt I had nothing more to offer for this coagulopathic picture but because of the MS SC bacteremia I worry about endocarditis in the need for a DON Status at Discharge Cognitive/behavioral status at discharge: awakens but no meaningful cognitive function Functional status at discharge: bed bound Time Spent with Patient Time attestation: Total time spent providing and/or coordinating discharge services: Discharge coordination time: Greater than 30 minutes Quality: Stroke Reason for No Antithrombin at DC: Contraindicated Reason for No Anticoagulant at DC: Contraindicated Onset of Symptoms Date: 01/27/20 Physical Exam Vital Signs: Vital Signs: Last Vital Signs Temp 97.5 F 02/14/20 07:00 Pulse 54 02/14/20 07:00 Resp 14 02/14/20 07:00 BP 109/70 02/14/20 07:00 Pulse Ox 94 02/14/20 07:00 Body Mass Index 52.4 awakens but no cognitive function but nonfocal neurologic no neck vein distension and good bilateral carotid upstrokes with no bruits cardiac exam with normal S1 and normal S2 no gallops or murmurs chest with just course ventilator related breath sounds but no adventitious sounds abdomen is soft with good bowel sounds and no organomegaly periphery skin is intact no pressure wounds no acrocyanosis no livedo DS: Data Data Completed and Pending Labs on day of discharge: 02/02/20 Breakfast Low Sodium Diet 02/02/20 10:22 Albuterol Sulfate (0.083%) [Ventolin (0.083%)] 5 mg INHALE ONCE ONE Azithromycin [Zithromax] 500 mg PO ONCE ONE cefTRIAXone sodium [Rocephin] 1 gm 0.9 % Sodium Chloride [Ns] 50 ml IV ONCE 02/02/20 10:23 ECG 12 lead EKG Stat EKG Documentation DIRECTED XR chest 1V Stat 02/02/20 10:41 Albuterol Sulfate (0.083%) [Ventolin (0.083%)] 2.5 mg .ROUTE .STK-MED ONE 02/02/20 10:44 B Type Natriuretic Peptide Stat Basic Metabolic Panel Stat Complete Blood Count Auto Diff Stat Creatine Kinase Total Stat Ferritin Stat Lactate Dehydrogenase Stat Lactic Acid Stat Liver Panel Stat Magnesium Stat SLIDE REVIEW Stat Troponin-I High Sensitivity Stat 02/02/20 10:45 Partial Thromboplastin Time Stat Prothrombin Time INR Stat 02/02/20 10:47 Blood Culture X2 [BC] Stat 02/02/20 11:46 Azithromycin [Zithromax] 500 mg .ROUTE .ST-MED ONE 02/02/20 11:47 cefTRIAXone sodium [Rocephin] 1 gm .ROUTE .[facility] ONE 02/02/20 12:43 Transfer Order Routine 02/02/20 13:45 Acetaminophen [Tylenol] 650 mg PO Q6H PRN Dicyclomine HCl [Bentyl] 10 mg PO TID PRN Magnesium Hydrox/Alum Hydrox [Maalox] 30 ml PO Q4H PRN clonazePAM [KlonoPIN] 1.5 mg PO BEDTIME PRN dexAMETHasone sod phosphate [Decadron] 6 mg IVPUSH DAILY ondansetron HCL [Zofran] 4 mg IVPUSH Q8H PRN 02/02/20 13:45 Intake and Output QSHIFTE Pulse Oximetry Q4HR 02/02/20 14:34 Albuterol Sulfate (0.083%) [Ventolin (0.083%)] 2.5 mg INHALE RQ4H PRN 02/02/20 15:00 Doxycycline Hyclate [Vibramycin] 100 mg 0.9 % Sodium Chloride [Ns] 250 ml IV Q12H 02/02/20 16:00 Albuterol/Iprat 2.5/0.5MG 3 ML [Duoneb] 3 ml INHALE RQ4H WHILE AWAKE Enoxaparin Sodium [Lovenox] 40 mg SUBCUT Q24H 02/02/20 16:30 Remdesivir 200 mg 0.9 % Sodium Chloride [Ns] 210 ml IV ONCE 02/02/20 16:41 Doxycycline Hyclate [Vibramycin] 100 mg IV .[facility] ONE 02/02/20 21:00 Mirtazapine [Remeron] 30 mg PO BEDTIME Omeprazole [PriLOSEC] 20 mg PO BID Pravastatin Sodium [Pravachol] 40 mg PO BEDTIME atenoloL [Tenormin] 25 mg PO BEDTIME 02/03/20 02:49 Doxycycline Hyclate [Vibramycin] 100 mg IV .STK-MED ONE 02/03/20 08:03 Basic Metabolic Panel DAILY@0600 C Reactive Protein Routine Creatine Kinase Total Routine D Dimer Routine Lactate Dehydrogenase Routine Procalcitonin Routine 02/03/20 08:04 Complete Blood Count Auto Diff DAILY@0600 SLIDE REVIEW Routine 02/03/20 08:12 Dexamethasone Routine 02/03/20 09:00 Furosemide [Lasix] 10 mg PO DAILY Loratadine [Claritin] 10 mg PO DAILY Venlafaxine HCl ER [Effexor XR] 150 mg PO DAILY lisinopriL [Zestril] 20 mg PO DAILY 02/03/20 11:41 Blood Culture X2 [BC] Routine 02/03/20 12:00 Albuterol Sulfate [Ventolin] 4 puff INHALE RQ4H WHILE AWAKE 02/03/20 15:20 Doxycycline Hyclate [Vibramycin] 100 mg IV .STK-MED ONE 02/03/20 15:38 Convalescent Covid Plasma Urgent Type and Screen Urgent 02/03/20 17:00 Remdesivir 100 mg 0.9 % Sodium Chloride [Ns] 230 ml IV Q24H Remdesivir 100 mg 0.9 % Sodium Chloride [Ns] 230 ml IV Q24H 02/04/20 03:08 Doxycycline Hyclate [Vibramycin] 100 mg IV .STK-MED ONE 02/04/20 06:26 Basic Metabolic Panel DAILY@0600 Complete Blood Count Auto Diff DAILY@0600 SLIDE REVIEW Routine 02/04/20 09:00 Thiamine HCL [Vitamin B-1] 200 mg PO BID 02/04/20 14:17 Doxycycline Hyclate [Vibramycin] 100 mg IV .STK-MED ONE 02/04/20 21:00 Melatonin 6 mg PO BEDTIME atenoloL [Tenormin] 12.5 mg PO BEDTIME 02/05/20 02:48 Doxycycline Hyclate [Vibramycin] 100 mg IV .STK-MED ONE 02/05/20 08:09 Cholecalciferol (Vitamin D3) [Vitamin D3] 50 mcg PO ONCE ONE 02/05/20 08:15 methylPREDNISolone Sod Succ/PF [SOLU-MedroL] 80 mg IVPUSH Q12H 02/05/20 09:00 Ascorbic Acid [Vitamin C] 1,000 mg PO BID Enoxaparin Sodium [Lovenox] 80 mg SUBCUT Q12H Famotidine [Pepcid] 40 mg PO BID methylPREDNISolone Sod Succ/PF [SOLU-MedroL] 40 mg IVPUSH DAILY 02/05/20 10:47 Basic Metabolic Panel Routine C Reactive Protein Routine Complete Blood Count no Diff Routine D Dimer Routine Lactate Dehydrogenase Routine Magnesium Routine 02/05/20 21:00 Pravastatin Sodium [Pravachol] 80 mg PO BEDTIME 02/06/20 XR chest 1V Stat 02/06/20 01:43 Haloperidol Lactate [Haldol] 2.5 mg IV ONCE ONE 02/06/20 01:46 Morphine Sulfate 4 mg IVPUSH ONCE ONE 02/06/20 03:50 Haloperidol Lactate [Haldol] 2.5 mg IVPUSH ONCE ONE 02/06/20 06:08 Basic Metabolic Panel DAILY@0600 Complete Blood Count no Diff DAILY@0600 02/06/20 10:15 Arterial Blood Gas Routine 02/06/20 11:10 clonazePAM [KlonoPIN] 0.5 mg PO BEDTIME PRN 02/06/20 11:57 Furosemide [Lasix] 40 mg IVPUSH ONCE ONE 02/06/20 17:20 Arterial Blood Gas Routine 02/06/20 17:45 Transfer Order Routine 02/06/20 20:42 RT BiPAP/CPAP CONT 02/06/20 21:00 QUEtiapine Fumarate [SEROquel] 50 mg PO BEDTIME 02/06/20 21:45 Sodium Chloride 0.45 % 1,000 ml IVCONT 80 mls/hr 02/07/20 XR chest 1V Stat 02/07/20 03:02 Morphine Sulfate 2 mg .ROUTE .STK-MED ONE 02/07/20 03:03 Morphine Sulfate 2 mg IVPUSH Q2H PRN 02/07/20 05:36 Albumin Level Routine Basic Metabolic Panel DAILY@0600 Complete Blood Count no Diff DAILY@0600 Magnesium Routine Phosphorus Routine 02/07/20 05:37 Venous Blood Gas DAILY 02/07/20 08:00 Albuterol/Iprat 2.5/0.5MG 3 ML [Duoneb] 3 ml INHALE RQ6H WHILE AWAKE 02/07/20 08:27 Haloperidol Lactate [Haldol] 10 mg IM STAT STA 02/07/20 08:55 LORazepam [Ativan] 4 mg IM STAT STA Midazolam HCl/PF [Versed] 2 mg IVPUSH .STK-MED ONE 02/07/20 09:00 Restraint - Non Violent 24 HOURS 02/07/20 09:03 Etomidate [Amidate] 20 mg IVPUSH .STK-MED ONE 02/07/20 09:04 propofoL [Diprivan] 1,000 mg in 100 ml IVCONT As directed 02/07/20 09:33 fentaNYL citrate/PF [Sublimaze] 100 mcg .ROUTE .STK-MED ONE 02/07/20 09:45 fentaNYL citrate/PF [Sublimaze] 100 mcg IVPUSH ONCE ONE 02/07/20 10:55 Naloxone HCl [Narcan] 0.2 mg IVPUSH Q2M PRN 02/07/20 11:00 fentaNYL citrate/NS [Sublimaze/NS] 1,000 mcg in 100 ml IVCONT Per Protocol mcg/hr 02/07/20 11:07 Midazolam HCl/PF [Versed] 4 mg IM ONCE ONE 02/07/20 11:45 propofoL [Diprivan] 1,000 mg in 100 ml IVCONT Per Protocol mcg/kg/min 02/07/20 13:30 Albumin Human 25 % [Kedbumin 25 %] 100 ml IV Q6H 02/07/20 Lunch NPO Diet 02/08/20 02:45 NON-Behavioral Restraint Q24H Non-behavioral order assessment ONCE 02/08/20 05:42 Complete Blood Count Auto Diff DAILY@0600 Comprehensive Met. Panel DAILY@0600 Magnesium DAILY Phosphorus DAILY SLIDE REVIEW Routine Venous Blood Gas DAILY 02/08/20 Breakfast Tube Feeding Diet 02/09/20 02:02 NON-Behavioral Restraint Q24H 02/09/20 02:04 Non-behavioral order assessment ONCE 02/09/20 05:30 Venous Blood Gas DAILY 02/09/20 05:40 Albumin Level Routine Basic Metabolic Panel DAILY@0600 Complete Blood Count Auto Diff DAILY@0600 Magnesium DAILY Phosphorus DAILY SLIDE REVIEW Routine 02/09/20 10:00 Tube Feeding Assessment Q4HR 02/09/20 10:50 propofoL [Diprivan] 200 mg IVPUSH .STK-MED ONE 02/09/20 11:08 Norepinephrine Bitartrate/NS [Levophed] 8 mg in 250 ml IVCONT As directed 02/09/20 11:35 propofoL [Diprivan] 20 mg IVPUSH ONCE ONE 02/09/20 12:00 0.9 % Sodium Chloride [Ns] 100 ml dilTIAZem HCL [Cardizem] 125 mg IVCONT Per Protocol mg/hr 02/10/20 02:45 NON-Behavioral Restraint Q24H 02/10/20 02:56 Non-behavioral order assessment ONCE 02/10/20 03:30 Norepinephrine Bitartrate/NS [Levophed] 8 mg in 250 ml IVCONT Per Protocol mcg/kg/min 02/10/20 05:40 Albumin Level Routine Basic Metabolic Panel DAILY@0600 Complete Blood Count Auto Diff DAILY@0600 Magnesium DAILY Phosphorus DAILY Venous Blood Gas DAILY 02/11/20 XR chest 1V Stat 02/11/20 02:45 NON-Behavioral Restraint Q24H 02/11/20 04:19 Non-behavioral order assessment ONCE 02/11/20 05:06 Albumin Level Routine Basic Metabolic Panel DAILY@0600 Complete Blood Count Auto Diff DAILY@0600 Magnesium DAILY Phosphorus DAILY Venous Blood Gas DAILY 02/11/20 08:39 Furosemide [Lasix] 20 mg IVPUSH ONCE ONE 02/12/20 CT angio head Stat XR KUB Stat 02/12/20 03:42 Restraint - Non Violent 24 HOURS 02/12/20 03:43 NON-Behavioral Restraint Q24H 02/12/20 05:32 Albumin Level Routine Basic Metabolic Panel DAILY@0600 Complete Blood Count Auto Diff DAILY@0600 Magnesium DAILY Phosphorus DAILY Venous Blood Gas DAILY 02/12/20 09:25 ECG 12 lead EKG Routine 02/12/20 10:34 dexmedeTOMIDidine HCL/NS [Precedex] 400 mcg in 100 ml IVCONT As directed 02/12/20 10:45 dexmedeTOMIDidine HCL/NS [Precedex] 400 mcg in 100 ml IVCONT Titrate mcg/kg/hr 02/12/20 11:28 Midazolam HCl/PF [Versed] 4 mg IVPUSH ONCE ONE 02/12/20 11:29 Midazolam HCl/PF [Versed] 2 mg .ROUTE .STK-MED ONE 02/12/20 11:54 dilTIAZem HCL [Cardizem] 125 mg IVCONT .STK-MED ONE 02/12/20 16:31 iohexoL 350 MG/ML [Omnipaque 350 MG/ML] 100 ml IV ONCE ONE 02/12/20 18:23 D Dimer Stat Partial Thromboplastin Time Stat Prothrombin Time INR Stat 02/12/20 18:52 Erythrocyte Sedimentation Rate Stat 02/13/20 05:35 Albumin Level Routine Basic Metabolic Panel Routine Complete Blood Count Auto Diff Routine Magnesium Routine Phosphorus Routine Venous Blood Gas Routine 02/13/20 06:27 levoFLOXacin/D5W [Levaquin] 750 mg in 150 ml IV ONCE 02/13/20 09:25 EKG Documentation DIRECTED 02/13/20 09:30 CA echo transthoracic complete Routine 02/13/20 11:16 Caspofungin Acetate [Cancidas] 70 mg 0.9 % Sodium Chloride [Ns] 250 ml IV ONCE 02/14/20 05:19 Albumin Level Routine Basic Metabolic Panel Routine Complete Blood Count Auto Diff Routine D Dimer Stat Magnesium Routine Phosphorus Routine SARS COV2 IgG Routine SLIDE REVIEW Routine Venous Blood Gas Stat Laboratory Last Values WBC 7.9 X10*3/uL (4.8-10.8) 02/14/20 05:19 RBC 3.61 X10*6/uL (4.20-5.50) L 02/14/20 05:19 Hgb 10.7 g/dl (12.0-16.0) L 02/14/20 05:19 Hct 32.5 % (37-47) L 02/14/20 05:19 MCV 90.0 fL (80-98) 02/14/20 05:19 MCH 29.6 pg (27.0-33.0) 02/14/20 05:19 MCHC 32.9 g/dl (31.0-35.0) 02/14/20 05:19 RDW 13.9 % (11.0-16.0) 02/14/20 05:19 Plt Count 164 X10*3/uL (160-400) 02/14/20 05:19 MPV 12.3 fL (9.4-12.3) 02/14/20 05:19 Immature Gran % (Auto) 1.4 % (0.0-0.4) H 02/14/20 05:19 Neut % (Auto) 84.3 % (45-73) H 02/14/20 05:19 Lymph % (Auto) 7.9 % (20-40) L 02/14/20 05:19 Stanly % (Auto) 6.4 % (2-11) 02/14/20 05:19 Eos % (Auto) 0.0 % (0-4) 02/14/20 05:19 Baso % (Auto) 0.0 % (0-2) 02/14/20 05:19 Lymph # (Auto) 0.6 X10*3/uL (1.2-4.9) L 02/14/20 05:19 Stanly # (Auto) 0.5 X10*3/uL (0.1-1.2) 02/14/20 05:19 Eos # (Auto) 0.0 X10*3/uL (0.0-0.4) 02/14/20 05:19 Baso # (Auto) 0.0 X10*3/uL (0.0-0.2) 02/14/20 05:19 Abs Immat Gran (auto) 0.11 X10*3/uL (0.00-0.03) H 02/14/20 05:19 Absolute Neuts (auto) 6.6 X10*3/uL (2.0-8.3) 02/14/20 05:19 Absolute Nucleated RBC 0.000 X10*3/uL (0.0-0.012) 02/14/20 05:19 Nucleated RBC % (auto) 0.0 /100WBC (0.0-0.2) 02/14/20 05:19 Smear Tech's Comments VERIFIED 02/14/20 05:19 ESR 28 MM/HR (0-20) H 02/12/20 18:52 PT 13.0 SEC (10.8-13.0) 02/12/20 18:23 INR 1.1 (0.9-1.1) 02/12/20 18:23 APTT 29.8 SEC (24.1-38.0) 02/12/20 18:23 D-Dimer 3471 NG/ML 02/14/20 05:19 ABG pH 7.41 (7.35-7.45) 02/06/20 17:20 ABG pCO2 46 mmhg (32-45) H 02/06/20 17:20 ABG pO2 47 mmhg (83-108) L* 02/06/20 17:20 ABG HCO3 29 mmol/l (22-26) H 02/06/20 17:20 ABG O2 Saturation 82.6 % 02/06/20 17:20 ABG Base Excess 3.4 02/06/20 17:20 VBG pH 7.51 (7.32-7.43) H 02/14/20 05:19 VBG pCO2 42 mmhg 02/14/20 05:19 VBG Oxygen Liters/Min Not Reportable 02/12/20 05:32 VBG pO2 35 mmhg 02/14/20 05:19 VBG HCO3 32 mmol/L 02/14/20 05:19 VBG O2 Saturation 73.2 % 02/14/20 05:19 VBG Base Excess 8.4 mmol/L 02/14/20 05:19 Oxygen Given 100% 02/06/20 17:20 Sodium 139 mmol/L (135-145) 02/14/20 05:19 Potassium 4.2 mmol/l (3.3-5.1) 02/14/20 05:19 Chloride 102 mmol/L (96-108) 02/14/20 05:19 Carbon Dioxide 30 mmol/L (22-29) H 02/14/20 05:19 Anion Gap 11 (12-20) L 02/14/20 05:19 BUN 27 mg/dL (9-16) H 02/14/20 05:19 Creatinine 0.74 mg/dL (0.5-1.4) 02/14/20 05:19 Estim Creat Clear Calc 73.8 02/14/20 05:19 Estimated GFR > 60 02/14/20 05:19 Random Glucose 128 mg/dL (60-115) H D 02/14/20 05:19 Lactic Acid 0.8 mmol/L (0.5-2.0) 02/02/20 10:44 Calcium 9.0 mg/dL (8.4-10.2) 02/14/20 05:19 Phosphorus 4.1 mg/dL (2.7-4.5) 02/14/20 05:19 Magnesium 2.1 mg/dL (1.6-2.6) 02/14/20 05:19 Ferritin 459 ng/mL (10-250) H 02/02/20 10:44 Total Bilirubin 0.5 mg/dL (0.0-1.0) 02/08/20 05:42 Direct Bilirubin 0.2 mg/dL (0.0-0.5) 02/02/20 10:44 AST 28 U/L (5-31) D 02/08/20 05:42 ALT 26 U/L (0-31) 02/08/20 05:42 Alkaline Phosphatase 67 U/L (39-117) 02/08/20 05:42 Lactate Dehydrogenase 600 U/L (122-220) H 02/05/20 10:47 Total Creatine Kinase 125 U/L (26-140) 02/03/20 08:03 Troponin I High Sens 9.0 ng/L (<3.5-17.0) 02/02/20 10:44 C-Reactive Protein 5.26 mg/dL (< or = 0.50) H 02/05/20 10:47 B-Natriuretic Peptide 12 pg/mL (<100) 02/02/20 10:44 Total Protein 6.3 g/dL (6.5-8.0) L 02/08/20 05:42 Albumin 3.0 g/dL (3.5-5.0) L 02/14/20 05:19 Procalcitonin 0.10 ng/mL 02/03/20 08:03 Dexamethasone >1000 ng/dL 02/03/20 08:12 SARS-CoV-2 IgG Ab Positive (Negative) 02/14/20 05:19 Blood Type O Positive 02/03/20 15:38 Antibody Screen NEGATIVE 02/03/20 15:38 Preliminary micro results at discharge 02/12/20 18:52 Blood Culture - Preliminary Blood - Venous No growth after 24 hours. 02/12/20 18:52 Blood Culture - Preliminary Blood - Venous No growth after 24 hours. 02/12/20 19:13 Sputum Culture - Preliminary Sputum - Suctioned Culture in progress. Discharge Plan Discharge Patient Disposition: er [facility] Referrals: Physician,Unknown [Primary Care Provider] - Discharge Medications: No Action venlafaxine 75 mg capsule,extended release 24hr 1 cap PO DAILY RF: 0 venlafaxine 150 mg capsule,extended release 24hr 150 mg PO DAILY RF: 0 mirtazapine 30 mg tablet 1 tab PO BEDTIME RF: 0 fluticasone propion-salmeterol 250-50 mcg/dose blister with device 1 puff PO BID RF: 0 pravastatin 40 mg tablet 40 mg PO BEDTIME RF: 0 sucralfate 100 mg/mL suspension 10 ml PO BID RF: 0 lisinopril 20 mg tablet 20 mg PO QAM RF: 0 ondansetron HCl 4 mg tablet 4 mg PO Q8H PRN (Reason: nausea/vomiting) RF: 0 clonazepam 1 mg tablet 1.5 tab PO BEDTIME PRN (Reason: anxiety) RF: 0 loperamide [Anti-Diarrheal (loperamide)] 2 mg tablet 2 mg PO Q6H PRN (Reason: Diarrhea) RF: 0 atenolol 25 mg tablet 1 tab PO BEDTIME RF: 0 levothyroxine 75 mcg tablet 75 mcg PO QAM RF: 0 omeprazole 20 mg capsule,delayed release(DR/EC) 20 mg PO BID RF: 0 furosemide 20 mg tablet 10 mg PO QAM RF: 0 dicyclomine 10 mg capsule 1 cap PO TID PRN (Reason: Diarrhea) RF: 0 loratadine 10 mg tablet 10 mg PO QAM RF: 0 calcium citrate-vitamin D3 315 mg-5 mcg (200 unit) tablet 1 tab PO BID RF: 0 Discharge Orders: Discharge Order (Routine); Ordered 02/14/20 Ordered By: Yani Wooten Activity on Discharge: Rest with bed elevated Visit Report Forms: Patient Portal Discharge page Care Plan Goals: transfer to acute care hospital in particular neuro intensive care Health Concerns: neuro intensive care for multiple bilateral hemorrhagic CVAs possible DON to rule out embolic source Plan of Treatment: continued dexamethasone and should complete course of IV Levaquin for the MSSA G bacteremia
[2020-02-14] MEDS: propofoL 1,000 MG/100 ML VIAL 32.94 MG IVCONT (09:17)
--- NOTE | 2020-02-14 09:23 | MHC.INPTTRAN ---
Addendum entered by Lety Lopez RN 02/14/20 12:11: 100cc Propofol given to [facility] for transport Addendum entered by Lety Lopez RN 02/14/20 11:50: Handoff given to [facility] at [facility] - patient picked up by [facility] at 1140 - VSS - 97.0, 45 HR, 99/57, 93% ON 50% FIO2. Family called and updated on patient transfer. Original Note: Patient admitted on 02/01 - previously positive COVID at home, posiitve COVID antibody. Patient had worsening SOB at home and was 84% on room air upon arrival to ED. Patient initially admitted to medical floors but experienced worsening hypoxemia requiring intubation on 02/06. ETT 7.5 22cm at the lip - Vent setting AC 14, TV 600, PEEP 8 FIO2 50%. Lung sounds diminished throughout, moderate amount of white/clear inline secretions. Currently sedated on propofol gtt at 50mcg. Brief sedation vacation preformed 02/13 0815 - patient responsive to painful stimuli, pupils PERRLA, but unable to follow commands, positive cough and gag. Head CTA preformed showing multiple acute introparenchymal hemorrhages and trace subarachnoid blood requiring transfer to [facility]. SR HR 70-80's on monitor, no ectopy noted. R IJ TLC patent - dressing changed 02/13 0900. Currently on Lovenox 40mq q24hr for DVT. DDIMER 3471. Abdomen soft, normal bowel sounds throughout, last BM 02/13 liquid brown. Currently on tube feedings of promote at 35cc/hr, no residuals. Urine output 325cc/hr concentrated over 3hrs. Skin warm dry and pink, no skin integrity concerns. BC positive for Staph x2 - currently on Levquin 500mg Q24hr. Thrush noted - started on Caspofungin 50mg q24hr.
[2020-02-14] MEDS: Enoxaparin Sodium 40 MG/0.4 ML SYRINGE SUBCUT (09:35)
--- NOTE | 2020-02-14 12:03 | MHC.CM.PN ---
Patient intubated/vented in ICU. Will be transferring to [facility] today. Continue to monitor for d/c needs.
--- NOTE | 2020-03-01 11:09 | MHC.STROKE ---
Late entry for 02/13/20 estimated NIHSS = 25, obtained from Neurologist exam. unknown onset of symptoms could be 02/12/20, patient was sedated on a vent prior to discovery of symptoms at 02/12/20 0600 per nurses notes, MD exam noted at 1325. Transferred to [facility].
== END 2020-02-14 11:40 | disposition short-term general hospital (02) | DRG 871 ==
LOC: HO.ED 11:48 → HO.IMC 13:02 → HO.ICU 02-06 17:52
PROVIDERS: Internal Medicine Pulmonary Disease; Physician Assistant; Admitting Provider Student in an Organized Health Care Education/Training Program; Emergency Provider Emergency Medicine; Visit Provider Internal Medicine Cardiovascular Disease
DX: A41.89 Other specified sepsis (principal); U07.1 COVID-19; J12.89 Other viral pneumonia; G92 Toxic encephalopathy; I63.40 Cerebral infarction due to embolism of unspecified cerebral artery; J80 Acute respiratory distress syndrome; Z68.43 Body mass index [BMI] 50.0-59.9, adult; N17.9 Acute kidney failure, unspecified; E66.01 Morbid (severe) obesity due to excess calories; E03.9 Hypothyroidism, unspecified; I10 Essential (primary) hypertension; E78.5 Hyperlipidemia, unspecified; Z98.84 Bariatric surgery status; K21.9 Gastro-esophageal reflux disease without esophagitis; Z96.653 Presence of artificial knee joint, bilateral; Z79.890 Hormone replacement therapy; F39 Unspecified mood [affective] disorder; E86.0 Dehydration; G47.33 Obstructive sleep apnea (adult) (pediatric)
CPT/HCPCS: 36415; 70496; 71045; 74018; 80048; 80053; 80076; 80299; 82040; 82550; 82728; 82803; 83605; 83615; 83735; 83880; 84100; 84145; 84484; 85025; 85027; 85379; 85610; 85652; 85730; 86140; 86769; 86850; 86900; 86901; 87040; 87070; 87077; 87147; 87185; 87186; 87205; 93005; 93306; 94003; 94640; 94660; 94799; 95816; 96365; 99223; 99284; 99285; C1758; J0637; J0696; J1100; J1650; J1940; J1956; J2250; J2270; J2405; J2920; J3010; J3490; P9047; Q9967

== ENCOUNTER → 2020-02-14 08:16 | Outpatient (BNVA) | payer MEDICARE, SELFPAY | PROVIDERS: Visit Provider Dietitian, Registered | DX: Z76.89 Persons encountering health services in other specified circumstances (principal) ==

== ENCOUNTER 2020-04-04 16:00 | Emergency (ER) | payer MEDICARE, SELFPAY ==
[2020-04-04 19:33] VITALS: BP 141/77; PULSE 100; RESP 18; TEMP 36.4; O2SAT 98; BMI 32.5
--- NOTE | 2020-04-04 19:56 | CT_ITS ---
EXAMINATION: CT ABDOMEN AND PELVIS WITHOUT CONTRAST CLINICAL INFORMATION: Left lower quadrant pain. Concern for diverticulitis COMPARISON: CT abdomen pelvis 05/28/2018 TECHNIQUE: Multidetector volumetric imaging was performed from the superior aspect of the liver through the pubic symphysis. Sagittal and coronal reformatted images were obtained on the technologist's workstation. This CT examination was performed using dose optimization techniques as appropriate, variously including the following: *Automated exposure control *Adjustment of mA and/or kV according to patient size (this includes techniques or standardized protocols for targeted exams where dose is matched to indication/reason for exam; i.e. extremities or head) *Use of iterative reconstruction technique DLP: 808 mGy-cm FINDINGS: LUNG BASES: The visualized lung bases are unremarkable. LIVER, GALLBLADDER, AND BILIARY TREE: The liver is normal in size, shape, and attenuation. No focal hepatic lesion or biliary ductal dilatation is present. The gallbladder is unremarkable with no evidence of radiopaque gallstones, gallbladder wall thickening, or obvious pericholecystic inflammatory changes. PANCREAS: Unremarkable. SPLEEN: Unremarkable. ADRENAL GLANDS: Unremarkable. KIDNEYS AND URETERS: The kidneys are normal in size, shape, and attenuation. No hydronephrosis, hydroureter, or calculi seen. No perinephric stranding. Exophytic cyst upper pole left kidney measuring 4 cm. BLADDER: Unremarkable. GASTROINTESTINAL TRACT: There are scattered diverticula of the sigmoid colon and left colon. There is no diverticulitis. There is no bowel wall thickening /edema. There is no bowel obstruction. There is a moderate to large volume of stool in the colon. The appendix is nonvisualized . Surgical clips adjacent to the cecum likely from prior appendectomy. The small bowel loops are unremarkable. Surgical sutures associated with stomach. Moderate-sized hiatal hernia. ABDOMINAL WALL: Surgical mesh at the anterior abdominal wall. No recurrent hernia. LYMPH NODES: Normal. VASCULAR: Unremarkable. PELVIC VISCERA: Uterus is absent. There is no adnexal abnormality. OSSEOUS STRUCTURES: Multilevel degenerative spondylosis of the spine. Grade 1 anterolisthesis of L4 on L5. CT/CT abdomen pelvis wo con IMPRESSION: No acute abnormality CT scan abdomen pelvis. There is diverticulosis of the colon but no diverticulitis, no acute abnormality of bowel.
--- NOTE | 2020-04-04 20:08 | ED.ABDPAIN ---
HPI - Abdominal Pain General Chief Complaint: Nausea/Vomiting/Diarrhea Stated Complaint: vomitting Time Seen by Provider: 04/04/20 19:55 Source: patient Mode of arrival: ambulatory Limitations: language barrier History of Present Illness HPI narrative: Patient been nauseated vomiting for last 1 week unable to eat much today she noticed left lower abdominal pain no fever no chills no shortness of breath patient does have occasional cough recently on 01/26 patient had COVID had ARDS intubated and transferred to [facility] for ECMO treatment MD elicited complaint: abdominal pain Pertinent past history: none Onset (ago): day(s) (1) Pain Consistency: intermittent Location: LLQ Severity: mild Quality: dull Radiation: none Exacerbating factors: eating and movement Relieving factors: nothing Associated symptoms: nausea and vomiting Related Data Home Medications Medication Instructions Recorded Confirmed levothyroxine 75 mcg PO QAM 02/02/20 02/02/20 Previous Rx's Medication Instructions Recorded levofloxacin 500 mg PO DAILY 7 Days #7 tab 04/05/20 ondansetron 4 mg PO Q6-8H PRN #7 tab 04/05/20 Allergies Allergy/AdvReac Type Severity Reaction Status Date / Time atorvastatin [From Lipitor] Allergy Mild HIVES Verified 01/10/20 13:29 Review of Systems Review of Systems Constitutional : No Weight loss, No Fever, No Chills ENT/Mouth : No sore throat, No Rhinorrhea Eyes: No Eye Pain, No Swelling Cardiovascular : No Chest Pain, no palpitations Respiratory : ++ Cough, No Sputum, no shortness of breath Gastrointestinal : +++Nausea, No Vomiting, No Diarrhea, +++ abdominal Pain, no black stools Genitourinary : No Dysuria, No Urinary Frequency Musculoskeletal : No joint pain, No Myalgias, No Joint Swelling Skin : No Skin Lesions, No rash Neuro : No Weakness, No Numbness, No Dizziness, No Headache Psych : No Anxiety/Panic, No Depression Heme/Lymph: No Bruising, No Lymphadenopathy Endocrine : No Polyuria, No Polydipsia All other systems reviewed and are negative Physical Exam Vital Signs: Vital Signs: Last Vital Signs Temp 97.4 F 04/05/20 00:00 Pulse 90 04/05/20 00:00 Resp 18 04/05/20 00:00 BP 111/63 04/05/20 00:00 Pulse Ox 94 04/05/20 00:00 Body Mass Index 32.5 Appearance: Alert. Oriented X3. No acute distress. Eyes: Pupils equal, round and reactive to light. ENT: Pharynx normal. Neck: Normal inspection. Neck supple. CVS: Normal heart rate and rhythm. Pulses normal. Respiratory: No respiratory distress. Breath sounds normal. Abdomen: Soft deep tenderness left lower quadrant no rebound tenderness or guarding, Bowel sounds are present, no mass palpable, no CVA tenderness Skin: Skin warm and dry. Normal skin color. Normal skin turgor. Extremities: No lower extremity edema. Neuro: Oriented X 3. No motor deficit. No sensory deficit. MDM - Abdominal Pain MDM Narrative Medical decision making narrative: Patient with left lower abdominal pain with vomiting for last 1 week no fever noticed lab showed normal WBC count elevated lactic acid 2.8 and urine shows wbc's suggestive of UTI patient is not septic clinically lactic acidosis is secondary to dehydration will give 2 L of IV fluids repeat lactic acid give IV Rocephin for UTI patient able to take p.o. fluids now plan to discharge patient home, repeat lactic acid is 1.9 patient feeling much better now Differential Diagnosis Differential diagnosis: Likely abdominal pain, calculus of kidney, pancreatitis and renal colic Medical Records Attestation: I reviewed the patient's medical records. Lab Data Attestation: I reviewed the patient's lab results. Result diagrams: 04/04/20 20:08 04/04/20 20:08 Labs: Lab Results 04/04/20 04/04/20 04/04/20 Range/Units 20:08 20:08 20:08 WBC 8.6 (4.8-10.8) X10*3/uL RBC 4.86 D (4.20-5.50) X10*6/uL Hgb 14.7 D (12.0-16.0) g/dl Hct 45.3 D (37-47) % MCV 93.2 (80-98) fL MCH 30.2 (27.0-33.0) pg MCHC 32.5 (31.0-35.0) g/dl RDW 15.7 (11.0-16.0) % Plt Count 275 D (160-400) X10*3/uL MPV 12.6 H (9.4-12.3) fL Immature Gran % (Auto) 0.2 (0.0-0.4) % Neut % (Auto) 54.9 (45-73) % Lymph % (Auto) 34.3 (20-40) % [place] % (Auto) 7.8 (2-11) % Eos % (Auto) 2.3 (0-4) % Baso % (Auto) 0.5 (0-2) % Lymph # (Auto) 3.0 (1.2-4.9) X10*3/uL [place] # (Auto) 0.7 (0.1-1.2) X10*3/uL Eos # (Auto) 0.2 (0.0-0.4) X10*3/uL Baso # (Auto) 0.0 (0.0-0.2) X10*3/uL Abs Immat Gran (auto) 0.02 (0.00-0.03) X10*3/uL Absolute Neuts (auto) 4.7 (2.0-8.3) X10*3/uL Absolute Nucleated RBC 0.000 (0.0-0.012) X10*3/uL Nucleated RBC % (auto) 0.0 (0.0-0.2) /100WBC PT 14.1 H (10.8-13.0) SEC INR 1.2 H (0.9-1.1) Sodium 140 (135-145) mmol/L Potassium 4.0 (3.3-5.1) mmol/l Chloride 102 (96-108) mmol/L Carbon Dioxide 24 (22-29) mmol/L Anion Gap 18 (12-20) BUN 19 H (9-16) mg/dL Creatinine 0.73 (0.5-1.4) mg/dL Estim Creat Clear Calc 88.9 Estimated GFR > 60 Random Glucose 156 H (60-115) mg/dL Lactic Acid (0.5-2.0) mmol/L Lactic Acid Fup @ 2Hr (0.5-2.0) mmol/L Calcium 10.3 H D (8.4-10.2) mg/dL Total Bilirubin 0.3 (0.0-1.0) mg/dL Direct Bilirubin < 0.2 (0.0-0.5) mg/dL AST 33 H (5-31) U/L ALT 38 H (0-31) U/L Alkaline Phosphatase 71 (39-117) U/L Total Protein 7.3 (6.5-8.0) g/dL Albumin 4.2 D (3.5-5.0) g/dL Lipase 27 (8-78) U/L Urine Color Urine Appearance Urine pH (5.0-8.0) Ur Specific [place] (1.005-1.025) Urine Protein (NEG-TRACE) MG/DL Urine Glucose (UA) (NEG) MG/DL Urine Ketones (NEG) MG/DL Urine Blood (NEG) Urine Nitrite (NEG) Ur Leukocyte Esterase (NEG) Urine RBC (0) /HPF Urine WBC (0-4) /HPF Ur Squamous Epith Cells /LPF Calcium Oxalate Crystal /LPF Urine Bacteria /LPF Urine Mucus /LPF Urine Yeast /HPF 04/04/20 04/04/20 04/04/20 Range/Units 20:08 23:02 23:02 WBC (4.8-10.8) X10*3/uL RBC (4.20-5.50) X10*6/uL Hgb (12.0-16.0) g/dl Hct (37-47) % MCV (80-98) fL MCH (27.0-33.0) pg MCHC (31.0-35.0) g/dl RDW (11.0-16.0) % Plt Count (160-400) X10*3/uL MPV (9.4-12.3) fL Immature Gran % (Auto) (0.0-0.4) % Neut % (Auto) (45-73) % Lymph % (Auto) (20-40) % [place] % (Auto) (2-11) % Eos % (Auto) (0-4) % Baso % (Auto) (0-2) % Lymph # (Auto) (1.2-4.9) X10*3/uL [place] # (Auto) (0.1-1.2) X10*3/uL Eos # (Auto) (0.0-0.4) X10*3/uL Baso # (Auto) (0.0-0.2) X10*3/uL Abs Immat Gran (auto) (0.00-0.03) X10*3/uL Absolute Neuts (auto) (2.0-8.3) X10*3/uL Absolute Nucleated RBC (0.0-0.012) X10*3/uL Nucleated RBC % (auto) (0.0-0.2) /100WBC PT (10.8-13.0) SEC INR (0.9-1.1) Sodium (135-145) mmol/L Potassium (3.3-5.1) mmol/l Chloride (96-108) mmol/L Carbon Dioxide (22-29) mmol/L Anion Gap (12-20) BUN (9-16) mg/dL Creatinine (0.5-1.4) mg/dL Estim Creat Clear Calc Estimated GFR Random Glucose (60-115) mg/dL Lactic Acid 2.8 H* (0.5-2.0) mmol/L Lactic Acid Fup @ 2Hr 1.9 (0.5-2.0) mmol/L Calcium (8.4-10.2) mg/dL Total Bilirubin (0.0-1.0) mg/dL Direct Bilirubin (0.0-0.5) mg/dL AST (5-31) U/L ALT (0-31) U/L Alkaline Phosphatase (39-117) U/L Total Protein (6.5-8.0) g/dL Albumin (3.5-5.0) g/dL Lipase (8-78) U/L Urine Color YELLOW Urine Appearance CLOUDY Urine pH 6.0 (5.0-8.0) Ur Specific [place] >= 1.030 H (1.005-1.025) Urine Protein TRACE (NEG-TRACE) MG/DL Urine Glucose (UA) NEG (NEG) MG/DL Urine Ketones NEG (NEG) MG/DL Urine Blood TRACE (NEG) Urine Nitrite NEG (NEG) Ur Leukocyte Esterase 2+ H (NEG) Urine RBC 10-14 H (0) /HPF Urine WBC 50-75 H (0-4) /HPF Ur Squamous Epith Cells 1+ /LPF Calcium Oxalate Crystal 2+ /LPF Urine Bacteria 2+ /LPF Urine Mucus 2+ /LPF Urine Yeast 1+ /HPF Discharge Plan Discharge Clinical Impression: UTI (urinary tract infection) Qualifiers: Urinary tract infection type: acute cystitis Hematuria presence: without hematuria Qualified Code(s): N30.00 - Acute cystitis without hematuria Patient Disposition: Home, Self-Care Instructions: Urinary Tract Infection in Women (ED) Additional Instructions: Drink plenty of fluids take antibiotic as prescribed Report to the ER if increased vomiting or abdominal pain Prescriptions: New levofloxacin 500 mg tablet 500 mg PO DAILY 7 Days Qty: 7 RF: 0 ondansetron 4 mg tablet,disintegrating 4 mg PO Q6-8H PRN (Reason: nausea and vomiting) Qty: 7 RF: 0 No Action levothyroxine 75 mcg tablet 75 mcg PO QAM RF: 0 Print Language: Amharic [facility] Past Medical History Medical History 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 Cervicalgia Chronic headaches Dyslipidemia Essential hypertension Fecal incontinence GERD (gastroesophageal reflux disease) Hiatal hernia History of gastroscopy Hypertension Morbid obesity due to excess calories Obstructive sleep apnea Other and unspecified hyperlipidemia Pulmonary nodule, right Thyroid nodule Urinary incontinence Surgical History H/O tooth extraction History of bilateral knee replacement History of bilateral tubal ligation History of carpal tunnel release History of cholecystectomy History of dacryocystorhinostomy History of herniorrhaphy History of laparoscopic appendectomy History of sleeve gastrectomy History of total abdominal hysterectomy and bilateral salpingo-oophorectomy S/p bilateral blepharoplasty Family History Family History Father No problems noted. Mother No problems noted. Daughter No problems noted. Daughter No problems noted. Son No problems noted. Son No problems noted. Social History Social History Household Members: Family Housing: Apartment Alcohol intake: never Smoking Status: Never smoker Smoked in Last 30 Days: No Advance Directives: No Advance Directives Information Provided: Yes
--- NOTE | 2020-04-04 20:09 | XR_ITS ---
EXAMINATION: XR CHEST CLINICAL INFORMATION: Cough with history of Covid COMPARISON: 02/11/2020 TECHNIQUE: Frontal view of the chest was obtained. FINDINGS: Since the prior study there has been significant improvement in appearances with marked improvement in the scattered patchy airspace disease. Some minimal abnormality may remain at the left lung base. This heart size normal. No pleural effusions or CHF. Degenerative changes again noted in the left shoulder. XR/XR chest 1V IMPRESSION: Significant improvement since prior study with only some minimal remaining abnormality at the left lung base.
[2020-04-04] MEDS: 0.9 % Sodium Chloride 1,000 ML 999 ML IVCONT ×2 (20:14→22:19)
[2020-04-04] MEDS: ondansetron HCL 4 MG/2 ML VIAL IVPUSH (20:17)
[2020-04-04 20:18] VITALS: BP 125/78; PULSE 104; RESP 13; TEMP 36.7; O2SAT 94
[2020-04-04 20:36] LABS: Basophils Percent Auto 0.5 % (0-2); Eosinophils Absolute Auto 0.2 X10*3/uL (0.0-0.4); Eosinophils Percent Auto 2.3 % (0-4); Hematocrit 45.3 % (37-47); Hemoglobin 14.7 g/dl (12.0-16.0); Imm Gran Abs Auto 0.02 X10*3/uL (0.00-0.03); Imm Gran Pct Auto 0.2 % (0.0-0.4); Lymphocytes Percent Auto 34.3 % (20-40); MANUAL DIFF FLAG NO; Mean Corpuscular HGB Conc 32.5 g/dl (31.0-35.0); Mean Corpuscular Hemoglobin 30.2 pg (27.0-33.0); Mean Corpuscular Volume 93.2 fL (80-98); Mean Platelet Volume 12.6 fL (9.4-12.3); Monocytes Absolute Auto 0.7 X10*3/uL (0.1-1.2); Monocytes Percent Auto 7.8 % (2-11); Neutrophils Absolute Auto 4.7 X10*3/uL (2.0-8.3); Neutrophils Percent Auto 54.9 % (45-73); Platelet Count 275 X10*3/uL (160-400); Red Blood Count 4.86 X10*6/uL (4.20-5.50); Red Cell Distribution Width 15.7 % (11.0-16.0); White Blood Count 8.6 X10*3/uL (4.8-10.8)
[2020-04-04 20:54] LABS: INTERNATIONAL NORM RATIO 1.2 (0.9-1.1); Prothrombin Time 14.1 SEC (10.8-13.0)
[2020-04-04 21:01] LABS: Alanine Aminotransferase 38 U/L (0-31); Albumin Level 4.2 g/dL (3.5-5.0); Alkaline Phosphatase 71 U/L (39-117); Anion Gap 18 (12-20); Aspartate Amino Transferase 33 U/L (5-31); Bilirubin Direct < 0.2 mg/dL (0.0-0.5); Bilirubin Total 0.3 mg/dL (0.0-1.0); Blood Urea Nitrogen 19 mg/dL (9-16); Calcium 10.3 mg/dL (8.4-10.2); Carbon Dioxide 24 mmol/L (22-29); Chloride 102 mmol/L (96-108); Creatinine Clr Calc Pharmacy 88.9; Estimated Glomerular Filt Rate > 60; Glucose Random 156 mg/dL (60-115); Lipase 27 U/L (8-78); Sodium 140 mmol/L (135-145); Total Protein 7.3 g/dL (6.5-8.0)
[2020-04-04 21:10] LABS: Lactic Acid 2.8 mmol/L (0.5-2.0)
[2020-04-04 22:00] VITALS: BP 125/52; PULSE 100; RESP 20; TEMP 36.8; O2SAT 96
[2020-04-04 22:38] LABS: Reflex Lactate? Lactic Acid Added
[2020-04-04 23:17] LABS: Glucose Urine UA NEG (NEG); Leukocyte Esterase Urine 2+ (NEG); Nitrite Urine NEG (NEG); Specific Gravity - Urine >= 1.030 (1.005-1.025); Urine Blood TRACE (NEG); Urine Ketones NEG (NEG); Urine Protein TRACE MG/DL (NEG-TRACE)
[2020-04-04 23:19] LABS: Appearance Urine CLOUDY; Color Urine YELLOW
[2020-04-04 23:26] LABS: Bacteria Urine 2+ /LPF; Calcium Oxalate Crystals Urine 2+ /LPF; Mucus Urine 2+ /LPF; Squamous Epithelial Cell Urine 1+ /LPF; WBC Urine 50-75 /HPF (0-4)
[2020-04-04 23:36] LABS: ~Lactic Acid-LAB USE ONLY 1.9 mmol/L (0.5-2.0)
[2020-04-05] VITALS: BP 111/63; PULSE 90; RESP 18; TEMP 36.3; O2SAT 94
[2020-04-05] MEDS: cefTRIAXone sodium 1 GM in 0.9 % Sodium Chloride 50 ML IV (00:06)
== END 2020-04-05 00:52 | disposition home or self-care (01) ==
PROVIDERS: Emergency Provider Internal Medicine; PCP Family Medicine
DX: N30.00 Acute cystitis without hematuria (principal); R10.32 Left lower quadrant pain; Z86.16 Personal history of COVID-19; I10 Essential (primary) hypertension
CPT/HCPCS: 36415; 71045; 74176; 80048; 80076; 81001; 83605; 83690; 85025; 85610; 87040; 87086; 99284; J0696; J2405

== ENCOUNTER 2020-04-09 16:01 | Emergency (ER) | payer MEDICARE, SELFPAY ==
[2020-04-09] VITALS (8 sets, daily range): BP systolic 72–158; BP diastolic 53–108; PULSE 89–113; RESP 16–18; TEMP 36.6–36.7; O2SAT 94–96; BMI 45.6
--- NOTE | 2020-04-09 22:29 | CT_ITS ---
EXAMINATION: CT HEAD WITHOUT CONTRAST CLINICAL INFORMATION: dizziness for 3 weeks. COMPARISON: 02/12/2020 TECHNIQUE: Contiguous axial imaging was performed from the skull base to vertex without intravenous administration of contrast. This CT examination was performed using dose optimization techniques as appropriate, variously including the following: *Automated exposure control *Adjustment of mA and/or kV according to patient size (this includes techniques or standardized protocols for targeted exams where dose is matched to indication/reason for exam; i.e. extremities or head) *Use of iterative reconstruction technique DLP: 670 mGy-cm FINDINGS: There is no evidence of acute intracranial hemorrhage or territorial infarction. Previously seen foci of intracerebral hemorrhage have resolved since the prior study without significant residual abnormal parenchymal attenuation. Previously subarachnoid blood products have also resolved. No abnormal mass effect or midline shift is seen. Malone to white matter differentiation is well preserved. No extra-axial fluid collections are identified. The ventricles are normal in size. There is no significant abnormal attenuation within the brain parenchyma. The osseous structures and soft tissues are normal. The mastoid air cells and visualized portions of the paranasal sinuses are well aerated. CT/CT head/brain wo con IMPRESSION: No acute intracranial pathology. Previously seen foci of intracranial hemorrhage resolved since the prior study without significant residual abnormal parenchymal attenuation. No new intracranial hemorrhage.
--- NOTE | 2020-04-09 22:30 | ECG_ITS ---
Test Reason : ABDOMINAL PAIN Blood Pressure : / mmHG Vent. Rate : 084 BPM Atrial Rate : 084 BPM P-R Int : 156 ms QRS Dur : 106 ms QT Int : 384 ms P-R-T Axes : 052 -54 017 degrees QTc Int : 453 ms Normal sinus rhythm Pulmonary disease pattern Incomplete right bundle branch block Left anterior fascicular block Abnormal ECG When compared with ECG of 12-FEB-2020 21:34, Incomplete right bundle branch block is now Present Referred By: Bari Go Electronically Signed By:ANTONIO MALAGON MD
--- NOTE | 2020-04-09 22:39 | CT_ITS ---
EXAMINATION: CT ABDOMEN AND PELVIS WITHOUT CONTRAST CLINICAL INFORMATION: LLQ pain. diverticulitis? COMPARISON: 04/04/2020 TECHNIQUE: Multidetector volumetric imaging was performed from the superior aspect of the liver through the pubic symphysis. Sagittal and coronal reformatted images were obtained on the technologist's workstation. This CT examination was performed using dose optimization techniques as appropriate, variously including the following: *Automated exposure control *Adjustment of mA and/or kV according to patient size (this includes techniques or standardized protocols for targeted exams where dose is matched to indication/reason for exam; i.e. extremities or head) *Use of iterative reconstruction technique DLP: 815 mGy-cm FINDINGS: LUNG BASES: Patchy groundglass nodular airspace opacities are present within the lingula and, to a lesser extent, the left lower lobe. There is mild dependent atelectasis in the lung bases. Small to moderate-sized hiatal hernia. Fluid is present within the distended esophagus. LIVER, GALLBLADDER, AND BILIARY TREE: The liver is normal in size, shape, and attenuation. No focal hepatic lesion or biliary ductal dilatation is present. Gallbladder surgically absent. PANCREAS: Unremarkable. SPLEEN: Unremarkable. ADRENAL GLANDS: Unremarkable. KIDNEYS AND URETERS: At the upper pole the left kidney, there is a 5.1 cm exophytic fluid density cyst which appears unchanged from prior. No new renal lesions. No nephrolithiasis or hydronephrosis. Ureters appear normal in course and caliber. BLADDER: Unremarkable. GASTROINTESTINAL TRACT: Chain sutures are again seen in the region of the proximal stomach, unchanged from prior, possibly a vertical banded gastroplasty. The gastric lumen is narrowed at the site of the surgery. No appreciable bypass is identified. Chain amisha are present in the region of the cecum. Appendix appears absent no findings of acute appendicitis. There is mild colonic diverticulosis. No findings of acute diverticulitis are identified. Stomach, small bowel, and colon are normal in caliber without bowel wall thickening or surrounding inflammatory changes. ABDOMINAL WALL: Postsurgical changes of prior ventral mesh hernia repair in the infraumbilical/suprapubic region. No recurrent hernias are identified in this region. No appreciable pockets of fluid are identified. Very small fat-containing umbilical hernias are present in the midline in the epigastric region. No bowel involvement. LYMPH NODES: Normal. VASCULAR: Atherosclerotic calcifications are present in the abdominal aorta and iliac arteries. No aneurysmal dilatation. PELVIC VISCERA: Uterus is not well seen, likely surgically absent. No adnexal lesions. OSSEOUS STRUCTURES: Grade 1 anterolisthesis of L4 on L5 with marked associated facet arthropathy. There is diffuse idiopathic skeletal hyperostosis in the lower thoracic spine. Degenerative osseous fusion is present at L5-S1. Otherwise mild multilevel degenerative disc disease. No acute osseous abnormalities. Mild osteoarthritis in the hips and SI joints. CT/CT abdomen pelvis wo con IMPRESSION: 1. Small to moderate-sized hiatal hernia with fluid distention of the distal esophagus. This may be due to delayed passage of contrast material through the proximal stomach at the site of prior surgery (query prior bariatric surgery/vertical banded gastroplasty). 2. Mild colonic diverticulosis without evidence of acute diverticulitis.
[2020-04-09 23:15] LABS: MANUAL DIFF FLAG NO
[2020-04-09 23:18] LABS: Basophils Percent Auto 0.3 % (0-2); Eosinophils Absolute Auto 0.3 X10*3/uL (0.0-0.4); Eosinophils Percent Auto 2.6 % (0-4); Hemoglobin 14.4 g/dl (12.0-16.0); Imm Gran Abs Auto 0.02 X10*3/uL (0.00-0.03); Imm Gran Pct Auto 0.2 % (0.0-0.4); Lymphocytes Absolute Auto 2.8 X10*3/uL (1.2-4.9); Lymphocytes Percent Auto 29.4 % (20-40); Mean Corpuscular Hemoglobin 29.9 pg (27.0-33.0); Mean Corpuscular Volume 93.6 fL (80-98); Mean Platelet Volume 12.9 fL (9.4-12.3); Monocytes Absolute Auto 0.9 X10*3/uL (0.1-1.2); Monocytes Percent Auto 9.7 % (2-11); Neutrophils Absolute Auto 5.5 X10*3/uL (2.0-8.3); Neutrophils Percent Auto 57.8 % (45-73); Platelet Count 253 X10*3/uL (160-400); Red Blood Count 4.81 X10*6/uL (4.20-5.50); Red Cell Distribution Width 15.4 % (11.0-16.0); White Blood Count 9.5 X10*3/uL (4.8-10.8)
[2020-04-09 23:26] LABS: INTERNATIONAL NORM RATIO 1.2 (0.9-1.1); Prothrombin Time 13.9 SEC (10.8-13.0)
[2020-04-09 23:29] LABS: Partial Thromboplastin Time 34.2 SEC (24.1-38.0)
[2020-04-09] MEDS: 0.9 % Sodium Chloride 1,000 ML 999 ML IV (23:43)
[2020-04-09 23:44] LABS: Troponin-I High Sensitivity 7.7 ng/L (<3.5-17.0)
[2020-04-09] MEDS: Meclizine HCl 25 MG TABLET PO (23:45)
[2020-04-09 23:46] LABS: Alanine Aminotransferase 34 U/L (0-31); Albumin Level 4.3 g/dL (3.5-5.0); Alkaline Phosphatase 70 U/L (39-117); Anion Gap 16 (12-20); Aspartate Amino Transferase 28 U/L (5-31); Bilirubin Direct 0.2 mg/dL (0.0-0.5); Bilirubin Total 0.3 mg/dL (0.0-1.0); Blood Urea Nitrogen 16 mg/dL (9-16); Calcium 10.7 mg/dL (8.4-10.2); Carbon Dioxide 29 mmol/L (22-29); Chloride 102 mmol/L (96-108); Creatinine Clr Calc Pharmacy 64.9; Estimated Glomerular Filt Rate > 60; Glucose Random 140 mg/dL (60-115); Lipase 22 U/L (8-78); Potassium 4.1 mmol/l (3.3-5.1); Sodium 143 mmol/L (135-145); Total Protein 7.1 g/dL (6.5-8.0)
[2020-04-10 00:23] LABS: Glucose Urine UA NEG (NEG); Leukocyte Esterase Urine NEG (NEG); Nitrite Urine NEG (NEG); PH 5.5 (5.0-8.0); Specific Gravity - Urine >= 1.030 (1.005-1.025); Urine Blood TRACE (NEG); Urine Ketones NEG (NEG); Urine Protein 1+ MG/DL (NEG-TRACE)
[2020-04-10 00:26] LABS: Appearance Urine HAZY; Color Urine DARK YELLOW
--- NOTE | 2020-04-10 01:04 | PC.NURSE ---
update given to family in [place]
[2020-04-10 01:10] LABS: Calcium Oxalate Crystals Urine 1+ /LPF; Granular Casts Urine 0-2 /LPF; Hyaline Casts Urine 0-2 /LPF; Mucus Urine 4+ /LPF; Squamous Epithelial Cell Urine TRACE /LPF; UACC CULT YES; Uric Acid Crystals Urine TRACE /LPF
[2020-04-10 01:21] VITALS: BP 114/74; PULSE 78
[2020-04-10 01:22] VITALS: BP 113/62; BP 171/79; PULSE 86; PULSE 95
[2020-04-10 01:23] VITALS: BP 114/74; PULSE 79; RESP 16; O2SAT 96
--- NOTE | 2020-04-10 01:45 | ED_ITS ---
HPI - General Adult General Chief complaint: Recheck/Abnormal Lab/Rx Stated complaint: VOMITTING Time Seen by Provider: 04/09/20 22:27 Source: patient Mode of arrival: wheelchair Limitations: no limitations History of Present Illness HPI narrative: Patient presents to ED for low blood pressure, orthostatic hypotension, and vomiting and nausea home. Patient states dizziness with nausea off and on for the past 2 weeks. Patient states while home 11:00 number morning her COORDINATOR OF PLACEMENT checked her blood pressure and it was very low when she stood up she felt dizzy. Patient was seen in the past for the same thing and was informed that was dehydration. Patient admits to decrease in appetite and drinking fluids due to nausea.. Patient also states left lower quadrant pain. Patient denies any chest pain or shortness of breath. Patient denies passing out Related Data Home Medications Medication Instructions Recorded Confirmed levothyroxine 75 mcg PO QAM 02/02/20 02/02/20 Previous Rx's Medication Instructions Recorded levofloxacin 500 mg PO DAILY 7 Days #7 tab 04/05/20 ondansetron 4 mg PO Q6-8H PRN #7 tab 04/05/20 Allergies Allergy/AdvReac Type Severity Reaction Status Date / Time atorvastatin [From Lipitor] Allergy Mild HIVES Verified 04/09/20 16:40 Review of Systems Review of Systems: Yes all other systems are reviewed and are negative Constitutional: Constitutional: Reports as per HPI and Reports no additional constitutional complaints Eyes: Eyes: Reports as per HPI and Reports no additional eye complaints ENT: Reports system reviewed and no additional complaints, except as documented and Reports as per HPI Cardiovascular: Cardiovascular: Reports as per HPI and Reports no additional cardiovascular complaints Respiratory: Respiratory: Reports as per HPI and Reports no additional respiratory complaints Gastrointestinal: Gastrointestinal: Reports as per HPI and Reports no additional gastrointestinal complaints Musculoskeletal: Musculoskeletal: Reports no additional musculoskeletal complaints and Reports as per HPI Neurologic: Reports system reviewed and no additional complaints, except as documented and Reports as per HPI Psychiatric: Psychiatric: Reports no additional psychiatric complaints and Reports as per HPI PMF Past Medical History Medical History 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 Cervicalgia Chronic headaches Dyslipidemia Essential hypertension Fecal incontinence GERD (gastroesophageal reflux disease) Hiatal hernia History of gastroscopy Hypertension Morbid obesity due to excess calories Obstructive sleep apnea Other and unspecified hyperlipidemia Pulmonary nodule, right Thyroid nodule Urinary incontinence Surgical History H/O tooth extraction History of bilateral knee replacement History of bilateral tubal ligation History of carpal tunnel release History of cholecystectomy History of dacryocystorhinostomy History of herniorrhaphy History of laparoscopic appendectomy History of sleeve gastrectomy History of total abdominal hysterectomy and bilateral salpingo-oophorectomy S/p bilateral blepharoplasty Family History Family History Father No problems noted. Mother No problems noted. Daughter No problems noted. Daughter No problems noted. Son No problems noted. Son No problems noted. Social History Social History Household Members: Family Housing: Apartment Alcohol intake: never Smoking Status: Never smoker Smoked in Last 30 Days: No Use of substances other than those prescribed or required for medical reasons: No Advance Directives: No Advance Directives Information Provided: Yes Physical Exam Vital Signs: Vital Signs: Last Vital Signs Temp 98.0 F 04/09/20 22:34 Pulse 79 04/10/20 01:23 Resp 16 04/10/20 01:23 BP 114/74 04/10/20 01:23 Pulse Ox 96 04/10/20 01:23 Body Mass Index 45.6 Const: General: cooperative, healthy appearing, comfortable, no acute distress, well developed, alert, awake and Physically active Orientation/consciousness: patient oriented x3 HENMT: Head: Yes normal to inspection, Yes No palpable skull fracture present, Yes normocephalic and Yes atraumatic Eyes: Other: Negative nystagmus General: appearance normal, both eyes and all related structures Neck: Neck: Yes normal visual inspection, Yes full ROM, Yes no lymphadenopathy, Yes no meningeal signs, Yes trachea midline, Yes supple and No tender Chest: Chest palpation & inspection: normal inspection of the chest and normal palpation of entire chest wall Resp: Effort & Inspection: normal respiratory effort and able to speak in complete sentences Auscultation: clear to auscultation bilaterally Cardio: Jugular venous distension: no JVD Heart sounds: S1 normal heart sound present and S2 normal heart sound present GI: Inspection: Yes normal to inspection Palpation (GI): Soft to palpation, not firm, Tenderness to palpation present (GI) (Mild) in the LLQ, no guarding an d not rigid : General: No CVA tenderness and Yes no CVA tenderness Back/Spine/Pelvis: Back: no CVA tenderness, No CVA tenderness and No back tenderness Skin: General skin exam: no rashes or lesions noted and elasticity normal Neuro: Other: Negative for facial droop. Negative slurred speech. Negative pronator drift. Motor and strength of all extremities are equal and 5+. Negative Romberg. General: patient oriented x3, no meningeal signs and CN's II- XI intact bilaterally Cranial nerves: Yes CN's II-XII intact bilaterally Course Course Course Narrative: Patient will be evaluated including head CT, basic labs, troponin, EKG, and UA. Patient also be sent for abdominal CT scan Reevaluation(s) Reevaluation #1: Initial orthostatic hypotension was positive. Systolic dropped from 133 to 98. Patient states feeling dizzy. Patient will be given IV fluids. Patient labs and head CT/abdominal CT is pending. Time: 22:00 Reevaluation #2: Patient repeat orthostatics came back negative. Systolic increased from 114 to 171. Patient states she feel better after fluids. Patient usually ambulate with a walker. So I held the patient's hands and she walked around the ER without dizziness. Gait was normal. Second troponin sent. UA negative for UTI. Head CT negative for bleed or signs of stroke. Physical exam negative for neuro deficit. Abdominal CT negative for diverticulitis or any other abdominal etiology. Time: 01:53 Reevaluation #3: Patient's 2nd troponin did not increased by 50%. Patient is safe for discharge. History& physical exam negative for stroke. Orthostatic resolved. Diagnosis dehydration. Patient given Diflucan 1 dose for yeast in urine. Time: 02:26 Medical Decision Making MDM Narrative Medical decision making narrative: Dehydration. Dizziness Lab Data Result diagrams: 04/09/20 22:59 04/09/20 22:59 Labs: Lab Results 04/09/20 04/09/20 04/09/20 Range/Units 22:59 22:59 22:59 WBC 9.5 (4.8-10.8) X10*3/uL RBC 4.81 (4.20-5.50) X10*6/uL Hgb 14.4 (12.0-16.0) g/dl Hct 45.0 (37-47) % MCV 93.6 (80-98) fL MCH 29.9 (27.0-33.0) pg MCHC 32.0 (31.0-35.0) g/dl RDW 15.4 (11.0-16.0) % Plt Count 253 (160-400) X10*3/uL MPV 12.9 H (9.4-12.3) fL Immature Gran % (Auto) 0.2 (0.0-0.4) % Neut % (Auto) 57.8 (45-73) % Lymph % (Auto) 29.4 (20-40) % Saunders % (Auto) 9.7 (2-11) % Eos % (Auto) 2.6 (0-4) % Baso % (Auto) 0.3 (0-2) % Lymph # (Auto) 2.8 (1.2-4.9) X10*3/uL Saunders # (Auto) 0.9 (0.1-1.2) X10*3/uL Eos # (Auto) 0.3 (0.0-0.4) X10*3/uL Baso # (Auto) 0.0 (0.0-0.2) X10*3/uL Abs Immat Gran (auto) 0.02 (0.00-0.03) X10*3/uL Absolute Neuts (auto) 5.5 (2.0-8.3) X10*3/uL Absolute Nucleated RBC 0.000 (0.0-0.012) X10*3/uL Nucleated RBC % (auto) 0.0 (0.0-0.2) /100WBC PT 13.9 H (10.8-13.0) SEC INR 1.2 H (0.9-1.1) APTT 34.2 (24.1-38.0) SEC Sodium 143 (135-145) mmol/L Potassium 4.1 (3.3-5.1) mmol/l Chloride 102 (96-108) mmol/L Carbon Dioxide 29 (22-29) mmol/L Anion Gap 16 (12-20) BUN 16 (9-16) mg/dL Creatinine 0.77 (0.5-1.4) mg/dL Estim Creat Clear Calc 64.9 Estimated GFR > 60 Random Glucose 140 H (60-115) mg/dL Calcium 10.7 H (8.4-10.2) mg/dL Total Bilirubin 0.3 (0.0-1.0) mg/dL Direct Bilirubin 0.2 (0.0-0.5) mg/dL AST 28 (5-31) U/L ALT 34 H (0-31) U/L Alkaline Phosphatase 70 (39-117) U/L Troponin I High Sens (<3.5-17.0) ng/L Total Protein 7.1 (6.5-8.0) g/dL Albumin 4.3 (3.5-5.0) g/dL Lipase 22 (8-78) U/L Urine Color Urine Appearance Urine pH (5.0-8.0) Ur Specific [place] (1.005-1.025) Urine Protein (NEG-TRACE) MG/DL Urine Glucose (UA) (NEG) MG/DL Urine Ketones (NEG) MG/DL Urine Blood (NEG) Urine Nitrite (NEG) Ur Leukocyte Esterase (NEG) Urine RBC (0) /HPF Urine WBC (0-4) /HPF Ur Squamous Epith Cells /LPF Calcium Oxalate Crystal /LPF Uric Acid Crystals /LPF Urine Bacteria /LPF Hyaline Casts /LPF Granular Casts /LPF Urine Mucus /LPF Urine Yeast /HPF 04/09/20 04/10/20 04/10/20 Range/Units 22:59 00:05 01:28 WBC (4.8-10.8) X10*3/uL RBC (4.20-5.50) X10*6/uL Hgb (12.0-16.0) g/dl Hct (37-47) % MCV (80-98) fL MCH (27.0-33.0) pg MCHC (31.0-35.0) g/dl RDW (11.0-16.0) % Plt Count (160-400) X10*3/uL MPV (9.4-12.3) fL Immature Gran % (Auto) (0.0-0.4) % Neut % (Auto) (45-73) % Lymph % (Auto) (20-40) % Saunders % (Auto) (2-11) % Eos % (Auto) (0-4) % Baso % (Auto) (0-2) % Lymph # (Auto) (1.2-4.9) X10*3/uL Saunders # (Auto) (0.1-1.2) X10*3/uL Eos # (Auto) (0.0-0.4) X10*3/uL Baso # (Auto) (0.0-0.2) X10*3/uL Abs Immat Gran (auto) (0.00-0.03) X10*3/uL Absolute Neuts (auto) (2.0-8.3) X10*3/uL Absolute Nucleated RBC (0.0-0.012) X10*3/uL Nucleated RBC % (auto) (0.0-0.2) /100WBC PT (10.8-13.0) SEC INR (0.9-1.1) APTT (24.1-38.0) SEC Sodium (135-145) mmol/L Potassium (3.3-5.1) mmol/l Chloride (96-108) mmol/L Carbon Dioxide (22-29) mmol/L Anion Gap (12-20) BUN (9-16) mg/dL Creatinine (0.5-1.4) mg/dL Estim Creat Clear Calc Estimated GFR Random Glucose (60-115) mg/dL Calcium (8.4-10.2) mg/dL Total Bilirubin (0.0-1.0) mg/dL Direct Bilirubin (0.0-0.5) mg/dL AST (5-31) U/L ALT (0-31) U/L Alkaline Phosphatase (39-117) U/L Troponin I High Sens 7.7 7.9 (<3.5-17.0) ng/L Total Protein (6.5-8.0) g/dL Albumin (3.5-5.0) g/dL Lipase (8-78) U/L Urine Color DARK YELLOW Urine Appearance HAZY Urine pH 5.5 (5.0-8.0) Ur Specific [place] >= 1.030 H (1.005-1.025) Urine Protein 1+ H (NEG-TRACE) MG/DL Urine Glucose (UA) NEG (NEG) MG/DL Urine Ketones NEG (NEG) MG/DL Urine Blood TRACE (NEG) Urine Nitrite NEG (NEG) Ur Leukocyte Esterase NEG (NEG) Urine RBC 1-4 (0) /HPF Urine WBC 15-29 H (0-4) /HPF Ur Squamous Epith Cells TRACE /LPF Calcium Oxalate Crystal 1+ /LPF Uric Acid Crystals TRACE /LPF Urine Bacteria NONE /LPF Hyaline Casts 0-2 /LPF Granular Casts 0-2 /LPF Urine Mucus 4+ /LPF Urine Yeast 2+ /HPF ECG Data Interpretation: Normal sinus rhythm. Ventricular rate 84. Pr interval 156. QRS on the 6th. QTC 453. Negative STEMI. Discharge Plan Discharge Clinical Impression: Dehydration, Dizziness Patient Disposition: Home, Self-Care Instructions: Dehydration (ED), Dizziness (ED) Additional Instructions: Return to the ED immediately for any chest pain, shortness of breath, slurred speech, loss of vision, paralysis, worsening dizziness, calf pain, coughing up blood, swelling of legs, headache, weakness, passing out, or any other co ncerning symptoms. Please follow-up with the PCP Prescriptions: No Action levothyroxine 75 mcg tablet 75 mcg PO QAM RF: 0 levofloxacin 500 mg tablet 500 mg PO DAILY 7 Days Qty: 7 RF: 0 ondansetron 4 mg tablet,disintegrating 4 mg PO Q6-8H PRN (Reason: nausea and vomiting) Qty: 7 RF: 0 Print Language: Greek
[2020-04-10 02:03] LABS: Troponin-I High Sensitivity 7.9 ng/L (<3.5-17.0)
[2020-04-10] MEDS: Fluconazole 100 MG TABLET PO (03:11)
== END 2020-04-10 03:36 | disposition home or self-care (01) ==
PROVIDERS: Physician Assistant; Emergency Provider Emergency Medicine; PCP Family Medicine
DX: E86.0 Dehydration (principal); R42 Dizziness and giddiness; R10.32 Left lower quadrant pain; R11.2 Nausea with vomiting, unspecified; Z79.899 Other long term (current) drug therapy
CPT/HCPCS: 36415; 70450; 74176; 80053; 80076; 81001; 82248; 83690; 84484; 85025; 85610; 85730; 87086; 93005; 96360; 96361; 99284

== ENCOUNTER 2020-04-22 13:31 | Emergency (ER) | payer MEDICARE, SELFPAY ==
[2020-04-22] VITALS (7 sets, daily range): BP systolic 107–135; BP diastolic 58–88; PULSE 83–108; RESP 15–18; TEMP 36.6–37.1; O2SAT 94–97; BMI 45.4
--- NOTE | 2020-04-22 17:59 | ED.GENADULT ---
HPI - General Adult General Chief complaint: Abdominal Pain Stated complaint: nausea,vomiting,high blood pressure Time Seen by Provider: 04/22/20 17:57 Source: patient Mode of arrival: ambulatory Limitations: no limitations History of Present Illness HPI narrative: 69-year-old female with a past medical history of asthma, Carlson's esophagus, chronic headaches, high cholesterol, hypertension, GERD, gastric sleeve, hiatal hernia, hypothyroidism, morbid obesity, CARTER complaints of nausea and vomiting which has been pending chronic problem for several months. She tells me the vomiting occurs after eating. She has associated epigastric discomfort. She denies any diarrhea. She tells me she does have intermittent constipation and takes MiraLax for this. Her last bowel movement was 2 days ago. She tells me that she did have an endoscopy and colonoscopy and the [facility] last year but does not know the results of these. She does not take any PPI. She did have a prolonged hospitalization in December of 2019 with intubation and ECMO for COVID with pneumonia. Of note, patient has been followed by bariatric surgery for this same problem and was thought to be secondary to underlying GERD and esophagitis. She is supposed to be on Protonix 40 mg twice daily Related Data Home Medications Medication Instructions Recorded Confirmed levothyroxine 75 mcg PO QAM 02/02/20 02/02/20 Previous Rx's Medication Instructions Recorded levofloxacin 500 mg PO DAILY 7 Days #7 tab 04/05/20 ondansetron 4 mg PO Q6-8H PRN #7 tab 04/05/20 linaclotide 72 mcg capsule 72 mcg PO QAM 30 Days #30 cap 04/18/20 cephalexin 500 mg PO Q12H #14 cap 04/22/20 ondansetron 4 mg PO Q6H PRN #10 tab 04/22/20 Allergies Allergy/AdvReac Type Severity Reaction Status Date / Time atorvastatin [From Lipitor] Allergy Mild HIVES Verified 04/09/20 16:40 Review of Systems Review of Systems: Yes all other systems are reviewed and are negative Constitutional: Constitutional: Reports no additional constitutional complaints, Denies body ache(s), Denies chills, Denies fever(s), Denies headache(s) and Denies weakness Eyes: Eyes: Reports no additional eye complaints and Denies change in vision ENT: Reports system reviewed and no additional complaints, except as documented, Denies dizziness, Denies headache(s), Denies nasal congestion, Denies nasal discharge and Denies neck pain Cardiovascular: Cardiovascular: Reports no additional cardiovascular complaints, Denies chest pain, Denies leg edema and Denies dyspnea Respiratory: Respiratory: Reports no additional respiratory complaints, Denies cough and Denies dyspnea Gastrointestinal: Gastrointestinal: Reports no additional gastrointestinal complaints, Reports abdominal pain (epigastric), Reports constipation, Denies diarrhea, Denies loose stools, Reports nausea and Reports vomiting Genitourinary: Genitourinary: Reports no additional female genitourinary complaints and Denies urinary incontinence Musculoskeletal: Musculoskeletal: Reports no additional musculoskeletal complaints, Denies back pain, Denies arthralgias, Denies joint swelling, Denies neck pain, Denies numbness and Denies tingling Integumentary/Breasts: Skin/Breast: Reports system reviewed and no additional complaints, except as docu and Denies rash Neurologic: Reports system reviewed and no additional complaints, except as documented, Denies Abnormal speech present, Denies dizziness, Denies headache(s), Denies numbness, Denies tingling and Denies weakness PMFSH Past Medical History Attestation statement: The following information was validated with the patient. Source: old records reviewed and nursing notes reviewed Medical History Asthma 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 Cervicalgia Chronic headaches Dyslipidemia Essential hypertension Fecal incontinence GERD (gastroesophageal reflux disease) Hiatal hernia History of gastroscopy HTN (hypertension) Hypertension Hypothyroid Morbid obesity due to excess calories Obstructive sleep apnea Other and unspecified hyperlipidemia Pulmonary nodule, right Thyroid nodule Urinary incontinence Surgical History H/O tooth extraction History of bilateral knee replacement History of bilateral tubal ligation History of carpal tunnel release History of cholecystectomy History of dacryocystorhinostomy History of herniorrhaphy History of laparoscopic appendectomy History of sleeve gastrectomy History of total abdominal hysterectomy and bilateral salpingo-oophorectomy S/p bilateral blepharoplasty Family History Family History Father No problems noted. Mother No problems noted. Daughter No problems noted. Daughter No problems noted. Son No problems noted. Son No problems noted. Social History Social History Household Members: Family Housing: Apartment Alcohol intake: never Smoking Status: Never smoker Smoked in Last 30 Days: No Use of substances other than those prescribed or required for medical reasons: No Advance Directives: No Advance Directives Information Provided: Yes Physical Exam Vital Signs: Vital Signs: Last Vital Signs Temp 98.7 F 04/22/20 18:00 Pulse 83 04/22/20 22:00 Resp 15 04/22/20 22:00 BP 107/58 L 04/22/20 22:00 Pulse Ox 94 04/22/20 22:00 Body Mass Index 45.4 Const: General: cooperative, healthy appearing, comfortable and no acute distress Orientation/consciousness: patient oriented x3 Limitations: no limitations HENMT: Head: Yes normal to inspection Ears: hearing grossly normal bilaterally General nose exam: Normal external nose present Face and sinus: Yes normal facial exam Mouth: Normal oral and palatal mucosa present Throat: Yes posterior oropharynx normal Eyes: General: appearance normal, both eyes and all related structures Pupils: Equal, round and reactive pupils present Neck: Neck: Yes normal visual inspection Chest: Chest palpation & inspection: normal inspection of the chest Resp: Effort & Inspection: normal respiratory effort Auscultation: clear to auscultation bilaterally Cardio: Rate: regular rate Rhythm: regular rhythm Peripheral pulses: Peripheral pulses 2+ throughout GI: Inspection: Yes normal to inspection Palpation (GI): Soft to palpation and Tenderness to palpation present (GI) (mild epigastric ) Auscultation: normal bowel sounds Back/Spine/Pelvis: Thoracic/Lumbar Spine: thoracic and lumbar spine normal to inspection Skin: General skin exam: no rashes or lesions noted Neuro: General: patient oriented x3, no focal motor deficits and normal sensation to monofilament Cranial nerves: Yes Equal, round and reactive pupils present Cognition (Neuro): normal cognition Speech: No Abnormal speech present Gait exam (Neuro): Normal gait present Motor exam (neuro): 5/5 motor strength present throughout Extrem: General: Yes normal to inspection Course Course Course Narrative: 69-year-old female here with chronic nausea and vomiting likely secondary to underlying GERD and esophagitis despite taking Protonix 40 mg twice daily. She is here today because she feels dehydrated. Will check labs, UA, orthostatics, EKG. Give PPI and antiemetic and reassess. 2049-labs unremarkable. The urine is pending. Orthostatics are positive. Patient is feeling improved with no additional reports of vomiting or epigastric pain. Will give normal saline bolus and reassess. 2344-UA consistent with UTI. Patient is feeling improved after fluid bolus. She has upcoming appointment with GI on May 07. We discussed she should keep this appointment. She may need a and other endoscopy. Due to prolonged hospitalization recently may have underlying gastric ulcer versus gastritis. Reviewed bland diet. Reviewed worrisome signs and symptoms of when to return to the emergency department. Comfortable discharge home. Medical Decision Making Medical Records Medical records reviewed: Yes I reviewed the patient's medical records. Lab Data Lab results reviewed: Yes I reviewed the patient's lab results. Result diagrams: 04/22/20 18:32 04/22/20 18:32 Labs: Lab Results 04/22/20 04/22/20 04/22/20 Range/Units 18:32 18:32 20:42 WBC 8.6 (4.8-10.8) X10*3/uL RBC 4.88 (4.20-5.50) X10*6/uL Hgb 14.6 (12.0-16.0) g/dl Hct 45.9 (37-47) % MCV 94.1 (80-98) fL MCH 29.9 (27.0-33.0) pg MCHC 31.8 (31.0-35.0) g/dl RDW 15.1 (11.0-16.0) % Plt Count 260 (160-400) X10*3/uL MPV 12.7 H (9.4-12.3) fL Immature Gran % (Auto) 0.2 (0.0-0.4) % Neut % (Auto) 52.2 (45-73) % Lymph % (Auto) 38.1 (20-40) % [place] % (Auto) 7.1 (2-11) % Eos % (Auto) 2.2 (0-4) % Baso % (Auto) 0.2 (0-2) % Lymph # (Auto) 3.3 (1.2-4.9) X10*3/uL [place] # (Auto) 0.6 (0.1-1.2) X10*3/uL Eos # (Auto) 0.2 (0.0-0.4) X10*3/uL Baso # (Auto) 0.0 (0.0-0.2) X10*3/uL Abs Immat Gran (auto) 0.02 (0.00-0.03) X10*3/uL Absolute Neuts (auto) 4.5 (2.0-8.3) X10*3/uL Absolute Nucleated RBC 0.000 (0.0-0.012) X10*3/uL Nucleated RBC % (auto) 0.0 (0.0-0.2) /100WBC Sodium 143 (135-145) mmol/L Potassium 4.3 (3.3-5.1) mmol/l Chloride 103 (96-108) mmol/L Carbon Dioxide 29 (22-29) mmol/L Anion Gap 15 (12-20) BUN 20 H (9-16) mg/dL Creatinine 0.69 (0.5-1.4) mg/dL Estim Creat Clear Calc 72.3 Estimated GFR > 60 Random Glucose 107 (60-115) mg/dL Calcium 9.8 D (8.4-10.2) mg/dL Magnesium 2.0 (1.6-2.6) mg/dL Total Bilirubin 0.4 (0.0-1.0) mg/dL Direct Bilirubin 0.2 (0.0-0.5) mg/dL AST 27 (5-31) U/L ALT 25 (0-31) U/L Alkaline Phosphatase 76 (39-117) U/L Total Protein 6.8 (6.5-8.0) g/dL Albumin 4.1 (3.5-5.0) g/dL Urine Color YELLOW Urine Appearance HAZY Urine pH 6.0 (5.0-8.0) Ur Specific [place] >= 1.030 H (1.005-1.025) Urine Protein TRACE (NEG-TRACE) MG/DL Urine Glucose (UA) NEG (NEG) MG/DL Urine Ketones 5 (NEG) MG/DL Urine Blood NEG (NEG) Urine Nitrite NEG (NEG) Ur Leukocyte Esterase TRACE H (NEG) Urine RBC 1-4 (0) /HPF Urine WBC 5-9 H (0-4) /HPF Ur Squamous Epith Cells NONE /LPF Calcium Oxalate Crystal 1+ /LPF Urine Bacteria NONE /LPF ECG Data Attestation: I personally reviewed and interpreted this ECG as follows: Interpretation: NSR rate 89, normal pr, normal qrs, prolonged qtc 476 Discharge Plan Discharge Clinical Impression: Orthostatic hypotension, UTI (urinary tract infection), Gastritis Patient Disposition: Home, Self-Care Instructions: Gastritis (ED), Hypotension (ED), Urinary Tract Infection in Older Adults (ED) Additional Instructions: Change positions slowly Stay well hydrated Start her antibiotic tomorrow Follow-up with your compliance coordinator as you will likely need another endoscopy Prescriptions: New cephalexin 500 mg capsule 500 mg PO Q12H Qty: 14 RF: 0 ondansetron 4 mg tablet,disintegrating 4 mg PO Q6H PRN (Reason: nausea and vomiting) Qty: 10 RF: 0 No Action Linzess 72 mcg capsule 72 mcg PO QAM 30 Days Qty: 30 RF: 1 levothyroxine 75 mcg tablet 75 mcg PO QAM RF: 0 levofloxacin 500 mg tablet 500 mg PO DAILY 7 Days Qty: 7 RF: 0 ondansetron 4 mg tablet,disintegrating 4 mg PO Q6-8H PRN (Reason: nausea and vomiting) Qty: 7 RF: 0 Referrals: Ailyn Monge MD [Primary Care Provider] - 2 days Interventions: ED Discharge Assessment Last Done: 04/22/20 23:08 Discharge Date/Time: 04/23/20 00:03 Print Language: Djiboutian
--- NOTE | 2020-04-22 18:21 | ECG_ITS ---
Test Reason : weakness Blood Pressure : / mmHG Vent. Rate : 089 BPM Atrial Rate : 089 BPM P-R Int : 142 ms QRS Dur : 098 ms QT Int : 392 ms P-R-T Axes : 024 -57 025 degrees QTc Int : 476 ms Normal sinus rhythm Pulmonary disease pattern Left anterior fascicular block Abnormal ECG When compared with ECG of 09-APR-2020 23:35, Incomplete right bundle branch block is no longer Present Referred By: Denise Webster Electronically Signed By:Cody Alvarenga
[2020-04-22] MEDS: ondansetron HCL 4 MG/2 ML VIAL IVPUSH (18:30)
[2020-04-22] MEDS: Famotidine/PF 20 MG/2 ML VIAL IVPUSH (18:30)
[2020-04-22 18:37] LABS: MANUAL DIFF FLAG NO
[2020-04-22 18:56] LABS: Basophils Percent Auto 0.2 % (0-2); Eosinophils Absolute Auto 0.2 X10*3/uL (0.0-0.4); Eosinophils Percent Auto 2.2 % (0-4); Hematocrit 45.9 % (37-47); Hemoglobin 14.6 g/dl (12.0-16.0); Imm Gran Abs Auto 0.02 X10*3/uL (0.00-0.03); Imm Gran Pct Auto 0.2 % (0.0-0.4); Lymphocytes Absolute Auto 3.3 X10*3/uL (1.2-4.9); Lymphocytes Percent Auto 38.1 % (20-40); Mean Corpuscular HGB Conc 31.8 g/dl (31.0-35.0); Mean Corpuscular Hemoglobin 29.9 pg (27.0-33.0); Mean Corpuscular Volume 94.1 fL (80-98); Mean Platelet Volume 12.7 fL (9.4-12.3); Monocytes Absolute Auto 0.6 X10*3/uL (0.1-1.2); Monocytes Percent Auto 7.1 % (2-11); Neutrophils Absolute Auto 4.5 X10*3/uL (2.0-8.3); Neutrophils Percent Auto 52.2 % (45-73); Platelet Count 260 X10*3/uL (160-400); Red Blood Count 4.88 X10*6/uL (4.20-5.50); Red Cell Distribution Width 15.1 % (11.0-16.0); White Blood Count 8.6 X10*3/uL (4.8-10.8)
[2020-04-22 19:02] LABS: Alanine Aminotransferase 25 U/L (0-31); Albumin Level 4.1 g/dL (3.5-5.0); Alkaline Phosphatase 76 U/L (39-117); Anion Gap 15 (12-20); Aspartate Amino Transferase 27 U/L (5-31); Bilirubin Direct 0.2 mg/dL (0.0-0.5); Bilirubin Total 0.4 mg/dL (0.0-1.0); Blood Urea Nitrogen 20 mg/dL (9-16); Calcium 9.8 mg/dL (8.4-10.2); Carbon Dioxide 29 mmol/L (22-29); Chloride 103 mmol/L (96-108); Creatinine Clr Calc Pharmacy 72.3; Estimated Glomerular Filt Rate > 60; Glucose Random 107 mg/dL (60-115); Potassium 4.3 mmol/l (3.3-5.1); Sodium 143 mmol/L (135-145); Total Protein 6.8 g/dL (6.5-8.0)
[2020-04-22] MEDS: 0.9 % Sodium Chloride 1,000 ML 999 ML IV (20:48)
[2020-04-22] MEDS: Acetaminophen 325 MG TABLET 650 MG PO (20:49)
[2020-04-22 20:51] LABS: Glucose Urine UA NEG (NEG); Leukocyte Esterase Urine TRACE (NEG); Nitrite Urine NEG (NEG); Specific Gravity - Urine >= 1.030 (1.005-1.025); UACC Culture Trigger YES; Urine Blood NEG (NEG); Urine Ketones 5 MG/DL (NEG); Urine Protein TRACE MG/DL (NEG-TRACE)
[2020-04-22 21:03] LABS: Appearance Urine HAZY; Color Urine YELLOW
[2020-04-22 21:09] LABS: Calcium Oxalate Crystals Urine 1+ /LPF
[2020-04-22] MEDS: cephALEXin 500 MG CAPSULE PO (23:02)
== END 2020-04-23 00:03 | disposition home or self-care (01) ==
PROVIDERS: Nurse Practitioner Family; Emergency Provider Emergency Medicine Emergency Medical Services; PCP Family Medicine
DX: K29.70 Gastritis, unspecified, without bleeding (principal); N39.0 Urinary tract infection, site not specified; I95.1 Orthostatic hypotension
CPT/HCPCS: 36415; 80048; 80076; 81001; 81003; 83735; 85025; 87086; 93005; 96361; 96374; 96375; 99284; 99285; J2405

== ENCOUNTER → 2020-05-07 12:09 | Outpatient (BNVA) | payer MEDICARE, SELFPAY | PROVIDERS: PCP Family Medicine; Visit Provider Internal Medicine Gastroenterology | CPT/HCPCS: Q3014 ==

== ENCOUNTER 2020-07-01 14:28 | Outpatient (REF) | payer MEDICARE, SELFPAY ==
--- NOTE | ~2020-07-01 | XR_ITS ---
EXAMINATION: XR CHEST CLINICAL INFORMATION: Cough COMPARISON: 04/04/2020 TECHNIQUE: 2 views of the chest were obtained. FINDINGS: The lungs are well expanded. There is no focal consolidation, edema, or effusion. No pneumothorax. The cardiomediastinal silhouette is within normal limits. No acute osseous abnormality. Degenerative changes of the glenohumeral joints. XR/XR chest 2V IMPRESSION: Clear lungs.
== END 2020-07-01 14:29 | disposition home or self-care (01) ==
LOC: HO.XRAY 14:28
PROVIDERS: PCP Family Medicine; Visit Provider Nurse Practitioner Family
DX: R05 Cough (principal)
CPT/HCPCS: 71046

== ENCOUNTER 2020-07-03 09:29 | Day surgery (SDC) | payer MEDICARE, SELFPAY ==
[2020-06-27 15:09] VITALS: BMI 47.5
--- NOTE | 2020-07-02 15:26 | P.CONAN_ITS ---
Documented by User: Hetal Chaidez 07/02/20 15:56 HPI - Anesthesia Eval Consult details Narrative: 69yo F for Upper Endoscopy Pt medically cleared for EGD by PCP 07/02/2001/2020 severe COVID disease on vent at [facility] days. Bilat hemorrhagic infarcts. Transferred vented to [facility] [place]. Info from [facility] requested. Reviewed with Dr Camila MAE Active Problems Active Problems: All Active Problems (Updated 06/27/20 @ 15:11 by Liz Waters) Hypertension (Acute) SOB (shortness of breath) (Acute) Pneumonia due to 2019-nCoV (Acute) Hypoxia (Acute) Acute respiratory failure with hypoxia (Acute) Acute respiratory distress syndrome (ARDS) due to COVID-19 virus (Acute) Delirium due to another medical condition, acute, hyperactive (Acute) Cerebrovascular accident, embolic (Acute) UTI (urinary tract infection) (Acute) Gastric anastomotic stricture (Acute) Nausea & vomiting (Acute) Other and unspecified hyperlipidemia (Acute) Essential hypertension (Acute) Morbid obesity due to excess calories (Acute) Dyslipidemia (Acute) Past Medical History Medical History 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 Cervicalgia Chronic headaches CVA (cerebral vascular accident) Dyslipidemia Essential hypertension Fecal incontinence GERD (gastroesophageal reflux disease) Hiatal hernia History of COVID-19 History of gastroscopy HTN (hypertension) Hypothyroid Morbid obesity due to excess calories Obstructive sleep apnea Other and unspecified hyperlipidemia Pulmonary nodule, right Thyroid nodule Urinary incontinence Family History Family History Father No problems noted. Mother No problems noted. Surgical History Surgical History H/O tooth extraction History of bilateral knee replacement History of bilateral tubal ligation History of carpal tunnel release History of cholecystectomy History of dacryocystorhinostomy History of esophagogastroduodenoscopy (EGD) History of herniorrhaphy History of laparoscopic appendectomy History of sleeve gastrectomy History of total abdominal hysterectomy and bilateral salpingo-oophorectomy S/p bilateral blepharoplasty Social History Social History Household Members: Family Housing: Apartment Alcohol intake: current Alcohol intake frequency: does not drink Smoking Status: Never smoker Advance Directives: No Advance Directives Information Provided: Yes Meds Allergies Allergy/AdvReac Type Severity Reaction Status Date / Time atorvastatin [From Lipitor] Allergy Mild HIVES Verified 07/03/20 09:55 Home Medications Medication Instructions Recorded Confirmed Last Taken Type levothyroxine 75 mcg PO QAM 02/02/20 02/02/20 Unknown History fluticasone propion-salmeterol 1 puff PO BID 07/03/20 07/03/20 Unknown History [Advair Diskus] Exam Exam Date and Time: July 02, 2020 1526 Height,Weight and Vital Signs: Height 4 ft 11.5 in Weight 108.409 kg Pertinent Lab Results Pertinent Lab Results: Laboratory Tests 04/09/20 04/22/20 04/22/20 22:59 18:32 18:32 WBC 8.6 Hgb 14.6 Hct 45.9 Plt Count 260 PT 13.9 H INR 1.2 H Sodium 143 Potassium 4.3 Chloride 103 Carbon Dioxide 29 BUN 20 H Creatinine 0.69 Estimated GFR > 60 Magnesium 2.0 Total Bilirubin 0.4 Direct Bilirubin 0.2 AST 27 ALT 25 Alkaline Phosphatase 76 Total Protein 6.8 Albumin 4.1 Narrative Narrative: XR chest 2V IMPRESSION: Clear lungs. Assessment and Plan Assessment Anesthesia Assessment: Chart Reviewed Documented by User: Janell Gaspar 07/03/20 10:29 [facility] Past Medical History Medical History 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 Cervicalgia Chronic headaches CVA (cerebral vascular accident) Dyslipidemia Essential hypertension Fecal incontinence GERD (gastroesophageal reflux disease) Hiatal hernia History of COVID-19 History of gastroscopy HTN (hypertension) Hypothyroid Morbid obesity due to excess calories Obstructive sleep apnea Other and unspecified hyperlipidemia Pulmonary nodule, right Thyroid nodule Urinary incontinence Family History Family History Father No problems noted. Mother No problems noted. Surgical History Surgical History H/O tooth extraction History of bilateral knee replacement History of bilateral tubal ligation History of carpal tunnel release History of cholecystectomy History of dacryocystorhinostomy History of esophagogastroduodenoscopy (EGD) History of herniorrhaphy History of laparoscopic appendectomy History of sleeve gastrectomy History of total abdominal hysterectomy and bilateral salpingo-oophorectomy S/p bilateral blepharoplasty Social History Social History Household Members: Family Housing: Apartment Alcohol intake: current Alcohol intake frequency: does not drink Smoking Status: Never smoker Advance Directives: No Advance Directives Information Provided: Yes Meds Allergies Allergy/AdvReac Type Severity Reaction Status Date / Time atorvastatin [From Lipitor] Allergy Mild HIVES Verified 07/03/20 09:55 Home Medications Medication Instructions Recorded Confirmed Last Taken Type levothyroxine 75 mcg PO QAM 02/02/20 02/02/20 Unknown History fluticasone propion-salmeterol 1 puff PO BID 07/03/20 07/03/20 Unknown History [Advair Diskus] Exam Airway Mallampati Class: II Heart: RRR Lungs: CTA Assessment and Plan Assessment Anesthesia Assessment: Anesthesia Plan Discussed and Chart Reviewed Final Anesthetic Review NPO: Yes ASA Class: III Final Preanesthetic Review: Meds/Allgs Chart Reviewed, Consent Obtained/Reviewed and Anes Risks/Benef Reviewed Patient Risk: Intermediate Procedure Risk: Intermediate Anesthetic Plan Anesthetic Plan: MAC: Disposition: Standard PACU
[2020-07-03 09:57] VITALS: BP 136/75; PULSE 97; RESP 18; TEMP 36.8; O2SAT 96
--- NOTE | 2020-07-03 10:13 | MHC.SHP ---
Pre-Procedural Eval Section B Chief Complaint: nausea Relevant Family History (Specify if Yes): No Relevant Social History: None Present Medications: see Short Stay Collaborative assessment Medical History: Significant History (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 Cervicalgia Chronic headaches CVA (cerebral vascular accident) Dyslipidemia Essential hypertension Fecal incontinence GERD (gastroesophageal reflux disease) Hiatal hernia History of COVID-19 History of gastroscopy HTN (hypertension) Hypothyroid Morbi) History of Previous Operations: Relevant previous surgery/procedure and date(s) (H/O tooth extraction History of bilateral knee replacement History of bilateral tubal ligation History of carpal tunnel release History of cholecystectomy History of dacryocystorhinostomy History of esophagogastroduodenoscopy (EGD) History of herniorrhaphy History of laparoscopic appendectomy Histor) Allergies: Allergies Allergy/AdvReac Type Severity Reaction Status Date / Time atorvastatin [From Lipitor] Allergy Mild HIVES Verified 07/03/20 09:55 Review of Systems Sugical H&P ROS: Negative: Constitution, Cardiovascular, Respiratory, Neurological, Psychiatric, Hem-Onc, Allergic/Immunologic, Gastrointestinal, Genitourinary, Musculoskeletal, Integumentary, Endocrine and Eyes/Ears/Nose/Throat Exam Surgical H&P Exam: Normal: HEENT, Normal: Heart, Normal: Lungs, Normal: Extremities, Normal: Abdomen, Normal: Skin and Normal: Neurological Plan Diagnosis/Plan: Unchanged I have reviewed the history and physical and performed a pertinent physical examination on my patient. No changes have occurred unless specified.
--- NOTE | 2020-07-03 10:30 | PM.OP ---
Brief Operative Note Date of Service: 07/03/20 Pre-op diagnosis: nausea Post-op diagnosis: same Procedure: see op note Surgeon: Aníbal Mercado MD Anesthesia: MAC Estimated blood loss (mL): 0 Condition: stable Disposition: PACU
--- NOTE | 2020-07-03 10:30 | W.PM.OPN ---
Operative Note Operative Note Date of Service: 07/03/20 Narrative: Procedure Description: EGD FLEXIBLE TRANSORAL UPPER GASTROINTESTINAL ENDOSCOPY UPPER ENDOSCOPY Consent: Indications for the procedure and potential complications of bleeding, perforation, reaction to medications and missed diagnosis were discussed with the patient and informed consent was obtained. Instrument: Olympus GIF H 190 J mid size upper endoscope Monitoring: Vital signs and clinical assessment, continuous EKG monitoring, Pulse oximetry, Carbon Dioxide monitoring and blood pressure monitoring were done throughout the procedure. Procedure: The patient was placed in the left lateral decubitis position and pre-procedure medications were administered and a bite block was placed. The endoscope was inserted into the mouth and advanced under direct vision to the third part of duodenum. A careful inspection was made as the upper endoscope was withdrawn including a retroflexed examination of the proximal stomach; Findings and interventions are described below. Findings: Larynx:normal Esophagus: GE junction at 31 cm, top of gastric folds at 33 cm, diaphragm hiatus at 35 cm, 2 cm sliding hiatal hernia noted, salmon pink mucosa C1M2 bx taken Stomach: Patchy gastric erythema. Biopsies were obtained for histology as well as h pylori culture and sensitivity. Grade 2 flap valve on retroflexed examination of the cardia. Duodenum: Normal bulb and descending duodenum, Intervention: Biopsies as noted above Impression/Findings: gastritis hiatal hernia barretts esophagus PLAN: cont PPI, she said she has felt much better recently and sx are minimal-will cont to monitor
[2020-07-03 10:51] VITALS: BP 118/70; PULSE 89; RESP 20; TEMP 36.1; O2SAT 99
[2020-07-03 11:03] VITALS: BP 127/80; PULSE 83; RESP 18; O2SAT 96
== END 2020-07-03 11:35 ==
LOC: HO.SSS 09:30
PROVIDERS: PCP Family Medicine; Visit Provider Internal Medicine Gastroenterology
PROC: 0DJ08ZZ Inspection of Upper Intestinal Tract, Via Natural or Artificial Opening Endoscopic (ICD-10-PCS; CPT 43235; principal; 2020-07-03 10:30)
DX: K29.50 Unspecified chronic gastritis without bleeding (principal); K22.70 Barrett's esophagus without dysplasia; K44.9 Diaphragmatic hernia without obstruction or gangrene; K21.9 Gastro-esophageal reflux disease without esophagitis; I10 Essential (primary) hypertension; G47.33 Obstructive sleep apnea (adult) (pediatric); J45.909 Unspecified asthma, uncomplicated; Z86.73 Personal history of transient ischemic attack (TIA), and cerebral infarction without residual deficits; Z86.16 Personal history of COVID-19
CPT/HCPCS: 43239; 36415; 88305; 88342

== ENCOUNTER 2020-07-17 10:49 | Outpatient (REF) | payer MEDICARE, SELFPAY ==
--- NOTE | 2020-07-17 17:37 | PFT_ITS ---
FLOWS: FEV1 of 144% of predicted at 2.54 L. FVC 127% of predicted at 2.96 L. FEV1 to FVC ratio of 0.86. No bronchodilator test has been performed as the patient has had bronchodilator prior to this pulmonary function test. LUNG VOLUMES: Total lung capacity 120% of predicted at 5.19 L. Residual volume 122% of predicted at 2.41. Slow vital capacity 119% of predicted at 2.77 L. Expiratory reserve volume 149% of predicted at 0.70 L. Diffusion capacity is mildly decreased, diffusion capacity adjust to normal after correction for alveolar ventilation. IMPRESSION: No obstructive or restrictive ventilatory defect. Bronchodilator testing was not performed. MD SANTY Thomas/MODL / [id number] MTDD
== END 2020-07-17 10:50 | disposition home or self-care (01) ==
LOC: HO.RESP 10:49
PROVIDERS: Visit Provider Nurse Practitioner Family
DX: U07.1 COVID-19 (principal); R05 Cough; R11.10 Vomiting, unspecified

== ENCOUNTER → 2020-07-30 08:58 | Outpatient (BNVA) | payer MEDICARE, SELFPAY | PROVIDERS: PCP Family Medicine; Visit Provider Internal Medicine Gastroenterology | CPT/HCPCS: Q3014 ==

== ENCOUNTER → 2020-08-02 11:26 | Outpatient (BNVA) | payer MEDICARE, SELFPAY | PROVIDERS: PCP Family Medicine; Visit Provider Internal Medicine Pulmonary Disease | DX: R05 Cough (principal) | CPT/HCPCS: 99212 ==

== ENCOUNTER 2020-08-22 20:51 | Emergency (ER) | payer MEDICARE, SELFPAY ==
--- NOTE | ~2020-08-22 | CT_ITS ---
EXAMINATION: CT ABDOMEN AND PELVIS WITH CONTRAST CLINICAL INFORMATION: Nausea and vomiting COMPARISON: 04/09/2020 TECHNIQUE: Multidetector volumetric images were obtained from the superior aspect of the liver through the pubic symphysis following administration 85 mL of Omnipaque 350 intravenous contrast. Sagittal and coronal reformatted images were obtained on the technologist's workstation. Oral contrast: No This CT examination was performed using dose optimization techniques as appropriate, variously including the following: *Automated exposure control *Adjustment of mA and/or kV according to patient size (this includes techniques or standardized protocols for targeted exams where dose is matched to indication/reason for exam; i.e. extremities or head) *Use of iterative reconstruction technique DLP: 1026 mGy-cm FINDINGS: LUNG BASES: Groundglass opacities are seen at the lung bases. Dilated esophagus internal fluid. LIVER, GALLBLADDER, AND BILIARY TREE: The liver is normal in size, shape, and attenuation. No focal hepatic lesion or biliary ductal dilatation is present. The gallbladder is absent. PANCREAS: Unremarkable. SPLEEN: Unremarkable. ADRENAL GLANDS: Unremarkable. KIDNEYS AND URETERS: The kidneys are normal in size, shape, and attenuation. No hydronephrosis, hydroureter, or calculi seen. No perinephric stranding. There is an exophytic 5 cm simple cyst at the upper pole of the left kidney. No follow-up imaging recommended. BLADDER: Unremarkable. GASTROINTESTINAL TRACT: Postsurgical changes of the stomach. Normal caliber small bowel. No obstruction. Colonic diverticulosis without diverticulitis. No wall thickening. No free air. No free fluid. ABDOMINAL WALL: There is prior ventral abdominal wall hernia repair at the lower abdomen/pelvis. LYMPH NODES: Normal. VASCULAR: Normal caliber aorta with mild atherosclerotic calcification. PELVIC VISCERA: The uterus is not seen. No adnexal mass. OSSEOUS STRUCTURES: No acute or suspicious osseous abnormality. Mild degenerative change of the spine and hips. CT/CT abdomen pelvis w con IMPRESSION: Groundglass opacities at the lung bases could be infectious or inflammatory. This could be simply atelectatic. Dilated esophagus. Possible esophagitis. Postsurgical appearance of the stomach. No bowel obstruction. No inflammatory changes of the bowel.
--- NOTE | ~2020-08-22 | XR_ITS ---
EXAMINATION: XR CHEST CLINICAL INFORMATION: Shortness of breath COMPARISON: 07/01/2020 TECHNIQUE: Frontal view of the chest was obtained. FINDINGS: The lungs are well expanded. There is no focal consolidation, edema, or effusion. No pneumothorax. The cardiomediastinal silhouette is within normal limits. No acute osseous abnormality. XR/XR chest 1V IMPRESSION: No acute pulmonary finding.
[2020-08-22 20:56] VITALS: BP 140/87; PULSE 82; RESP 18; TEMP 37.3; O2SAT 95; BMI 47.6
[2020-08-22 22:00] VITALS: BP 113/59; PULSE 77; RESP 18; TEMP 37.1; O2SAT 95
[2020-08-22 22:50] LABS: MANUAL DIFF FLAG NO
[2020-08-22 22:52] LABS: Basophils Percent Auto 0.3 % (0-2); Eosinophils Absolute Auto 0.2 X10*3/uL (0.0-0.4); Eosinophils Percent Auto 2.4 % (0-4); Hemoglobin 13.5 g/dl (12.0-16.0); Imm Gran Abs Auto 0.01 X10*3/uL (0.00-0.03); Imm Gran Pct Auto 0.1 % (0.0-0.4); Lymphocytes Absolute Auto 2.6 X10*3/uL (1.2-4.9); Lymphocytes Percent Auto 27.8 % (20-40); Mean Corpuscular HGB Conc 32.9 g/dl (31.0-35.0); Mean Corpuscular Volume 94.3 fL (80-98); Mean Platelet Volume 12.1 fL (9.4-12.3); Monocytes Absolute Auto 0.9 X10*3/uL (0.1-1.2); Monocytes Percent Auto 9.3 % (2-11); Neutrophils Absolute Auto 5.6 X10*3/uL (2.0-8.3); Neutrophils Percent Auto 60.1 % (45-73); Platelet Count 216 X10*3/uL (160-400); Red Blood Count 4.35 X10*6/uL (4.20-5.50); Red Cell Distribution Width 14.6 % (11.0-16.0); White Blood Count 9.3 X10*3/uL (4.8-10.8)
--- NOTE | 2020-08-22 22:55 | ECG_ITS ---
Test Reason : WEAKNESS Blood Pressure : / mmHG Vent. Rate : 078 BPM Atrial Rate : 078 BPM P-R Int : 150 ms QRS Dur : 108 ms QT Int : 418 ms P-R-T Axes : 045 -43 026 degrees QTc Int : 476 ms Sinus rhythm with occasional Premature ventricular complexes vs fusion Left axis deviation Abnormal ECG When compared with ECG of 22-APR-2020 18:34, No significant changes seen Referred By: Rola Arriola Electronically Signed By:CHRISTA SKAGGS
--- NOTE | 2020-08-22 22:58 | ED_ITS ---
HPI - Nausea/Vomiting/Diarrhea General Chief complaint: Nausea/Vomiting/Diarrhea Stated complaint: nausea Time Seen by Provider: 08/22/20 22:54 History of Present Illness HPI Narrative: Patient is 69 years old previous history of coronary artery disease. Positive history of hypertension. Positive previous history of Coronavirus 19. Did not get her vaccine. Patient's coronavirus infection was back in December. Patient denies any new shortness of breath. Denies any new coughing. Patient complaining of abdominal pain nausea. The abdominal pain was diffuse over the entire abdomen. There is no radiation. There is no change with movement. Patient also complaining of vomiting multiple episodes. Consistent mostly of food. Patient from home. No chest pain. No diaphoresis. No travel. No leg swelling. Patient is from home. Related Data Home Medications Medication Instructions Recorded Confirmed levothyroxine 75 mcg PO QAM 02/02/20 02/02/20 fluticasone propion-salmeterol 1 puff PO BID 07/03/20 07/03/20 [Advair Diskus] albuterol sulfate 2.5 mg INHALATION Q4-6H PRN 08/02/20 albuterol sulfate 90 mcg/actuation 0 mcg INHALATION 08/02/20 aerosol inhaler Previous Rx's Medication Instructions Recorded levofloxacin 500 mg PO DAILY 7 Days #7 tab 04/05/20 ondansetron 4 mg PO Q6-8H PRN #7 tab 04/05/20 linaclotide 72 mcg capsule 72 mcg PO QAM 30 Days #30 cap 04/18/20 cephalexin 500 mg PO Q12H #14 cap 04/22/20 plecanatide 3 mg tablet 3 mg PO DAILY #30 tab 05/07/20 cephalexin 500 mg capsule 500 mg PO BID 14 Days #28 cap 07/30/20 lansoprazole 30 mg capsule,delayed 30 mg PO BID 30 Days #60 cap 08/02/20 release sucralfate 100 mg/mL oral 10 ml PO TID 30 Days #900 ml 08/02/20 suspension famotidine 40 mg tablet 40 mg PO BEDTIME #90 tab 08/13/20 ondansetron 4 mg PO TID PRN 5 Days #10 tab 08/23/20 Allergies Allergy/AdvReac Type Severity Reaction Status Date / Time atorvastatin [From Lipitor] Allergy Mild HIVES Verified 05/07/21 11:28 Review of Systems Review of Systems: Constitutional: No Weight loss, No Fever, No Chills, No Night Sweats, No Fatigue, No Malaise ENT/Mouth: No Hearing loss, No Ear Pain, No Nasal Congestion, No Sinus Pain, No Hoarseness, No sore throat, No Rhinorrhea, No Swallowing Difficulty Eyes: No Eye Pain, No Swelling, No Redness, No Foreign Body, No Discharge, No Vision Changes Cardiovascular: No Chest Pain, No SOB, No Dyspnea on Exertion, No Orthopnea, No Edema, No Palpitations Respiratory: No Cough, No Sputum, No Wheezing, No Smoke Exposure, No Dyspnea Gastrointestinal: Positive Nausea, positive Vomiting, No Diarrhea, No Constipation, No abdominal Pain, No Hematochezia, No Melena Genitourinary: no irregular bleeding, No Dysuria, No Urinary Frequency, No Hematuria, No Urinary Incontinence, No Urgency, No Flank Pain, No Urinary Flow Changes, No Hesitancy Musculoskeletal: No joint pain, No Myalgias, No Joint Swelling Skin: No Skin Lesions, No rash Neuro: No Weakness, No Numbness, No Paresthesias, No Loss of Consciousness, No Dizziness, No Headache Psych: No Anxiety/Panic, No Depression, No SI/HI/AH/VH, No Social Issues, Heme/Lymph: No Bruising, No Bleeding,No Lymphadenopathy Endocrine: No Polyuria, No Polydipsia, No Temperature Intolerance PMFSH Past Medical History Medical History 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 Cervicalgia Chronic headaches CVA (cerebral vascular accident) Dyslipidemia Essential hypertension Fecal incontinence GERD (gastroesophageal reflux disease) Hiatal hernia History of COVID-19 History of gastroscopy HTN (hypertension) Hypothyroid Morbid obesity due to excess calories Obstructive sleep apnea Other and unspecified hyperlipidemia Pulmonary nodule, right Thyroid nodule Urinary incontinence Surgical History H/O tooth extraction History of bilateral knee replacement History of bilateral tubal ligation History of carpal tunnel release History of cholecystectomy History of dacryocystorhinostomy History of esophagogastroduodenoscopy (EGD) History of herniorrhaphy History of laparoscopic appendectomy History of sleeve gastrectomy History of total abdominal hysterectomy and bilateral salpingo-oophorectomy S/p bilateral blepharoplasty Family History Family History Father No problems noted. Mother No problems noted. Social History Social History (Updated 07/30/20 @ 09:02 by CRISTOPHER Lipscomb) Household Members: Family Household Members Other:: grandson Housing: Apartment Do you presently have visiting nurse or other home services: Yes ([email or web address]) Alcohol intake: current Alcohol intake frequency: holidays/special occasions on ly Patient Tobacco Use Status: Never used Tobacco Smoked in Last 30 Days: No Use of substances other than those prescribed or required for medical reasons: No Advance Directives: No Advance Directives Information Provided: Yes Current occupational status: disabled Physical Exam Vital Signs: Vital Signs: Last Vital Signs Temp 98.7 F 08/22/20 22:00 Pulse 77 08/22/20 22:00 Resp 18 08/22/20 22:00 BP 113/59 L 08/22/20 22:00 Pulse Ox 95 08/22/20 22:00 Body Mass Index 47.6 Appearance: Alert. Oriented X3. No acute distress. Eyes: Pupils equal, round and reactive to light. ENT: Pharynx normal. Neck: Normal inspection. Neck supple. No lymph nodes noted. No crepitus CVS: Normal heart rate and rhythm. Pulses normal. Normal S1 and S2 Respiratory: No respiratory distress. Breath sounds normal. No Wheezing. No ral es Abdomen: Soft and nontender. No rigidity. No distention. good BS x4 Skin: Skin warm and dry. Normal skin color. Normal skin turgor. Extremities: No lower extremity edema. Neurovascular intact to all extremities. No Lacerations. No Rash Neuro: Oriented X 3. No motor deficit. No sensory deficit. Moving all extermities. No slurred speech MDM - Nausea/Vomiting/Diarrhea MDM Narrative Medical decision making narrative: CT scan of the abdomen pelvis was grossly negative for any acute evidence of obstruction, abscess, perforation. Patient's coronavirus test was negative. She really had coronavirus back in December. Likely the ground-glass opacity may be secondary to atelectasis. Patient's electrolytes were normal. Symptom improved with Zofran and fluids. Will discharge patient home. Close follow-up on an outpatient basis. Medical Records Attestation: I reviewed the patient's medical records. Lab Data Attestation: I reviewed the patient's lab results. Result diagrams: 08/22/20 22:41 08/22/20 22:41 Labs: Lab Results 08/22/20 08/22/20 08/22/20 Range/Units 22:41 22:41 22:41 WBC 9.3 (4.8-10.8) X10*3/uL RBC 4.35 (4.20-5.50) X10*6/uL Hgb 13.5 (12.0-16.0) g/dl Hct 41.0 (37-47) % MCV 94.3 (80-98) fL MCH 31.0 (27.0-33.0) pg MCHC 32.9 (31.0-35.0) g/dl RDW 14.6 (11.0-16.0) % Plt Count 216 (160-400) X10*3/uL MPV 12.1 (9.4-12.3) fL Immature Gran % (Auto) 0.1 (0.0-0.4) % Neut % (Auto) 60.1 (45-73) % Lymph % (Auto) 27.8 (20-40) % Ceiba % (Auto) 9.3 (2-11) % Eos % (Auto) 2.4 (0-4) % Baso % (Auto) 0.3 (0-2) % Lymph # (Auto) 2.6 (1.2-4.9) X10*3/uL Ceiba # (Auto) 0.9 (0.1-1.2) X10*3/uL Eos # (Auto) 0.2 (0.0-0.4) X10*3/uL Baso # (Auto) 0.0 (0.0-0.2) X10*3/uL Abs Immat Gran (auto) 0.01 (0.00-0.03) X10*3/uL Absolute Neuts (auto) 5.6 (2.0-8.3) X10*3/uL Absolute Nucleated RBC 0.000 (0.0-0.012) X10*3/uL Nucleated RBC % (auto) 0.0 (0.0-0.2) /100WBC Hold Blue Top SEE NOTE Sodium 142 (135-145) mmol/L Potassium 4.1 (3.3-5.1) mmol/L Chloride 105 (96-108) mmol/L Carbon Dioxide 27 (22-29) mmol/L Anion Gap 14 (12-20) BUN 20 H (9-16) mg/dL Creatinine 0.80 (0.5-1.4) mg/dL Estim Creat Clear Calc 64.2 Estimated GFR > 60 Random Glucose 95 (60-115) mg/dL Calcium 10.0 (8.4-10.2) mg/dL Total Bilirubin 0.4 (0.0-1.0) mg/dL Direct Bilirubin AST 23 (5-31) U/L ALT 28 (0-31) U/L Alkaline Phosphatase 81 (39-117) U/L Total Protein 7.6 (6.5-8.0) g/dL Albumin 4.5 (3.5-5.0) g/dL Lipase 27 (8-78) U/L Hold Red Top COVID-19 ([facility]) (Negative) COVID-19 Clin Com 08/22/20 08/22/20 08/22/20 Range/Units 22:41 23:18 23:18 WBC (4.8-10.8) X10*3/uL RBC (4.20-5.50) X10*6/uL Hgb (12.0-16.0) g/dl Hct (37-47) % MCV (80-98) fL MCH (27.0-33.0) pg MCHC (31.0-35.0) g/dl RDW (11.0-16.0) % Plt Count (160-400) X10*3/uL MPV (9.4-12.3) fL Immature Gran % (Auto) (0.0-0.4) % Neut % (Auto) (45-73) % Lymph % (Auto) (20-40) % Ceiba % (Auto) (2-11) % Eos % (Auto) (0-4) % Baso % (Auto) (0-2) % Lymph # (Auto) (1.2-4.9) X10*3/uL Ceiba # (Auto) (0.1-1.2) X10*3/uL Eos # (Auto) (0.0-0.4) X10*3/uL Baso # (Auto) (0.0-0.2) X10*3/uL Abs Immat Gran (auto) (0.00-0.03) X10*3/uL Absolute Neuts (auto) (2.0-8.3) X10*3/uL Absolute Nucleated RBC (0.0-0.012) X10*3/uL Nucleated RBC % (auto) (0.0-0.2) /100WBC Hold Blue Top Sodium Cancelled (135-145) mmol/L Potassium Cancelled (3.3-5.1) mmol/L Chloride Cancelled (96-108) mmol/L Carbon Dioxide Cancelled (22-29) mmol/L Anion Gap Cancelled (12-20) BUN Cancelled (9-16) mg/dL Creatinine Cancelled (0.5-1.4) mg/dL Estim Creat Clear Calc Cancelled Estimated GFR Cancelled Random Glucose Cancelled (60-115) mg/dL Calcium Cancelled (8.4-10.2) mg/dL Total Bilirubin Cancelled (0.0-1.0) mg/dL Direct Bilirubin Cancelled AST Cancelled (5-31) U/L ALT Cancelled (0-31) U/L Alkaline Phosphatase Cancelled (39-117) U/L Total Protein Cancelled (6.5-8.0) g/dL Albumin Cancelled (3.5-5.0) g/dL Lipase (8-78) U/L Hold Red Top See Note COVID-19 ([facility]) Negative (Negative) COVID-19 Clin Com See Note ECG Data Attestation: I personally reviewed and interpreted this ECG as follows: Interpretation: Showed a sinus pattern heart rate is 80 OH cares QT within normal limits is no acute ST segment elevation noted. Discharge Plan Discharge Clinical Impression: Vomiting Patient Disposition: Home, Self-Care Instructions: Acute Nausea and Vomiting (ED) Prescriptions: New ondansetron 4 mg tablet,disintegrating 4 mg PO TID PRN (Reason: nausea and vomiting) 5 Days Qty: 10 RF: 0 No Action Linzess 72 mcg capsule 72 mcg PO QAM 30 Days Qty: 30 RF: 1 famotidine 40 mg tablet 40 mg PO BEDTIME Qty: 90 RF: 1 fluticasone propion-salmeterol [Advair Diskus] 250-50 mcg/dose blister with device 1 puff PO BID RF: 0 levothyroxine 75 mcg tablet 75 mcg PO QAM RF: 0 levofloxacin 500 mg tablet 500 mg PO DAILY 7 Days Qty: 7 RF: 0 ondansetron 4 mg tablet,disintegrating 4 mg PO Q6-8H PRN (Reason: nausea and vomiting) Qty: 7 RF: 0 cephalexin 500 mg capsule 500 mg PO Q12H Qty: 14 RF: 0 Trulance 3 mg tablet 3 mg PO DAILY Qty: 30 RF: 3 cephalexin 500 mg capsule 500 mg PO BID 14 Days Qty: 28 RF: 0 sucralfate [Carafate] 100 mg/mL suspension 10 ml PO TID 30 Days Qty: 900 RF: 2 lansoprazole 30 mg capsule,delayed release(DR/EC) 30 mg PO BID 30 Days Qty: 60 RF: 3 Referrals: Ailyn Monge MD [Primary Care Provider] - 2 days Print Language: Somali
[2020-08-22] MEDS: ondansetron HCL 4 MG/2 ML VIAL IVPUSH (23:15)
[2020-08-22 23:21] LABS: Alanine Aminotransferase 28 U/L (0-31); Albumin Level 4.5 g/dL (3.5-5.0); Alkaline Phosphatase 81 U/L (39-117); Anion Gap 14 (12-20); Aspartate Amino Transferase 23 U/L (5-31); Bilirubin Total 0.4 mg/dL (0.0-1.0); Blood Urea Nitrogen 20 mg/dL (9-16); Carbon Dioxide 27 mmol/L (22-29); Chloride 105 mmol/L (96-108); Creatinine Clr Calc Pharmacy 64.2; Estimated Glomerular Filt Rate > 60; Glucose Random 95 mg/dL (60-115); Lipase 27 U/L (8-78); Potassium 4.1 mmol/L (3.3-5.1); Sodium 142 mmol/L (135-145); Total Protein 7.6 g/dL (6.5-8.0)
[2020-08-22] MEDS: 0.9 % Sodium Chloride 1,000 ML 999 ML IV (23:31)
[2020-08-22 23:40] LABS: IDNOW Serial# 9DD0AD1C
[2020-08-22 23:41] LABS: COVID-19 Test Negative (Negative)
[2020-08-23] MEDS: iohexoL 350 MG/ML 100 ML INFUS..BTL 85 ML IV (00:45)
== END 2020-08-23 01:37 | disposition home or self-care (01) ==
PROVIDERS: Emergency Provider Emergency Medicine Emergency Medical Services; PCP Family Medicine
DX: R10.9 Unspecified abdominal pain (principal); R11.2 Nausea with vomiting, unspecified; R19.7 Diarrhea, unspecified; Z79.899 Other long term (current) drug therapy; Z20.822 Contact with and (suspected) exposure to COVID-19
CPT/HCPCS: 36415; 71045; 74177; 80053; 83690; 85025; 87635; 93005; 99285; J2405; Q9967

== ENCOUNTER 2020-09-16 13:32 | Outpatient (REF) | payer MEDICARE, SELFPAY ==
--- NOTE | ~2020-09-16 | CT_ITS ---
EXAMINATION: CT ENTEROGRAPHY ABDOMEN AND PELVIS WITH CONTRAST CLINICAL INFORMATION: Periumbilical pain COMPARISON: Previous CT of the abdomen and pelvis 08/23/2020 TECHNIQUE: Study performed with oral VoLumen (1350 mL) and 480 mL of water to distend the abdomen. The patient was injected with 85 mL Omnipaque 350 intravenous contrast which was administered without adverse effect. Coronal and sagittal reformatted images were obtained at the technologist's workstation. This CT examination was performed using dose optimization techniques as appropriate, variously including the following: *Automated exposure control *Adjustment of mA and/or kV according to patient size (this includes techniques or standardized protocols for targeted exams where dose is matched to indication/reason for exam; i.e. extremities or head) *Use of iterative reconstruction technique DLP: 719 mGy-cm FINDINGS: GASTROINTESTINAL FINDINGS: Stomach: There are postoperative changes to the stomach. There is a small to moderate esophageal hernia probably representing a hiatal hernia. There is again question of wall thickening of the distal thoracic esophagus Small intestine: Satisfactorily distended and normal in appearance. Large intestine: There is diverticulosis of the colon. No evidence of diverticulitis is seen.. No perirectal changes demonstrated. The appendix is is not identified There is a large lower abdominal wall hernia repair with mesh. No recurrent lower abdominal or umbilical hernia is seen. No abdominal wall fluid collection is seen. There is a small more superior upper ventral abdominal wall hernia containing fat. Additional findings: No abnormal enhancement of the vasa recta or significant mesenteric or retroperitoneal lymphadenopathy is seen. No abdominal abscess or fistulous tract demonstrated. ABDOMINAL AND PELVIC CT FINDINGS: Liver, gallbladder, biliary tract: The liver is unremarkable. The gallbladder has been removed. There is no biliary duct dilatation. Pancreas: Normal Spleen: Normal Adrenal glands and kidneys: The adrenal glands are normal. There is a 4.8 cm cyst in the upper pole of the left kidney. There is a small 5 mm cyst in the lower pole of the right kidney. The kidneys are otherwise unremarkable. Ureters and bladder: Unremarkable Lymphovascular structures: Unremarkable The uterus appears to have been removed. No pelvic mass is seen. Bones: There is degenerative spondylosis of the visualized lower thoracic spine. There is degenerative disc disease at L2-L3 and L5-S1. There is mild anterior subluxation of L4 with respect L5 probably related to facet arthritis. Lung bases: There is scarring or subsegmental atelectasis in the right lower lobe adjacent to bony osteophyte. The previously identified groundglass attenuation seen in the lower lobes no longer seen CT/CT enterography IMPRESSION: Diverticulosis. No evidence of diverticulitis. Postsurgical change to the stomach. Small 2 moderate esophageal hernia probably representing a hiatal hernia and question wall thickening of the distal thoracic esophagus/esophagitis. This is similar to previous July 2020 exam. Small upper midline ventral hernia containing fat. Evidence of large lower ventral hernia repair with mesh.
[2020-09-16] MEDS: iohexoL 350 MG/ML 100 ML INFUS..BTL IV (15:19)
[2020-09-16] MEDS: Sorbitol/Mannit/Xanth Imaging 500 ML LIQUID 1500 ML PO (15:21)
== END 2020-09-16 13:33 | disposition home or self-care (01) ==
LOC: HO.US 13:32
PROVIDERS: Visit Provider Internal Medicine Gastroenterology
DX: R10.33 Periumbilical pain (principal)
CPT/HCPCS: 74177; Q9967

== ENCOUNTER → 2020-10-01 14:08 | Outpatient (BNVA) | payer MEDICARE, SELFPAY | PROVIDERS: PCP Family Medicine; Visit Provider Internal Medicine Gastroenterology | DX: Z13.89 Encounter for screening for other disorder (principal) | CPT/HCPCS: Q3014 ==

== ENCOUNTER 2020-10-28 09:43 | Outpatient (REF) | payer MEDICARE, SELFPAY ==
--- NOTE | ~2020-10-28 | US_ITS ---
EXAMINATION: ULTRASOUND OF THE SUPERIOR MESENTERIC ARTERY. MESENTERIC ARTERY ULTRASOUND. CLINICAL INFORMATION: This is a 69-year-old female with vascular disorder of the intestine, unspecified. COMPARISON: Comparison is made to a CT scan dated 09/16/2020. TECHNIQUE: Color-flow duplex imaging of the superior mesenteric artery was performed. The full study could not be performed due to the patient's body habitus and overlying bowel obscuring the vessel. Limited images were obtained. FINDINGS: The aorta proximal to the spermatic circumflex artery measures 73 cm/s. The aorta distal to the superior mesenteric artery measures 105 cm/s. The superior mesenteric artery could not be adequately seen to obtain measurements. The inferior mesenteric artery may be partially visualized with a velocity of 142 cm/s. Given that the superior mesenteric artery was well seen on the CAT scan dated 09/16/2020 a repeat study may be worthwhile to evaluate for filling defects. However, that CT scan did not demonstrate significant narrowing of the celiac artery, superior mesenteric artery, inferior mesenteric artery. US/US SMA IMPRESSION: 1. The superior mesenteric artery could not be adequately visualized for velocity measurements.
== END 2020-10-28 09:44 | disposition home or self-care (01) ==
LOC: HO.US 09:43
PROVIDERS: Visit Provider Internal Medicine Gastroenterology
DX: K55.9 Vascular disorder of intestine, unspecified (principal)
CPT/HCPCS: 93976

== ENCOUNTER 2020-12-17 07:56 | Outpatient (REF) | payer MEDICARE, SELFPAY ==
--- NOTE | ~2020-12-17 | CT_ITS ---
EXAMINATION: CT CHEST WITH CONTRAST CLINICAL INFORMATION: Cough COMPARISON: Previous chest CT October 2017 TECHNIQUE: Multidetector volumetric CT imaging of the chest was obtained after the administration of 65 mL of Omnipaque 350 intravenous contrast without immediate adverse reactions. Axial MIP volume rendering provided. Sagittal and coronal reformatted images were obtained. This CT examination was performed using dose optimization techniques as appropriate, variously including the following: *Automated exposure control *Adjustment of mA and/or kV according to patient size (this includes techniques or standardized protocols for targeted exams where dose is matched to indication/reason for exam; i.e. 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 Largest pulmonary nodules are a 4 mm left upper lobe nodule axial image 229 series 7 and a 3 x 8 mm peripheral or subpleural right middle lobe nodule adjacent to the minor fissure axial image 3 5 series 7. The latter nodule probably represents a subpleural lymph node. There is a mild focal bronchiectasis and increased peribronchial attenuation seen in the posterior segment of the left upper lobe for example axial image 43 series 7 that is stable. There is a small cyst in the right lower lobe measuring 1 cm axial image 131 series 7. The lungs are otherwise clear. MEDIASTINUM: There is a 2 cm left thyroid nodule that is stable. There are no enlarged hilar or mediastinal lymph nodes. The heart does not appear enlarged. There is an esophageal hernia. There is wall thickening of the mid and distal thoracic esophagus. There is no pericardial effusion. The thoracic aorta is normal in caliber. PLEURA: There is no pleural effusion. No pleural mass or thickening. AXILLA: No lymphadenopathy. UPPER ABDOMEN: There is a 4.5 cm cyst in the upper pole of the left kidney. There is a small 8 mm cyst in the upper pole of the right kidney. There is diverticulosis of the colon. There are postsurgical changes to the stomach, probably gastric sleeve. There is an esophageal hernia. The liver is low in attenuation suggestive of fatty infiltration. OSSEOUS STRUCTURES: There are degenerative changes of the spine. CT/CT chest w con IMPRESSION: No acute pulmonary findings. Stable pulmonary nodules from 2018 exam. Stable 2 cm left thyroid nodule from 2018. Coronary artery calcification. Esophageal hernia. Wall thickening of the mid and distal thoracic esophagus. Follow-up upper GI or endoscopy should be considered. Postsurgical changes to the stomach.
[2020-12-17] MEDS: iohexoL 350 MG/ML 100 ML INFUS..BTL IV (09:15)
== END 2020-12-17 07:57 | disposition home or self-care (01) ==
LOC: HO.CT 07:56
PROVIDERS: Visit Provider Family Medicine
DX: R05 Cough (principal)
CPT/HCPCS: 71260; Q9967

== ENCOUNTER 2021-01-25 10:45 | Emergency (ER) | payer MEDICARE, SELFPAY ==
--- NOTE | 2021-01-25 10:56 | ED.ANXIETY ---
HPI - Anxiety General Chief Complaint: Anxiety Stated Complaint: panic attack Time Seen by Provider: 01/25/21 10:52 Source: patient, EMS and reimbursement counselor Mode of arrival: EMS Limitations: no limitations History of Present Illness MD complaint: other (panic attack, grief reaction) Onset (ago): minute(s) Symptoms: palpitations and other (inconsolable) Severity: severe Quality: constant Place: home History of similar episodes: No Provoking factors: recent /illness of family member (just lost young son unexpectedly at home ) Relieving factors: nothing Exacerbating factors: thinking about event Associated symptoms: denies other symptoms Related Data Home Medications Medication Instructions Recorded Confirmed levothyroxine 75 mcg tablet 75 mcg PO QAM 02/02/20 02/02/20 fluticasone 250 mcg-salmeterol 50 1 puff PO BID 07/03/20 07/03/20 mcg/dose blistr powdr for inhalation (Advair Diskus) albuterol sulfate 2.5 mg INHALATION Q4-6H PRN 08/02/20 albuterol sulfate 90 mcg/actuation 0 mcg INHALATION 08/02/20 aerosol inhaler Previous Rx's Medication Instructions Recorded levofloxacin 500 mg tablet 500 mg PO DAILY 7 Days #7 tab 04/05/20 ondansetron 4 mg disintegrating 4 mg PO Q6-8H PRN #7 tab 04/05/20 tablet linaclotide 72 mcg capsule 72 mcg PO QAM 30 Days #30 cap 04/18/20 (Linzess) cephalexin 500 mg capsule 500 mg PO Q12H #14 cap 04/22/20 plecanatide 3 mg tablet (Trulance) 3 mg PO DAILY #30 tab 05/07/20 cephalexin 500 mg capsule 500 mg PO BID 14 Days #28 cap 07/30/20 famotidine 40 mg tablet 40 mg PO BEDTIME #90 tab 08/13/20 ondansetron 4 mg disintegrating 4 mg PO TID PRN 5 Days #10 tab 08/23/20 tablet peppermint oil 90 mg 90 mg PO BID #90 ea 10/01/20 capsule,delayed,extended release (IBgard) sucralfate 100 mg/mL oral 10 ml PO TID #2700 ml 10/25/20 suspension lansoprazole 30 mg capsule,delayed 30 mg PO BID #180 cap 11/06/20 release Allergies Allergy/AdvReac Type Severity Reaction Status Date / Time atorvastatin [From Lipitor] Allergy Mild HIVES Verified 10/01/20 14:09 Review of Systems Review of Systems: Constitutional : No Fever, No Chills ENT/Mouth : No Ear Pain, No Nasal Congestion, No sore throat Eyes: No Eye Pain, No Swelling, No Redness Cardiovascular : No Chest Pain, No SOB Respiratory : No Cough, No Sputum, No Dyspnea Gastrointestinal : No Nausea, No Vomiting, No Diarrhea, No Hematochezia, No Melena Genitourinary : No Dysuria, No Urinary Frequency, No Hematuria Musculoskeletal : No Myalgias Skin : No Skin Lesions, No rash Neuro : No Weakness, No Numbness, No Paresthesias, No Dizziness, No Headache Psych : positive Anxiety, positive Depression, no SI/HI Heme/Lymph: No Lymphadenopathy Endocrine : No Polyuria, No Polydipsia All other systems reviewed and are negative PMFSH Past Medical History Medical History 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 Cervicalgia Chronic headaches CVA (cerebral vascular accident) Dyslipidemia Essential hypertension Fecal incontinence GERD (gastroesophageal reflux disease) Hiatal hernia History of COVID-19 History of gastroscopy HTN (hypertension) Hypothyroid Morbid obesity due to excess calories Obstructive sleep apnea Other and unspecified hyperlipidemia Pulmonary nodule, right Thyroid nodule Urinary incontinence Surgical History H/O colonoscopy H/O tooth extraction History of bilateral knee replacement History of bilateral tubal ligation History of carpal tunnel release History of cholecystectomy History of dacryocystorhinostomy History of esophagogastroduodenoscopy (EGD) History of herniorrhaphy History of laparoscopic appendectomy History of sleeve gastrectomy History of total abdominal hysterectomy and bilateral salpingo-oophorectomy S/p bilateral blepharoplasty Family History Family History Father No problems noted. Mother No problems noted. Social History Social History Household Members: Family Household Members Other:: grandson Housing: Apartment Do you presently have visiting nurse or other home services: Yes ([employer]) Alcohol intake: current Alcohol intake frequency: holidays/special occasions only Patient Tobacco Use Status: Never used Tobacco Advance Directives: Yes Advance Directives on File: Yes Advance Directives Date on File: 02/10/20 Current occupational status: disabled Physical Exam Vital Signs: Vital Signs: Last Vital Signs Temp 98.7 F 01/25/21 11:03 Pulse 117 H 01/25/21 11:03 Resp 17 01/25/21 11:03 BP 137/90 H 01/25/21 11:03 Pulse Ox 97 01/25/21 11:03 Body Mass Index 39.4 Appearance: Alert. Oriented X3. crying, yelling moderate acute distress. Eyes: Pupils equal, round and reactive to light. ENT: Pharynx normal. Neck: Normal inspection. Neck supple. CVS: Normal heart rate and rhythm. Pulses normal. Respiratory: No respiratory distress. Breath sounds normal. Abdomen: Soft and nontender. Skin: Skin warm and dry. Normal skin color. Normal skin turgor. Extremities: No lower extremity edema. No calf ttp Neuro: Oriented X 3. No motor deficit. No sensory deficit. Course Course Course Narrative: patient much more calm after medications son at bedside, she has a counselor at [facility] - Anxiety MDM Narrative Medical decision making narrative: 70 yo female with sudden loss of son - unexpected EMS noted found in the house - she is inconsolable will offer anxiolytic and observe, family supporting her at bedside Discharge Plan Discharge Clinical Impression: Grief reaction Patient Disposition: Home, Self-Care Instructions: Grief and Loss (ED) Additional Instructions: return to ED for any worsening symptoms or concerns Prescriptions: No Action Linzess 72 mcg capsule 72 mcg PO QAM 30 Days Qty: 30 RF: 1 famotidine 40 mg tablet 40 mg PO BEDTIME Qty: 90 RF: 1 sucralfate 100 mg/mL suspension 10 ml PO TID Qty: 2700 RF: 2 lansoprazole 30 mg capsule,delayed release(DR/EC) 30 mg PO BID Qty: 180 RF: 1 fluticasone propion-salmeterol [Advair Diskus] 250-50 mcg/dose blister with device 1 puff PO BID RF: 0 levothyroxine 75 mcg tablet 75 mcg PO QAM RF: 0 levofloxacin 500 mg tablet 500 mg PO DAILY 7 Days Qty: 7 RF: 0 ondansetron 4 mg tablet,disintegrating 4 mg PO Q6-8H PRN (Reason: nausea and vomiting) Qty: 7 RF: 0 cephalexin 500 mg capsule 500 mg PO Q12H Qty: 14 RF: 0 ondansetron 4 mg tablet,disintegrating 4 mg PO TID PRN (Reason: nausea and vomiting) 5 Days Qty: 10 RF: 0 Trulance 3 mg tablet 3 mg PO DAILY Qty: 30 RF: 3 cephalexin 500 mg capsule 500 mg PO BID 14 Days Qty: 28 RF: 0 IBgard 90 mg capsule,delayed,extend.release 90 mg PO BID Qty: 90 RF: 1 albuterol sulfate 2.5 mg /3 mL (0.083 %) solution for nebulization 2.5 mg inhalation Q4-6H PRNRF: 0 albuterol sulfate 90 mcg/actuation HFA aerosol inhaler 0 mcg inhalation RF: 0 Print Language: Palestinian
[2021-01-25] MEDS: LORazepam 2 MG/ML VIAL IM (10:58)
[2021-01-25 11:03] VITALS: BP 137/90; PULSE 117; RESP 17; TEMP 37.1; O2SAT 97; BMI 39.4
== END 2021-01-25 11:45 | disposition home or self-care (01) ==
PROVIDERS: Emergency Provider Emergency Medicine; PCP Family Medicine
DX: F41.1 Generalized anxiety disorder (principal); F43.0 Acute stress reaction; F43.22 Adjustment disorder with anxiety; F93.0 Separation anxiety disorder of childhood; Z79.899 Other long term (current) drug therapy
CPT/HCPCS: 96372; 99283; 99284; J2060

== ENCOUNTER → 2021-06-02 12:55 | Outpatient (BNVA) | payer MEDICARE, SELFPAY | PROVIDERS: PCP Family Medicine; Referring Provider Family Medicine; Visit Provider Internal Medicine Gastroenterology | DX: R32 Unspecified urinary incontinence (principal); K22.70 Barrett's esophagus without dysplasia; R11.2 Nausea with vomiting, unspecified | CPT/HCPCS: 99212 ==

== ENCOUNTER → 2021-12-19 10:19 | Outpatient (BNVA) | payer MEDICARE, SELFPAY | PROVIDERS: PCP Family Medicine; Visit Provider Internal Medicine Gastroenterology | DX: R11.10 Vomiting, unspecified (principal) | CPT/HCPCS: Q3014 ==

== ENCOUNTER → 2022-03-02 13:54 | Outpatient (BNVA) | payer MEDICARE, SELFPAY | PROVIDERS: PCP Family Medicine; Visit Provider Nurse Practitioner Family | DX: N39.46 Mixed incontinence (principal) | CPT/HCPCS: 51798; 99202 ==

== ENCOUNTER → 2022-04-03 10:46 | Outpatient (BNVA) | payer MEDICARE, SELFPAY | PROVIDERS: PCP Family Medicine; Visit Provider Nurse Practitioner Family | DX: M25.511 Pain in right shoulder (principal); M25.561 Pain in right knee; M25.562 Pain in left knee; M47.816 Spondylosis without myelopathy or radiculopathy, lumbar region; G89.29 Other chronic pain | CPT/HCPCS: 99202 ==

== ENCOUNTER 2022-05-12 06:21 | Outpatient (REF) | payer MEDICARE, SELFPAY ==
--- NOTE | ~2022-05-12 | FL_ITS ---
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 COMPARISON: CT abdomen of 04/09/2020 and 08/23/2020. TECHNIQUE: Fluoroscopy Supervised By: Dr. Emeka Freed. Fluoroscopy Time: 0.6 minutes. Cumulative Dose: 46.2 mGy. DAP: 12.5 Gy-cm2. Images: 6. FINDINGS: [place] and contrast are seen about the lateral aspects of L4 and L5 bilaterally. FL/FL guidance in treatment room IMPRESSION: Intraoperative fluoroscopy for pain management procedure.
== END 2022-05-12 06:22 | disposition home or self-care (01) ==
LOC: CF 06:21
PROVIDERS: Visit Provider Anesthesiology
DX: M47.816 Spondylosis without myelopathy or radiculopathy, lumbar region (principal)
CPT/HCPCS: 64493; 64494

== ENCOUNTER → 2022-05-21 14:24 | Outpatient (BNVA) | payer MEDICARE, SELFPAY | PROVIDERS: PCP Family Medicine; Visit Provider Nurse Practitioner Family | DX: G89.4 Chronic pain syndrome (principal); M25.551 Pain in right hip; M25.562 Pain in left knee; M25.561 Pain in right knee; M47.816 Spondylosis without myelopathy or radiculopathy, lumbar region; E66.01 Morbid (severe) obesity due to excess calories; Z68.43 Body mass index [BMI] 50.0-59.9, adult; Z90.3 Acquired absence of stomach [part of] | CPT/HCPCS: Q3014 ==

== ENCOUNTER 2022-05-28 11:00 | Outpatient (RCR) | payer MEDICARE, SELFPAY ==
--- NOTE | 2022-04-15 13:34 | MHC.PT.EP ---
[facility] [place] Office [place] Office [place] Office [address] Arcelia Good [address] [phone] F: [phone] F: [phone] F: [phone] F: [phone] Physical Therapy Plan of Care Date of Evaluation: Date of Surgery: Diagnosis: pelvic floor - mixed incontinence Assessment: 71 y/o female referred to PT with mixed incontinence. She reports urine and fecal incontinence that occurs throughout the day and is worse with transitional movements, coughing, sneezing, bending, walking. She also reports intact urge but is unable to get tot he toilet in time. She wears pampers for protection and will changes them 3-4x/day. Pt has PMH significant for several CVA, anerysm, asthma, HTN, hernia with repair, hysterectomy. incontinence of urine and stool for several years of insidious onset. Examination shows poor pressure management with breath-holding with gait and transitional movement, poor hip ROM, poor B LE strength, and impaired posture. Pelvic floor assessment not done today secondary to time constraints however examination explained and pt consented to PF exam next visit. At this time, educated pt on pressure management and to practice exhaling with increased effort such as sit to stand. Frequency and Duration: The patient will be seen 1x/week for 8 weeks Short Term Goals: 4 weeks 1. Pt to be able to correctly activate her PFM to allow improved support to bowel and bladder. 2. Pt to be able to demonstrate diaphragmatic breathing to improve pressure exchange and intra abdominal load management. 3. Pt will improve hip ER/IR to >15* B Retirement Goals: 8 weeks Pt to be able to show improved PFM contraction during functional movements such as a bridge or squat to help prevent or limit POP. 2. Pt to reduce # of episodes of HARRY during the day by 50% to help improve quality of life and reduce pad usage. 3. Pt to be independent with her final HEP for PFM in order to help maintain gains made in therapy. 4. Pt will demonstrate B LE strength to 4-/5 B Treatment Plan: Modalities to reduce pain, spasms and effusion. Manual therapy to restore motion and function. Therapeutic exercise to improve strength and flexibility. Neuromuscular re-education for posture and balance. Therapeutic activities to return to functional activities of daily living. Electronically signed by: Please sign and return to therapist. Thank you for your referral.
--- NOTE | 2022-06-04 11:30 | MHC.PT.DC ---
[facility] [place] Office [place] Office [place] Office [address] Arcelia Good [address] [phone] F: [phone] F: [phone] F: [phone] F: [phone] Physical Therapy Discharge Report Diagnosis: pelvic floor - mixed incontinence Date of Surgery: Date of Evaluation: 04/15/22 Date of Discharge: 06/04/22 Treatments to Date: 2 Cancellations to Date: 3 No Shows to Date: 1 Discharge Status: Visit Non-compliance Discharge Summary: Pt did not f/u with further visits and had 3 cancellations and one no show visit, therefore is d/c. At time of last attended visit, Pt provided consent for pelvic floor consent. PF assessment in hooklying - external assessment: decreased sensation R vulva and R pelvic floor muscles, holds breath with voluntary contraction, no knack with coughing and bulging of prolapse tissue below vaginal opening. internal assessment: increased muscle tension and pain B OI, B pubococcygeus, strength vaginal canal at layer 3 2/5. Noted anterior and posterior descent of tissues just distal to hymen in HL. Significant breath holding and bearing down with bed mobility and sit to stands. Reviewed importance of breathing with movement and avoiding breath holding. Next visit, will focus on hip/lumbar mobility and strengthening. We return to pelvic floor manual techqniue in 1-2 visits following good home program for hip moblity. Electronically signed by: Lacey Cain PT Please sign and return to therapist. Thank you for your referral.
== END 2022-06-04 11:31 | disposition home or self-care (01) ==
LOC: HO.PT 11:00
PROVIDERS: PCP Family Medicine; Visit Provider Nurse Practitioner Family
DX: N39.46 Mixed incontinence (principal)
CPT/HCPCS: 97110; 97112; 97140; 97162

== ENCOUNTER → 2022-06-12 12:56 | Outpatient (BNVA) | payer MEDICARE, SELFPAY | PROVIDERS: PCP Family Medicine; Visit Provider Urology | DX: R32 Unspecified urinary incontinence (principal); M79.7 Fibromyalgia | CPT/HCPCS: 51798; 99212 ==

== ENCOUNTER 2022-06-12 14:06 | Emergency (ER) | payer MEDICARE, SELFPAY ==
--- NOTE | ~2022-06-12 | XR_ITS ---
EXAMINATION: XR CHEST CLINICAL INFORMATION: SOB. COMPARISON: None available. TECHNIQUE: 2 views of the chest were obtained. FINDINGS: The lungs are well-expanded and clear. The heart size and pulmonary vascularity is normal. No gross bony abnormality seen. XR/XR chest 2V IMPRESSION: Unremarkable chest exam.
--- NOTE | 2022-06-12 14:42 | ED.GENADULT ---
HPI - General Adult General Chief complaint: Dyspnea <JONI Clancy - Last Filed: 06/12/22 14:47> Stated complaint: R arm pain, trouble breathing, not sleeping <JONI Clancy - Last Filed: 06/12/22 14:47> Time Seen by Provider: 06/12/22 17:19 <JONI Clancy - Last Filed: 06/12/22 14:47> Source: patient <Stephany Avila MD - Last Filed: 06/12/22 17:39> Mode of arrival: ambulatory <Stephany Avila MD - Last Filed: 06/12/22 17:39> Limitations: no limitations <Stephany Avila MD - Last Filed: 06/12/22 17:39> History of Present Illness HPI narrative: Patient comes to the emergency room complaining of cough for 3 days. Patient also complaining of chronic upper arm pain for approximately 2 months. Patient is chest pain, no significant shortness of breath. Denies fever or chills <Stephany Avila MD - Last Filed: 06/12/22 17:39> Related Data Home medications: Home Medications Medication Instructions Recorded Confirmed levothyroxine 75 mcg tablet 75 mcg PO QAM 02/02/20 03/02/22 fluticasone 250 mcg-salmeterol 50 1 puff PO BID 07/03/20 03/02/22 mcg/dose blistr powdr for inhalation (Advair Diskus) albuterol sulfate 2.5 mg/3 mL 2.5 mg inhalation Q4-6H PRN 08/02/20 03/02/22 (0.083 %) solution for nebulization albuterol sulfate 90 mcg/actuation 0 mcg inhalation 08/02/20 03/02/22 aerosol inhaler calcium citrate 315 mg-vitamin D3 0 tab PO 06/02/21 03/02/22 5 mcg (200 unit) tablet cholecalciferol (vitamin D3) 50 50 mcg PO DAILY 06/02/21 03/02/22 mcg (2,000 unit) tablet clonazepam 0.5 mg tablet 0.5 mg PO DAILY PRN 12/19/21 03/02/22 lisinopril 5 mg tablet 5 mg PO QAM 12/19/21 03/02/22 loratadine 10 mg tablet 10 mg PO DAILY 12/19/21 03/02/22 metoprolol tartrate 25 mg tablet 25 mg PO 12/19/21 03/02/22 omeprazole 40 mg capsule,delayed 40 mg PO 12/19/21 03/02/22 release pravastatin 40 mg tablet 40 mg PO BEDTIME 12/19/21 03/02/22 pyridoxine (vitamin B6) 50 mg 50 mg PO DAILY 12/19/21 03/02/22 tablet trazodone 50 mg tablet 50 mg PO BEDTIME 12/19/21 03/02/22 venlafaxine 75 mg capsule,extended 75 mg PO QAM 12/19/21 03/02/22 release 24 hr mirtazapine 30 mg tablet 30 mg PO BEDTIME 03/02/22 03/02/22 Previous Rx's Medication Instructions Recorded linaclotide 72 mcg capsule 72 mcg PO QAM 30 days #30 caps 04/18/20 (Linzess) plecanatide 3 mg tablet (Trulance) 3 mg PO DAILY #30 tabs 05/07/20 famotidine 40 mg tablet 40 mg PO BEDTIME #90 tabs 08/13/20 peppermint oil 90 mg 90 mg PO BID #90 ea 10/01/20 capsule,delayed,extended release (IBgard) sucralfate 100 mg/mL oral 10 ml PO TID #2,700 mL 10/25/20 suspension lansoprazole 30 mg capsule,delayed 30 mg PO BID #180 caps 11/06/20 release psyllium husk 3.4 gram/5.4 gram 1 tbsp PO BID #660 grams 06/02/21 oral powder (Metamucil) capsaicin-menthol 0.025 %-1.25 % 1 patch topical BID PRN pain 30 05/21/22 topical patch (Salonpas days #60 ea (capsaicin-menthol)) gabapentin 300 mg capsule 300 mg PO BEDTIME pain 30 days #30 05/21/22 caps guaifenesin 400 mg tablet 400 mg PO Q4H PRN cough #14 tabs 06/12/22 mirabegron 50 mg tablet,extended 50 mg PO DAILY 90 days #90 tabs 06/12/22 release 24 hr (Myrbetriq) <JONI Clancy - Last Filed: 06/12/22 14:47> Allergies/adverse reactions: Allergies Allergy/AdvReac Type Severity Reaction Status Date / Time atorvastatin [From Lipitor] Allergy Mild HIVES Verified 06/12/22 14:43 <JONI Clancy - Last Filed: 06/12/22 14:47> Review of Systems Review of Systems: Constitutional : No Weight loss, No Fever, No Chills, No Night Sweats, No Fatigue, No Malaise ENT/Mouth : No Hearing loss, No Ear Pain, No Nasal Congestion, No Sinus Pain, No Hoarseness, No sore throat, No Rhinorrhea, No Swallowing Difficulty Eyes: No Eye Pain, No Swelling, No Redness, No Foreign Body, No Discharge, No Vision Changes Cardiovascular : No Chest Pain, No SOB, No Dyspnea on Exertion, No Orthopnea, No Edema, No Palpitations Respiratory : Complaining of Cough, No Sputum, No Wheezing, No Smoke Exposure, No Dyspnea Gastrointestinal : No Nausea, No Vomiting, No Diarrhea, No Constipation, No abdominal Pain, No Hematochezia, No Melena Genitourinary : no irregular bleeding, No Dysuria, No Urinary Frequency, No Hematuria, No Urinary Incontinence, No Urgency, No Flank Pain, No Urinary Flow Changes, No Hesitancy Musculoskeletal : Complaining of left upper arm pain for 2 months, denies swelling, No Myalgias, No Joint Swelling Skin : No Skin Lesions, No rash Neuro : No Weakness, No Numbness, No Paresthesias, No Loss of Consciousness, No Dizziness, No Headache Psych : No Anxiety/Panic, No Depression, No SI/HI/AH/VH, No Social Issues, Heme/Lymph: No Bruising, No Bleeding,No Lymphadenopathy Endocrine : No Polyuria, No Polydipsia, No Temperature Intolerance <Stephany Avila MD - Last Filed: 06/12/22 17:39> [facility] Past Medical History Medical History: Medical History 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 Cervicalgia Chronic headaches CVA (cerebral vascular accident) Dyslipidemia Essential hypertension Fecal incontinence GERD (gastroesophageal reflux disease) Hiatal hernia History of COVID-19 History of gastroscopy HTN (hypertension) Hypothyroid Morbid obesity due to excess calories Obstructive sleep apnea Other and unspecified hyperlipidemia Pulmonary nodule, right Thyroid nodule <JONI Clancy - Last Filed: 06/12/22 14:47> Surgical History: Surgical History H/O colonoscopy H/O tooth extraction History of bilateral knee replacement History of bilateral tubal ligation History of carpal tunnel release History of cholecystectomy History of dacryocystorhinostomy History of esophagogastroduodenoscopy (EGD) History of herniorrhaphy History of laparoscopic appendectomy History of sleeve gastrectomy History of total abdominal hysterectomy and bilateral salpingo-oophorectomy S/p bilateral blepharoplasty <JONI Clancy - Last Filed: 06/12/22 14:47> Family History Family History: Family History Father No problems noted. Mother No problems noted. <JONI Clancy - Last Filed: 06/12/22 14:47> Social History Social History: Social History Household Members: Family Household Members Other:: grandson Housing: Apartment Do you presently have visiting nurse or other home services: Yes (aracely) Alcohol intake: current Alcohol intake frequency: holidays/special occasions only Patient Tobacco Use Status: Never used Tobacco Advance Directives: Yes Advance Directives on File: Yes Advance Directives Date on File: 02/10/20 Current occupational status: disabled <JONI Clancy - Last Filed: 06/12/22 14:47> Physical Exam ED Vital Signs: Vital Signs - 24 hr 06/12/22 14:43 06/12/22 16:43 Temperature 97.8 F 97.9 F Pulse Rate 81 70 Respiratory Rate 20 16 Blood Pressure 152/105 H 124/91 H Pulse Oximetry 92 93 Oxygen Delivery Method Room Air Room Air BMI result Body Mass Index 50.8 <JONI Clancy - Last Filed: 06/12/22 14:47> Vital Signs - 24 hr 06/12/22 14:43 06/12/22 16:43 Temperature 97.8 F 97.9 F Pulse Rate 81 70 Respiratory Rate 20 16 Blood Pressure 152/105 H 124/91 H Pulse Oximetry 92 93 Oxygen Delivery Method Room Air Room Air BMI result Body Mass Index 50.8 <Stephany Avila MD - Last Filed: 06/12/22 17:39> Const Other: Appearance: Alert. Oriented X3. No acute distress. Well-appearing Eyes: Pupils equal, round and reactive to light. ENT: Pharynx normal. Neck: Normal inspection. Neck supple. No lymph nodes noted. No crepitus CVS: Normal heart rate and rhythm. Pulses normal. Normal S1 and S2 Respiratory: No respiratory distress. Breath sounds normal. No Wheezing. No rales , oxygen saturation remained at 94% while ambulating Abdomen: Soft and nontender. No rigidity. No distention. Skin: Skin warm and dry. Normal skin color. Normal skin turgor. Extremities: No lower extremity edema. No Lacerations. No Rash, no upper extremity swelling, no erythema, normal range of motion Neuro: Oriented X 3. No motor deficit. No sensory deficit. Moving all extremities. No slurred speech. CN 2 through 12 grossly intact Psych: calm, cooperative, normal affect <Stephany Avila MD - Last Filed: 06/12/22 17:39> Course Course Course Narrative: RME performed by Radha Cisneros PA-C. Patient is a 71 year old female presenting to the emergency department with cough and shortness of breath for the last 3 days. Patient 92% on RA on exertion but rebounds with rest. Labs and imaging ordered. Patient placed back in the waiting room pending results and room availability. <JONI Clancy - Last Filed: 06/12/22 14:47> Medical Decision Making Medical Decision Making [facility] Narrative: - chronic right upper arm pain, no distal arm pain. No swelling or erythema, DVT not suspected. Patient states is worse at night when she sleeps on her arm -not been coughing here in the emergency room, oxygen saturation 97% on room air, 94% ambulating without desaturations. -chest x-ray interpreted by me, no infiltrates -white blood cell count normal, patient tested negative for COVID and influenza <Stephany Avila MD - Last Filed: 06/12/22 17:39> Differential Diagnosis Differential Diagnoses: The differential diagnosis associated with the presentation includes (COVID, influenza, viral syndrome) <Stephany Avila MD - Last Filed: 06/12/22 17:39> Lab Data [facility] Lab Attestation statement: I reviewed the patient's lab results. <Stephany Avila MD - Last Filed: 06/12/22 17:39> Result Diagrams: 06/12/22 15:02 06/12/22 15:02 <JONI Clancy - Last Filed: 06/12/22 14:47> Labs: Lab Results 06/12/22 06/12/22 06/12/22 Range/Units 15:02 15:02 15:02 WBC 6.9 (4.8-10.8) X10*3/uL RBC 4.39 (4.20-5.50) X10*6/uL Hgb 12.3 (12.0-16.0) g/dl Hct 38.9 (37.0-47.0) % MCV 88.6 (80.0-98.0) fL MCH 28.0 (27.0-33.0) pg MCHC 31.6 (31.0-35.0) g/dl RDW 16.2 H (11.0-16.0) % Plt Count 197 (160-400) X10*3/uL MPV 12.1 (9.4-12.3) fL Immature Gran % (Auto) 0.1 (0.0-0.4) % Neut % (Auto) 52.7 (45-73) % Lymph % (Auto) 32.2 (20-40) % [place] % (Auto) 11.7 H (2-11) % Eos % (Auto) 2.9 (0-4) % Baso % (Auto) 0.4 (0-2) % Lymph # (Auto) 2.2 (1.2-4.9) X10*3/uL [place] # (Auto) 0.8 (0.1-1.2) X10*3/uL Eos # (Auto) 0.2 (0.0-0.4) X10*3/uL Baso # (Auto) 0.0 (0.0-0.2) X10*3/uL Abs Immat Gran (auto) 0.01 (0.00-0.03) X10*3/uL Absolute Neuts (auto) 3.6 (2.0-8.3) x10*3/uL Absolute Nucleated RBC 0.000 (0.0-0.012) X10*3/uL Nucleated RBC % (auto) 0.0 (0.0-0.2) /100WBC VBG pH (7.32-7.43) VBG pCO2 mmHg VBG pO2 mmHg VBG HCO3 (22-26) mmol/L VBG O2 Saturation % VBG Base Excess mmol/L Sodium 141 (135-145) mmol/L Potassium 4.5 (3.3-5.1) mmol/L Chloride 107 (96-108) mmol/L Carbon Dioxide 26 (22-29) mmol/L Anion Gap 13 (12-20) BUN 18 H (9-16) mg/dL Creatinine 0.80 (0.5-1.4) mg/dL Estim Creat Clear Calc 65.0 Estimated GFR > 60 Random Glucose 99 (60-115) mg/dL Calcium 9.6 (8.4-10.2) mg/dL Magnesium 1.9 (1.6-2.6) mg/dL Total Bilirubin 0.3 (0.0-1.0) mg/dL AST 25 (5-31) U/L ALT 31 (0-31) U/L Alkaline Phosphatase 90 (39-117) U/L Troponin I High Sens (<3.5-17.0) ng/L B-Natriuretic Peptide 30 (<100) pg/mL Total Protein 7.0 (6.5-8.0) g/dL Albumin 4.1 (3.5-5.0) g/dL Influenza Type A (PCR) (Negative) Influenza Type B (PCR) (Negative) RSV RNA Qual (PCR) (Negative) SARS-CoV-2 RNA (RT-PCR) (Negative) 06/12/22 06/12/22 06/12/22 Range/Units 15:02 15:02 15:08 WBC (4.8-10.8) X10*3/uL RBC (4.20-5.50) X10*6/uL Hgb (12.0-16.0) g/dl Hct (37.0-47.0) % MCV (80.0-98.0) fL MCH (27.0-33.0) pg MCHC (31.0-35.0) g/dl RDW (11.0-16.0) % Plt Count (160-400) X10*3/uL MPV (9.4-12.3) fL Immature Gran % (Auto) (0.0-0.4) % Neut % (Auto) (45-73) % Lymph % (Auto) (20-40) % [place] % (Auto) (2-11) % Eos % (Auto) (0-4) % Baso % (Auto) (0-2) % Lymph # (Auto) (1.2-4.9) X10*3/uL [place] # (Auto) (0.1-1.2) X10*3/uL Eos # (Auto) (0.0-0.4) X10*3/uL Baso # (Auto) (0.0-0.2) X10*3/uL Abs Immat Gran (auto) (0.00-0.03) X10*3/uL Absolute Neuts (auto) (2.0-8.3) x10*3/uL Absolute Nucleated RBC (0.0-0.012) X10*3/uL Nucleated RBC % (auto) (0.0-0.2) /100WBC VBG pH 7.45 H (7.32-7.43) VBG pCO2 34 mmHg VBG pO2 58 mmHg VBG HCO3 24 (22-26) mmol/L VBG O2 Saturation 90.0 % VBG Base Excess 0.9 mmol/L Sodium (135-145) mmol/L Potassium (3.3-5.1) mmol/L Chloride (96-108) mmol/L Carbon Dioxide (22-29) mmol/L Anion Gap (12-20) BUN (9-16) mg/dL Creatinine (0.5-1.4) mg/dL Estim Creat Clear Calc Estimated GFR Random Glucose (60-115) mg/dL Calcium (8.4-10.2) mg/dL Magnesium (1.6-2.6) mg/dL Total Bilirubin (0.0-1.0) mg/dL AST (5-31) U/L ALT (0-31) U/L Alkaline Phosphatase (39-117) U/L Troponin I High Sens 4.8 (<3.5-17.0) ng/L B-Natriuretic Peptide (<100) pg/mL Total Protein (6.5-8.0) g/dL Albumin (3.5-5.0) g/dL Influenza Type A (PCR) NEGATIVE (Negative) Influenza Type B (PCR) NEGATIVE (Negative) RSV RNA Qual (PCR) NEGATIVE (Negative) SARS-CoV-2 RNA (RT-PCR) NEGATIVE (Negative) <JONI Clancy - Last Filed: 06/12/22 14:47> Lab Results 06/12/22 06/12/22 06/12/22 Range/Units 15:02 15:02 15:02 WBC 6.9 (4.8-10.8) X10*3/uL RBC 4.39 (4.20-5.50) X10*6/uL Hgb 12.3 (12.0-16.0) g/dl Hct 38.9 (37.0-47.0) % MCV 88.6 (80.0-98.0) fL MCH 28.0 (27.0-33.0) pg MCHC 31.6 (31.0-35.0) g/dl RDW 16.2 H (11.0-16.0) % Plt Count 197 (160-400) X10*3/uL MPV 12.1 (9.4-12.3) fL Immature Gran % (Auto) 0.1 (0.0-0.4) % Neut % (Auto) 52.7 (45-73) % Lymph % (Auto) 32.2 (20-40) % [place] % (Auto) 11.7 H (2-11) % Eos % (Auto) 2.9 (0-4) % Baso % (Auto) 0.4 (0-2) % Lymph # (Auto) 2.2 (1.2-4.9) X10*3/uL [place] # (Auto) 0.8 (0.1-1.2) X10*3/uL Eos # (Auto) 0.2 (0.0-0.4) X10*3/uL Baso # (Auto) 0.0 (0.0-0.2) X10*3/uL Abs Immat Gran (auto) 0.01 (0.00-0.03) X10*3/uL Absolute Neuts (auto) 3.6 (2.0-8.3) x10*3/uL Absolute Nucleated RBC 0.000 (0.0-0.012) X10*3/uL Nucleated RBC % (auto) 0.0 (0.0-0.2) /100WBC VBG pH (7.32-7.43) VBG pCO2 mmHg VBG pO2 mmHg VBG HCO3 (22-26) mmol/L VBG O2 Saturation % VBG Base Excess mmol/L Sodium 141 (135-145) mmol/L Potassium 4.5 (3.3-5.1) mmol/L Chloride 107 (96-108) mmol/L Carbon Dioxide 26 (22-29) mmol/L Anion Gap 13 (12-20) BUN 18 H (9-16) mg/dL Creatinine 0.80 (0.5-1.4) mg/dL Estim Creat Clear Calc 65.0 Estimated GFR > 60 Random Glucose 99 (60-115) mg/dL Calcium 9.6 (8.4-10.2) mg/dL Magnesium 1.9 (1.6-2.6) mg/dL Total Bilirubin 0.3 (0.0-1.0) mg/dL AST 25 (5-31) U/L ALT 31 (0-31) U/L Alkaline Phosphatase 90 (39-117) U/L Troponin I High Sens (<3.5-17.0) ng/L B-Natriuretic Peptide 30 (<100) pg/mL Total Protein 7.0 (6.5-8.0) g/dL Albumin 4.1 (3.5-5.0) g/dL Influenza Type A (PCR) (Negative) Influenza Type B (PCR) (Negative) RSV RNA Qual (PCR) (Negative) SARS-CoV-2 RNA (RT-PCR) (Negative) 06/12/22 06/12/22 06/12/22 Range/Units 15:02 15:02 15:08 WBC (4.8-10.8) X10*3/uL RBC (4.20-5.50) X10*6/uL Hgb (12.0-16.0) g/dl Hct (37.0-47.0) % MCV (80.0-98.0) fL MCH (27.0-33.0) pg MCHC (31.0-35.0) g/dl RDW (11.0-16.0) % Plt Count (160-400) X10*3/uL MPV (9.4-12.3) fL Immature Gran % (Auto) (0.0-0.4) % Neut % (Auto) (45-73) % Lymph % (Auto) (20-40) % [place] % (Auto) (2-11) % Eos % (Auto) (0-4) % Baso % (Auto) (0-2) % Lymph # (Auto) (1.2-4.9) X10*3/uL [place] # (Auto) (0.1-1.2) X10*3/uL Eos # (Auto) (0.0-0.4) X10*3/uL Baso # (Auto) (0.0-0.2) X10*3/uL Abs Immat Gran (auto) (0.00-0.03) X10*3/uL Absolute Neuts (auto) (2.0-8.3) x10*3/uL Absolute Nucleated RBC (0.0-0.012) X10*3/uL Nucleated RBC % (auto) (0.0-0.2) /100WBC VBG pH 7.45 H (7.32-7.43) VBG pCO2 34 mmHg VBG pO2 58 mmHg VBG HCO3 24 (22-26) mmol/L VBG O2 Saturation 90.0 % VBG Base Excess 0.9 mmol/L Sodium (135-145) mmol/L Potassium (3.3-5.1) mmol/L Chloride (96-108) mmol/L Carbon Dioxide (22-29) mmol/L Anion Gap (12-20) BUN (9-16) mg/dL Creatinine (0.5-1.4) mg/dL Estim Creat Clear Calc Estimated GFR Random Glucose (60-115) mg/dL Calcium (8.4-10.2) mg/dL Magnesium (1.6-2.6) mg/dL Total Bilirubin (0.0-1.0) mg/dL AST (5-31) U/L ALT (0-31) U/L Alkaline Phosphatase (39-117) U/L Troponin I High Sens 4.8 (<3.5-17.0) ng/L B-Natriuretic Peptide (<100) pg/mL Total Protein (6.5-8.0) g/dL Albumin (3.5-5.0) g/dL Influenza Type A (PCR) NEGATIVE (Negative) Influenza Type B (PCR) NEGATIVE (Negative) RSV RNA Qual (PCR) NEGATIVE (Negative) SARS-CoV-2 RNA (RT-PCR) NEGATIVE (Negative) <Stephany Avila MD - Last Filed: 06/12/22 17:39> Independent Interpretation I performed an independent interpretation of an: Plain X-Ray <Stephany Avila MD - Last Filed: 06/12/22 17:39> Radiology Impression Discussion of test interpretation with radiology: I have reviewed the radiologist's reading. <Stephany Avila MD - Last Filed: 06/12/22 17:39> Radiologist Impression: FINDINGS: The lungs are well-expanded and clear. The heart size and pulmonary vascularity is normal. No gross bony abnormality seen. XR/XR chest 2V IMPRESSION: Unremarkable chest exam. <Stephany Avila MD - Last Filed: 06/12/22 17:39> Discharge Plan Discharge Clinical Impression: Cough, Chronic arm pain <JONI Clancy - Last Filed: 06/12/22 14:47> Patient Disposition: Home, Self-Care <JONI Clancy - Last Filed: 06/12/22 14:47> Instructions: Acute Cough (ED) <JONI Clancy - Last Filed: 06/12/22 14:47> Additional Instructions: Please follow-up with your primary care physician tomorrow. If you have any worsening or new symptoms, please return to the emergency room or call 911 <JONI Clancy - Last Filed: 06/12/22 14:47> Prescriptions: New guaifenesin 400 mg tablet 400 mg PO Q4H PRN (Reason: cough) Qty: 14 0RF No Action Linzess 72 mcg capsule 72 mcg PO QAM 30 Days Qty: 30 1RF famotidine 40 mg tablet 40 mg PO BEDTIME Qty: 90 1RF sucralfate 100 mg/mL suspension 10 ml PO TID Qty: 2700 2RF lansoprazole 30 mg capsule,delayed release(DR/EC) 30 mg PO BID Qty: 180 1RF fluticasone propion-salmeterol [Advair Diskus] 250-50 mcg/dose blister with device 1 puff PO BID levothyroxine 75 mcg tablet 75 mcg PO QAM Trulance 3 mg tablet 3 mg PO DAILY Qty: 30 3RF IBgard 90 mg capsule,delayed,extend.release 90 mg PO BID Qty: 90 1RF albuterol sulfate 2.5 mg /3 mL (0.083 %) solution for nebulization 2.5 mg inhalation Q4-6H PRN albuterol sulfate 90 mcg/actuation HFA aerosol inhaler 0 mcg inhalation metoprolol tartrate 25 mg tablet 25 mg PO pyridoxine (vitamin B6) 50 mg tablet 50 mg PO DAILY omeprazole 40 mg capsule,delayed release(DR/EC) 40 mg PO clonazepam 0.5 mg tablet 0.5 mg PO DAILY PRN trazodone 50 mg tablet 50 mg PO BEDTIME venlafaxine 75 mg capsule,extended release 24hr 75 mg PO QAM pravastatin 40 mg tablet 40 mg PO BEDTIME loratadine 10 mg tablet 10 mg PO DAILY lisinopril 5 mg tablet 5 mg PO QAM mirtazapine 30 mg tablet 30 mg PO BEDTIME Salonpas (capsaicin-menthol) 0.025-1.25 % adhesive patch,medicated 1 patch topical BID PRN (Reason: pain) 30 Days Qty: 60 0RF Rx Instructions: may leave on area for up to 8 hrs gabapentin 300 mg capsule 300 mg PO BEDTIME 30 Days Qty: 30 5RF cholecalciferol (vitamin D3) 50 mcg (2,000 unit) tablet 50 mcg PO DAILY calcium citrate-vitamin D3 315 mg-5 mcg (200 unit) tablet 0 tab PO Metamucil 3.4 gram/5.4 gram powder 1 tbsp PO BID Qty: 660 1RF Rx Instructions: mix into at least 8 oz of water or juice before administering Myrbetriq 50 mg tablet extended release 24 hr 50 mg PO DAILY 90 Days Qty: 90 1RF <JONI Clancy - Last Filed: 06/12/22 14:47>
[2022-06-12 14:43] VITALS: BP 152/105; PULSE 81; RESP 20; TEMP 36.6; O2SAT 92; BMI 50.8
--- NOTE | 2022-06-12 14:48 | ECG_ITS ---
Test Reason : sob Blood Pressure : / mmHG Vent. Rate : 077 BPM Atrial Rate : 077 BPM P-R Int : 156 ms QRS Dur : 106 ms QT Int : 420 ms P-R-T Axes : 044 -47 008 degrees QTc Int : 475 ms Normal sinus rhythm Pulmonary disease pattern Left anterior fascicular block Abnormal ECG When compared with ECG of 22-AUG-2020 23:25, Premature ventricular complexes are no longer Present Referred By: Radha Cisneros Electronically Signed By:Cody Alvarenga
[2022-06-12 15:11] LABS: Basophils Percent Auto 0.4 % (0-2); Eosinophils Absolute Auto 0.2 X10*3/uL (0.0-0.4); Eosinophils Percent Auto 2.9 % (0-4); Hematocrit 38.9 % (37.0-47.0); Hemoglobin 12.3 g/dl (12.0-16.0); Imm Gran Abs Auto 0.01 X10*3/uL (0.00-0.03); Imm Gran Pct Auto 0.1 % (0.0-0.4); Lymphocytes Absolute Auto 2.2 X10*3/uL (1.2-4.9); Lymphocytes Percent Auto 32.2 % (20-40); MANUAL DIFF FLAG NO; Mean Corpuscular HGB Conc 31.6 g/dl (31.0-35.0); Mean Corpuscular Volume 88.6 fL (80.0-98.0); Mean Platelet Volume 12.1 fL (9.4-12.3); Monocytes Absolute Auto 0.8 X10*3/uL (0.1-1.2); Monocytes Percent Auto 11.7 % (2-11); Neutrophils Absolute Auto 3.6 x10*3/uL (2.0-8.3); Neutrophils Percent Auto 52.7 % (45-73); Platelet Count 197 X10*3/uL (160-400); Red Blood Count 4.39 X10*6/uL (4.20-5.50); Red Cell Distribution Width 16.2 % (11.0-16.0); White Blood Count 6.9 X10*3/uL (4.8-10.8)
[2022-06-12 15:14] LABS: VBG Base Excess 0.9 mmol/L; VBG HCO3 24 mmol/L (22-26); VBG pCO2 34 mmHg; VBG pH 7.45 (7.32-7.43); VBG pO2 58 mmHg
[2022-06-12 15:39] LABS: Alanine Aminotransferase 31 U/L (0-31); Albumin Level 4.1 g/dL (3.5-5.0); Alkaline Phosphatase 90 U/L (39-117); Anion Gap 13 (12-20); Aspartate Amino Transferase 25 U/L (5-31); Bilirubin Total 0.3 mg/dL (0.0-1.0); Blood Urea Nitrogen 18 mg/dL (9-16); Calcium 9.6 mg/dL (8.4-10.2); Carbon Dioxide 26 mmol/L (22-29); Chloride 107 mmol/L (96-108); Estimated Glomerular Filt Rate > 60; Glucose Random 99 mg/dL (60-115); Magnesium 1.9 mg/dL (1.6-2.6); Potassium 4.5 mmol/L (3.3-5.1); Sodium 141 mmol/L (135-145)
[2022-06-12 15:42] LABS: Venous Blood Gas Refer to POC result
[2022-06-12 15:44] LABS: B Type Natriuretic Peptide 30 pg/mL (<100)
[2022-06-12 15:47] LABS: Troponin-I High Sensitivity 4.8 ng/L (<3.5-17.0)
[2022-06-12 15:51] LABS: Influenza A PCR NEGATIVE (Negative); Influenza B PCR NEGATIVE (Negative); Resp Syncy Virus RNA Qual PCR NEGATIVE (Negative); SARS COV2 PCR INHOUSE NEGATIVE (Negative)
[2022-06-12 16:43] VITALS: BP 124/91; PULSE 70; RESP 16; TEMP 36.6; O2SAT 93
--- NOTE | 2022-06-12 16:43 | MHC.EDTECH ---
this pct just assumed care of pt ,pt vitals sign taken pt was hooked up to operation agent ,called peters within reach .
--- NOTE | 2022-06-12 17:36 | MHC.EDTECH ---
pt went for a walk around the department ,02 sat remain at 94 % provider jessica aware .
[2022-06-12 17:44] VITALS: BP 137/84; PULSE 75; RESP 16; TEMP 36.5; O2SAT 98
== END 2022-06-12 17:59 | disposition home or self-care (01) ==
PROVIDERS: Physician Assistant Medical; Emergency Provider Emergency Medicine; PCP Family Medicine
DX: R06.02 Shortness of breath (principal); R05.9 Cough, unspecified; R07.89 Other chest pain; M79.601 Pain in right arm; Z20.822 Contact with and (suspected) exposure to COVID-19; Z20.828 Contact with and (suspected) exposure to other viral communicable diseases; Z79.899 Other long term (current) drug therapy
CPT/HCPCS: 0241U; 36415; 71046; 80053; 82803; 83735; 83880; 84484; 85025; 93005; 99283; 99284

== ENCOUNTER 2022-09-01 07:26 | Day surgery (SDC) | payer OTHER, SELFPAY ==
[2022-09-01] VITALS (10 sets, daily range): BP systolic 126–167; BP diastolic 57–96; PULSE 84–106; RESP 20; TEMP 36.3–36.6; O2SAT 93–97; BMI 50.9
--- NOTE | ~2022-09-01 | FL_ITS ---
EXAMINATION: XR FLUOROSCOPY WITH IMAGES CLINICAL INFORMATION: Interstim stage 1. COMPARISON: None available. TECHNIQUE: Fluoroscopy Supervised By: Dr. Laureano. Fluoroscopy Time: 30.4 sec. Cumulative Dose: 25.09 mGy. DAP: Gycm2. Images: 2. FINDINGS: Images demonstrate a lead projecting over the right side of the sacrum. FL/FL guidance in OR IMPRESSION: Fluoroscopy guidance for urologic procedure.
[2022-09-01] MEDS: Lactated Ringers 1,000 ML 100 ML IVCONT (08:07)
--- NOTE | 2022-09-01 10:05 | P.CONAN_ITS ---
Documented by User: Hetal Chaidez NP 08/28/22 14:23 HPI - Anesthesia Eval Consult details Narrative: 71yo F for Interstim Lead Test-Stage 1 PMFSH Active Problems Active Problems: All Active Problems (Updated 08/27/22 @ 15:14 by Cathi Soria RN) Hypertension (Acute) SOB (shortness of breath) (Acute) Pneumonia due to 2019-nCoV (Acute) Hypoxia (Acute) Acute respiratory failure with hypoxia (Acute) Acute respiratory distress syndrome (ARDS) due to COVID-19 virus (Acute) Delirium due to another medical condition, acute, hyperactive (Acute) Cerebrovascular accident, embolic (Acute) UTI (urinary tract infection) (Acute) Gastric anastomotic stricture (Acute) Nausea & vomiting (Acute) Chronic cough (Acute) Mesenteric ischemia (Acute) Urine incontinence (Acute) Mixed stress and urge incontinence (Acute) Chronic right shoulder pain (Acute) Chronic pain syndrome (Acute) Bilateral knee pain (Acute) Lumbar spondylosis (Acute) Right hip pain (Acute) Other and unspecified hyperlipidemia (Acute) Essential hypertension (Acute) Morbid obesity due to excess calories (Acute) Dyslipidemia (Acute) Past Medical History Medical History Arthritis 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 Cervicalgia Chronic headaches CVA (cerebral vascular accident) Depression Dyslipidemia Essential hypertension Fecal incontinence GERD (gastroesophageal reflux disease) Hiatal hernia History of COVID-19 History of gastroscopy HTN (hypertension) Hypothyroid Morbid obesity due to excess calories Obstructive sleep apnea On beta ervin at home Other and unspecified hyperlipidemia Pulmonary nodule, right Thyroid nodule Family History Family History Father No problems noted. Mother No problems noted. Surgical History Surgical History H/O colonoscopy H/O tooth extraction History of bilateral knee replacement History of bilateral tubal ligation History of carpal tunnel release History of cholecystectomy History of dacryocystorhinostomy History of esophagogastroduodenoscopy (EGD) History of herniorrhaphy History of laparoscopic appendectomy History of sleeve gastrectomy History of total abdominal hysterectomy and bilateral salpingo-oophorectomy S/p bilateral blepharoplasty Social History Social History Household Members: Family Household Members Other:: grandson Housing: Apartment Do you presently have visiting nurse or other home services: Yes (aracely) Alcohol intake: current Alcohol intake frequency: holidays/special occasions on ly Patient Tobacco Use Status: Never used Tobacco Use of substances other than those prescribed or required for medical reasons: No Are you DNR?: No Advance Directives: No Advance Directives Information Provided: Yes Advance Directives Date on File: 02/10/20 Current occupational status: disabled Meds Allergies Allergy/AdvReac Type Severity Reaction Status Date / Time atorvastatin [From Lipitor] Allergy Mild HIVES Verified 09/01/22 07:36 Home Medications Medication Instructions Recorded Confirmed Last Taken Type levothyroxine 75 mcg tablet 75 mcg PO QAM 02/02/20 08/27/22 Unknown History fluticasone 250 mcg-salmeterol 50 1 puff PO BID 07/03/20 08/27/22 09/01/22 06:00 History mcg/dose blistr powdr for inhalation (Advair Diskus) albuterol sulfate 2.5 mg/3 mL 2.5 mg inhalation Q4-6H PRN 08/02/20 08/27/22 Unknown History (0.083 %) solution for nebulization Wheezing albuterol sulfate 90 mcg/actuation 0 mcg inhalation 08/02/20 03/02/22 Unknown History aerosol inhaler calcium citrate 315 mg-vitamin D3 0 tab PO 06/02/21 03/02/22 Unknown History 5 mcg (200 unit) tablet cholecalciferol (vitamin D3) 50 50 mcg PO DAILY 06/02/21 08/27/22 Unknown History mcg (2,000 unit) tablet clonazepam 0.5 mg tablet 0.5 mg PO DAILY PRN Anxiety 12/19/21 08/27/22 Unknown History lisinopril 5 mg tablet 5 mg PO QAM 12/19/21 08/27/22 Unknown History loratadine 10 mg tablet 10 mg PO DAILY 12/19/21 08/27/22 Unknown History metoprolol tartrate 25 mg tablet 25 mg PO DAILY 12/19/21 08/27/22 Unknown History omeprazole 40 mg capsule,delayed 40 mg PO DAILY 12/19/21 08/27/22 Unknown History release pravastatin 40 mg tablet 40 mg PO BEDTIME 12/19/21 08/27/22 Unknown History pyridoxine (vitamin B6) 50 mg 50 mg PO DAILY 12/19/21 08/27/22 Unknown History tablet trazodone 50 mg tablet 50 mg PO BEDTIME 12/19/21 08/27/22 Unknown History venlafaxine 75 mg capsule,extended 75 mg PO QAM 12/19/21 08/27/22 Unknown History release 24 hr mirtazapine 30 mg tablet 30 mg PO BEDTIME 03/02/22 08/27/22 Unknown History Exam Exam Date and Time: August 28, 2022 1358 Pertinent Lab Results Pertinent Lab Results: Laboratory Tests 06/12/22 06/12/22 15:02 15:02 WBC 6.9 Hgb 12.3 Hct 38.9 Plt Count 197 Sodium 141 Potassium 4.5 Chloride 107 Carbon Dioxide 26 BUN 18 H Creatinine 0.80 Narrative Narrative: EKG 05/2022 Vent. Rate : 077 BPM ? ? Atrial Rate : 077 BPM ?? P-R Int : 156 ms? QRS Dur : 106 ms ? ? QT Int : 420 ms ? ? ? P-R-T Axes : 044 -47 008 degrees ?? QTc Int : 475 ms ? Normal sinus rhythm Pulmonary disease pattern Left anterior fascicular block Abnormal ECG When compared with ECG of 22-AUG-2020 23:25, Premature ventricular complexes are no longer Present XR chest 2V 05/2022 IMPRESSION: Unremarkable chest exam. ECHO 2019 Conclusions: - The left ventricular systolic function is normal.? The visually estimated ejection fraction is between 60-65%. ? - No obvious valvular pathology seen on this study.? PFT 2020 FLOWS:? FEV1 of 144% of predicted at 2.54 L. ? FVC 127% of predicted at 2.96 L. ? FEV1 to FVC ratio of 0.86. ? No bronchodilator test has been performed as the patient has had bronchodilator prior to this pulmonary function test. ?? LUNG VOLUMES:? Total lung capacity 120% of predicted at 5.19 L. ? Residual volume 122% of predicted at 2.41. ? Slow vital capacity 119% of predicted at 2.77 L. ? Expiratory reserve volume 149% of predicted at 0.70 L. ? Diffusion capacity is mildly decreased, diffusion capacity adjust to normal after correction for alveolar ventilation. ?? IMPRESSION:? No obstructive or restrictive ventilatory defect.? Bronchodilator testing was not performed. Assessment and Plan Assessment Anesthesia Assessment: Chart Reviewed Documented by User: Charleen Ramos DO 09/01/22 10:09 HPI - Anesthesia Eval Consult details Narrative: 71yo F for Interstim Lead Test-Stage 1. Hx of cerebral hemorrhages with COVID in 2020 but no residual deficits. [facility] Past Medical History Medical History Arthritis 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 Cervicalgia Chronic headaches CVA (cerebral vascular accident) Depression Dyslipidemia Essential hypertension Fecal incontinence GERD (gastroesophageal reflux disease) Hiatal hernia History of COVID-19 History of gastroscopy HTN (hypertension) Hypothyroid Morbid obesity due to excess calories Obstructive sleep apnea On beta ervin at home Other and unspecified hyperlipidemia Pulmonary nodule, right Thyroid nodule Family History Family History Father No problems noted. Mother No problems noted. Surgical History Surgical History H/O colonoscopy H/O tooth extraction History of bilateral knee replacement History of bilateral tubal ligation History of carpal tunnel release History of cholecystectomy History of dacryocystorhinostomy History of esophagogastroduodenoscopy (EGD) History of herniorrhaphy History of laparoscopic appendectomy History of sleeve gastrectomy History of total abdominal hysterectomy and bilateral salpingo-oophorectomy S/p bilateral blepharoplasty History of Problems with Anesthesia: No Social History Social History Household Members: Family Household Members Other:: grandson Housing: Apartment Do you presently have visiting nurse or other home services: Yes (aracely) Alcohol intake: current Alcohol intake frequency: holidays/special occasions only Patient Tobacco Use Status: Never used Tobacco Use of substances other than those prescribed or required for medical reasons: No Are you DNR?: No Advance Directives: No Advance Directives Information Provided: Yes Advance Directives Date on File: 02/10/20 Current occupational status: disabled Meds Allergies Allergy/AdvReac Type Severity Reaction Status Date / Time atorvastatin [From Lipitor] Allergy Mild HIVES Verified 09/01/22 07:36 Home Medications Medication Instructions Recorded Confirmed Last Taken Type levothyroxine 75 mcg tablet 75 mcg PO QAM 02/02/20 08/27/22 Unknown History fluticasone 250 mcg-salmeterol 50 1 puff PO BID 07/03/20 08/27/22 09/01/22 06:00 History mcg/dose blistr powdr for inhalation (Advair Diskus) albuterol sulfate 2.5 mg/3 mL 2.5 mg inhalation Q4-6H PRN 08/02/20 08/27/22 Unknown History (0.083 %) solution for nebulization Wheezing albuterol sulfate 90 mcg/actuation 0 mcg inhalation 08/02/20 03/02/22 Unknown History aerosol inhaler calcium citrate 315 mg-vitamin D3 0 tab PO 06/02/21 03/02/22 Unknown History 5 mcg (200 unit) tablet cholecalciferol (vitamin D3) 50 50 mcg PO DAILY 06/02/21 08/27/22 Unknown History mcg (2,000 unit) tablet clonazepam 0.5 mg tablet 0.5 mg PO DAILY PRN Anxiety 12/19/21 08/27/22 Unknown History lisinopril 5 mg tablet 5 mg PO QAM 12/19/21 08/27/22 Unknown History loratadine 10 mg tablet 10 mg PO DAILY 12/19/21 08/27/22 Unknown History metoprolol tartrate 25 mg tablet 25 mg PO DAILY 12/19/21 08/27/22 Unknown History omeprazole 40 mg capsule,delayed 40 mg PO DAILY 12/19/21 08/27/22 Unknown History release pravastatin 40 mg tablet 40 mg PO BEDTIME 12/19/21 08/27/22 Unknown History pyridoxine (vitamin B6) 50 mg 50 mg PO DAILY 12/19/21 08/27/22 Unknown History tablet trazodone 50 mg tablet 50 mg PO BEDTIME 12/19/21 08/27/22 Unknown History venlafaxine 75 mg capsule,extended 75 mg PO QAM 12/19/21 08/27/22 Unknown History release 24 hr mirtazapine 30 mg tablet 30 mg PO BEDTIME 03/02/22 08/27/22 Unknown History Exam Exam Date and Time: September 01, 2022 1007 Height,Weight and Vital Signs: Height 4 ft 11 in Weight 114.305 kg Vital Signs Temperature 97.6 F 09/01/22 07:47 Pulse Rate 84 09/01/22 07:47 Respiratory Rate 20 09/01/22 07:47 Blood Pressure 129/67 09/01/22 07:47 Pulse Oximetry 93 09/01/22 07:47 Oxygen Delivery Method Room Air 09/01/22 07:47 Temperature 97.6 F 09/01/22 07:47 Pulse Rate 84 09/01/22 07:47 Respiratory Rate 20 09/01/22 07:47 Blood Pressure 129/67 09/01/22 07:47 Pulse Oximetry 93 09/01/22 07:47 Oxygen Delivery Method Room Air 09/01/22 07:47 Airway Mallampati Class: II TM Dist: <=3cm Neck ROM: Limited Loose/Missing/Broken Teeth: No (Edentulous) Heart: S1S2 Lungs: CTAB Assessment and Plan Final Anesthetic Review History of Problems with Anesthesia: No ASA Class: III Final Preanesthetic Review: No Changes in Pt Med Stat, Meds/Allgs Chart Reviewed, Consent Obtained/Reviewed and Anes Risks/Benef Reviewed Patient Risk: Intermediate Procedure Risk: Intermediate Anesthetic Plan Anesthetic Plan: GA and Agree w/ Assess. and Plan Disposition: Standard PACU
--- NOTE | 2022-09-01 10:06 | P.HPSUR_ITS ---
Pre-Procedural Eval Section A Date of Service: 09/01/22 The History & Physical has been completed within 30 days and I have reviewed it.: No Section B Chief Complaint: Unspecified urinary incontinence Details of Present Illness: Sade is a 71 year old English speaking female with mixed urinary incontinence and intractible urgency, failed PO anticholinergics. She complains of urinary frequency, nocturnal enuresis and fecal incontinence. Complains having severe pain in joints, history of fibromyalgia. States that she had 2 months of hospitalization due to COVID infection in January 2020. Relevant Family History (Specify if Yes): No Relevant Social History: None Present Medications: see Short Stay Collaborative assessment Allergies: Allergies Allergy/AdvReac Type Severity Reaction Status Date / Time atorvastatin [From Lipitor] Allergy Mild HIVES Verified 09/01/22 07:36 Review of Systems Review of Systems Comment: 10 point ROS negative other than stated in HPI Exam Surgical H&P Exam: Normal: HEENT, Normal: Heart, Normal: Lungs, Normal: Skin and Normal: Neurological Plan Diagnosis/Plan: Unchanged I have reviewed the history and physical and performed a pertinent physical examination on my patient. No changes have occurred unless specified. Stage I lead implant for intractible urinary urgency/frequency Time Spent With Patient Time: Total time managing care of this patient today ____ minutes.
--- NOTE | 2022-09-01 12:28 | W.PM.OPN ---
Operative Note Operative Note Date of Service: 09/01/22 Narrative: PreOperative Diagnosis:? ?? Urinary Frequency, Urge Incontinence Post Operative Diagnosis:? Urinary Frequency, Urge Incontience Procedure:?Stage I Lead Implant ? Programming of Lead Surgeon:?Dr Kirby Sahni Anesthesia:? General Indications for procedure:?The patient has urinary symptoms of urgency, frequency, urge incontinence, fecal incontinence. Procedure: After informed consent was verified the patient was brought to the operating room. Anesthesia was performed per protocol on the OR stretcher.? The patient was repositioned to the OR table in prone? position, padding used including axillary rolls.? IV Antibiotics administered.? The patient was prepped and draped in the usual sterile fashion.? Safety pause time-out was performed. Fluroscopy used during the case.? The Sacral 3 hyde was identified on the right side, the spinal needle was placed into the S3 foramen and identified with fluoroscopy in the AP and lateral position, the spinal needle was tested and there was good motor response, great toe deflection and lobito noted.? The stylet was placed through the spinal needle, after removing the spinal needle the introducer was passed over the stylette, the stylette was removed, the the lead was placed through the introducer.? The electrodes were tested - Electrode 0 and 1 had no motor response. Electrode 2 had good toe and lobito motor response at amplitude 2.0 and Electrode 3 had good toe and lobito motor response at amplitude 1.3. The lead was noted on fluoroscopy in the lateral position with electrode 0 and 1 straddling the anterior edge of the sacrum. ? A second incision was made on the upper buttock below the iliac crest.? The lead was tunnelled to the second incision site.? The external connection wire was tunnelled and attached to the electrode and the hex screw was used to secure it in place.? The wound was copiously irrigated with antibiotic irrigation.? The second incision wound was closed with 3-0 chromic and 4-0 monocryl.? The lead insertion site incision was closed with 4-0 monocryl. The patient brought out of anesthesia placed supine on the OR and extubated.? The patient tolerated the procedure well and was transferred to the recovery area in stable condition. The Lead was programmed -- Program 4: 3-, 0+. Amplitude 1.5, pt states feeling vaginally. Complications:? None Drains:? None
== END 2022-09-01 15:05 | disposition home or self-care (01) ==
PROVIDERS: PCP Family Medicine; Visit Provider Urology
PROC: (CPT 64561; principal; 2022-09-01 08:40)
DX: N39.46 Mixed incontinence (principal); R35.0 Frequency of micturition; Z86.73 Personal history of transient ischemic attack (TIA), and cerebral infarction without residual deficits; R15.9 Full incontinence of feces; I10 Essential (primary) hypertension; E78.5 Hyperlipidemia, unspecified; G47.33 Obstructive sleep apnea (adult) (pediatric); J45.909 Unspecified asthma, uncomplicated; E66.01 Morbid (severe) obesity due to excess calories; R91.1 Solitary pulmonary nodule; Z98.890 Other specified postprocedural states; Z98.84 Bariatric surgery status; Z79.51 Long term (current) use of inhaled steroids; Z79.899 Other long term (current) drug therapy; Z88.8 Allergy status to other drugs, medicaments and biological substances
CPT/HCPCS: 64561; C1778; C1883; J0690; J1100; J1956; J2370; J2405; J2795; J3010; J3370

== ENCOUNTER 2022-09-10 15:23 | Outpatient (AMB) | payer OTHER, SELFPAY ==
--- NOTE | 2022-09-10 15:31 | A.OFFVIS_ITS ---
Intake Intake Visit Reasons: S/P lead implant Intake Note: Patient presents today for a follow-up on S/P Lead Implant * Meds: Cipro * Allergies to Antibiotic: None * Blood Thinner: None * Patient unable to void, water was given. * PVR 32ml Eye Surgeon Required: Yes Eye Surgeon Language: Human Resource Assistant Name: CRISTOPHER Garcia/KASEY Fowler Accompanied by: Self / Same As Patient Allergies atorvastatin [From Lipitor] Allergy (Mild, Verified 09/10/22 15:32) HIVES HPI HPI Comments History of Present Illness Details Sade is a 71-year-old female who presents to the office s/p stage 1 neuromodulation, lead implant. 09/10/22-- The patient is a Croatian speaking female. 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 The patient underwent Stage I Lead Implant on 09/01/22 for complains of urinary frequency and urge incontinence. The patient denies urinary leakage post the procedure. Voids after every 2-3 hours. Improved states urine would just leak out all the time. The patient denies nocturia since the stage 1 lead procedure. The patient had greater than 50 percent improvement in her urinary urgency symptoms. Also mild improvement in fecal incontinence noted. I discussed with her that the therapy does not necessarily make significant improvements in diarrhea or constipation. The patient was informed that the pacemaker/battery has to be changed after every 5-8 years. Plan: Stage 2 pacemaker implant discussed to be scheduled. Consent was obtained. [facility] Medical History Arthritis 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 Cervicalgia Chronic headaches CVA (cerebral vascular accident) Depression Dyslipidemia Essential hypertension Fecal incontinence GERD (gastroesophageal reflux disease) Hiatal hernia History of COVID-19 History of gastroscopy HTN (hypertension) Hypothyroid Morbid obesity due to excess calories Obstructive sleep apnea On beta ervin at home Other and unspecified hyperlipidemia Pulmonary nodule, right Thyroid nodule Surgical History H/O colonoscopy H/O tooth extraction History of bilateral knee replacement History of bilateral tubal ligation History of carpal tunnel release History of cholecystectomy History of dacryocystorhinostomy History of esophagogastroduodenoscopy (EGD) History of herniorrhaphy History of laparoscopic appendectomy History of sleeve gastrectomy History of total abdominal hysterectomy and bilateral salpingo-oophorectomy S/p bilateral blepharoplasty S/P placement of nerve stimulator Family History Father No problems noted. Mother No problems noted. Social History Household Members: Family Household Members Other:: grandson Housing: Apartment Do you presently have visiting nurse or other home services: Yes (aracely) Alcohol intake: current Alcohol intake frequency: does not drink Patient Tobacco Use Status: Never used Tobacco Advance Directives Date on File: 02/10/20 Current occupational status: disabled Review of Systems Const All systems reviewed & are unremarkable except as noted in HPI and below Reports no additional complaints Eyes Reports no additional complaints ENT Reports no additional complaints Card Denies dyspnea Resp Denies cough and Denies dyspnea GI Reports no additional complaints Reports no additional complaints Musc Reports no additional complaints Skin/Breast Denies rash and Denies unusual bruising Neuro Reports no additional complaints Psych Reports no additional complaints Endo Reports no additional complaints Dion/Lymph Reports no additional complaints Aller/Immun Reports no additional complaints Office Procedures Post Void Residual Post Residual Void Post Void Residual (PVR): 32 [id number] Void Residual by ultrasound Assessment & Plan Assessment & Plan (1) Urgency of urination: Code(s): R39.15 - Urgency of urination (2) Sensory urge incontinence: Code(s): N39.41 - Urge incontinence (3) Urinary frequency: Code(s): R35.0 - Frequency of micturition Plan Stage 2 pacemaker implant implant discussed to be scheduled. Consent was obtained. Orders: Orders AMB Urinalysis Automated Today Z13.9 - Encounter for screening, unspecified AMB Post Void Residual by ultrasound Today N39.8 - Other specified disorders of urinary system Patient Instructions: The patient had an opportunity to ask questions regarding treatment plan. All questions were answered. Physical exam results were discussed and reviewed in detail. No major barriers to understanding were identified. The patient expressed understanding and agreement with the above treatment plan. The patient is aware they should contact our office by phone for worsening of their current condition or the appearance of new symptoms. Compliance is encouraged with any medications and followup testing that is ordered. It is a privilege to be allowed the opportunity to participate in the urologic care of your patient. If you have any questions or concerns regarding treatment for the above conditions please do not hesitate to contact me. The office telephone contact is [phone]. This note is constructed in part using voice recognition software. While every effort has been made to ensure accuracy family coach errors may have been incl uded. Yours sincerely, Kirby Sahni MD Coding Level of Care Code Global (63571) Diagnoses Urgency of urination R39.15 Sensory urge incontinence N39.41 Urinary frequency R35.0 CPT Codes Post Residual Void - PVR CPT Code: 56626-Cjna Void Residual by ultrasound ([id number])
== END 2022-09-10 15:59 | disposition home or self-care (01) ==
LOC: HO.HUSH 15:23
PROVIDERS: PCP Family Medicine; Visit Provider Urology
DX: Z13.9 Encounter for screening, unspecified (principal)
CPT/HCPCS: 99024

== ENCOUNTER → 2022-09-10 15:23 | Outpatient (BNVA) | payer OTHER, SELFPAY | PROVIDERS: PCP Family Medicine; Visit Provider Urology | DX: N39.41 Urge incontinence (principal); R35.0 Frequency of micturition | CPT/HCPCS: 51798; 99212 ==

== ENCOUNTER 2022-09-15 05:48 | Day surgery (SDC) | payer OTHER, SELFPAY ==
[2022-09-11 11:58] VITALS: BMI 51.5
--- NOTE | 2022-09-14 09:34 | P.CONAN_ITS ---
Documented by User: Hetal Chaidez NP 09/14/22 09:35 HPI - Anesthesia Eval Consult details Narrative: 71yo F for Interstim Generator Implant Stage 2 s/p stage 1 09/01/22 with GA-ETT 7 PMFSH Active Problems Active Problems: All Active Problems (Updated 09/10/22 @ 17:07 by Kirby Sahni MD) Urinary frequency (Acute) Sensory urge incontinence (Acute) Urgency of urination (Acute) Urgency-frequency syndrome (Acute) Hypertension (Acute) SOB (shortness of breath) (Acute) Pneumonia due to 2019-nCoV (Acute) Hypoxia (Acute) Acute respiratory failure with hypoxia (Acute) Acute respiratory distress syndrome (ARDS) due to COVID-19 virus (Acute) Delirium due to another medical condition, acute, hyperactive (Acute) Cerebrovascular accident, embolic (Acute) UTI (urinary tract infection) (Acute) Gastric anastomotic stricture (Acute) Nausea & vomiting (Acute) Chronic cough (Acute) Mesenteric ischemia (Acute) Urine incontinence (Acute) Mixed stress and urge incontinence (Acute) Chronic right shoulder pain (Acute) Chronic pain syndrome (Acute) Bilateral knee pain (Acute) Lumbar spondylosis (Acute) Right hip pain (Acute) Other and unspecified hyperlipidemia (Acute) Essential hypertension (Acute) Morbid obesity due to excess calories (Acute) Dyslipidemia (Acute) Past Medical History Medical History Arthritis 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 Cervicalgia Chronic headaches CVA (cerebral vascular accident) Depression Dyslipidemia Essential hypertension Fecal incontinence GERD (gastroesophageal reflux disease) Hiatal hernia History of COVID-19 History of gastroscopy HTN (hypertension) Hypothyroid Morbid obesity due to excess calories Obstructive sleep apnea On beta ervin at home Other and unspecified hyperlipidemia Pulmonary nodule, right Thyroid nodule Family History Family History Father No problems noted. Mother No problems noted. Surgical History Surgical History H/O colonoscopy H/O tooth extraction History of bilateral knee replacement History of bilateral tubal ligation History of carpal tunnel release History of cholecystectomy History of dacryocystorhinostomy History of esophagogastroduodenoscopy (EGD) History of herniorrhaphy History of laparoscopic appendectomy History of sleeve gastrectomy History of total abdominal hysterectomy and bilateral salpingo-oophorectomy S/p bilateral blepharoplasty S/P placement of nerve stimulator History of Problems with Anesthesia: No Social History Social History Household Members: Family Household Members Other:: grandson Housing: Apartment Do you presently have visiting nurse or other home services: Yes ([employer]) Alcohol intake: current Alcohol intake frequency: does not drink Patient Tobacco Use Status: Never used Tobacco Are you DNR?: No Advance Directives: No Advance Directives Information Provided: Yes Advance Directives Date on File: 02/10/20 Nutrition Risks: No Nutritional Risk Current occupational status: disabled Meds Allergies Allergy/AdvReac Type Severity Reaction Status Date / Time atorvastatin [From Lipitor] Allergy Mild HIVES Verified 09/15/22 06:36 Home Medications Medication Instructions Recorded Confirmed Last Taken Type levothyroxine 75 mcg tablet 75 mcg PO QAM 02/02/20 09/02/22 Unknown History fluticasone 250 mcg-salmeterol 50 1 puff PO BID 07/03/20 09/02/22 09/01/22 06:00 History mcg/dose blistr powdr for inhalation (Advair Diskus) albuterol sulfate 2.5 mg/3 mL 2.5 mg inhalation Q4-6H PRN 08/02/20 09/02/22 Unknown History (0.083 %) solution for nebulization Wheezing albuterol sulfate 90 mcg/actuation 90 mcg inhalation Q4H PRN Wheezing 08/02/20 09/02/22 Unknown History aerosol inhaler calcium citrate 315 mg-vitamin D3 1 tab PO DAILY 06/02/21 09/02/22 Unknown History 5 mcg (200 unit) tablet cholecalciferol (vitamin D3) 50 50 mcg PO DAILY 06/02/21 09/02/22 Unknown Hi story mcg (2,000 unit) tablet clonazepam 0.5 mg tablet 0.5 mg PO DAILY PRN Anxiety 12/19/21 09/02/22 Unknown History lisinopril 5 mg tablet 5 mg PO QAM 12/19/21 09/02/22 Unknown History loratadine 10 mg tablet 10 mg PO DAILY 12/19/21 09/02/22 Unknown History metoprolol tartrate 25 mg tablet 25 mg PO DAILY 12/19/21 09/02/22 Unknown History omeprazole 40 mg capsule,delayed 40 mg PO DAILY 12/19/21 09/02/22 Unknown History release pravastatin 40 mg tablet 40 mg PO BEDTIME 12/19/21 09/02/22 Unknown History pyridoxine (vitamin B6) 50 mg 50 mg PO DAILY 12/19/21 09/02/22 Unknown History tablet trazodone 50 mg tablet 50 mg PO BEDTIME 12/19/21 09/02/22 Unknown History venlafaxine 75 mg capsule,extended 75 mg PO QAM 12/19/21 09/02/22 Unknown History release 24 hr mirtazapine 30 mg tablet 30 mg PO BEDTIME 03/02/22 09/02/22 Unknown History Exam Exam Date and Time: September 14, 2022 0934 Height,Weight and Vital Signs: Height 4 ft 9 in Weight 107.955 kg Pertinent Lab Results Pertinent Lab Results: Laboratory Tests 06/12/22 06/12/22 15:02 15:02 WBC 6.9 Hgb 12.3 Hct 38.9 Plt Count 197 Sodium 141 Potassium 4.5 Chloride 107 Carbon Dioxide 26 BUN 18 H Creatinine 0.80 Narrative Narrative: EKG 05/2022 Vent. Rate : 077 BPM ? ? Atrial Rate : 077 BPM ?? P-R Int : 156 ms? QRS Dur : 106 ms ? ? QT Int : 420 ms ? ? ? P-R-T Axes : 044 -47 008 degrees ?? QTc Int : 475 ms ? Normal sinus rhythm Pulmonary disease pattern Left anterior fascicular block Abnormal ECG When compared with ECG of 22-AUG-2020 23:25, Premature ventricular complexes are no longer Present XR chest 2V 05/2022 IMPRESSION: Unremarkable chest exam. ECHO 2019 Conclusions: - The left ventricular systolic function is normal.? The visually estimated ejection fraction is between 60-65%. ? - No obvious valvular pathology seen on this study.? PFT 2020 FLOWS:? FEV1 of 144% of predicted at 2.54 L. ? FVC 127% of predicted at 2.96 L. ? FEV1 to FVC ratio of 0.86. ? No bronchodilator test has been performed as the patient has had bronchodilator prior to this pulmonary function test. ?? LUNG VOLUMES:? Total lung capacity 120% of predicted at 5.19 L. ? Residual volume 122% of predicted at 2.41. ? Slow vital capacity 119% of predicted at 2.77 L. ? Expiratory reserve volume 149% of predicted at 0.70 L. ? Diffusion capacity is mildly decreased, diffusion capacity adjust to normal after correction for alveolar ventilation. ?? IMPRESSION:? No obstructive or restrictive ventilatory defect.? Bronchodilator testing was not performed. Assessment and Plan Assessment Anesthesia Assessment: Chart Reviewed Final Anesthetic Review History of Problems with Anesthesia: No Documented by User: Cari Amaya MD 09/15/22 09:08 [facility] Past Medical History Medical History Arthritis 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 Cervicalgia Chronic headaches CVA (cerebral vascular accident) Depression Dyslipidemia Essential hypertension Fecal incontinence GERD (gastroesophageal reflux disease) Hiatal hernia History of COVID-19 History of gastroscopy HTN (hypertension) Hypothyroid Morbid obesity due to excess calories Obstructive sleep apnea On beta ervin at home Other and unspecified hyperlipidemia Pulmonary nodule, right Thyroid nodule Family History Family History Father No problems noted. Mother No problems noted. Family history of problems with anesthesia: No Surgical History Surgical History H/O colonoscopy H/O tooth extraction History of bilateral knee replacement History of bilateral tubal ligation History of carpal tunnel release History of cholecystectomy History of dacryocystorhinostomy History of esophagogastroduodenoscopy (EGD) History of herniorrhaphy History of laparoscopic appendectomy History of sleeve gastrectomy History of total abdominal hysterectomy and bilateral salpingo-oophorectomy S/p bilateral blepharoplasty S/P placement of nerve stimulator Social History Social History Household Members: Family Household Members Other:: grandson Housing: Apartment Do you presently have visiting nurse or other home services: Yes ([employer]) Alcohol intake: current Alcohol intake frequency: does not drink Patient Tobacco Use Status: Never used Tobacco Are you DNR?: No Advance Directives: No Advance Directives Information Provided: Yes Advance Directives Date on File: 02/10/20 Nutrition Risks: No Nutritional Risk Current occupational status: disabled Meds Allergies Allergy/AdvReac Type Severity Reaction Status Date / Time atorvastatin [From Lipitor] Allergy Mild HIVES Verified 09/15/22 06:36 Home Medications Medication Instructions Recorded Confirmed Last Taken Type levothyroxine 75 mcg tablet 75 mcg PO QAM 02/02/20 09/02/22 Unknown History fluticasone 250 mcg-salmeterol 50 1 puff PO BID 07/03/20 09/02/22 09/01/22 06:00 History mcg/dose blistr powdr for inhalation (Advair Diskus) albuterol sulfate 2.5 mg/3 mL 2.5 mg inhalation Q4-6H PRN 08/02/20 09/02/22 Unknown History (0.083 %) solution for nebulization Wheezing albuterol sulfate 90 mcg/actuation 90 mcg inhalation Q4H PRN Wheezing 08/02/20 09/02/22 Unknown History aerosol inhaler calcium citrate 315 mg-vitamin D3 1 tab PO DAILY 06/02/21 09/02/22 Unknown History 5 mcg (200 unit) tablet cholecalciferol (vitamin D3) 50 50 mcg PO DAILY 06/02/21 09/02/22 Unknown History mcg (2,000 unit) tablet clonazepam 0.5 mg tablet 0.5 mg PO DAILY PRN Anxiety 12/19/21 09/02/22 Unknown History lisinopril 5 mg tablet 5 mg PO QAM 12/19/21 09/02/22 Unknown History loratadine 10 mg tablet 10 mg PO DAILY 12/19/21 09/02/22 Unknown History metoprolol tartrate 25 mg tablet 25 mg PO DAILY 12/19/21 09/02/22 Unknown History omeprazole 40 mg capsule,delayed 40 mg PO DAILY 12/19/21 09/02/22 Unknown History release pravastatin 40 mg tablet 40 mg PO BEDTIME 12/19/21 09/02/22 Unknown History pyridoxine (vitamin B6) 50 mg 50 mg PO DAILY 12/19/21 09/02/22 Unknown History tablet trazodone 50 mg tablet 50 mg PO BEDTIME 12/19/21 09/02/22 Unknown History venlafaxine 75 mg capsule,extended 75 mg PO QAM 12/19/21 09/02/22 Unknown History release 24 hr mirtazapine 30 mg tablet 30 mg PO BEDTIME 03/02/22 09/02/22 Unknown History Exam Airway Mallampati Class: IV TM Dist: <=3cm Neck ROM: Full Denture: Upper and Lower Loose/Missing/Broken Teeth: No Heart: rr Lungs: cta Assessment and Plan Assessment Anesthesia Assessment: Anesthesia Plan Discussed Final Anesthetic Review Family History of Problems with Anesthesia: No NPO: Yes ASA Class: III Final Preanesthetic Review: No Changes in Pt Med Stat, Meds/Allgs Chart Reviewed, Consent Obtained/Reviewed and Anes Risks/Benef Reviewed Patient Risk: High (poor airway class four) Procedure Risk: Low Anesthetic Plan Anesthetic Plan: GA Disposition: Standard PACU
[2022-09-15] VITALS (7 sets, daily range): BP systolic 127–166; BP diastolic 78–92; PULSE 66–81; RESP 18–20; TEMP 36.1–36.4; O2SAT 94–97
[2022-09-15] MEDS: Lactated Ringers 1,000 ML 100 ML IVCONT (06:05)
--- NOTE | 2022-09-15 07:43 | PC.NURSE ---
pharmacy mixing gentamicin that was ordered. stated having technical difficulties and will be delivered later than 0730. will bring to OR when delivered.
--- NOTE | 2022-09-15 09:44 | W.PM.OPN ---
Operative Note Operative Note Date of Service: 09/15/22 Narrative: PreOperative Diagnosis:? ?? Urinary Frequency, Urge Incontinence Post Operative Diagnosis:? Urinary Frequency, Urge Incontience Procedure:?Stage II Generator/Pacemaker Implant ? Programming of Generator Surgeon:?Dr Kirby Sahni Anesthesia:? MAC + Local Indications for procedure:? Procedure: After informed consent was verified the patient was brought to the operating room. The patient was placed in lateral position on the OR table, padding used including axillary rolls.? IV Antibiotics administered.? Sedation was administered. The patient was prepped and draped in the usual sterile fashion.? Safety pause time-out was performed. Lidocaine/marcaine plain administered for local analgesia. The incision was opened. The wound was irrigated with antibiotic irrigation. The lead was identified and the hex screw was used to separate the lead from the external wire. The external wire was removed from the field. The wound was again copiously irrigated with antibiotic irrigation. Cautery was used to create a pouch in the subq tissue to house the pacemaker. The pacemaker was brought to the field and attached to the lead. The pacemaker was placed in the wound with writing facing upward; the impedence was checked and verified. There was good hemostasis. The wound was closed in to layers with 2-0 chromic and 3-0 vicryl and skin with 4-0 monocryl. The Generator/pacemaker was programmed - program 3, Amplitude 2.0 The patient placed supine on the OR stretcher.? The patient tolerated the procedure well and was transferred to the recovery area in stable condition. Complications:? None Drains:? None
[2022-09-15] MEDS: Albuterol Sulfate (0.083%) 2.5 MG/3 ML VIAL.NEB INHALE (10:25)
== END 2022-09-15 11:27 | disposition home or self-care (01) ==
PROVIDERS: PCP Family Medicine; Visit Provider Urology
PROC: (CPT 64590; principal; 2022-09-15 07:30)
DX: N39.41 Urge incontinence (principal); R35.0 Frequency of micturition; R15.9 Full incontinence of feces; J45.909 Unspecified asthma, uncomplicated; K22.70 Barrett's esophagus without dysplasia; I10 Essential (primary) hypertension; E78.5 Hyperlipidemia, unspecified; K21.9 Gastro-esophageal reflux disease without esophagitis; E03.9 Hypothyroidism, unspecified; E66.01 Morbid (severe) obesity due to excess calories; E04.1 Nontoxic single thyroid nodule; G47.33 Obstructive sleep apnea (adult) (pediatric); R91.1 Solitary pulmonary nodule; Z90.3 Acquired absence of stomach [part of]; Z90.49 Acquired absence of other specified parts of digestive tract; Z86.73 Personal history of transient ischemic attack (TIA), and cerebral infarction without residual deficits; Z79.899 Other long term (current) drug therapy; Z88.8 Allergy status to other drugs, medicaments and biological substances; Z98.890 Other specified postprocedural states
CPT/HCPCS: 64590; 94640; C1767; C1787; J0131; J0690; J1580; J2250; J2795; J3370

== ENCOUNTER → 2022-09-24 15:31 | Outpatient (BNVA) | payer OTHER, SELFPAY | PROVIDERS: PCP Family Medicine; Visit Provider Urology ==

== ENCOUNTER 2022-11-17 09:51 | Outpatient (AMB) | payer OTHER, SELFPAY ==
[2022-11-17 09:54] VITALS: BP 142/70; PULSE 114; O2SAT 87; BMI 52.9
--- NOTE | 2022-11-17 09:54 | A.OFFVIS_ITS ---
Intake Vital Signs 11/17/22 09:54 Height 4 ft 9 in Weight 244 lb 11.41 oz BMI 52.9 BP 142/70 H Blood Pressure Location Lt brachial Position Sitting Pulse 114 H Pulse Source Pulse Oximeter Pulse Oximetry (%) 87 L Oxygen Delivery Method Room Air Intake Visit Reasons: Obstructive sleep apnea Allergies atorvastatin [From Lipitor] Allergy (Mild, Verified 11/17/22 09:59) HIVES HPI Obstructive sleep apnea HPI Details 71-year-old lady, nonsmoker, with underlying history of gastroesophageal reflux disease, hiatal hernia, and chronic cough lost to follow-up for over 2 years, now returns to reestablish care complaining of dysp nathaly on exertion, orthopnea, paroxysmal nocturnal dyspnea, unrestful sleep, and snoring. Patient has ran out of her Advair and albuterol MDI. She previously was on CPAP, however has sleep study is over 5 years old and her machine is broken. [facility] Medical History (Updated 11/17/22 @ 10:[address] Feng MD) Arthritis 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 Cervicalgia Chronic headaches CVA (cerebral vascular accident) Depression Dyslipidemia Essential hypertension Fecal incontinence GERD (gastroesophageal reflux disease) Hiatal hernia History of COVID-19 History of gastroscopy HTN (hypertension) Hypothyroid Morbid obesity due to excess calories Obstructive sleep apnea On beta ervin at home Other and unspecified hyperlipidemia Pulmonary nodule, right Thyroid nodule Surgical History H/O colonoscopy H/O tooth extraction History of bilateral knee replacement History of bilateral tubal ligation History of carpal tunnel release History of cholecystectomy History of dacryocystorhinostomy History of esophagogastroduodenoscopy (EGD) History of herniorrhaphy History of laparoscopic appendectomy History of sleeve gastrectomy History of total abdominal hysterectomy and bilateral salpingo-oophorectomy S/p bilateral blepharoplasty S/P placement of nerve stimulator Family History Father No problems noted. Mother No problems noted. Social History Household Members: Family Household Members Other:: grandson Housing: Apartment Do you presently have visiting nurse or other home services: Yes ([employer]) Alcohol intake: current Alcohol intake frequency: does not drink Patient Tobacco Use Status: Never used Tobacco Advance Directives Date on File: 02/10/20 Current occupational status: disabled Review of Systems Const Denies daytime sleepiness, Denies excessive sweating, Denies fatigue, Denies fever(s), Denies lethargy, Denies malaise, Denies night sweats, Denies snoring and Denies weight loss Eyes Denies blurry vision and Denies itchy eyes ENT Denies nasal congestion, Denies post nasal drip, Denies sinus pain, Denies sinus pressure and Denies other ( Thrush) Card Denies chest pain, Denies pedal edema, Denies dyspnea, Reports dyspnea on exertion, Reports orthopnea and Reports paroxysmal nocturnal dyspnea Resp Denies cough, Denies hemoptysis, Denies excessive phlegm production, Denies dyspnea, Reports dyspnea on exertion, Denies snoring and Denies wheezing GI Denies abdominal pain and Denies heartburn Musc Denies myalgias, Denies arthralgias and Denies joint swelling Skin/Breast Denies rash Neuro Denies memory loss and Denies seizure-like activity Psych Denies abnormal sleep pattern, Denies anxiety and Denies memory loss Endo Denies excessive sweating, Denies fatigue and Denies heat intolerance Dion/Lymph Denies easy bruising Aller/Immun Denies itchy eyes, Denies seasonal rhinorrhea and Denies wheezing Physical Exam Vital Signs: Last Vital Signs Pulse 114 H 11/17/22 09:54 BP 142/70 H 11/17/22 09:54 Pulse Ox 87 L 11/17/22 09:54 Oxygen Delivery Method Room Air 11/17/22 09:54 BMI result Body Mass Index 52.9 Const General: no acute distress and alert Nutritional Appearance: obese Orientation/consciousness: Other orientation findings ( oriented) HEENT Head: Yes atraumatic Eyes General: appearance normal, both eyes and all related structures Sclerae: sclerae normal EOM: EOMs intact bilaterally Neck Neck: Yes supple Lymphatic: no lymphadenopathy noted Resp Effort & Inspection: normal respiratory effort and no use of accessory muscles Auscultation: clear to auscultation bilaterally Cardio Rate: regular rate Rhythm: regular rhythm Heart sounds: no gallops, no murmurs and no rubs Skin General skin exam: other ( warm) Extrem General: No clubbing, No cyanosis and Yes edema (1+ bilateral) Assessment & Plan Assessment & Plan (1) Obstructive sleep apnea: Code(s): G47.33 - Obstructive sleep apnea (adult) (pediatric) Plan: Underlying obstructive sleep apnea with remote sleep study and broken machine. Uncontrolled. Snoring, unrestful sleep. [place] Sleepiness Scale score of 15. Will obtain home sleep study. (2) PRETTY (dyspnea on exertion): Code(s): R06.09 - Other forms of dyspnea Plan: Likely multifactorial with contribution from pulmonary and cardiac etiologies. Will obtain full PFT for further evaluation. Will restart on Advair and albuterol MDI. Will start on Lasix for orthopnea/lower extremity edema/paroxysmal nocturnal dyspnea symptoms. Orders: Orders PFT pulmonary function test Today R06.09 - Other forms of dyspnea RT home sleep study Today G47.33 - Obstructive sleep apnea (adult) (pediatric) Medications: New albuterol sulfate 90 mcg/actuation 2 puffs inhalation 6XD 30 days PRN 1 ea 6RF shortness of breath or wheezing R06.09 - Other forms of dyspnea furosemide 40 mg PO DAILY 30 days 30 tabs 3RF R06.09 - Other forms of dyspnea Changed From fluticasone propion-salmeterol 250-50 mcg/dose (Advair Diskus) 1 puff PO BID R06.09 - Other forms of dyspnea To fluticasone propion-salmeterol 250-50 mcg/dose (Advair Diskus) 1 ea PO BID 30 days 60 ea 6RF R06.09 - Other forms of dyspnea Coding Level of Care Code Est Pt Level 4 (50540) Diagnoses Obstructive sleep apnea G47.33 PRETTY (dyspnea on exertion) R06.09
== END 2022-11-17 10:23 | disposition home or self-care (01) ==
PROVIDERS: PCP Family Medicine; Visit Provider Internal Medicine Pulmonary Disease
DX: G47.33 Obstructive sleep apnea (adult) (pediatric) (principal); R06.09 Other forms of dyspnea
CPT/HCPCS: 99214

== ENCOUNTER → 2022-11-17 09:51 | Outpatient (BNVA) | payer OTHER, SELFPAY | PROVIDERS: PCP Family Medicine; Visit Provider Internal Medicine Pulmonary Disease | DX: G47.33 Obstructive sleep apnea (adult) (pediatric) (principal); R06.09 Other forms of dyspnea | CPT/HCPCS: 99212 ==

== ENCOUNTER 2022-12-27 10:45 | Inpatient (IN) | payer OTHER, SELFPAY ==
[2022-12-27] VITALS (9 sets, daily range): BP systolic 107–156; BP diastolic 51–83; PULSE 74–122; RESP 18–24; TEMP 36.1–39.2; O2SAT 90–97; BMI 42.9
--- NOTE | ~2022-12-27 | CT_ITS ---
EXAMINATION: CT CHEST WITHOUT CONTRAST CLINICAL INFORMATION: Hypoxia fever COMPARISON: Radiographs the same day TECHNIQUE: Multidetector volumetric CT imaging of the chest was done. Axial MIP volume rendering provided. Sagittal and coronal reformatted images were obtained. This CT examination was performed using dose optimization techniques as appropriate, variously including the following: *Automated exposure control *Adjustment of mA and/or kV according to patient size (this includes techniques or standardized protocols for targeted exams where dose is matched to indication/reason for exam; i.e. extremities or head) *Use of iterative reconstruction technique DLP: 516 mGy-cm FINDINGS: QUILLER MACHINE FIXER: Stable LUNGS: There are asymmetric left greater than right predominantly groundglass opacities within the lung parenchyma. No discrete nodule or mass. No endobronchial abnormality or secretions. No pleural disease. MEDIASTINUM: The mediastinum is normal. CORONARY ARTERY CALCIFICATION: None visualized on this study. PLEURA: There is no pleural effusion. No pleural mass or thickening. AXILLA: No lymphadenopathy. UPPER ABDOMEN: Large left renal cortical cyst partially imaged. OSSEOUS STRUCTURES: Unremarkable. CT/CT chest wo IV con IMPRESSION: 1. Asymmetric groundglass opacities as above. This is nonspecific but can be seen with atypical infection including viral infection. No discrete nodule or mass. No pleural effusion. 2. No evidence for any coronary artery disease on this study. Incidental large left renal cortical cyst partially imaged. Fleischner guidelines were followed.
--- NOTE | ~2022-12-27 | XR_ITS ---
EXAMINATION: XR CHEST CLINICAL INFORMATION: Reason for Exam fever. Cough COMPARISON: Chest radiograph 06/12/2022 TECHNIQUE: One view of the chest FINDINGS: Lines and tubes: EKG leads overlie the patient. Clear lungs. No pleural effusion. No pneumothorax. Unchanged cardiomediastinal silhouette. XR/XR chest 1V IMPRESSION: * Clear lungs.
--- NOTE | 2022-12-27 11:05 | ECG_ITS ---
Test Reason : SOB Blood Pressure : / mmHG Vent. Rate : 115 BPM Atrial Rate : 115 BPM P-R Int : 154 ms QRS Dur : 104 ms QT Int : 344 ms P-R-T Axes : 041 -60 034 degrees QTc Int : 475 ms Sinus tachycardia Left axis deviation Pulmonary disease pattern Incomplete right bundle branch block Abnormal ECG When compared with ECG of 12-JUN-2022 14:51, Vent. rate has increased BY 38 BPM Referred By: Stephany Avila Electronically Signed By:MATT CAMPOS
--- NOTE | 2022-12-27 11:09 | ED_ITS ---
HPI - URI/Sore Throat General Chief Complaint: Upper Respiratory Symptoms Stated Complaint: headaches, chills, body aches Time Seen by Provider: 12/27/22 10:52 Source: patient Mode of arrival: ambulatory Limitations: no limitations History of Present Illness HPI Narrative: patient comes emergency room accompanied by her son. Patient reports having fever, chills, cough, intermittent asthma exacerbation. Patient states she returned from a cruise yesterday. Patient denies nausea vomiting diarrhea. No chest pain. Related Data Home Medications Medication Instructions Recorded Confirmed levothyroxine 75 mcg tablet 75 mcg PO QAM 02/02/20 09/02/22 albuterol sulfate 2.5 mg/3 mL 2.5 mg inhalation Q4-6H PRN 08/02/20 09/02/22 (0.083 %) solution for nebulization Wheezing albuterol sulfate 90 mcg/actuation 90 mcg inhalation Q4H PRN Wheezing 08/02/20 09/02/22 aerosol inhaler calcium citrate 315 mg-vitamin D3 1 tab PO DAILY 06/02/21 09/02/22 5 mcg (200 unit) tablet cholecalciferol (vitamin D3) 50 50 mcg PO DAILY 06/02/21 09/02/22 mcg (2,000 unit) tablet clonazepam 0.5 mg tablet 0.5 mg PO DAILY PRN Anxiety 12/19/21 09/02/22 lisinopril 5 mg tablet 5 mg PO QAM 12/19/21 09/02/22 loratadine 10 mg tablet 10 mg PO DAILY 12/19/21 09/02/22 metoprolol tartrate 25 mg tablet 25 mg PO DAILY 12/19/21 09/02/22 omeprazole 40 mg capsule,delayed 40 mg PO DAILY 12/19/21 09/02/22 release pravastatin 40 mg tablet 40 mg PO BEDTIME 12/19/21 09/02/22 pyridoxine (vitamin B6) 50 mg 50 mg PO DAILY 12/19/21 09/02/22 tablet trazodone 50 mg tablet 50 mg PO BEDTIME 12/19/21 09/02/22 venlafaxine 75 mg capsule,extended 75 mg PO QAM 12/19/21 09/02/22 release 24 hr mirtazapine 30 mg tablet 30 mg PO BEDTIME 03/02/22 09/02/22 Previous Rx's Medication Instructions Recorded linaclotide 72 mcg capsule 72 mcg PO QAM 30 days #30 caps 04/18/20 (Linzess) plecanatide 3 mg tablet (Trulance) 3 mg PO DAILY #30 tabs 05/07/20 famotidine 40 mg tablet 40 mg PO BEDTIME #90 tabs 08/13/20 peppermint oil 90 mg 90 mg PO BID #90 ea 10/01/20 capsule,delayed,extended release (IBgard) sucralfate 100 mg/mL oral 10 ml PO TID #2,700 mL 10/25/20 suspension lansoprazole 30 mg capsule,delayed 30 mg PO BID #180 caps 11/06/20 release capsaicin-menthol 0.025 %-1.25 % 1 patch topical BID PRN pain 30 05/21/22 topical patch (Salonpas days #60 ea (capsaicin-menthol)) gabapentin 300 mg capsule 300 mg PO BEDTIME pain 30 days #30 05/21/22 caps guaifenesin 400 mg tablet 400 mg PO Q4H PRN cough #14 tabs 06/12/22 mirabegron 50 mg tablet,extended 50 mg PO DAILY 90 days #90 tabs 06/12/22 release 24 hr (Myrbetriq) ciprofloxacin HCl 500 mg tablet 500 mg PO BID #10 tabs 09/01/22 (Cipro) hydrocodone 5 mg-acetaminophen 325 1 tab PO Q8H PRN pain #6 tabs 09/01/22 mg tablet ciprofloxacin HCl 500 mg tablet 500 mg PO BID #10 tabs 09/15/22 (Cipro) oxycodone-acetaminophen 5 mg-325 1 tab PO Q8H PRN pain #6 tabs 09/15/22 mg tablet (Percocet) albuterol sulfate 90 mcg/actuation 2 puff inhalation 6XD PRN 11/17/22 aerosol inhaler shortness of breath or wheezing 30 days #1 ea fluticasone 250 mcg-salmeterol 50 1 ea PO BID 30 days #60 ea 11/17/22 mcg/dose blistr powdr for inhalation (Advair Diskus) furosemide 40 mg tablet 40 mg PO DAILY 30 days #30 tabs 11/17/22 Allergies Allergy/AdvReac Type Severity Reaction Status Date / Time atorvastatin [From Lipitor] Allergy Mild HIVES Verified 11/17/22 09:59 Review of Systems 2 Review of Systems: Constitutional : No Weight loss, Patient complaining of fever and chills No Night Sweats, No Fatigue, No Malaise ENT/Mouth : No Hearing loss, No Ear Pain, No Nasal Congestion, No Sinus Pain, No Hoarseness, No sore throat, No Rhinorrhea, No Swallowing Difficulty Eyes: No Eye Pain, No Swelling, No Redness, No Foreign Body, No Discharge, No Vision Changes Cardiovascular : No Chest Pain, No SOB, No Dyspnea on Exertion, No Orthopnea, No Edema, No Palpitations Respiratory : patient complaining of cough with sputum production, intermittent Wheezing, No Smoke Exposure, No Dyspnea Gastrointestinal : No Nausea, No Vomiting, No Diarrhea, No Constipation, No abdominal Pain, No Hematochezia, No Melena Genitourinary : no irregular bleeding, No Dysuria, No Urinary Frequency, No Hematuria, No Urinary Incontinence, No Urgency, No Flank Pain, No Urinary Flow Changes, No Hesitancy Musculoskeletal : No joint pain, No Myalgias, No Joint Swelling Skin : No Skin Lesions, No rash Neuro : No Weakness, No Numbness, No Paresthesias, No Loss of Consciousness, No Dizziness, No Headache Psych : No Anxiety/Panic, No Depression, No SI/HI/AH/VH, No Social Issues, Heme/Lymph: No Bruising, No Bleeding,No Lymphadenopathy Endocrine : No Polyuria, No Polydipsia, No Temperature Intolerance [facility] Past Medical History Medical History Depression Arthritis On beta ervin at home CVA (cerebral vascular accident) History of COVID-19 HTN (hypertension) Hypothyroid Other and unspecified hyperlipidemia Essential hypertension History of gastroscopy GERD (gastroesophageal reflux disease) Chronic headaches Cervicalgia Thyroid nodule Fecal incontinence Benign neoplasm of colon Morbid obesity due to excess calories Hiatal hernia Carlson esophagus Pulmonary nodule, right Obstructive sleep apnea Asthma Dyslipidemia Surgical History S/P placement of nerve stimulator H/O colonoscopy History of esophagogastroduodenoscopy (EGD) History of carpal tunnel release History of dacryocystorhinostomy S/p bilateral blepharoplasty History of bilateral tubal ligation H/O tooth extraction History of herniorrhaphy History of cholecystectomy History of total abdominal hysterectomy and bilateral salpingo-oophorectomy History of bilateral knee replacement History of laparoscopic appendectomy History of sleeve gastrectomy Family History Family History Father No problems noted. Mother No problems noted. Social History Social History Household Members: Family Household Members Other:: grandson Housing: Apartment Do you presently have visiting nurse or other home services: Yes (aracely) Alcohol intake: current Alcohol intake frequency: does not drink Patient Tobacco Use Status: Never used Tobacco Advance Directives: Yes Advance Directives on File: Yes Advance Directives Date on File: 02/10/20 Current occupational status: disabled Physical Exam 2 Vital Signs: Vital Signs: Last Vital Signs Temp 99.3 F 12/27/22 15:00 Pulse 100 12/27/22 15:00 Resp 18 12/27/22 15:00 BP 156/82 H 12/27/22 12:36 Pulse Ox 90 L 12/27/22 15:00 O2 Del Method Room Air 12/27/22 12:36 BMI result Body Mass Index 42.9 Const: Other: Appearance: Alert. Oriented X3. No acute distress. Eyes: Pupils equal, round and reactive to light. ENT: Pharynx normal. Neck: Normal inspection. Neck supple. No lymph nodes noted. No crepitus CVS: Normal heart rate and rhythm. Pulses normal. Normal S1 and S2 Respiratory: No respiratory distress. bilateral rales, no crackles. No Wheezing. No rales Abdomen: Soft and nontender. No rigidity. No distention. Skin: Skin warm and dry. Normal skin color. Normal skin turgor. Extremities: No lower extremity edema. No Lacerations. No Rash Neuro: Oriented X 3. No motor deficit. No sensory deficit. Moving all extremities. No slurred speech. CN 2 through 12 grossly intact Psych: calm, cooperative, normal affect Course Course Course Narrative: - patient complaining of cough, fever. Patient on arrival had a fever of 102.6, heart rate 122. All of patient's labs and imaging pending. on physical exam, patient has very dry oral mucosa. Patient dehydrated, Patient receiving empirically IV fluids based on ideal weight of 50 kg, also, receiving IV antibiotics, ceftriaxone and azithromycin. All of patient's labs and imaging are pending Medications Administered Discontinued Medications Generic Name Dose Route Start Last Admin Trade Name Wali PRN Reason Stop Dose Admin Acetaminophen 975 mg 12/27/22 11:03 12/27/22 11:13 Acetaminophen 325 Mg Tablet PO 12/27/22 11:04 975 mg ONCE ONE Administration Sodium Chloride 2,000 mls @ 999 mls/hr 12/27/22 11:03 12/27/22 11:13 Ns IVCONT 12/27/22 13:03 999 mls/hr .Q2H1M ONE Administration Ceftriaxone Sodium 1 gm/ 50 mls @ 100 mls/hr 12/27/22 11:03 12/27/22 12:14 Sodium Chloride IV 12/27/22 11:32 Infused ONCE ONE Infusion Azithromycin 500 mg/ Sodium 250 mls @ 125 mls/hr 12/27/22 11:03 12/27/22 12:11 Chloride IV 12/27/22 13:02 125 mls/hr ONCE ONE Administration Medical Decision Making Medical Decision Making [facility] Narrative: - my interpretation of labs, white blood cell count elevated, lactic acid elevated. Serology negative for influenza RSV and pneumonia. - My interpretation of x-ray of the chest: Left lower lobe pneumonia - as mentioned above, patient already received IV fluids and antibiotics IV - radiology report of x-ray, within normal limits. However, I still believe patient does have pneumonia. We will order a CT scan. When patient ambulates, her oxygen dropped to 84%. - I discussed the patient with Dr. Bhagat, patient being admitted, patient also agrees with plan. Differential Diagnosis Differential Diagnoses: The differential diagnosis associated with the presentation includes ( influenza, RSV, COVID, pneumonia) Admission/Observation Consideration of admission/observation: Escalation of care including admission/observation considered Consult Healthcare Provider Management of the patient was discussed with: Hospitalist Lab Data [facility] Lab Attestation statement: I reviewed the patient's lab results. 12/27/22 11:10 12/27/22 11:10 Labs: Lab Results 12/27/22 12/27/22 12/27/22 Range/Units 11:10 11:52 13:44 WBC 15.8 H (4.8-10.8) X10*3/uL RBC 4.62 (4.20-5.50) X10*6/uL Hgb 12.5 (12.0-16.0) g/dl Hct 39.6 (37.0-47.0) % MCV 85.7 (80.0-98.0) fL MCH 27.1 (27.0-33.0) pg MCHC 31.6 (31.0-35.0) g/dl RDW 16.5 H (11.0-16.0) % Plt Count 203 (160-400) X10*3/uL MPV 11.7 (9.4-12.3) fL Immature Gran % (Auto) 0.4 (0.0-0.4) % Neut % (Auto) 90.3 H (45-73) % Lymph % (Auto) 4.7 L (20-40) % [place] % (Auto) 4.1 (2-11) % Eos % (Auto) 0.3 (0-4) % Baso % (Auto) 0.2 (0-2) % Lymph # (Auto) 0.8 L (1.2-4.9) X10*3/uL [place] # (Auto) 0.7 (0.1-1.2) X10*3/uL Eos # (Auto) 0.0 (0.0-0.4) X10*3/uL Baso # (Auto) 0.0 (0.0-0.2) X10*3/uL Abs Immat Gran (auto) 0.06 H (0.00-0.03) X10*3/uL Absolute Neuts (auto) 14.3 H (2.0-8.3) x10*3/uL Absolute Nucleated RBC 0.000 (0.0-0.012) X10*3/uL Nucleated RBC % (auto) 0.0 (0.0-0.2) /100WBC Smear Tech's Comments VERIFIED Sodium 138 (135-145) mmol/L Potassium 4.5 (3.3-5.1) mmol/L Chloride 101 (96-108) mmol/L Carbon Dioxide 25 (22-29) mmol/L Anion Gap 17 (12-20) BUN 14 (9-16) mg/dL Creatinine 0.78 (0.5-1.4) mg/dL Estim Creat Clear Calc 78.0 Estimated GFR > 60 Random Glucose 173 H (60-115) mg/dL Lactic Acid 2.7 H* (0.5-2.0) mmol/L Lactic Acid F/U @ 2Hr (0.5-2.0) mmol/L Calcium 9.8 (8.4-10.2) mg/dL Total Bilirubin 0.5 (0.0-1.0) mg/dL Direct Bilirubin 0.2 (0.0-0.5) mg/dL AST 37 H (5-31) U/L ALT 35 H (0-31) U/L Alkaline Phosphatase 82 (39-117) U/L Troponin I High Sens 4.8 (<3.5-17.0) ng/L Total Protein 7.7 (6.5-8.0) g/dL Albumin 4.1 (3.5-5.0) g/dL Urine Color Yellow Urine Appearance Clear Urine pH 8.0 (5.0-9.0) Ur Specific [employer] 1.015 (1.005-1.025) Urine Protein 30 (1+) H (Neg-Trace) mg/dL Urine Glucose (UA) Negative (Negative) mg/dL Urine Ketones Negative (Negative) mg/dL Urine Blood Negative (Negative) Urine Nitrite Negative (Negative) Ur Leukocyte Esterase Negative (Negative) Urine RBC 3-5 H (0-2) /HPF Urine WBC 0-5 (0-5) /HPF Ur Squamous Epith Cells 0-2 (0-2) /HPF Urine Bacteria None Seen (None Seen) Hyaline Casts 0-2 (0-2) /LPF Influenza Type A (PCR) NEGATIVE (Negative) Influenza Type B (PCR) NEGATIVE (Negative) RSV RNA Qual (PCR) NEGATIVE (Negative) SARS-CoV-2 RNA (RT-PCR) NEGATIVE (Negative) 12/27/22 Range/Units 13:49 WBC (4.8-10.8) X10*3/uL RBC (4.20-5.50) X10*6/uL Hgb (12.0-16.0) g/dl Hct (37.0-47.0) % MCV (80.0-98.0) fL MCH (27.0-33.0) pg MCHC (31.0-35.0) g/dl RDW (11.0-16.0) % Plt Count (160-400) X10*3/uL MPV (9.4-12.3) fL Immature Gran % (Auto) (0.0-0.4) % Neut % (Auto) (45-73) % Lymph % (Auto) (20-40) % [place] % (Auto) (2-11) % Eos % (Auto) (0-4) % Baso % (Auto) (0-2) % Lymph # (Auto) (1.2-4.9) X10*3/uL [place] # (Auto) (0.1-1.2) X10*3/uL Eos # (Auto) (0.0-0.4) X10*3/uL Baso # (Auto) (0.0-0.2) X10*3/uL Abs Immat Gran (auto) (0.00-0.03) X10*3/uL Absolute Neuts (auto) (2.0-8.3) x10*3/uL Absolute Nucleated RBC (0.0-0.012) X10*3/uL Nucleated RBC % (auto) (0.0-0.2) /100WBC Smear Tech's Comments Sodium (135-145) mmol/L Potassium (3.3-5.1) mmol/L Chloride (96-108) mmol/L Carbon Dioxide (22-29) mmol/L Anion Gap (12-20) BUN (9-16) mg/dL Creatinine (0.5-1.4) mg/dL Estim Creat Clear Calc Estimated GFR Random Glucose (60-115) mg/dL Lactic Acid (0.5-2.0) mmol/L Lactic Acid F/U @ 2Hr 1.6 (0.5-2.0) mmol/L Calcium (8.4-10.2) mg/dL Total Bilirubin (0.0-1.0) mg/dL Direct Bilirubin (0.0-0.5) mg/dL AST (5-31) U/L ALT (0-31) U/L Alkaline Phosphatase (39-117) U/L Troponin I High Sens (<3.5-17.0) ng/L Total Protein (6.5-8.0) g/dL Albumin (3.5-5.0) g/dL Urine Color Urine Appearance Urine pH (5.0-9.0) Ur Specific [employer] (1.005-1.025) Urine Protein (Neg-Trace) mg/dL Urine Glucose (UA) (Negative) mg/dL Urine Ketones (Negative) mg/dL Urine Blood (Negative) Urine Nitrite (Negative) Ur Leukocyte Esterase (Negative) Urine RBC (0-2) /HPF Urine WBC (0-5) /HPF Ur Squamous Epith Cells (0-2) /HPF Urine Bacteria (None Seen) Hyaline Casts (0-2) /LPF Influenza Type A (PCR) (Negative) Influenza Type B (PCR) (Negative) RSV RNA Qual (PCR) (Negative) SARS-CoV-2 RNA (RT-PCR) (Negative) Independent Interpretation I performed an independent interpretation of an: Plain X-Ray and CT Scan Radiology Impression Discussion of test interpretation with radiology: I have reviewed the radiologist's reading. Radiologist Impression: FINDINGS: MOBILE DESIGNER: Stable LUNGS: There are asymmetric left greater than right predominantly groundglass opacities within the lung parenchyma. No discrete nodule or mass. No endobronchial abnormality or secretions. No pleural disease. MEDIASTINUM: The mediastinum is normal. CORONARY ARTERY CALCIFICATION: None visualized on this study. PLEURA: There is no pleural effusion. No pleural mass or thickening. AXILLA: No lymphadenopathy. UPPER ABDOMEN: Large left renal cortical cyst partially imaged. OSSEOUS STRUCTURES: Unremarkable. CT/CT chest wo IV con IMPRESSION: 1. Asymmetric groundglass opacities as above. This is nonspecific but can be seen with atypical infection including viral infection. No discrete nodule or mass. No pleural effusion. 2. No evidence for any coronary artery disease on this study. Incidental large left renal cortical cyst partially imaged. Independent Historian Clinical information obtained from an independent historian. History obtained from or confirmed by: Other ( son) Chronic Conditions Patient?s care impacted by: Other ( asthma) Critical Care Time Critical Care Time Critical Care Time: Yes Total Critical Care Time: 75 Attestation: I have personally provided critical care time. Time includes review of lab data, radiology results, discussion with consultants, and monitoring for potential decompensation. Intervention performed as documented. Discharge Plan Discharge Clinical Impression: Pneumonia Patient Disposition: Admitted As Inpatient Prescriptions: No Action Linzess 72 mcg capsule 72 mcg PO QAM 30 Days Qty: 30 1RF famotidine 40 mg tablet 40 mg PO BEDTIME Qty: 90 1RF sucralfate 100 mg/mL suspension 10 ml PO TID Qty: 2700 2RF lansoprazole 30 mg capsule,delayed release(DR/EC) 30 mg PO BID Qty: 180 1RF levothyroxine 75 mcg tablet 75 mcg PO QAM guaifenesin 400 mg tablet 400 mg PO Q4H PRN (Reason: cough) Qty: 14 0RF oxycodone-acetaminophen [Percocet] 5-325 mg tablet 1 tab PO Q8H PRN (Reason: pain) Qty: 6 0RF Rx Instructions: Partial Fill upon patient request. ciprofloxacin HCl [Cipro] 500 mg tablet 500 mg PO BID Qty: 10 0RF ciprofloxacin HCl [Cipro] 500 mg tablet 500 mg PO BID Qty: 10 0RF hydrocodone-acetaminophen 5-325 mg tablet 1 tab PO Q8H PRN (Reason: pain) Qty: 6 0RF Rx Instructions: Partial Fill upon patient request. Trulance 3 mg tablet 3 mg PO DAILY Qty: 30 3RF IBgard 90 mg capsule,delayed,extend.release 90 mg PO BID Qty: 90 1RF albuterol sulfate 2.5 mg /3 mL (0.083 %) solution for nebulization 2.5 mg inhalation Q4-6H PRN (Reason: Wheezing) albuterol sulfate 90 mcg/actuation HFA aerosol inhaler 90 mcg inhalation Q4H PRN (Reason: Wheezing) metoprolol tartrate 25 mg tablet 25 mg PO DAILY pyridoxine (vitamin B6) 50 mg tablet 50 mg PO DAILY omeprazole 40 mg capsule,delayed release(DR/EC) 40 mg PO DAILY clonazepam 0.5 mg tablet 0.5 mg PO DAILY PRN (Reason: Anxiety) trazodone 50 mg tablet 50 mg PO BEDTIME venlafaxine 75 mg capsule,extended release 24hr 75 mg PO QAM pravastatin 40 mg tablet 40 mg PO BEDTIME loratadine 10 mg tablet 10 mg PO DAILY lisinopril 5 mg tablet 5 mg PO QAM mirtazapine 30 mg tablet 30 mg PO BEDTIME Salonpas (capsaicin-menthol) 0.025-1.25 % adhesive patch,medicated 1 patch topical BID PRN (Reason: pain) 30 Days Qty: 60 0RF Rx Instructions: may leave on area for up to 8 hrs gabapentin 300 mg capsule 300 mg PO BEDTIME 30 Days Qty: 30 5RF cholecalciferol (vitamin D3) 50 mcg (2,000 unit) tablet 50 mcg PO DAILY calcium citrate-vitamin D3 315 mg-5 mcg (200 unit) tablet 1 tab PO DAILY Myrbetriq 50 mg tablet extended release 24 hr 50 mg PO DAILY 90 Days Qty: 90 1RF fluticasone propion-salmeterol [Advair Diskus] 250-50 mcg/dose blister with device 1 ea PO BID 30 Days Qty: 60 6RF albuterol sulfate 90 mcg/actuation HFA aerosol inhaler 2 puff inhalation 6XD PRN (Reason: shortness of breath or wheezing) 30 Days Qty: 1 6RF furosemide 40 mg tablet 40 mg PO DAILY 30 Days Qty: 30 3RF
[2022-12-27] MEDS: Acetaminophen 325 MG TABLET 975 MG PO (11:13)
[2022-12-27] MEDS: 0.9 % Sodium Chloride 2,000 ML 999 ML IVCONT (11:13)
[2022-12-27 11:17] LABS: Basophils Percent Auto 0.2 % (0-2); Eosinophils Percent Auto 0.3 % (0-4); Hematocrit 39.6 % (37.0-47.0); Hemoglobin 12.5 g/dl (12.0-16.0); Imm Gran Abs Auto 0.06 X10*3/uL (0.00-0.03); Imm Gran Pct Auto 0.4 % (0.0-0.4); Lymphocytes Absolute Auto 0.8 X10*3/uL (1.2-4.9); Lymphocytes Percent Auto 4.7 % (20-40); MANUAL DIFF FLAG SCAN; Mean Corpuscular HGB Conc 31.6 g/dl (31.0-35.0); Mean Corpuscular Hemoglobin 27.1 pg (27.0-33.0); Mean Corpuscular Volume 85.7 fL (80.0-98.0); Mean Platelet Volume 11.7 fL (9.4-12.3); Monocytes Absolute Auto 0.7 X10*3/uL (0.1-1.2); Monocytes Percent Auto 4.1 % (2-11); Neutrophils Absolute Auto 14.3 x10*3/uL (2.0-8.3); Neutrophils Percent Auto 90.3 % (45-73); Platelet Count 203 X10*3/uL (160-400); Red Blood Count 4.62 X10*6/uL (4.20-5.50); Red Cell Distribution Width 16.5 % (11.0-16.0); SCAN SMEAR FLAG 1; White Blood Count 15.8 X10*3/uL (4.8-10.8)
[2022-12-27 11:35] LABS: SLIDE REVIEW VERIFIED
[2022-12-27] MEDS: cefTRIAXone sodium 1 GM in 0.9 % Sodium Chloride 50 ML IV (11:40)
[2022-12-27 11:41] LABS: Troponin-I High Sensitivity 4.8 ng/L (<3.5-17.0)
[2022-12-27] MEDS: Azithromycin 500 MG in 0.9 % Sodium Chloride 250 ML 125 MG IV (12:11)
[2022-12-27 12:17] LABS: Alanine Aminotransferase 35 U/L (0-31); Albumin Level 4.1 g/dL (3.5-5.0); Alkaline Phosphatase 82 U/L (39-117); Anion Gap 17 (12-20); Aspartate Amino Transferase 37 U/L (5-31); Bilirubin Direct 0.2 mg/dL (0.0-0.5); Bilirubin Total 0.5 mg/dL (0.0-1.0); Blood Urea Nitrogen 14 mg/dL (9-16); Calcium 9.8 mg/dL (8.4-10.2); Carbon Dioxide 25 mmol/L (22-29); Chloride 101 mmol/L (96-108); Estimated Glomerular Filt Rate > 60; Glucose Random 173 mg/dL (60-115); Potassium 4.5 mmol/L (3.3-5.1); Sodium 138 mmol/L (135-145); Total Protein 7.7 g/dL (6.5-8.0)
[2022-12-27 12:19] LABS: Lactic Acid 2.7 mmol/L (0.5-2.0)
--- NOTE | 2022-12-27 12:28 | PC.NURSE ---
iv established, labs drawn and sent. antibiotics/fluids infusing at this time. son at bedside, call peters within reach.
[2022-12-27 12:34] LABS: Influenza A PCR NEGATIVE (Negative); Influenza B PCR NEGATIVE (Negative); Resp Syncy Virus RNA Qual PCR NEGATIVE (Negative); SARS COV2 PCR INHOUSE NEGATIVE (Negative)
[2022-12-27 13:14] LABS: Reflex Lactate? Lactic Acid Added
--- NOTE | 2022-12-27 13:43 | PC.NURSE ---
patient ambulated with steady gait to bathroom, desatted to 84% with ambulation.
[2022-12-27 14:04] LABS: ~Lactic Acid-LAB USE ONLY 1.6 mmol/L (0.5-2.0)
[2022-12-27 14:14] LABS: Appearance Urine Clear; Color Urine Yellow; Glucose Urine UA Negative (Negative); Leukocyte Esterase Urine Negative (Negative); Nitrite Urine Negative (Negative); Specific Gravity - Urine 1.015 (1.005-1.025); UMIC TRIGGER UACC YES; Urine Blood Negative (Negative); Urine Ketones Negative (Negative); Urine Protein 30 (1+) mg/dL (Neg-Trace)
[2022-12-27 14:20] LABS: Bacteria Urine None Seen (None Seen); Hyaline Casts Urine 0-2 /LPF (0-2); Squamous Epithelial Cell Urine 0-2 /HPF (0-2); WBC Urine 0-5 /HPF (0-5)
--- NOTE | 2022-12-27 17:06 | P.HPHOSP_ITS ---
History of Present Illness Date of Service: 12/27/22 Attending physician on admission: Saqib Harris Chief Complaint: Fever, chills, cough, SOB Pt is a Guyanese-speaking 72-year-old female with a PMH significant for?moderate persistent asthma, GERD, hypothyroidism, HTN, cervicalgia, osteoarthritis, asthma, CARTER not on, COPD, multifocal intracranial hemorrhage, and incontinent of urine and feces who presents to the ED with?fever, chills, fatigue, and cough for the past 3 days. 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 Patient states symptoms began with cough and increased shortness of breath. Patient then had fever and began ?trembling?. Cough has been productive of yellowish sputum. Patient also reports experiencing fatigue and wheezing. Denies nausea, vomiting, diarrhea. No sore throat. Denies chest pain/pressure, palpitations. Of note, patient returned yesterday from a week- long cruise. Patient also notes she has an appointment with pulmonology this coming Wednesday for testing to have CPAP machine replaced. Followed by Dr. Feng. In the ED patient was febrile to 102.6, tachycardic up to 122, slightly hypertensive to 156/82, and desatting to 84% with ambulation. Labs were significant for leukocytosis of 15.8, lactic acid 2.7, AST 37, ALT 35. Electrolytes WNL. Renal function baseline. Troponin 4.8. UA negative for UTI. Patient tested negative for RSV, COVID, influenza stably a and B. viral panel pending. CXR showed clear lungs, but chest CT showed asymmetric ground-glass opacities that are nonspecific but can be seen with atypical infection including a viral infection. Incidental finding showed large left renal cortical cyst partially imaged. EKG demonstrated sinus tachycardia [address] elevations or depressions. Pt was treated with IVF, acetaminophen, azithromycin, and ceftriaxone. Pt will be admitted to the hospital for acute hypoxic respiratory failure and severe sepsis in the setting of possible pneumonia. Review of Systems 2 Review of Systems: Fever, chills Increased shortness of breath, wheezing Productive cough Fatigue Denies sore throat No nausea, vomiting, diarrhea, abdominal pain Denies chest pain/pressure, palpitations PMFSH Medical History Depression Arthritis On beta ervin at home CVA (cerebral vascular accident) History of COVID-19 HTN (hypertension) Hypothyroid Other and unspecified hyperlipidemia Essential hypertension History of gastroscopy GERD (gastroesophageal reflux disease) Chronic headaches Cervicalgia Thyroid nodule Fecal incontinence Benign neoplasm of colon Morbid obesity due to excess calories Hiatal hernia Carlson esophagus Pulmonary nodule, right Obstructive sleep apnea Asthma Dyslipidemia Family History Father No problems noted. Mother No problems noted. Surgical History S/P placement of nerve stimulator H/O colonoscopy History of esophagogastroduodenoscopy (EGD) History of carpal tunnel release History of dacryocystorhinostomy S/p bilateral blepharoplasty History of bilateral tubal ligation H/O tooth extraction History of herniorrhaphy History of cholecystectomy History of total abdominal hysterectomy and bilateral salpingo-oophorectomy History of bilateral knee replacement History of laparoscopic appendectomy History of sleeve gastrectomy Social History Household Members: Family Household Members Other:: grandson Housing: Apartment Do you presently have visiting nurse or other home services: Yes (aracely) Alcohol intake: current Alcohol intake frequency: does not drink Patient Tobacco Use Status: Never used Tobacco Advance Directives: Yes Advance Directives on File: Yes Advance Directives Date on File: 02/10/20 Current occupational status: disabled Meds Allergies Allergy/AdvReac Type Severity Reaction Status Date / Time atorvastatin [From Lipitor] Allergy Mild HIVES Verified 11/17/22 09:59 Home Medications Medication Instructions Recorded Confirmed Last Taken Type levothyroxine 75 mcg tablet 75 mcg PO QAM 02/02/20 12/27/22 Unknown History albuterol sulfate 2.5 mg/3 mL 2.5 mg inhalation Q4-6H PRN 08/02/20 12/27/22 Unknown History (0.083 %) solution for nebulization Wheezing calcium citrate 315 mg-vitamin D3 1 tab PO BID 06/02/21 12/27/22 Unknown History 5 mcg (200 unit) tablet cholecalciferol (vitamin D3) 50 50 mcg PO DAILY 06/02/21 12/27/22 Unknown History mcg (2,000 unit) tablet clonazepam 0.5 mg tablet 0.5 mg PO DAILY Anxiety 12/19/21 12/27/22 Unknown History loratadine 10 mg tablet 10 mg PO DAILY 12/19/21 12/27/22 Unknown History metoprolol tartrate 25 mg tablet 25 mg PO BID 12/19/21 12/27/22 Unknown History omeprazole 40 mg capsule,delayed 40 mg PO BID 12/19/21 12/27/22 Unknown History release pravastatin 40 mg tablet 40 mg PO BEDTIME 12/19/21 12/27/22 Unknown History pyridoxine (vitamin B6) 50 mg 50 mg PO DAILY 12/19/21 12/27/22 Unknown History tablet trazodone 50 mg tablet 50 mg PO BEDTIME 12/19/21 12/27/22 Unknown History venlafaxine 75 mg capsule,extended 75 mg PO QAM 12/19/21 12/27/22 Unknown History release 24 hr mirtazapine 30 mg tablet 30 mg PO BEDTIME 03/02/22 12/27/22 Unknown History albuterol sulfate 90 mcg/actuation 2 puff inhalation Q4-6H PRN 12/27/22 12/27/22 Unknown History aerosol inhaler shortness of breath or wheezing loperamide 2 mg capsule 2 mg PO DAILY diarrhea 12/27/22 12/27/22 Unknown History Physical Exam 2 Vital Signs and Narrative: Vital Signs: Last Vital Signs Temp 99.3 F 12/27/22 15:00 Pulse 100 12/27/22 15:00 Resp 18 12/27/22 15:00 BP 156/82 H 12/27/22 12:36 Pulse Ox 90 L 12/27/22 15:00 O2 Del Method Room Air 12/27/22 12:36 BMI result Body Mass Index 42.9 Constitutional: Alert, in no acute distress. Mental Status: Oriented to person, place and time. Eyes: Pupils are equal, round, and reactive to light. Ear, Nose, and Throat: Oropharynx clear, mucous membranes moist. Ears and nose without deformities. Trachea midline. Respiratory: Diffuse, significant wheezing bilaterally. Cardiovascular: S1, S2 regular. No murmurs, rubs, or gallops. Gastrointestinal: Abdomen soft, non-tender, non-distended, obese. Normal bowel sounds. Neurologic: Cranial nerves II-XII are grossly intact bilaterally. No focal neurological deficits. Moves all extremities spontaneously. Skin: No rashes or lesions noted. Musculoskeletal: No cyanosis or clubbing. Extremities: No edema. Psychiatric: Normal mood and affect. Results Labs 12/27/22 11:10 12/27/22 11:10 Labs: Laboratory Results - last 24 hr 12/27/22 12/27/22 12/27/22 11:10 11:52 13:44 MCV 85.7 MCH 27.1 MCHC 31.6 RDW 16.5 H Plt Count 203 MPV 11.7 Immature Gran % (Auto) 0.4 Neut % (Auto) 90.3 H Lymph % (Auto) 4.7 L [place] % (Auto) 4.1 Eos % (Auto) 0.3 Baso % (Auto) 0.2 Lymph # (Auto) 0.8 L [place] # (Auto) 0.7 Eos # (Auto) 0.0 Baso # (Auto) 0.0 Abs Immat Gran (auto) 0.06 H Absolute Neuts (auto) 14.3 H Absolute Nucleated RBC 0.000 Nucleated RBC % (auto) 0.0 Smear Tech's Comments VERIFIED Anion Gap 17 Estim Creat Clear Calc 78.0 Estimated GFR > 60 Random Glucose 173 H Lactic Acid 2.7 H* Lactic Acid F/U @ 2Hr Calcium 9.8 Total Bilirubin 0.5 Direct Bilirubin 0.2 AST 37 H ALT 35 H Alkaline Phosphatase 82 Total Protein 7.7 Albumin 4.1 Urine Color Yellow Urine Appearance Clear Urine pH 8.0 Ur Specific [place] 1.015 Urine Protein 30 (1+) H Urine Glucose (UA) Negative Urine Ketones Negative Urine Blood Negative Urine Nitrite Negative Ur Leukocyte Esterase Negative Urine RBC 3-5 H Urine WBC 0-5 Ur Squamous Epith Cells 0-2 Urine Bacteria None Seen Hyaline Casts 0-2 Influenza Type A (PCR) NEGATIVE Influenza Type B (PCR) NEGATIVE RSV RNA Qual (PCR) NEGATIVE SARS-CoV-2 RNA (RT-PCR) NEGATIVE 12/27/22 13:49 MCV MCH MCHC RDW Plt Count MPV Immature Gran % (Auto) Neut % (Auto) Lymph % (Auto) [place] % (Auto) Eos % (Auto) Baso % (Auto) Lymph # (Auto) [place] # (Auto) Eos # (Auto) Baso # (Auto) Abs Immat Gran (auto) Absolute Neuts (auto) Absolute Nucleated RBC Nucleated RBC % (auto) Smear Tech's Comments Anion Gap Estim Creat Clear Calc Estimated GFR Random Glucose Lactic Acid Lactic Acid F/U @ 2Hr 1.6 Calcium Total Bilirubin Direct Bilirubin AST ALT Alkaline Phosphatase Total Protein Albumin Urine Color Urine Appearance Urine pH Ur Specific [place] Urine Protein Urine Glucose (UA) Urine Ketones Urine Blood Urine Nitrite Ur Leukocyte Esterase Urine RBC Urine WBC Ur Squamous Epith Cells Urine Bacteria Hyaline Casts Influenza Type A (PCR) Influenza Type B (PCR) RSV RNA Qual (PCR) SARS-CoV-2 RNA (RT-PCR) Imaging Radiologist's Impressions: Impressions Chest X-Ray 12/27/22 12:31 IMPRESSION: * Clear lungs. Chest CT 12/27/22 14:12 IMPRESSION: 1. Asymmetric groundglass opacities as above. This is nonspecific but can be seen with atypical infection including viral infection. No discrete nodule or mass. No pleural effusion. 2. No evidence for any coronary artery disease on this study. Incidental large left renal cortical cyst partially imaged. Fleischner guidelines were followed. 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 Pt will be admitted to the hospital for acute hypoxic respiratory failure and severe sepsis in the setting of possible pneumonia. Acute hypoxic respiratory failure in the setting of likely pneumonia Patient with productive cough, F/C, fatigue, increased SOB/PRETTY, CT w/ evidence of possible atypical infection Desatting to 84% on RA with ambulation, pt not on home O2 Ceftriaxone, azithromycin, started 12/27/2022 DuoNebs, Solu-Medrol, guaifenesin for cough Resuscitated with IVF Monitor respiratory status Severe sepsis in the setting of above Patient meets sepsis criteria: Likely pneumonia, WBC, tachycardia, tachypnea, lactic acid 2.7 Patient received IVF sepsis bolus in the ED, broad-spectrum antibiotics Treat as above Monitor on telemetry Moderate persistent asthma Patient likely in acute exacerbation in the setting of likely pneumonia Will treat with DuoNebs, IV steroids Continue home inhalers Lactic acidosis, resolved Lactic acid 2.7 at time of presentation, with repeat 1.6 Patient received IVF sepsis bolus in ED Incidental CT finding Large left renal cortical cyst partially imaged Pt is incontinent of urine and feces, followed by Urology PND/lower leg edema Continue furosemide HTN Continue metoprolol HLD Continue statin Hypothyroidism Continue levothyroxine Obesity class III Weight loss encouraged Full Code Attending:?Dr. Harris DVT Prophylaxis: Lovenox Pt will require a hospitalization of at least two nights for treatment of?acute hypoxic respiratory failure and severe sepsis in the setting of with likely pneumonia. Patient required IV antibiotics, IV steroids, and close monitoring. Time Spent With Patient Time: Total time managing care of this patient today ____ minutes. Quality Stroke Does the patient have a stroke diagnosis?: No VTE Prior VTE?: No VTE Risk Level:: Medical - moderate - high VTE Device Contraindication: Treatment Not Indicated VTE Drug Contraindication: N/A - Med Ordered
--- NOTE | 2022-12-27 17:30 | PHA.MEDREC ---
Pharmacy Consult ? Medication Reconciliation Pharmacy has completed the medication reconciliation. Spoke with patient through an space and missile operations spacelift to confirm medications. Patient reports taking gabapentin every day however per claim history and PDMP, last fill was in July for a 30 day supply.
[2022-12-27] MEDS: methylPREDNISolone Sod Succ 40 MG/ML VIAL IVPUSH (19:57)
[2022-12-27] MEDS: Enoxaparin Sodium 40 MG/0.4 ML SYRINGE SUBCUT (19:58)
[2022-12-27] MEDS: Albuterol/Iprat 2.5/0.5MG 3 ML AMPUL.NEB INHALE (20:01)
[2022-12-27] MEDS: traZODone HCL 50 MG TABLET PO (21:58)
[2022-12-27] MEDS: Metoprolol Tartrate 25 MG TABLET PO (21:58)
[2022-12-27] MEDS: Pravastatin Sodium 40 MG TABLET PO (22:56)
[2022-12-27] MEDS: Mirtazapine 30 MG TABLET PO (22:56)
[2022-12-27] MEDS: guaiFENesin DM 200/20/10 ML 10 ML SYRUP PO (23:03)
[2022-12-27] MEDS: 0.9 % Sodium Chloride Flush 3 ML SYRINGE IVFLUSH (23:03)
[2022-12-28] VITALS (10 sets, daily range): BP systolic 105–145; BP diastolic 58–75; PULSE 79–97; RESP 16–20; TEMP 35.5–36.7; O2SAT 91–100
[2022-12-28] MEDS: Acetaminophen 325 MG TABLET 650 MG PO (03:16)
[2022-12-28] MEDS: Omeprazole 40 MG CAPSULE.DR PO ×2 (06:16→18:05)
[2022-12-28] MEDS: Levothyroxine Sodium 75 MCG TABLET PO (06:16)
[2022-12-28] MEDS: methylPREDNISolone Sod Succ 40 MG/ML VIAL IVPUSH ×2 (06:16→18:05)
[2022-12-28 06:36] LABS: Hematocrit 36.9 % (37.0-47.0); Hemoglobin 11.3 g/dl (12.0-16.0); Mean Corpuscular HGB Conc 30.6 g/dl (31.0-35.0); Mean Corpuscular Hemoglobin 27.2 pg (27.0-33.0); Mean Corpuscular Volume 88.7 fL (80.0-98.0); Mean Platelet Volume 11.8 fL (9.4-12.3); Platelet Count 189 X10*3/uL (160-400); Red Blood Count 4.16 X10*6/uL (4.20-5.50); Red Cell Distribution Width 16.8 % (11.0-16.0); White Blood Count 13.1 X10*3/uL (4.8-10.8)
[2022-12-28] MEDS: Metoprolol Tartrate 25 MG TABLET PO ×2 (09:28→21:25)
[2022-12-28] MEDS: Mirabegron 50 MG TAB.ER.24H PO (09:28)
[2022-12-28] MEDS: Furosemide 40 MG TABLET PO (09:28)
[2022-12-28] MEDS: Venlafaxine HCl ER 75 MG CAP.ER.24H PO (09:28)
[2022-12-28] MEDS: clonazePAM 0.5 MG TABLET PO (09:28)
[2022-12-28] MEDS: 0.9 % Sodium Chloride Flush 3 ML SYRINGE IVFLUSH ×2 (09:29→21:25)
[2022-12-28] MEDS: Pyridoxine HCl (Vitamin B6) 50 MG TABLET PO (09:29)
[2022-12-28] MEDS: Loratadine 10 MG TABLET PO (09:29)
[2022-12-28] MEDS: Loperamide HCl 2 MG CAPSULE PO (09:29)
[2022-12-28] MEDS: Cholecalciferol (Vitamin D3) 25 MCG TABLET 50 MCG PO (09:29)
--- NOTE | 2022-12-28 09:33 | MHC.CM.PN ---
CM met with Patient at bedside with the assist of a [facility] Stringed Instrument Tuner and addressed IMM with Patient (original was given to Patient and a copy has been placed on the chart). Patient lives in an apartment with her Grandson and her Son stays with her at times. Patient receives [employer] hours/week and home/resume said services is the goal. CM has initiated and will follow for dc planning. Patient uses a walker to assist with mobility and her PCP is Dr. Ailyn Monge.
[2022-12-28 10:02] LABS: Adenovirus PCR Not Detected (Not Detect.); Bordetella parapertussis PCR Not Detected (Not Detect.); Bordetella pertussis PCR Not Detected (Not Detect.); Chlamydia pneumoniae PCR Not Detected (Not Detect.); Coronavirus 229E PCR Not Detected (Not Detect.); Coronavirus HKU1 PCR Not Detected (Not Detect.); Coronavirus NL63 PCR Not Detected (Not Detect.); Coronavirus OC43 PCR Not Detected (Not Detect.); Human metapneumovirus PCR Not Detected (Not Detect.); Influenza A PCR Not Detected (Not Detect.); Influenza B PCR Not Detected (Not Detect.); Mycoplasma pneumoniae PCR Not Detected (Not Detect.); Parainfluenza 1 PCR Not Detected (Not Detect.); Parainfluenza 2 PCR Not Detected (Not Detect.); Parainfluenza 3 PCR Not Detected (Not Detect.); Parainfluenza 4 PCR Not Detected (Not Detect.); RSV PCR Not Detected (Not Detect.); Rhino/Enterovirus PCR Not Detected (Not Detect.)
[2022-12-28 10:11] LABS: SARS-CoV-2 PCR Not Detected (Not Detect.)
--- NOTE | 2022-12-28 10:21 | HO.PM.IMPN ---
Subjective Subjective Date of Service: 12/28/22 Interval History: improving Physical Exam Vital Signs: Vital Signs: Last Vital Signs Temp 96 F L 12/28/22 06:53 Pulse 86 12/28/22 06:53 Resp 16 12/28/22 06:53 BP 105/58 L 12/28/22 06:53 Pulse Ox 93 12/28/22 06:53 O2 Del Method Room Air 12/28/22 06:53 BMI result Body Mass Index 42.9 AO times 3 lungs with crackles, bilateral wheezes Objective Data Active Medications Acetaminophen (Acetaminophen 325 Mg Tablet) 650 mg PO Q6H PRN PRN Reason: Pain, Mild (Pain Scale 1-3) Last Admin: 12/28/22 03:16 Dose: 650 mg Documented By: JOHN Albuterol Sulfate (Albuterol Sulfate (0.083%) 2.5 Mg/3 Ml Vial.Neb) 2.5 mg INHALE Q4H PRN PRN Reason: Wheezing Albuterol Sulfate (Albuterol Sulfate 90 Mcg 8 Gm Inhaler) 2 puff INHALE Q4H PRN PRN Reason: shortness of breath or wheezing Albuterol/Ipratropium (Albuterol/Iprat 2.5/0.5mg 3 Ml Ampul.Neb) 3 ml INHALE RQ4H WHILE AWAKE [facility] Last Admin: 12/28/22 07:59 Dose: Not Given Documented By: CARLOS Non-Admin Reason: Patient Refused Clonazepam (Clonazepam 0.5 Mg Tablet) 0.5 mg PO DAILY [facility] Last Admin: 12/28/22 09:28 Dose: 0.5 mg Documented By: RODGER Enoxaparin Sodium (Enoxaparin Sodium 40 Mg/0.4 Ml Syringe) 40 mg SUBCUT Q24H [facility] Last Admin: 12/27/22 19:58 Dose: 40 mg Documented By: ORESTES Furosemide (Furosemide 40 Mg Tablet) 40 mg PO DAILY [facility]; Protocol Last Admin: 12/28/22 09:28 Dose: 40 mg Documented By: RODGER Guaifenesin/Dextromethorphan (Guaifenesin Dm 200/20/10 Ml 10 Ml Syrup) 10 ml PO Q4H PRN PRN Reason: Cough Last Admin: 12/27/22 23:03 Dose: 10 ml Documented By: JOHN Azithromycin 500 mg/ Sodium (Chloride) 250 mls @ 125 mls/hr IV Q24H [facility] Ceftriaxone Sodium 1 gm/ (Sodium Chloride) 50 mls @ 100 mls/hr IV Q24H [facility] Levothyroxine Sodium (Levothyroxine Sodium 75 Mcg Tablet) 75 mcg PO DAILY@0600 [facility] Last Admin: 12/28/22 06:16 Dose: 75 mcg Documented By: JOHN Loperamide HCl (Loperamide Hcl 2 Mg Capsule) 2 mg PO DAILY [facility] Last Admin: 12/28/22 09:29 Dose: 2 mg Documented By: RODGER Loratadine (Loratadine 10 Mg Tablet) 10 mg PO DAILY [facility] Last Admin: 12/28/22 09:29 Dose: 10 mg Documented By: RODGER Methylprednisolone Sodium Succinate (Methylprednisolone Sod Succ 40 Mg/Ml Vial) 40 mg IVPUSH Q12H [facility] Last Admin: 12/28/22 06:16 Dose: 40 mg Documented By: JOHN Metoprolol Tartrate (Metoprolol Tartrate 25 Mg Tablet) 25 mg PO BID [facility]; Protocol Last Admin: 12/28/22 09:28 Dose: 25 mg Documented By: RODGER Mirabegron (Mirabegron 50 Mg Tab.Er.24h) 50 mg PO DAILY [facility] Last Admin: 12/28/22 09:28 Dose: 50 mg Documented By: RODGER Mirtazapine (Mirtazapine 30 Mg Tablet) 30 mg PO BEDTIME [facility] Last Admin: 12/27/22 22:56 Dose: 30 mg Documented By: JOHN Omeprazole (Omeprazole 40 Mg Capsule.Dr) 40 mg PO BID@0630,1630 [facility] Last Admin: 12/28/22 06:16 Dose: 40 mg Documented By: JOHN Ondansetron HCl (Ondansetron Hcl 4 Mg/2 Ml Vial) 4 mg IVPUSH Q8H PRN PRN Reason: Nausea and Vomiting Pravastatin Sodium (Pravastatin Sodium 40 Mg Tablet) 40 mg PO BEDTIME [facility] Last Admin: 12/27/22 22:56 Dose: 40 mg Documented By: JOHN Pyridoxine HCl (Pyridoxine Hcl (Vitamin B6) 50 Mg Tablet) 50 mg PO DAILY [facility] Last Admin: 12/28/22 09:29 Dose: 50 mg Documented By: RODGER Sodium Chloride (0.9 % Sodium Chloride Flush 3 Ml Syringe) 3 ml IVFLUSH QSHIFT [facility] Last Admin: 12/28/22 09:29 Dose: 3 ml Documented By: RODGER Trazodone HCl (Trazodone Hcl 50 Mg Tablet) 50 mg PO BEDTIME [facility] Last Admin: 12/27/22 21:58 Dose: 50 mg Documented By: ROM Venlafaxine HCl (Venlafaxine Hcl Er 75 Mg Cap.Er.24h) 75 mg PO DAILY [facility] Last Admin: 12/28/22 09:28 Dose: 75 mg Documented By: RODGER Vitamin D (Cholecalciferol (Vitamin D3) 25 Mcg Tablet) 50 mcg PO DAILY [facility] Last Admin: 12/28/22 09:29 Dose: 50 mcg Documented By: RODGER Labs 12/28/22 06:15 12/27/22 11:10 Labs: Laboratory Results - last 24 hr 12/27/22 12/27/22 12/27/22 11:10 11:52 13:44 MCV 85.7 MCH 27.1 MCHC 31.6 RDW 16.5 H Plt Count 203 MPV 11.7 Immature Gran % (Auto) 0.4 Neut % (Auto) 90.3 H Lymph % (Auto) 4.7 L [place] % (Auto) 4.1 Eos % (Auto) 0.3 Baso % (Auto) 0.2 Lymph # (Auto) 0.8 L [place] # (Auto) 0.7 Eos # (Auto) 0.0 Baso # (Auto) 0.0 Abs Immat Gran (auto) 0.06 H Absolute Neuts (auto) 14.3 H Absolute Nucleated RBC 0.000 Nucleated RBC % (auto) 0.0 Smear Tech's Comments VERIFIED Anion Gap 17 Estim Creat Clear Calc 78.0 Estimated GFR > 60 Random Glucose 173 H Lactic Acid 2.7 H* Lactic Acid F/U @ 2Hr Calcium 9.8 Total Bilirubin 0.5 Direct Bilirubin 0.2 AST 37 H ALT 35 H Alkaline Phosphatase 82 Total Protein 7.7 Albumin 4.1 Urine Color Yellow Urine Appearance Clear Urine pH 8.0 Ur Specific [place] 1.015 Urine Protein 30 (1+) H Urine Glucose (UA) Negative Urine Ketones Negative Urine Blood Negative Urine Nitrite Negative Ur Leukocyte Esterase Negative Urine RBC 3-5 H Urine WBC 0-5 Ur Squamous Epith Cells 0-2 Urine Bacteria None Seen Hyaline Casts 0-2 Respiratory Panel [place] Adenovirus (Rapid PCR) B.pert (TEM-PCR) B.parapertussis DNA PCR C. pneumoniae DNA (PCR) Coronavirus OC43 (PCR) Coronavirus HKU1 (PCR) Coronavirus 229E (PCR) Coronavirus NL63 (PCR) Human Metapneumovir PCR Influenza A (RT-PCR) Influenza Type A (PCR) NEGATIVE Influenza B (RT-PCR) Influenza Type B (PCR) NEGATIVE M. pneumoniae (PCR) Parainfluenza 1 (PCR) Parainfluenza 2 (PCR) Parainfluenza 3 (PCR) Parainfluenza 4 (PCR) RSV (PCR) RSV RNA Qual (PCR) NEGATIVE Entero/Rhino (PCR) SARS-CoV-2 RNA (RT-PCR) NEGATIVE 12/27/22 12/27/22 12/28/22 13:49 15:40 06:15 MCV 88.7 MCH 27.2 MCHC 30.6 L RDW 16.8 H Plt Count 189 MPV 11.8 Immature Gran % (Auto) Neut % (Auto) Lymph % (Auto) [place] % (Auto) Eos % (Auto) Baso % (Auto) Lymph # (Auto) [place] # (Auto) Eos # (Auto) Baso # (Auto) Abs Immat Gran (auto) Absolute Neuts (auto) Absolute Nucleated RBC 0.000 Nucleated RBC % (auto) 0.0 Smear Tech's Comments Anion Gap Estim Creat Clear Calc Estimated GFR Random Glucose Lactic Acid Lactic Acid F/U @ 2Hr 1.6 Calcium Total Bilirubin Direct Bilirubin AST ALT Alkaline Phosphatase Total Protein Albumin Urine Color Urine Appearance Urine pH Ur Specific [place] Urine Protein Urine Glucose (UA) Urine Ketones Urine Blood Urine Nitrite Ur Leukocyte Esterase Urine RBC Urine WBC Ur Squamous Epith Cells Urine Bacteria Hyaline Casts Respiratory Panel [place] See Note Adenovirus (Rapid PCR) Not Detected B.pert (TEM-PCR) Not Detected B.parapertussis DNA PCR Not Detected C. pneumoniae DNA (PCR) Not Detected Coronavirus OC43 (PCR) Not Detected Coronavirus HKU1 (PCR) Not Detected Coronavirus 229E (PCR) Not Detected Coronavirus NL63 (PCR) Not Detected Human Metapneumovir PCR Not Detected Influenza A (RT-PCR) Not Detected Influenza Type A (PCR) Influenza B (RT-PCR) Not Detected Influenza Type B (PCR) M. pneumoniae (PCR) Not Detected Parainfluenza 1 (PCR) Not Detected Parainfluenza 2 (PCR) Not Detected Parainfluenza 3 (PCR) Not Detected Parainfluenza 4 (PCR) Not Detected RSV (PCR) Not Detected RSV RNA Qual (PCR) Entero/Rhino (PCR) Not Detected SARS-CoV-2 RNA (RT-PCR) Not Detected Assessment and Plan (1) Pneumonia: Status: Acute Plan 72M PMH moderate persistent asthma, gerd, hypothyroid, htn, OA, CARTER, COPD, history of covid complicated by multifocal intracranial hemorrhage presented with sob severe sepsis and acute hypoxic respiratory failure secondary to pneumonia complicated by moderate persistent asthma with acute decompensation Ceftriaxone, azithromycin, steroids, bronchodilators Follow-up cultures Viral panel negative Now on room air Morbid obesity Weight loss recommended Hypothyroid Synthroid DVT prophylaxis with Lovenox Full code Reason for continued hospitalization:, continues to be short of breath, wheezing Time Spent With Patient Time: Total time managing care of this patient today ____ minutes. Quality Stroke Does the patient have a stroke diagnosis?: No VTE Prior VTE?: No VTE Risk Level:: Medical - moderate - high VTE Device Contraindication: Treatment Not Indicated VTE Drug Contraindication: N/A - Med Ordered
[2022-12-28] MEDS: cefTRIAXone sodium 1 GM in 0.9 % Sodium Chloride 50 ML IV (10:54)
[2022-12-28] MEDS: Lidocaine 4 % Patch ADH..PATCH 1 PATCH TRANSDERMA (10:54)
[2022-12-28] MEDS: Albuterol/Iprat 2.5/0.5MG 3 ML AMPUL.NEB INHALE ×3 (11:44→19:19)
[2022-12-28] MEDS: Azithromycin 500 MG in 0.9 % Sodium Chloride 250 ML 125 MG IV (12:51)
[2022-12-28] MEDS: Enoxaparin Sodium 40 MG/0.4 ML SYRINGE SUBCUT (18:05)
[2022-12-28] MEDS: Mirtazapine 30 MG TABLET PO (21:24)
[2022-12-28] MEDS: Pravastatin Sodium 40 MG TABLET PO (21:24)
[2022-12-28] MEDS: traZODone HCL 50 MG TABLET PO (21:25)
[2022-12-29 04:00] VITALS: BP 136/77; PULSE 75; RESP 18; TEMP 36.6; O2SAT 93
[2022-12-29] MEDS: Levothyroxine Sodium 75 MCG TABLET PO (06:01)
[2022-12-29] MEDS: Omeprazole 40 MG CAPSULE.DR PO (06:01)
[2022-12-29] MEDS: methylPREDNISolone Sod Succ 40 MG/ML VIAL IVPUSH (06:01)
[2022-12-29 07:13] LABS: Hemoglobin 10.9 g/dl (12.0-16.0); Mean Corpuscular HGB Conc 31.1 g/dl (31.0-35.0); Mean Corpuscular Hemoglobin 27.3 pg (27.0-33.0); Mean Corpuscular Volume 87.7 fL (80.0-98.0); Mean Platelet Volume 12.8 fL (9.4-12.3); Platelet Count 223 X10*3/uL (160-400); Red Blood Count 3.99 X10*6/uL (4.20-5.50); White Blood Count 19.1 X10*3/uL (4.8-10.8)
[2022-12-29 07:28] LABS: Anion Gap 13 (12-20); Blood Urea Nitrogen 22 mg/dL (9-16); Calcium 9.6 mg/dL (8.4-10.2); Carbon Dioxide 27 mmol/L (22-29); Chloride 106 mmol/L (96-108); Creatinine Clr Calc Pharmacy 74.2; Estimated Glomerular Filt Rate > 60; Glucose Fasting 131 mg/dL (60-99); Potassium 4.3 mmol/L (3.3-5.1); Sodium 142 mmol/L (135-145)
[2022-12-29] MEDS: Albuterol/Iprat 2.5/0.5MG 3 ML AMPUL.NEB INHALE (07:46)
[2022-12-29 07:47] VITALS: PULSE 73; RESP 18; O2SAT 93
[2022-12-29 07:48] VITALS: BP 117/73; PULSE 64; RESP 18; TEMP 36.1; O2SAT 93
[2022-12-29] MEDS: Lidocaine 4 % Patch ADH..PATCH 1 PATCH TRANSDERMA (09:02)
[2022-12-29] MEDS: 0.9 % Sodium Chloride Flush 3 ML SYRINGE IVFLUSH (09:02)
[2022-12-29] MEDS: Venlafaxine HCl ER 75 MG CAP.ER.24H PO (09:03)
[2022-12-29] MEDS: Cholecalciferol (Vitamin D3) 25 MCG TABLET 50 MCG PO (09:03)
[2022-12-29] MEDS: Mirabegron 50 MG TAB.ER.24H PO (09:03)
[2022-12-29] MEDS: Metoprolol Tartrate 25 MG TABLET PO (09:03)
[2022-12-29] MEDS: Pyridoxine HCl (Vitamin B6) 50 MG TABLET PO (09:03)
[2022-12-29] MEDS: Loperamide HCl 2 MG CAPSULE PO (09:03)
[2022-12-29] MEDS: Loratadine 10 MG TABLET PO (09:03)
[2022-12-29] MEDS: Furosemide 40 MG TABLET PO (09:03)
[2022-12-29] MEDS: clonazePAM 0.5 MG TABLET PO (09:03)
--- NOTE | 2022-12-29 09:16 | P.DS_ITS ---
DS: Providers Provider Date of Service: 12/29/22 Date of admission: 12/27/22 18:09 Primary care physician: Ailyn Monge MD DS: Diagnosis Discharge Diagnosis (1) Pneumonia: Status: Acute DS: Summary Hospital Course Hospital Course: from initial hpi: [place]ish-speaking 72-year-old female with a PMH significant for?moderate persistent asthma, GERD, hypothyroidism, HTN, cervicalgia, osteoarthritis, asthma, CARTER not on, COPD, multifocal intracranial hemorrhage, and incontinent of urine and feces who presents to the ED with?fever, chills, fatigue, and cough for the past 3 days. Patient is Luxem[place]ish-speaking only; surgical assistant services utilized. Patient states symptoms began with cough and increased shortness of breath. Patient then had fever and began ?trembling?. Cough has been productive of yellowish sputum. Patient also reports experiencing fatigue and w heezing. Denies nausea, vomiting, diarrhea. No sore throat. Denies chest pain/pressure, palpitations. Of note, patient returned yesterday from a week- long cruise. Patient also notes she has an appointment with pulmonology this coming Wednesday for testing to have CPAP machine replaced. Followed by Dr. Feng. In the ED patient was febrile to 102.6, tachycardic up to 122, slightly hypertensive to 156/82, and desatting to 84% with ambulation. Labs were significant for leukocytosis of 15.8, lactic acid 2.7, AST 37, ALT 35. Electrolytes WNL. Renal function baseline. Troponin 4.8. UA negative for UTI. Patient tested negative for RSV, COVID, influenza stably a and B. viral panel pending. CXR showed clear lungs, but chest CT showed asymmetric ground-glass opacities that are nonspecific but can be seen with atypical infection including a viral infection. Incidental finding showed large left renal cortical cyst partially imaged. EKG demonstrated sinus tachycardia [address] elevations or depressions. Pt was treated with IVF, acetaminophen, azithromycin, and ceftriaxone. Pt will be admitted to the hospital for acute hypoxic respiratory failure and severe sepsis in the setting of possible pneumonia. hospital course: Patient was admitted for severe sepsis and acute hypoxic respiratory failure secondary to pneumonia complicated by moderate persistent asthma with acute decompensation. Should she was ceftriaxone, azithromycin, IV steroids, bronchodilators. Her cultures were unremarkable. Respiratory viral panel was negative. She was eventually weaned to room air and symptoms significantly improved. She will be discharged home on 5 more days of prednisone, cefuroxime, azithromycin. For morbid obesity weight loss recommended, for hypothyroidism she was continued on Synthroid. Patient is feeling better will be discharged home. Time Spent with Patient Time attestation: Total time managing care of this patient today ____ minutes. Discharge coordination time: Greater than 30 minutes Quality: Safe Use of Opioids Does Pt have an Active Cancer Diagnosis on the Problem List?: No Quality: Stroke Does the patient have a stroke diagnosis?: No Physical Exam Vital Signs: Vital Signs: Last Vital Signs Temp 97.0 F 12/29/22 07:48 Pulse 64 12/29/22 07:48 Resp 18 12/29/22 07:48 BP 117/73 12/29/22 07:48 Pulse Ox 93 12/29/22 07:48 O2 Del Method Room Air 12/29/22 07:48 BMI result Body Mass Index 42.9 General: AO X 3, no acute distress Resp: CTA bilateral, no accessory muscles used CVS: S1,S2,RRR GI: soft, non tender, non distended Neuro: motor grossly intact, alert Psych: appropriate affect, appropriate insight DS: Data Data Completed and Pending Completed studies during hospitalization [Text1]: Procedures Assistance with Respiratory Ventilation, Less than 24 Consecutive Hours, Continuous Positive Airway Pressure (02/02/20) Insertion of Endotracheal Airway into Trachea, Via Natural or Artificial Opening Endoscopic (02/02/20) Insertion of Infusion Device into Superior Vena Cava, Percutaneous Approach (02/02/20) Introduction of Remdesivir Anti-infective into Peripheral Vein, Percutaneous Approach, [employer] 5 (02/02/20) Respiratory Ventilation, 24-96 Consecutive Hours (02/02/20) Transfusion of Convalescent Plasma (Nonautologous) into Peripheral Vein, Percutaneous Approach, [employer] 5 (02/02/20) Ultrasonography of Superior Vena Cava, Guidance (02/02/20) Labs on day of discharge: Laboratory Results - last 24 hr 12/27/22 12/29/22 15:40 06:21 WBC 19.1 H RBC 3.99 L Hgb 10.9 L Hct 35.0 L MCV 87.7 MCH 27.3 MCHC 31.1 RDW 17.0 H Plt Count 223 MPV 12.8 H Absolute Nucleated RBC 0.000 Nucleated RBC % (auto) 0.0 Sodium 142 Potassium 4.3 Chloride 106 Carbon Dioxide 27 Anion Gap 13 BUN 22 H Creatinine 0.82 Estim Creat Clear Calc 74.2 Estimated GFR > 60 Fasting Glucose 131 H Calcium 9.6 Respiratory Panel Leslie See Note Adenovirus (Rapid PCR) Not Detected B.pert (TEM-PCR) Not Detected B.parapertussis DNA PCR Not Detected C. pneumoniae DNA (PCR) Not Detected Coronavirus OC43 (PCR) Not Detected Coronavirus HKU1 (PCR) Not Detected Coronavirus 229E (PCR) Not Detected Coronavirus NL63 (PCR) Not Detected Human Metapneumovir PCR Not Detected Influenza A (RT-PCR) Not Detected Influenza B (RT-PCR) Not Detected M. pneumoniae (PCR) Not Detected Parainfluenza 1 (PCR) Not Detected Parainfluenza 2 (PCR) Not Detected Parainfluenza 3 (PCR) Not Detected Parainfluenza 4 (PCR) Not Detected RSV (PCR) Not Detected Entero/Rhino (PCR) Not Detected SARS-CoV-2 RNA (RT-PCR) Not Detected Preliminary micro results at discharge 12/27/22 11:37 Blood Culture - Preliminary Blood - Venous No growth after 24 hours. 12/27/22 11:10 Blood Culture - Preliminary Blood - Venous No growth after 24 hours. Discharge Plan Discharge Anticipated Discharge Date/Time: 12/29/22 09:10 Patient Disposition: Home, Self-Care Discharge Diagnosis: pna Referrals: Ailyn Monge MD [Primary Care Provider] - 1 Week Discharge Medications: New cefuroxime axetil 500 mg tablet 500 mg PO BID Qty: 10 0RF azithromycin 500 mg tablet 500 mg PO DAILY 5 Days Qty: 5 0RF prednisone 20 mg tablet 40 mg PO DAILY Qty: 10 0RF Continued levothyroxine 75 mcg tablet 75 mcg PO QAM loperamide 2 mg Capsule 2 mg PO DAILY Rx Instructions: administer after each loose stool until symptoms controlled; do not exceed 8 mg per 24 hrs albuterol sulfate 90 mcg/actuation HFA aerosol inhaler 2 puff inhalation Q4-6H PRN (Reason: shortness of breath or wheezing) IBgard 90 mg capsule,delayed,extend.release 90 mg PO BID Qty: 90 1RF albuterol sulfate 2.5 mg /3 mL (0.083 %) solution for nebulization 2.5 mg inhalation Q4-6H PRN (Reason: Wheezing) metoprolol tartrate 25 mg tablet 25 mg PO BID pyridoxine (vitamin B6) 50 mg tablet 50 mg PO DAILY omeprazole 40 mg capsule,delayed release(DR/EC) 40 mg PO BID clonazepam 0.5 mg tablet 0.5 mg PO DAILY trazodone 50 mg tablet 50 mg PO BEDTIME venlafaxine 75 mg capsule,extended release 24hr 75 mg PO QAM pravastatin 40 mg tablet 40 mg PO BEDTIME loratadine 10 mg tablet 10 mg PO DAILY mirtazapine 30 mg tablet 30 mg PO BEDTIME Salonpas (capsaicin-menthol) 0.025-1.25 % adhesive patch,medicated 1 patch topical BID PRN (Reason: pain) 30 Days Qty: 60 0RF Rx Instructions: may leave on area for up to 8 hrs cholecalciferol (vitamin D3) 50 mcg (2,000 unit) tablet 50 mcg PO DAILY calcium citrate-vitamin D3 315 mg-5 mcg (200 unit) tablet 1 tab PO BID Myrbetriq 50 mg tablet extended release 24 hr 50 mg PO DAILY 90 Days Qty: 90 1RF fluticasone propion-salmeterol [Advair Diskus] 250-50 mcg/dose blister with device 1 ea PO BID 30 Days Qty: 60 6RF furosemide 40 mg tablet 40 mg PO DAILY 30 Days Qty: 30 3RF Discharge Orders: Discharge Order (Routine); Ordered 12/29/22 Ordered By: Saqib Harris Diet: Advance to usual diet Activity on Discharge: As tolerated Stand Alone Forms: Patient Portal Discharge page Care Plan Goals: recovery Health Concerns: pna Plan of Treatment: alaina rogel azithro 5 more days Assessment: see above
--- NOTE | 2022-12-29 09:24 | MHC.CM.PN ---
Patient has been medically cleared for dc to home today, self care. Last IMM addressed yesterday.
[2022-12-29 11:50] VITALS: BP 164/77; PULSE 62; RESP 18; TEMP 36.2; O2SAT 95
[2023-01-02 05:24] LABS: Legionella Ag Urine Not Detected (Not Detected)
== END 2022-12-29 14:06 | disposition home or self-care (01) | DRG 871 ==
LOC: HO.ED 15:30 → HO.EDOVER 18:37 → HO.IMC 20:13
PROVIDERS: Admitting Provider Student in an Organized Health Care Education/Training Program; Emergency Provider Emergency Medicine; PCP Family Medicine; Visit Provider Internal Medicine
DX: A41.9 Sepsis, unspecified organism (principal); J18.9 Pneumonia, unspecified organism; J96.01 Acute respiratory failure with hypoxia; J45.41 Moderate persistent asthma with (acute) exacerbation; Z68.41 Body mass index [BMI] 40.0-44.9, adult; N28.1 Cyst of kidney, acquired; R65.20 Severe sepsis without septic shock; R32 Unspecified urinary incontinence; I10 Essential (primary) hypertension; E78.5 Hyperlipidemia, unspecified; E66.01 Morbid (severe) obesity due to excess calories; R15.9 Full incontinence of feces; G47.33 Obstructive sleep apnea (adult) (pediatric); Z71.3 Dietary counseling and surveillance; Z20.822 Contact with and (suspected) exposure to COVID-19; Z79.51 Long term (current) use of inhaled steroids; Z79.890 Hormone replacement therapy; Z79.899 Other long term (current) drug therapy
CPT/HCPCS: 0241U; 36415; 71045; 71250; 80048; 80076; 81001; 81003; 83605; 84484; 85025; 85027; 87040; 87449; 87633; 93005; 94640; 94660; 99285; J0456; J0696; J1650; J2920

== ENCOUNTER → 2022-12-27 18:09 | Outpatient (BNV) | payer OTHER, SELFPAY | PROVIDERS: Admitting Provider Student in an Organized Health Care Education/Training Program; Emergency Provider Emergency Medicine; PCP Family Medicine; Visit Provider Student in an Organized Health Care Education/Training Program | DX: J18.9 Pneumonia, unspecified organism (principal) | CPT/HCPCS: 99223; 99232; 99239 ==

== ENCOUNTER 2023-02-04 09:30 | Outpatient (REF) | payer OTHER, SELFPAY ==
--- NOTE | 2023-02-04 10:14 | PFT_ITS ---
Forced vital capacity 96%, FEV1 103%, FEV1/FVC ratio is 106. FEF 25-75 is 154% and MVV 42%. Post-bronchodilator therapy, no significant change. Total lung capacity 81%. Residual volume is 68%. Diffusion capacity 77%. CONCLUSION: These findings are normal and there is no evidence of obstructive or restrictive pulmonary disorder. There is marked decrease in MVV, which is probably effort-related or may be due to general deconditioning. Clinical correlation is recommended. Marta Badillo MD MSB/MODL / [phone]
== END 2023-02-04 09:31 | disposition home or self-care (01) ==
LOC: HO.RESP 09:30
PROVIDERS: PCP Family Medicine; Visit Provider Internal Medicine Pulmonary Disease
DX: G47.33 Obstructive sleep apnea (adult) (pediatric) (principal); R06.09 Other forms of dyspnea
CPT/HCPCS: 94010; 94727; 94729; 95806

== ENCOUNTER → 2023-02-04 10:23 | Outpatient (BNV) | payer OTHER, SELFPAY | PROVIDERS: PCP Family Medicine; Visit Provider Internal Medicine | DX: R06.83 Snoring (principal) | CPT/HCPCS: 94060; 94727; 94729; 95806 ==

== ENCOUNTER 2023-02-23 14:20 | Outpatient (AMB) | payer OTHER, SELFPAY ==
--- NOTE | 2023-02-23 14:21 | MHC.OFFVIS ---
Intake Vital Signs 02/23/23 14:22 Height 4 ft 9 in Weight 248 lb 0.321 oz BMI 53.7 BP 132/84 Blood Pressure Location Lt radial Position Sitting Pulse 66 Pulse Source Doppler Pulse Oximetry (%) 96 Oxygen Delivery Method Room Air Intake Visit Reasons: Obstructive sleep apnea Fermenting Cellars Receiver Required: Yes Fermenting Cell[employer] Receiver Name: Evie Burton Allergies atorvastatin [From Lipitor] Allergy (Mild, Verified 02/23/23 14:27) HIVES HPI Obstructive sleep apnea HPI Details 72-year-old lady, nonsmoker, with underlying history of gastroesophageal reflux disease, hiatal hernia, and chronic cough now followed for pulmonary component dyspnea on exertion and likely underlying CARTER. Patient has completed her home sleep study which was unrevealing. She does complain of worsening lower extremity edema and orthopnea. She has been using Advair and albuterol MDI/nebs with reasonable control of her underlying pulmonary symptoms. [facility] Medical History Depression Arthritis On beta ervin at home CVA (cerebral vascular accident) History of COVID-19 HTN (hypertension) Hypothyroid Other and unspecified hyperlipidemia Essential hypertension History of gastroscopy GERD (gastroesophageal reflux disease) Chronic headaches Cervicalgia Thyroid nodule Fecal incontinence Benign neoplasm of colon Morbid obesity due to excess calories Hiatal hernia Carlson esophagus Pulmonary nodule, right Obstructive sleep apnea Asthma Dyslipidemia Surgical History S/P placement of nerve stimulator H/O colonoscopy History of esophagogastroduodenoscopy (EGD) History of carpal tunnel release History of dacryocystorhinostomy S/p bilateral blepharoplasty History of bilateral tubal ligation H/O tooth extraction History of herniorrhaphy History of cholecystectomy History of total abdominal hysterectomy and bilateral salpingo-oophorectomy History of bilateral knee replacement History of laparoscopic appendectomy History of sleeve gastrectomy Family History Father No problems noted. Mother No problems noted. Social History Household Members: Family Household Members Other:: grandson Housing: Apartment Do you presently have visiting nurse or other home services: Yes Alcohol intake: current Alcohol intake frequency: does not drink Comment: intubated. sedated. restrained Patient Tobacco Use Status: Never used Tobacco Advance Directives Date on File: 02/10/20 service: No Current occupational status: disabled Review of Systems Const Denies daytime sleepiness, Denies excessive sweating, Denies fatigue, Denies fever(s), Denies lethargy, Denies malaise, Denies night sweats, Denies snoring and Denies weight loss Eyes Denies blurry vision and Denies itchy eyes ENT Denies nasal congestion, Denies post nasal drip, Denies sinus pain, Denies sinus pressure and Denies other ( Thrush) Card Denies chest pain, Reports pedal edema, Denies dyspnea, Reports dyspnea on exertion, Reports orthopnea and Denies paroxysmal nocturnal dyspnea Resp Denies cough, Denies hemoptysis, Denies excessive phlegm production, Denies dyspnea, Reports dyspnea on exertion, Denies snoring and Denies wheezing GI Denies abdominal pain and Denies heartburn Musc Denies myalgias, Denies arthralgias and Denies joint swelling Skin/Breast Denies rash Neuro Denies memory loss and Denies seizure-like activity Psych Denies abnormal sleep pattern, Denies anxiety and Denies memory loss Endo Denies excessive sweating, Denies fatigue and Denies heat intolerance Dion/Lymph Denies easy bruising Aller/Immun Denies itchy eyes, Denies seasonal rhinorrhea and Denies wheezing Physical Exam Vital Signs: Last Vital Signs Pulse 66 02/23/23 14:22 BP 132/84 02/23/23 14:22 Pulse Ox 96 02/23/23 14:22 Oxygen Delivery Method Room Air 02/23/23 14:22 BMI result Body Mass Index 53.7 Const General: no acute distress and alert Nutritional Appearance: obese Orientation/consciousness: Other orientation findings ( oriented) HEENT Head: Yes atraumatic Eyes General: appearance normal, both eyes and all related structures Sclerae: sclerae normal EOM: EOMs intact bilaterally Neck Neck: Yes supple Lymphatic: no lymphadenopathy noted Resp Effort & Inspection: normal respiratory effort and no use of accessory muscles Auscultation: crackles (Bilateral) Cardio Rate: regular rate Rhythm: regular rhythm Heart sounds: no gallops, no murmurs and no rubs Skin General skin exam: other ( warm) Extrem General: No clubbing, No cyanosis and Yes edema (2+ bilateral) Assessment & Plan Assessment & Plan (1) PRETTY (dyspnea on exertion): Code(s): R06.09 - Other forms of dyspnea Plan: Likely multifactorial with contribution lb pulmonary and cardiac etiologies. Now with worsening orthopnea lower extremity edema, will switch Lasix 40 to Bumex 1 mg daily. (2) Obstructive sleep apnea: Code(s): G47.33 - Obstructive sleep apnea (adult) (pediatric) Plan: Non revealing home sleep study, will order lab study. Orders: Orders RT PSG in-lab sleep study Today G47.33 - Obstructive sleep apnea (adult) (pediatric) Medications: New bumetanide 1 mg PO DAILY 30 tabs 6RF 30 days Discontinued furosemide Discontinued Reason: Doctor's Order 40 mg PO DAILY 90 tabs 1RF R06.09 - Other forms of dyspnea Coding Level of Care Code Est Pt Level 4 (31210) Diagnoses PRETTY (dyspnea on exertion) R06.09 Obstructive sleep apnea G47.33
[2023-02-23 14:22] VITALS: BP 132/84; PULSE 66; O2SAT 96; BMI 53.7
== END 2023-02-23 14:55 | disposition home or self-care (01) ==
PROVIDERS: PCP Family Medicine; Visit Provider Internal Medicine Pulmonary Disease
DX: R06.09 Other forms of dyspnea (principal); G47.33 Obstructive sleep apnea (adult) (pediatric)
CPT/HCPCS: 99214

== ENCOUNTER → 2023-02-23 14:20 | Outpatient (BNVA) | payer OTHER, SELFPAY | PROVIDERS: PCP Family Medicine; Visit Provider Internal Medicine Pulmonary Disease | DX: R06.09 Other forms of dyspnea (principal); G47.33 Obstructive sleep apnea (adult) (pediatric) | CPT/HCPCS: 99212 ==

== ENCOUNTER 2023-03-03 10:47 | Outpatient (AMB) | payer OTHER, SELFPAY ==
--- NOTE | 2023-03-03 10:53 | MHC.OFFVIS ---
Intake Vital Signs 03/03/23 10:54 Height 4 ft 9 in Weight 250 lb 3.594 oz BMI 54.1 BP 138/88 Blood Pressure Location Rt brachial Position Sitting Pulse 94 Pulse Source Doppler Pulse Oximetry (%) 93 Oxygen Delivery Method Room Air Intake Visit Reasons: Asthma 1wk f/u Supervisor [employer] Required: Yes Supervisor [employer] Name: Evie Burton Allergies atorvastatin [From Lipitor] Allergy (Mild, Verified 03/03/23 10:58) HIVES HPI Asthma 1wk f/u HPI Details 72-year-old lady, nonsmoker, with underlying history of gastroesophageal reflux disease, hiatal hernia, and chronic cough now followed for pulmonary component dyspnea on exertion and likely underlying CARTER. Patient has completed her home sleep study which was unrevealing. She has been using Advair and albuterol MDI/nebs with reasonable control of her underlying pulmonary symptoms. After the last office visit her diuretic has been changed to Bumex 1 mg daily with improvement in her orthopnea and lower extremity edema. [facility] Medical History Depression Arthritis On beta ervin at home CVA (cerebral vascular accident) History of COVID-19 HTN (hypertension) Hypothyroid Other and unspecified hyperlipidemia Essential hypertension History of gastroscopy GERD (gastroesophageal reflux disease) Chronic headaches Cervicalgia Thyroid nodule Fecal incontinence Benign neoplasm of colon Morbid obesity due to excess calories Hiatal hernia Carlson esophagus Pulmonary nodule, right Obstructive sleep apnea Asthma Dyslipidemia Surgical History S/P placement of nerve stimulator H/O colonoscopy History of esophagogastroduodenoscopy (EGD) History of carpal tunnel release History of dacryocystorhinostomy S/p bilateral blepharoplasty History of bilateral tubal ligation H/O tooth extraction History of herniorrhaphy History of cholecystectomy History of total abdominal hysterectomy and bilateral salpingo-oophorectomy History of bilateral knee replacement History of laparoscopic appendectomy History of sleeve gastrectomy Family History Father No problems noted. Mother No problems noted. Social History Household Members: Family Household Members Other:: grandson Housing: Apartment Do you presently have visiting nurse or other home services: Yes Alcohol intake: current Alcohol intake frequency: does not drink Comment: intubated. sedated. restrained Patient Tobacco Use Status: Never used Tobacco Advance Directives Date on File: 02/10/20 service: No Current occupational status: disabled Review of Systems Const Denies daytime sleepiness, Denies excessive sweating, Denies fatigue, Denies fever(s), Denies lethargy, Denies malaise, Denies night sweats, Denies snoring and Denies weight loss Eyes Denies blurry vision and Denies itchy eyes ENT Denies nasal congestion, Denies post nasal drip, Denies sinus pain, Denies sinus pressure and Denies other ( Thrush) Card Denies chest pain, Reports pedal edema (Improving), Denies dyspnea, Reports dyspnea on exertion (Improving), Denies orthopnea and Denies paroxysmal nocturnal dyspnea Resp Denies cough, Denies hemoptysis, Denies excessive phlegm production, Denies dyspnea, Reports dyspnea on exertion (Improving), Denies snoring and Denies wheezing GI Denies abdominal pain and Denies heartburn Musc Denies myalgias, Denies arthralgias and Denies joint swelling Skin/Breast Denies rash Neuro Denies memory loss and Denies seizure-like activity Psych Denies abnormal sleep pattern, Denies anxiety and Denies memory loss Endo Denies excessive sweating, Denies fatigue and Denies heat intolerance Dion/Lymph Denies easy bruising Aller/Immun Denies itchy eyes, Denies seasonal rhinorrhea and Denies wheezing Physical Exam Vital Signs: Last Vital Signs Pulse 94 03/03/23 10:54 BP 138/88 03/03/23 10:54 Pulse Ox 93 03/03/23 10:54 Oxygen Delivery Method Room Air 03/03/23 10:54 BMI result Body Mass Index 54.1 Const General: no acute distress and alert Nutritional Appearance: obese Orientation/consciousness: Other orientation findings ( oriented) HEENT Head: Yes atraumatic Eyes General: appearance normal, both eyes and all related structures Sclerae: sclerae normal EOM: EOMs intact bilaterally Neck Neck: Yes supple Lymphatic: no lymphadenopathy noted Resp Effort & Inspection: normal respiratory effort and no use of accessory muscles Auscultation: clear to auscultation bilaterally Cardio Rate: regular rate Rhythm: regular rhythm Heart sounds: no gallops, no murmurs and no rubs Skin General skin exam: other ( warm) Extrem General: No clubbing, No cyanosis and Yes edema (1+ bilateral) Assessment & Plan Assessment & Plan (1) PRETTY (dyspnea on exertion): Code(s): R06.09 - Other forms of dyspnea Plan: Significant improvement on Bumex 1 mg daily. Continue current regimen. (2) Chronic cough: Code(s): R05 - Cough Plan: Well controlled on current regimen of Advair and albuterol MDI. Continue current regimen. Coding Level of Care Code Est Pt Level 4 (75781) Diagnoses PRETTY (dyspnea on exertion) R06.09 Chronic cough R05
[2023-03-03 10:54] VITALS: BP 138/88; PULSE 94; O2SAT 93; BMI 54.1
== END 2023-03-03 11:07 | disposition home or self-care (01) ==
PROVIDERS: PCP Family Medicine; Visit Provider Internal Medicine Pulmonary Disease
DX: R06.09 Other forms of dyspnea (principal); R05.9 Cough, unspecified
CPT/HCPCS: 99214

== ENCOUNTER → 2023-03-03 10:47 | Outpatient (BNVA) | payer OTHER, SELFPAY | PROVIDERS: PCP Family Medicine; Visit Provider Internal Medicine Pulmonary Disease | DX: R06.09 Other forms of dyspnea (principal); R05.3 Chronic cough | CPT/HCPCS: 99212 ==

== ENCOUNTER → 2023-03-17 20:30 | Outpatient (REF) | payer OTHER, SELFPAY | LOC: HO.SL 20:30 | PROVIDERS: PCP Family Medicine; Visit Provider Internal Medicine Pulmonary Disease | DX: G47.33 Obstructive sleep apnea (adult) (pediatric) (principal) | CPT/HCPCS: 95810 ==

== ENCOUNTER → 2023-03-18 00:03 | Outpatient (BNV) | payer OTHER, SELFPAY | PROVIDERS: PCP Family Medicine; Visit Provider Internal Medicine | DX: G47.33 Obstructive sleep apnea (adult) (pediatric) (principal) | CPT/HCPCS: 95810 ==

== ENCOUNTER 2023-04-08 13:45 | Outpatient (AMB) | payer OTHER, SELFPAY ==
--- NOTE | 2023-04-08 13:46 | MHC.OFFVIS ---
Intake Vital Signs 04/08/23 13:52 Height 4 ft 9 in Weight 256 lb 2 oz BMI 55.4 BP 181/91 H Blood Pressure Location Rt brachial Position Sitting Pulse 89 Pulse Source Pulse Oximeter Pulse Oximetry (%) 96 Oxygen Delivery Method Room Air Intake Visit Reasons: R Arm Pain/Low Back Pain/Confirmed Intake Note: Pain today 10/05 Multiple Spindle Screw Machine Operator Required: Yes Multiple Spindle Screw Machine Operator Language: Hat And Cap Opener Name: Rosa #[id number] Accompanied by: Self / Same As Patient Allergies atorvastatin [From Lipitor] Allergy (Mild, Verified 04/08/23 13:53) HIVES HPI HPI Comments History of Present Illness Details Patient presents today for follow up for chronic low back pain and right shoulder pain. Patient was seen in our office last year in April with plans to undergo RFA procedure. Unfortunately, CMS criteria for RFA approval requires 80% pain relief and patient reported 70% pain relief for left side and no pain relief for right side. She continues to endorse low back pain across her lower spine with movements, standing and range of motion. She denies radicular symptoms but reports chronic knee pain with history of previous bilateral TKAs. She uses lidocaine patches from her friend and request her own script for these as patches have been helpful to her. Her insurance did not approve these last year, we will attempt to resend it again. Patient is willing to undergo a repeat procedure for diagnostic bilateral lumbar MBBs in order to establish reproducible response to the treatment for potential RFA procedure. Patient reports she has reviewed informational pamphlets on Sprint PNS in [place] and is not interested in peripheral nerve stimulation. Patient reports chronic urinary incontinence. Denies fever, abdominal pain, bowel incontinence or saddle anesthesia. Patient also reports right shoulder pain with decreased movements and weakness for 5 months. Denies any recent trauma, injury or falls. This has been chronic pain for her. She has limited range of motion of the right shoulder and cannot raise her right arm or reach her back side pocket due to pain. Denies any numbness or tingling of right upper extremities. Presents with decreased academy education director and grasp strength on the right. 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 with multiple pain generators. Her most troublesome pain generators are right shoulder pain and lower axial back pain. She also reports neck pain, bilateral knee and leg pain, bilateral hand and wrist pain, and numbness and tingling in her feet. Her back pain is mostly axial with significantly limited back extension due to pain. Patient also presents with mild tenderness in the projection of bilateral SIJ areas and mild bilateral hip pain. She has limited range of motion of the right shoulder and cannot raise her right arm or reach her back side pocket. Patient is right hand dominant and is able to make fists bilaterally. She has decreased academy education director and grasp strength on the right. Patient reports left lateral knee pain and right medial knee pain with previous history of total knee replacement and multiple cortisone injections. Pain is described as constant pulsing, throbbing, pounding, stabbing, lancinating, aching, sore, hurting, dull, heavy and exhausting. Patient reports her multiple generators pain increases with any movement, walking, standing, bending, changing positions, and weather changes. Rheumatology workup was negative in 2013. Per referral notes, the patient has a history of divergence of chronic opiates and was not able to comply with chronic opiate contact in the past. Patient has been treating her pain with supportive care, physical therapy, cortisone injections, ice and heat therapy, and Tylenol. She is undergoing Pelvic Floor therapy on 04/15/22 for mixed urinary incontinence and is also considering an Interstim device. Patient denies any fever, weight loss, abdominal or groin pain [facility] Medical History Depression Arthritis On beta ervin at home CVA (cerebral vascular accident) History of COVID-19 HTN (hypertension) Hypothyroid Other and unspecified hyperlipidemia Essential hypertension History of gastroscopy GERD (gastroesophageal reflux disease) Chronic headaches Cervicalgia Thyroid nodule Fecal incontinence Benign neoplasm of colon Morbid obesity due to excess calories Hiatal hernia Carlson esophagus Pulmonary nodule, right Obstructive sleep apnea Asthma Dyslipidemia Surgical History S/P placement of nerve stimulator H/O colonoscopy History of esophagogastroduodenoscopy (EGD) History of carpal tunnel release History of dacryocystorhinostomy S/p bilateral blepharoplasty History of bilateral tubal ligation H/O tooth extraction History of herniorrhaphy History of cholecystectomy History of total abdominal hysterectomy and bilateral salpingo-oophorectomy History of bilateral knee replacement History of laparoscopic appendectomy History of sleeve gastrectomy Family History Father No problems noted. Mother No problems noted. Social History Household Members: Family Household Members Other:: grandson Housing: Apartment Do you presently have visiting nurse or other home services: Yes Alcohol intake: current Alcohol intake frequency: does not drink Comment: intubated. sedated. restrained Patient Tobacco Use Status: Never used Tobacco Advance Directives Date on File: 02/10/20 service: No Current occupational status: disabled Review of Systems Const All systems reviewed & are unremarkable except as noted in HPI and below ENT Reports Normal hearing present Neuro Reports Normal hearing present, Denies Abnormal speech present and Denies Sensory deficit (Neuro) Physical Exam General: Appears afebrile. Alert and oriented. Mood and affect appropriate. Follows and participates in conversation appropriately. Respiratory effort is unlabored. No cough. Able to transition from sit to stand unassisted. Ambulates with bilaterally normal heel strike and toe off. Resp Effort & Inspection: normal respiratory effort, able to speak in complete sentences, no cough, no respiratory distress and symmetric chest movement Auscultation: clear to auscultation bilaterally, no crackles and no wheezes Back/Spine/Pelvis Other: Limited lumbar ROM due to pain. Lumbar flexion and extension reproduce significant pain. Antalgic gait with mild limping. Demonstrates 5/5 strength of quadriceps bilaterally as well as flexion/dorsiflexion of bilateral feet against resistance. 2+ pedal pulses bilaterally. Straight leg rise with dorsiflexion negative bilaterally. +1 patellar and achilles reflexes bilaterally. Facet loading test positive bilaterally. Connor signs positive bilaterally. Unable to complete exam due to significant pain. Multiple tender points of upper and lower extremities and trunk. Cervical Spine: cervical muscular tenderness, pain with cervical ROM and No Cervical spine tenderness Thoracic/Lumbar Spine: thoracic and lumbar spine normal to inspection, No Thoracic/lumbar spine scar(s), Lasegue's sign negative, straight leg raise negative bilaterally, pain with thoraco-lumbar ROM, paraspinal muscle tenderness, thoraco-lumbar ROM limited, No thoracic spinal tenderness and lumbar spinal tenderness (L3-S1) Pelvis: buttock tenderness bilaterally Sacroiliac joints: bilaterally tender to palpation Neuro General: moves all extremities, Normal light touch and pain sensation and CN's II-XI intact bilaterally Cranial nerves: Yes Bilaterally intact EOM present and Yes Normal hearing present Cognition (Neuro): normal cognition Speech: No Abnormal speech present Gait exam (Neuro): Antalgic gait present and Assistive device used Motor exam (neuro): 5/5 motor strength present throughout, no tremor noted, Normal motor muscle tone present throughout and Motor abnormalities not present Sensory Exam: No Sensory deficit (Neuro) Extrem General: Yes capillary refill normal, Yes no clubbing, cyanosis or edema and Yes no calf tenderness Right upper extremity: shoulder/upper arm (Limited ROM. Difficulty and pain with overhead or backside pocket reaches.) Details: normal to inspection and tenderness (TTP in anterior and lateral aspects of right shoulder.); no swelling, no crepitus and no unusual warmth Right lower extremity: knee Details: normal to inspection, tenderness Location: of the medial joint line and crepitus; no swelling, no deformity and no unusual warmth Left lower extremity: knee (Limited ROM.) Details: normal to inspection, tenderness Location: of the lateral joint line and crepitus; no swelling, no deformity and no unusual warmth Results Reviewed Results Reviewed: CT ABDOMEN AND PELVIS WITH CONTRAST 08/23/2020 OSSEOUS STRUCTURES: No acute or suspicious osseous abnormality. Mild degenerative change of the spine and hips. MR LUMBAR SPINE WITHOUT CONTRAST 01/03/2019 CLINICAL INFORMATION: Rule out cauda equina. Decreasing sphincter tone and saddle anesthesia. COMPARISON: Lumbar spine MRI 06/19/2016. FINDINGS: The lumbar vertebral bodies maintain normal heights. There is mild grade 1 anterolisthesis of L4 on L5 which is stable compared with prior. A few scattered hemangiomata moderate are noted including at L4 and L5. There is unchanged moderate disc height loss at L5-S1 with the remaining disc heights preserved. Chronic fatty endplate changes are seen anteriorly at T10-T11. New mild edematous endplate changes are seen posteriorly at L2-L3 and L3-L4. The distal spinal cord appears normal. The conus medullaris terminates normally at the L1 level. Left-sided T2 hyperintense renal cysts are noted. The extraspinal soft tissues otherwise appear normal. SPINAL LEVELS: L1-L2: No posterior disc abnormality. No spinal canal or neural foraminal stenosis. L2-L3: Disc bulging with mild to moderate facet arthropathy. No spinal canal or neural foraminal stenosis. Mild progression facet arthropathy. L3-L4: Disc bulging, ligamentum flavum infolding, and moderate facet arthropathy with mild spinal canal stenosis and mild bilateral neural foraminal stenosis, progressed from prior. L4-L5: Grade 1 anterolisthesis with underlying disc bulging and progressive severe facet arthropathy resulting in mild flattening of the ventral thecal sac and mild narrowing of both neural foramina without foraminal nerve root compression. Both subarticular zones are narrowed but similar to prior. L5-S1: Disc bulging with posterior osseous ridging causing some mass effect on the traversing left S1 nerve root, similar to prior. Moderate to severe facet arthropathy. No spinal canal stenosis or foraminal nerve root compression. No interval change. IMPRESSION: Multilevel degenerative spondylotic changes with new endplate edema seen at L2-L3 and L3-L4. Stable moderate disc height loss at L5-S1. Grade 1 anterolisthesis at L4-L5 related to severe facet arthropathy is noted with stable flattening of the thecal sac, mild narrowing of both neural foramina, and narrowing of both subarticular zones. No new nerve root compression is seen. Assessment & Plan Assessment & Plan (1) Chronic right shoulder pain: Code(s): M25.511 - Pain in right shoulder; G89.29 - Other chronic pain (2) Chronic pain syndrome: Code(s): G89.4 - Chronic pain syndrome (3) Bilateral knee pain: Code(s): M25.561 - Pain in right knee; M25.562 - Pain in left knee (4) Lumbar spondylosis: Code(s): M47.816 - Spondylosis without myelopathy or radiculopathy, lumbar region (5) Morbid obesity due to excess calories: Comment: she has a history of untreated obstructive sleep apnea and background of reflux with Carlson's esophagus and most recent H pylori positivity was in September Code(s): E66.01 - Morbid (severe) obesity due to excess calories Plan 1. Repeat Bilateral L3-L4-L5 medial branch blocks with local and fluoroscopy for axial chronic LBP. Consider therapeutic injections or RFA for ongoing relief if positive response. Patient is not interested in Sprint PNS trial. 2. Right shoulder xray to assess degree of right shoulder. Tentatively plan for right shoulder intra-articular steroid injection with local and fluoroscopy. 3. Script for lidocaine patches provided today. 4. Dietitian/Nutrition Consult for morbind obesity which affects patient's low back pain, shoulder and knee joints significantly. All questions and concerns have been answered and patient agreed with the plan. Follow up after injections and sooner if needed. Orders: Orders XR lumbar spine 2-3V Today M47.816 - Spondylosis without myelopathy or radiculopathy, lumbar region XR shoulder RT min 2V Today G89.29 - Other chronic pain, M25.511 - Pain in right shoulder Referrals Wall Attendant Nutrition Referral E66.01 - Morbid (severe) obesity due to excess calories, G89.4 - Chronic pain syndrome, M25.561 - Pain in right knee, M25.562 - Pain in left knee, M47.816 - Spondylosis without myelopathy or radiculopathy, lumbar region Medications: New lidocaine 5% 2 patches topical DAILY 15 days 30 ea 0RF pain G89.4 - Chronic pain syndrome, M25.561 - Pain in right knee, M25.562 - Pain in left knee Coding Level of Care Code Est Pt Level 4 (69522) Diagnoses Chronic right shoulder pain M25.511; G89.29 Chronic pain syndrome G89.4 Bilateral knee pain M25.561; M25.562 Lumbar spondylosis M47.816 Morbid obesity due to excess calories E66.01
[2023-04-08 13:52] VITALS: BP 181/91; PULSE 89; O2SAT 96; BMI 55.4
== END 2023-04-08 14:10 | disposition home or self-care (01) ==
PROVIDERS: PCP Family Medicine; Visit Provider Nurse Practitioner Family
DX: M25.511 Pain in right shoulder (principal); G89.4 Chronic pain syndrome; M25.561 Pain in right knee; M25.562 Pain in left knee; M47.816 Spondylosis without myelopathy or radiculopathy, lumbar region; E66.01 Morbid (severe) obesity due to excess calories
CPT/HCPCS: 99214

== ENCOUNTER → 2023-04-08 13:45 | Outpatient (BNVA) | payer OTHER, SELFPAY | PROVIDERS: PCP Family Medicine; Visit Provider Nurse Practitioner Family | DX: M25.511 Pain in right shoulder (principal); M25.562 Pain in left knee; M25.561 Pain in right knee; M47.816 Spondylosis without myelopathy or radiculopathy, lumbar region; G89.29 Other chronic pain; E66.01 Morbid (severe) obesity due to excess calories; Z68.43 Body mass index [BMI] 50.0-59.9, adult | CPT/HCPCS: 99212 ==

== ENCOUNTER 2023-04-14 10:43 | Outpatient (REF) | payer OTHER, SELFPAY ==
--- NOTE | ~2023-04-14 | XR_ITS ---
EXAMINATION: XR SHOULDER, RIGHT CLINICAL INFORMATION: Pain in right shoulder COMPARISON: Right shoulder 03/08/2017 TECHNIQUE: AP external rotation, Grashey, scapular Y, and axillary views of the right shoulder. FINDINGS: There is no fracture or dislocation. There is marked narrowing of the glenohumeral joint. There is a large marginal osteophyte extending off the lesser tuberosity. There is moderate degenerative change of the acromioclavicular joint. Calcific densities are seen about the greater tuberosity which can be seen with calcific tendinitis. XR/XR shoulder RT min 2V IMPRESSION: 1. Marked degenerative change of the glenohumeral joint. 2. Calcific tendinitis. 3. Moderate degenerative change of the acromioclavicular joint.
--- NOTE | ~2023-04-14 | XR_ITS ---
EXAMINATION: XR LUMBOSACRAL SPINE CLINICAL INFORMATION: Spondylosis without myelopathy or radiculopathy, lumbar region COMPARISON: Lumbar spine 11/18/2015 TECHNIQUE: Three views of the lumbosacral spine. FINDINGS: There 5 nonrib-bearing lumbar-type vertebral bodies. The height of the vertebral bodies is well-maintained. There is mild disc space narrowing with marginal osteophyte formation at L3-L4. The L5-S1 disc space is narrowed consistent with degenerative disc disease. There is multilevel degenerative facet disease most notable at L5-S1. There is grade 1 anterolisthesis of L5 with respect to S1. There is chronic degenerative subarticular sclerosis and osteophytosis at the inferior aspect of the sacroiliac joints. Metallic mesh tacks from mesh placement along the lower abdominal wall and surgical clips within the right mid and upper abdomen. The electronic pack projects over the right lower quadrant with the tip of leads in the right posterior soft tissues XR/XR lumbar spine 2-3V IMPRESSION: 1. Degenerative disc disease at L3-L4 and L5-S1. 2. Multilevel degenerative facet joint disease most notable at L5-S1. 3. Grade 1 anterolisthesis of L5 with respect to S1.
== END 2023-04-14 10:44 | disposition home or self-care (01) ==
LOC: HO.XRAY 10:43
PROVIDERS: PCP Family Medicine; Visit Provider Nurse Practitioner Family
DX: M47.816 Spondylosis without myelopathy or radiculopathy, lumbar region (principal); M25.511 Pain in right shoulder; G89.29 Other chronic pain
CPT/HCPCS: 72100; 73030

== ENCOUNTER 2023-04-15 13:56 | Outpatient (AMB) | payer OTHER, SELFPAY ==
[2023-04-15 13:57] VITALS: BP 128/74; PULSE 77; O2SAT 96; BMI 53.9
--- NOTE | 2023-04-15 13:57 | A.OFFVIS_ITS ---
Intake Vital Signs 04/15/23 13:57 Height 4 ft 9 in Weight 249 lb 1.957 oz BMI 53.9 BP 128/74 Blood Pressure Location Lt radial Position Sitting Pulse 77 Pulse Source Doppler Pulse Oximetry (%) 96 Oxygen Delivery Method Room Air Intake Visit Reasons: Asthma Aboriginal Ceremonial Celebrant Required: Yes Aboriginal Ceremonial Celebrant Name: Evie Srinivas Burton Allergies atorvastatin [From Lipitor] Allergy (Mild, Verified 04/15/23 14:00) HIVES HPI Asthma HPI Details 72-year-old lady, nonsmoker, with underl khushi history of gastroesophageal reflux disease, hiatal hernia, and chronic cough now followed for pulmonary component dyspnea on exertion and mild CARTER. Patient has completed her in-lab sleep study that showed underlying mild obstructive sleep apnea. She has been using Advair and albuterol MDI with suboptimal baseline control of her asthma symptoms. Her orthopnea is well controlled on Bumex. She denies recent exacerbations. [facility] Medical History (Updated 04/15/23 @ 14:[address] Feng MD) Depression Arthritis On beta ervin at home CVA (cerebral vascular accident) History of COVID-19 HTN (hypertension) Hypothyroid Other and unspecified hyperlipidemia Essential hypertension History of gastroscopy GERD (gastroesophageal reflux disease) Chronic headaches Cervicalgia Thyroid nodule Fecal incontinence Benign neoplasm of colon Morbid obesity due to excess calories Hiatal hernia Carlson esophagus Pulmonary nodule, right Obstructive sleep apnea Asthma Dyslipidemia Surgical History S/P placement of nerve stimulator H/O colonoscopy History of esophagogastroduodenoscopy (EGD) History of carpal tunnel release History of dacryocystorhinostomy S/p bilateral blepharoplasty History of bilateral tubal ligation H/O tooth extraction History of herniorrhaphy History of cholecystectomy History of total abdominal hysterectomy and bilateral salpingo-oophorectomy History of bilateral knee replacement History of laparoscopic appendectomy History of sleeve gastrectomy Family History Father No problems noted. Mother No problems noted. Social History Household Members: Family Household Members Other:: grandson Housing: Apartment Do you presently have visiting nurse or other home services: Yes Alcohol intake: current Alcohol intake frequency: does not drink Comment: intubated. sedated. restrained Patient Tobacco Use Status: Never used Tobacco Advance Directives Date on File: 02/10/20 service: No Current occupational status: disabled Review of Systems Const Reports daytime sleepiness, Denies excessive sweating, Reports fatigue, Denies fever(s), Denies lethargy, Denies malaise, Denies night sweats, Reports snoring and Denies weight loss Eyes Denies blurry vision and Denies itchy eyes ENT Denies nasal congestion, Denies post nasal drip, Denies sinus pain, Denies sinus pressure and Denies other ( Thrush) Card Denies chest pain, Denies pedal edema, Denies dyspnea, Denies orthopnea and Denies paroxysmal nocturnal dyspnea Resp Denies cough, Denies hemoptysis, Denies excessive phlegm production, Denies dyspnea, Reports snoring and Reports wheezing GI Denies abdominal pain and Denies heartburn Musc Denies myalgias, Denies arthralgias and Denies joint swelling Skin/Breast Denies rash Neuro Denies memory loss and Denies seizure-like activity Psych Denies abnormal sleep pattern, Denies anxiety and Denies memory loss Endo Denies excessive sweating, Reports fatigue and Denies heat intolerance Dion/Lymph Denies easy bruising Aller/Immun Denies itchy eyes, Denies seasonal rhinorrhea and Reports wheezing Physical Exam Vital Signs: Last Vital Signs Pulse 77 04/15/23 13:57 BP 128/74 04/15/23 13:57 Pulse Ox 96 04/15/23 13:57 Oxygen Delivery Method Room Air 04/15/23 13:57 BMI result Body Mass Index 53.9 Const General: no acute distress and alert Nutritional Appearance: obese Orientation/consciousness: Other orientation findings ( oriented) HEENT Head: Yes atraumatic Eyes General: appearance normal, both eyes and all related structures Sclerae: sclerae normal EOM: EOMs intact bilaterally Neck Neck: Yes supple Lymphatic: no lymphadenopathy noted Resp Effort & Inspection: normal respiratory effort and no use of accessory muscles Auscultation: clear to auscultation bilaterally Cardio Rate: regular rate Rhythm: regular rhythm Heart sounds: no gallops, no murmurs and no rubs Skin General skin exam: other ( warm) Extrem General: No clubbing, No cyanosis and Yes edema (Trace bilateral) Assessment & Plan Assessment & Plan (1) Obstructive sleep apnea: Code(s): G47.33 - Obstructive sleep apnea (adult) (pediatric) Plan: Results of sleep study reviewed, underlying mild obstructive sleep apnea. Will start on APAP of 6-16 cm of water. (2) PRETTY (dyspnea on exertion): Code(s): R06.09 - Other forms of dyspnea Plan: Orthopnea and lower extremity edema component well controlled on Bumex 1 mg daily. Continue current regimen. (3) Asthma: Code(s): J45.909 - Unspecified asthma, uncomplicated Plan: Suboptimal control on Advair and albuterol MDI. Will switch to Trelegy. Medications: New [id number]-wliodghcs-rgajqrxn 200-62.5-25 mcg (Trelegy Ellipta) 1 inh inhalation Q24H 1 ea 6RF Discontinued fluticasone propion-salmeterol 250-50 mcg/dose (Advair Diskus) Discontinued Reason: Doctor's Order 1 ea PO BID 60 ea 6RF 30 days R06.09 - Other forms of dyspnea Coding Level of Care Code Est Pt Level 4 (63469) Diagnoses Obstructive sleep apnea G47.33 PRETTY (dyspnea on exertion) R06.09 Asthma J45.909
== END 2023-04-15 14:13 | disposition home or self-care (01) ==
PROVIDERS: PCP Family Medicine; Visit Provider Internal Medicine Pulmonary Disease
DX: G47.33 Obstructive sleep apnea (adult) (pediatric) (principal); R06.09 Other forms of dyspnea; J45.909 Unspecified asthma, uncomplicated
CPT/HCPCS: 99214

== ENCOUNTER → 2023-04-15 13:56 | Outpatient (BNVA) | payer OTHER, SELFPAY | PROVIDERS: PCP Family Medicine; Visit Provider Internal Medicine Pulmonary Disease | DX: G47.33 Obstructive sleep apnea (adult) (pediatric) (principal); J45.909 Unspecified asthma, uncomplicated; R06.09 Other forms of dyspnea | CPT/HCPCS: 99212 ==

== ENCOUNTER 2023-04-29 13:28 | Emergency (ER) | payer OTHER, SELFPAY ==
--- NOTE | ~2023-04-29 | XR_ITS ---
EXAMINATION: XR WRIST, RIGHT XR HAND, RIGHT CLINICAL INFORMATION: Right wrist pain and hand pain COMPARISON: None available. TECHNIQUE: PA, lateral, and oblique views of the right wrist and PA, lateral, and oblique views of the right hand FINDINGS: There is advanced degenerative change at the first CMC joint. Carpal alignment is normal. No fracture in the wrist. In the hand, there is degenerative change noted, at the first IP joint and second through fifth DIP joints however no evidence for an acute fracture or dislocation or destructive process. XR/XR hand wrist RT IMPRESSION: Degenerative changes noted. No acute abnormalities.
--- NOTE | ~2023-04-29 | XR_ITS ---
EXAMINATION: XR LUMBOSACRAL SPINE CLINICAL INFORMATION: Pain COMPARISON: 04/14/2023 TECHNIQUE: Three views of the lumbosacral spine. FINDINGS: Mild degenerative change in the lower thoracic spine. There is minor forward spondylolisthesis L4 upon L5 at 5 mm. There is advanced degenerative change L5-S1. There is facet degenerative change L3-S1. No evidence though for an acute fracture or destructive process. Surgical markers are observed. Electronic pack projects over the right lower quadrant with the tip of the leads in the right posterior soft tissues. No change. XR/XR lumbar spine 2-3V IMPRESSION: Stable degenerative change. No acute abnormality.
--- NOTE | ~2023-04-29 | CT_ITS ---
EXAMINATION: CT cervical spine, right elbow and right humerus. CLINICAL INDICATIONS: Fall. TECHNIQUE: Right elbow 4 views. Right humerus 2 views. 3 mm thin axial and reformatted 2 mm thin sagittal and coronal images of cervical spine were obtained. DLP 622. This CT examination was performed using dose optimization technique as appropriate, variously including the following: Automated exposure control Adjustment of MA and/or KV according to patient size(this includes techniques or standardized protocols for targeted exams where dose is matched to indication/reason for exam; extremities or head. Use of iterative reconstruction techniques. FINDINGS: RIGHT ELBOW: The joint space is preserved. There is no visible acute fracture or dislocation seen. There are no loose bodies are bony erosive changes. There is a small enthesophyte along the medial coronoid process or an old avulsion bone fragment without displacement the anterior and posterior fat pad appears normal. RIGHT HUMERUS: There is no visible fracture or bony abnormality. There is mild loss of right glenohumeral and AC joint space with periarticular spurring. The soft tissues are normal. CERVICAL SPINE: On sagittal reconstructed images there is mild straightening of cervical lordosis. There is loss of C3-C4, C4-C5, C5-C6 and C6-C7 disc heights with moderate ventral and mild posterior spondylosis. The craniovertebral junction and C1-C2 alignment is normal. No visible acute fracture, dislocation or subluxation seen. There is moderate right C2-C3, left C3-C4, left C4-C5 and left C6-C7 facet joint arthropathy and hypertrophy. No visible acute fracture, dislocation or subluxation seen. The prevertebral and paravertebral soft tissues are normal. The airway is widely patent. There is a enlarged left thyroid gland with central gland calcification with substernal extension suggestive of goiter. The lung apices are clear. CT/CT cervical spine wo IV con IMPRESSION: Small bone fragment adjacent to the medial coronoid process of the elbow question old avulsion fracture versus enthesophyte. No acute fracture or dislocation seen. No abnormal joint effusion. Unremarkable right humerus. There is mild degenerative changes involving the glenohumeral and AC joint. Degenerative changes and spondylosis cervical spine with mild straightening of cervical lordosis likely spasm. No visible acute fracture or dislocation seen.
--- NOTE | ~2023-04-29 | CT_ITS ---
EXAMINATION: CT brain and CT facial bones without contrast. Right shoulder x-ray. CLINICAL INDICATIONS: Fall. COMPARISON: CT brain 04/09/2020 TECHNIQUE: Right shoulder 4 views. 5 mm thin axial and reformatted 2 mm thin sagittal coronal images of brain were obtained. Subsequently axial 3 mm thin and reformatted 1.5 minutes thin sagittal coronal images of facial bones were obtained. DLP [id number]. This CT examination was performed using dose optimization technique as appropriate, variously including the following: Automated exposure control Adjustment of MA and/or KV according to patient size(this includes techniques or standardized protocols for targeted exams where dose is matched to indication/reason for exam; extremities or head. Use of iterative reconstruction techniques. FINDINGS:. Right shoulder: There is loss of glenohumeral and AC joint space with moderate periarticular spurring. There is a large inferior acromial enthesophyte. No visible acute fracture, dislocation or subluxation seen. The soft tissues are normal. Brain: There is no acute intra-axial, extra-axial bleed, masses or midline shift. There is no acute infarction in evolution. There is no edema. The egan to white matter differentiation is maintained. The lateral ventricles are symmetrical in size and configuration without enlargement. There is prominent subarachnoid space likely from bilateral cerebral volume loss. No abnormality seen in the posterior fossa. Bone windows reveal no calvarial abnormality. The scalp soft tissues are normal. Bilateral paranasal sinuses and mastoid air cells are well-aerated. Facial bones: There is normal aeration of paranasal sinuses without mucoperiosteal thickening. Visualized bony sinus arias, lamina papyracea and cribriform plate are normal. . Appears to be partial resection a small segment of left nasal bone. It is unchanged to 04/09/2020. There are normal symmetrical turbinates with patent nasal cavity and nasopharyngeal airway. Visualized optic globe, optic nerve, bony orbits and periorbital soft tissues are normal. The maxillofacial bones are intact. Bilateral TM joints are symmetrical and normal. The mandible is intact. Visualized prevertebral, paravertebral and oropharyngeal soft tissues are normal. Visualized bilateral submandibular,'s parotid glands are symmetrical and normal. The left thyroid lobe is enlarged with punctate calcification. CT/CT facial bones wo IV con IMPRESSION:: No acute intracranial process seen. Mild cerebral volume loss. No maxillofacial, mandibular, nasal or orbital fracture seen. The soft tissues are normal. Enlarged left thyroid gland with punctate calcification, question goiter.
[2023-04-29 13:59] VITALS: BP 157/99; PULSE 77; RESP 18; TEMP 37; O2SAT 95; BMI 47.8
--- NOTE | 2023-04-29 14:00 | ED_ITS ---
HPI - General Adult General Chief complaint: Fall Stated complaint: Fall - back & head injury Time Seen by Provider: 04/29/23 14:10 Source: patient, RN notes reviewed and old records reviewed Mode of arrival: ambulatory History of Present Illness HPI narrative: 72-year-old female with a past medical history depression, arthritis, CVA, HTN, GERD, hiatal hernia, asthma, HLD, CARTER, presenting to the ED complaining of headache, left-sided facial pain, right hand/wrist/elbow and shoulder pain and low back pain s/pmechanical trip & fall in pothole 2 days ago. States tripped, landed face 1st and then fell onto right side, denies LOC. Reports initial dizziness after episode. Denies taking anticoagulation. Denies nausea, vomiting, vision change/loss, abdominal pain, incontinence/retention Related Data Home Medications Medication Instructions Recorded Confirmed levothyroxine 75 mcg tablet 75 mcg PO QAM 02/02/20 12/27/22 albuterol sulfate 2.5 mg/3 mL 2.5 mg inhalation Q4-6H PRN 08/02/20 12/27/22 (0.083 %) solution for nebulization Wheezing calcium citrate 315 mg-vitamin D3 1 tab PO BID 06/02/21 12/27/22 5 mcg (200 unit) tablet cholecalciferol (vitamin D3) 50 50 mcg PO DAILY 06/02/21 12/27/22 mcg (2,000 unit) tablet clonazepam 0.5 mg tablet 0.5 mg PO DAILY Anxiety 12/19/21 12/27/22 loratadine 10 mg tablet 10 mg PO DAILY 12/19/21 12/27/22 metoprolol tartrate 25 mg tablet 25 mg PO BID 12/19/21 12/27/22 omeprazole 40 mg capsule,delayed 40 mg PO BID 12/19/21 12/27/22 release pravastatin 40 mg tablet 40 mg PO BEDTIME 12/19/21 12/27/22 pyridoxine (vitamin B6) 50 mg 50 mg PO DAILY 12/19/21 12/27/22 tablet trazodone 50 mg tablet 50 mg PO BEDTIME 12/19/21 12/27/22 venlafaxine 75 mg capsule,extended 75 mg PO QAM 12/19/21 12/27/22 release 24 hr mirtazapine 30 mg tablet 30 mg PO BEDTIME 03/02/22 12/27/22 albuterol sulfate 90 mcg/actuation 2 puff inhalation Q4-6H PRN 12/27/22 12/27/22 aerosol inhaler shortness of breath or wheezing loperamide 2 mg capsule 2 mg PO DAILY diarrhea 12/27/22 12/27/22 Previous Rx's Medication Instructions Recorded peppermint oil 90 mg 90 mg PO BID #90 ea 10/01/20 capsule,delayed,extended release (IBgard) capsaicin-menthol 0.025 %-1.25 % 1 patch topical BID PRN pain 30 05/21/22 topical patch (Salonpas days #60 ea (capsaicin-menthol)) azithromycin 500 mg tablet 500 mg PO DAILY 5 days #5 tabs 12/29/22 cefuroxime axetil 500 mg tablet 500 mg PO BID #10 tabs 12/29/22 prednisone 20 mg tablet 40 mg (2 x 20 mg) PO DAILY #10 tabs 12/29/22 bumetanide 1 mg tablet 1 mg PO DAILY 30 days #30 tabs 02/23/23 mirabegron 50 mg tablet,extended 50 mg PO DAILY 90 days #90 tabs 03/15/23 release 24 hr (Myrbetriq) lidocaine 5 % topical patch 2 patch topical DAILY pain 15 days 04/08/23 #30 ea fluticasone fur. 200 mcg-umeclid 1 inh inhalation Q24H #1 ea 04/15/23 62.5 mcg-vilant 25 mcg inhalat.powder (Trelegy Ellipta) acetaminophen 500 mg tablet 500 mg PO Q6H PRN fever or pain 04/29/23 (Tylenol Extra Strength) #14 tabs cyclobenzaprine 5 mg tablet 5 mg PO Q8H PRN pain (scale score 04/29/23 7-10) 5 days #14 tabs lidocaine 5 % topical patch 1 patch topical DAILY PRN pain #30 04/29/23 (Lidoderm) ea naproxen 500 mg tablet 500 mg PO BID PRN pain 10 days #20 04/29/23 tabs Allergies Allergy/AdvReac Type Severity Reaction Status Date / Time atorvastatin [From Lipitor] Allergy Mild HIVES Verified 04/15/23 14:00 Review of Systems Review of Systems: Constitutional: No Fever, No Chills ENT/Mouth: No Ear Pain, No Nasal Congestion, No sore throat, No Rhinorrhea, No Swallowing Difficulty Cardiovascular: No Chest Pain, No SOB Respiratory: No Cough Gastrointestinal: +Nausea, No Vomiting, No Diarrhea, No Constipation, No Abdominal pain Genitourinary: No Dysuria, No Urinary Frequency, No Hematuria, No Urinary Incontinence/retention Musculoskeletal: +joint pain, + Myalgias, No Joint Swelling Skin: No Skin Lesions, No rash Neuro: No Weakness, No Numbness, No Paresthesias, +HUTTON, +Dizziness Yes all other systems are reviewed and are negative Constitutional: Constitutional: Reports as per HPI Neurologic: Denies Abnormal speech present [facility] Past Medical History Attestation statement: The following information was validated with the patient. Source: old records reviewed Medical History Depression Arthritis On beta ervin at home CVA (cerebral vascular accident) History of COVID-19 HTN (hypertension) Hypothyroid Other and unspecified hyperlipidemia Essential hypertension History of gastroscopy GERD (gastroesophageal reflux disease) Chronic headaches Cervicalgia Thyroid nodule Fecal incontinence Benign neoplasm of colon Morbid obesity due to excess calories Hiatal hernia Carlson esophagus Pulmonary nodule, right Obstructive sleep apnea Asthma Dyslipidemia Surgical History S/P placement of nerve stimulator H/O colonoscopy History of esophagogastroduodenoscopy (EGD) History of carpal tunnel release History of dacryocystorhinostomy S/p bilateral blepharoplasty History of bilateral tubal ligation H/O tooth extraction History of herniorrhaphy History of cholecystectomy History of total abdominal hysterectomy and bilateral salpingo-oophorectomy History of bilateral knee replacement History of laparoscopic appendectomy History of sleeve gastrectomy Family History Family History Father No problems noted. Mother No problems noted. Social History Social History Household Members: Family Household Members Other:: grandson Housing: Apartment Do you presently have visiting nurse or other home services: Yes Alcohol intake: current Alcohol intake frequency: does not drink Comment: intubated. sedated. restrained Patient Tobacco Use Status: Never used Tobacco Advance Directives: Yes Advance Directives on File: Yes Advance Directives Date on File: 02/10/20 service: No Current occupational status: disabled Physical Exam ED Vital Signs: Vital Signs - 24 hr 04/29/23 13:59 Temperature 98.6 F Pulse Rate 77 Respiratory Rate 18 Blood Pressure 157/99 H Pulse Oximetry 95 Oxygen Delivery Method Room Air BMI result Body Mass Index 47.8 Const General: cooperative, healthy appearing and no acute distress Orientation/consciousness: patient oriented x3 Limitations: no limitations HENMT Other: + mild left infraorbital ecchymosis/swelling. EOMs intact without entrapment or pain Head: Yes normal to inspection, Yes atraumatic and No Tijerina's sign Ears: hearing grossly normal bilaterally General nose exam: Normal external nose present Throat: Yes posterior oropharynx normal, Yes tonsils normal and Yes uvula midline Eyes General: appearance normal, both eyes and all related structures Pupils: Equal, round and reactive pupils present EOM: EOMs intact bilaterally Neck Other: +bilateral trapezius muscle ttp Neck: Yes normal visual inspection and Yes no meningeal signs Resp Effort & Inspection: normal respiratory effort and no respiratory distress Cardio Rate: regular rate Heart sounds: S1 normal heart sound present and S2 normal heart sound present GI Inspection: Yes normal to inspection Palpation (GI): Soft to palpation, nontender, no guarding and not rigid Back/Spine/Pelvis Other: No midline cervical/thoracic/lumbar spinous tenderness/step-off or deformity. + bilateral lumbar MSK tenderness to palpation reproducing subjective complaint Skin Rashes: no rashes Wounds: no wounds Neuro General: patient oriented x3, gait normal, tone normal, moves all extremities, no meningeal signs, no focal motor deficits and CN's II-XI intact bilaterally Cranial nerves: Yes CN's II-XII intact bilaterally, Yes Equal, round and reactive pupils present and Yes Bilaterally intact EOM present Cognition (Neuro): normal cognition Speech: No Abnormal speech present Gait exam (Neuro): Normal gait present Motor exam (neuro): 5/5 motor strength present throughout Extrem Other: Right shoulder/upper arm with mild swelling and reproducible tenderness. Limited ROM secondary to pain. Right elbow without noted deformity. Diffusely tender. Limited flexion and extension secondary to pain. Neurovascular intact distally Right wrist/hand with mild tenderness, no snuffbox tenderness. Strength intact. Sensation intact to light touch. Finger to thumb opposition intact Course Course Course Narrative: RME- 72 year old female presents for evaluation of headache, facial pain, right hand and wrist pain, shoulder pain, and lower back pain after a fall 2 days ago XR hand wrist RT IMPRESSION: Degenerative changes noted. No acute abnormalities. XR elbow RT min 3V/XR humerus RT/CT cervical spine wo IV con IMPRESSION: Small bone fragment adjacent to the medial coronoid process of the elbow question old avulsion fracture versus enthesophyte. No acute fracture or dislocation seen. No abnormal joint effusion. Unremarkable right humerus. There is mild degenerative changes involving the glenohumeral and AC joint. Degenerative changes and spondylosis cervical spine with mild straightening of cervical lordosis likely spasm. No visible acute fracture or dislocation seen. XR shoulder RT min 2V/CT head/brain wo IV con/CT facial bones wo IV con IMPRESSION: No acute intracranial process seen. Mild cerebral volume loss. No maxillofacial, mandibular, nasal or orbital fracture seen. The soft tissues are normal. Enlarged left thyroid gland with punctate calcification, question goiter. XR lumbar spine 2-3V IMPRESSION: Stable degenerative change. No acute abnormality. > patient placed in sling for comfort and elbow findings, recommended orthopedic follow-up. Discussed recommended outpatient thyroid ultrasound Results discussed with patient including worrisome signs and symptoms and strict return precautions, and when to return to the emergency department. They verbalized understanding and feel safe for discharge at this time. Medications Administered Discontinued Medications Generic Name Dose Route Start Last Admin Trade Name Freq PRN Reason Stop Dose Admin Acetaminophen 650 mg 04/29/23 15:10 04/29/23 15:50 Acetaminophen 325 Mg Tablet PO 04/29/23 15:11 650 mg ONCE ONE Administration Cyclobenzaprine HCl 10 mg 04/29/23 15:10 04/29/23 15:49 Cyclobenzaprine Hcl 10 Mg Tablet PO 04/29/23 15:11 10 mg ONCE ONE Administration Medical Decision Making Medical Decision Making MDM Narrative: 72-year-old female with a past medical history depression, arthritis, CVA, HTN, GERD, hiatal hernia, asthma, HLD, CARTER, presenting to the ED complaining of headache, left-sided facial pain, right hand/wrist/elbow and shoulder pain and low back pain s/pmechanical trip & fall in pothole 2 days ago. On exam vital signs stable, NAD, nontoxic appearing, physical exam as noted above. No midline spinous tenderness throughout or red flag symptoms. Concern for MSK pain/strains vs muscle spasming vs concussion vs ICH. No evidence of globe rupture/ocular entrapment. Low suspicion for cauda equina/cord compression Plan: X-rays, CTs, pain management, re-evaluate Please refer to course for remaining clinical decision making, interpretation of labs/imaging results, and discussions with consultants and/or family members. Differential Diagnosis Differential Diagnoses: The differential diagnosis associated with the presentation includes As above Admission/Observation Consideration of admission/observation: Escalation of care including admission/observation considered Lab Data MDM Lab Attestation statement: I reviewed the patient's lab results. Independent Interpretation I performed an independent interpretation of an: Plain X-Ray and CT Scan Radiology Impression Discussion of test interpretation with radiology: I have reviewed the radiologist's reading. External Record Review External record reviewed: Inpatient record, Office record, Outpatient record, Prior outpatient labs, Prior outpatient radiology, Primary care record and Outside ED record Tests considered The following testing was considered but not selected: As above Prescription Management I considered prescription management with: Pain Medication Chronic Conditions Patient?s care impacted by: Other Discharge Plan Discharge Clinical Impression: Avulsion fracture, Degenerative joint disease of shoulder, Enlarged thyroid Patient Disposition: Home, Self-Care Instructions: Thyroid Goiter (ED), Arthritis (ED) Additional Instructions: Your imaging studies are reassuring. They do see a question of a small avulsion fracture of your right elbow which they are reading is old, however due to her fall and pain we will place you in a sling. You need to follow-up with the orthopedic doctor. You have arthritic changes of your neck and shoulder No fractures in her face or internal bleeding Your pain is likely musculoskeletal Flexeril is a muscle relaxer, take at night as it makes you drowsy, do not drive, drink alcohol, or operate machinery while taking it Naproxen as an anti-inflammatory / pain medication, take with food Lidoderm patches are numbing patches, apply to painful area In addition take Tylenol at home If symptoms persist or worsen, pain becomes unbearable, you developed urinary retention or incontinence, or weakness return to the ED Mariluz estudios de imagen son tranquilizadores. Ellos bhargavi tee micha?a fractura por avulsi?n de marshall codo derecho que, seg?n charisse, es andrew, sin embargo, debido a marshall ca?da y dolor, la colocaremos en un cabestrillo. Es necesario realizar un seguimiento con el m?dico ortop?dico. Tiene cambios artr?ticos en el rony y el hombro. No tiene fracturas en la franca ni hemorragia interna. Es probable que marshall dolor sea musculoesquel?josee. Flexeril es un relajante muscular, t?hudson por la noche ya que produce somnolencia, no conduzca, maryam alcohol ni opere maquinaria mientras lo eliel. Naproxeno isai antiinflamatorio/analg?sico, judith con alimentos Los parches de Lidoderm son parches adormecedores, se aplican en el ?karey dolorida. Adem?s, tome Tylenol en casa. Si los s?ntomas persisten o empeoran, el dolor se vuelve insoportable, usted desarrolla retenci?n urinaria o incontinencia, o debilidad, regrese al servicio de urgencias. Prescriptions: New acetaminophen [Tylenol Extra Strength] 500 mg tablet 500 mg PO Q6H PRN (Reason: fever or pain) Qty: 14 0RF lidocaine [Lidoderm] 5 % adhesive patch,medicated 1 patch topical DAILY MDD remove after 12 hours PRN (Reason: pain) Qty: 30 0RF Rx Instructions: leave on most painful area for up to 12 hrs naproxen 500 mg tablet 500 mg PO BID PRN (Reason: pain) 10 Days Qty: 20 0RF cyclobenzaprine 5 mg tablet 5 mg PO Q8H PRN (Reason: pain (scale score 7-10)) 5 Days Qty: 14 0RF No Action Myrbetriq 50 mg tablet extended release 24 hr 50 mg PO DAILY 90 Days Qty: 90 1RF levothyroxine 75 mcg tablet 75 mcg PO QAM loperamide 2 mg Capsule 2 mg PO DAILY Rx Instructions: administer after each loose stool until symptoms controlled; do not exceed 8 mg per 24 hrs albuterol sulfate 90 mcg/actuation HFA aerosol inhaler 2 puff inhalation Q4-6H PRN (Reason: shortness of breath or wheezing) cefuroxime axetil 500 mg tablet 500 mg PO BID Qty: 10 0RF azithromycin 500 mg tablet 500 mg PO DAILY 5 Days Qty: 5 0RF prednisone 20 mg tablet 40 mg PO DAILY Qty: 10 0RF IBgard 90 mg capsule,delayed,extend.release 90 mg PO BID Qty: 90 1RF albuterol sulfate 2.5 mg /3 mL (0.083 %) solution for nebulization 2.5 mg inhalation Q4-6H PRN (Reason: Wheezing) metoprolol tartrate 25 mg tablet 25 mg PO BID pyridoxine (vitamin B6) 50 mg tablet 50 mg PO DAILY omeprazole 40 mg capsule,delayed release(DR/EC) 40 mg PO BID clonazepam 0.5 mg tablet 0.5 mg PO DAILY trazodone 50 mg tablet 50 mg PO BEDTIME venlafaxine 75 mg capsule,extended release 24hr 75 mg PO QAM pravastatin 40 mg tablet 40 mg PO BEDTIME loratadine 10 mg tablet 10 mg PO DAILY mirtazapine 30 mg tablet 30 mg PO BEDTIME Salonpas (capsaicin-menthol) 0.025-1.25 % adhesive patch,medicated 1 patch topical BID PRN (Reason: pain) 30 Days Qty: 60 0RF Rx Instructions: may leave on area for up to 8 hrs cholecalciferol (vitamin D3) 50 mcg (2,000 unit) tablet 50 mcg PO DAILY calcium citrate-vitamin D3 315 mg-5 mcg (200 unit) tablet 1 tab PO BID bumetanide 1 mg tablet 1 mg PO DAILY 30 Days Qty: 30 6RF lidocaine 5 % adhesive patch,medicated 2 patch topical DAILY 15 Days Qty: 30 0RF Trelegy Ellipta 200-62.5-25 mcg blister with device 1 inh inhalation Q24H Qty: 1 6RF Referrals: [facility] Surgeons [Provider Group] Ailyn Monge MD [Primary Care Provider] - Interventions: ED Discharge Assessment Last Done: 04/29/23 17:15 Discharge Date/Time: 04/29/23 17:18 Print Language: Swedish
[2023-04-29] MEDS: Cyclobenzaprine HCl 10 MG TABLET PO (15:49)
[2023-04-29] MEDS: Acetaminophen 325 MG TABLET 650 MG PO (15:50)
== END 2023-04-29 17:18 | disposition home or self-care (01) ==
PROVIDERS: Emergency Provider Emergency Medicine; PCP Family Medicine
DX: S42.401A Unspecified fracture of lower end of right humerus, initial encounter for closed fracture (principal); W17.2XXA Fall into hole, initial encounter; M19.011 Primary osteoarthritis, right shoulder; Y93.01 Activity, walking, marching and hiking; Y92.414 Local residential or business street as the place of occurrence of the external cause; Y99.9 Unspecified external cause status
CPT/HCPCS: 70450; 70486; 72100; 72125; 73030; 73060; 73080; 73110; 73130; 99284

== ENCOUNTER 2023-05-21 20:29 | Emergency (ER) | payer OTHER, SELFPAY ==
--- NOTE | ~2023-05-21 | XR_ITS ---
EXAMINATION: XR ELBOW, RIGHT CLINICAL INFORMATION: Pain COMPARISON: None available. TECHNIQUE: AP, lateral, and oblique views of the right elbow. FINDINGS: The bones and soft tissues are normal. No fracture or joint effusion. Alignment is anatomic. Joint spaces are maintained. XR/XR elbow RT 2V IMPRESSION: No significant osseous changes to explain patient's pain symptoms.
--- NOTE | ~2023-05-21 | XR_ITS ---
EXAMINATION: XR SHOULDER , RIGHT CLINICAL INFORMATION: Shoulder pain COMPARISON: None available at the time of this dictation. TECHNIQUE: Frontal lateral and scapular Y view of the shoulder. Total of 3views FINDINGS: BONES: There is no fracture or dislocation, no osteolytic or osteoblastic lesion. JOINTS: Advanced degenerative osteoarthritic changes of the glenohumeral joints evident by loss of joint space and developed osteophyte from articular edges. Degenerative changes of the acromioclavicular joint as well. SOFT TISSUE AND INCLUDED LUNG: Soft tissue calcifications around the humeral head suggesting calcific tendinosis. XR/XR shoulder RT min 2V IMPRESSION: 1. Advanced degenerative osteoarthritis of the glenohumeral and acromioclavicular joints. 2. Soft tissue calcifications around the humeral head suggesting calcific tendinosis. 3. No fracture or dislocation.
[2023-05-21 21:41] VITALS: BP 151/79; PULSE 101; RESP 19; TEMP 36.7; O2SAT 95; BMI 44.8
[2023-05-22 00:41] VITALS: BP 125/63; PULSE 89; RESP 16; O2SAT 93
--- NOTE | 2023-05-22 01:21 | ED.GENADULT ---
HPI - General Adult General Chief complaint: General Medical Stated complaint: R shoulder pain Time Seen by Provider: 05/22/23 01:10 Source: patient, RN notes reviewed, old records reviewed and rn internship Mode of arrival: ambulatory Limitations: language barrier History of Present Illness HPI narrative: 72-year-old female presents for evaluation of right shoulder and elbow pain. Patient was seen here 3 weeks ago after a fall. She was given a sling, analgesia and orthopedic follow-up to to a question of an avulsion fracture of the right elbow. Patient reports that she could not fill the prescription is due to ?not being covered by insurance. ? She followed up with her PCP but has still not yet seen orthopedics She denies any further injuries, falls or trauma. She continues to have pain mostly to the right shoulder but has mild pain to the right elbow. She does not like wearing the sling No other complaints or concerns at this time Related Data Home Medications Medication Instructions Recorded Confirmed levothyroxine 75 mcg tablet 75 mcg PO QAM 02/02/20 12/27/22 albuterol sulfate 2.5 mg/3 mL 2.5 mg inhalation Q4-6H PRN 08/02/20 12/27/22 (0.083 %) solution for nebulization Wheezing calcium citrate 315 mg-vitamin D3 1 tab PO BID 06/02/21 12/27/22 5 mcg (200 unit) tablet cholecalciferol (vitamin D3) 50 50 mcg PO DAILY 06/02/21 12/27/22 mcg (2,000 unit) tablet clonazepam 0.5 mg tablet 0.5 mg PO DAILY Anxiety 12/19/21 12/27/22 loratadine 10 mg tablet 10 mg PO DAILY 12/19/21 12/27/22 metoprolol tartrate 25 mg tablet 25 mg PO BID 12/19/21 12/27/22 omeprazole 40 mg capsule,delayed 40 mg PO BID 12/19/21 12/27/22 release pravastatin 40 mg tablet 40 mg PO BEDTIME 12/19/21 12/27/22 pyridoxine (vitamin B6) 50 mg 50 mg PO DAILY 12/19/21 12/27/22 tablet trazodone 50 mg tablet 50 mg PO BEDTIME 12/19/21 12/27/22 venlafaxine 75 mg capsule,extended 75 mg PO QAM 12/19/21 12/27/22 release 24 hr mirtazapine 30 mg tablet 30 mg PO BEDTIME 03/02/22 12/27/22 albuterol sulfate 90 mcg/actuation 2 puff inhalation Q4-6H PRN 12/27/22 12/27/22 aerosol inhaler shortness of breath or wheezing loperamide 2 mg capsule 2 mg PO DAILY diarrhea 12/27/22 12/27/22 Previous Rx's Medication Instructions Recorded peppermint oil 90 mg 90 mg PO BID #90 ea 10/01/20 capsule,delayed,extended release (IBgard) capsaicin-menthol 0.025 %-1.25 % 1 patch topical BID PRN pain 30 05/21/22 topical patch (Salonpas days #60 ea (capsaicin-menthol)) azithromycin 500 mg tablet 500 mg PO DAILY 5 days #5 tabs 12/29/22 cefuroxime axetil 500 mg tablet 500 mg PO BID #10 tabs 12/29/22 prednisone 20 mg tablet 40 mg (2 x 20 mg) PO DAILY #10 tabs 12/29/22 bumetanide 1 mg tablet 1 mg PO DAILY 30 days #30 tabs 02/23/23 mirabegron 50 mg tablet,extended 50 mg PO DAILY 90 days #90 tabs 03/15/23 release 24 hr (Myrbetriq) lidocaine 5 % topical patch 2 patch topical DAILY pain 15 days 04/08/23 #30 ea fluticasone fur. 200 mcg-umeclid 1 inh inhalation Q24H #1 ea 04/15/23 62.5 mcg-vilant 25 mcg inhalat.powder (Trelegy Ellipta) acetaminophen 500 mg tablet 500 mg PO Q6H PRN fever or pain 04/29/23 (Tylenol Extra Strength) #14 tabs cyclobenzaprine 5 mg tablet 5 mg PO Q8H PRN pain (scale score 04/29/23 7-10) 5 days #14 tabs lidocaine 5 % topical patch 1 patch topical DAILY PRN pain #30 04/29/23 (Lidoderm) ea naproxen 500 mg tablet 500 mg PO BID PRN pain 10 days #20 04/29/23 tabs lidocaine HCl 4 % topical patch 1 patch topical TID PRN pain #30 ea 05/22/23 tramadol 50 mg tablet 50 mg PO Q6H PRN severe pain 05/22/23 (scale score 7-10) #20 tabs Allergies Allergy/AdvReac Type Severity Reaction Status Date / Time atorvastatin [From Lipitor] Allergy Mild HIVES Verified 05/21/23 21:41 Review of Systems Constitutional: Constitutional: Denies chills and Denies fever(s) ENT: Denies vertigo Cardiovascular: Cardiovascular: Denies chest pain and Denies dyspnea Respiratory: Respiratory: Denies cough and Denies dyspnea Musculoskeletal: Musculoskeletal: Reports arthralgias and Reports limited range of motion Integumentary/Breasts: Skin/Breast: Denies rash Neurologic: Denies vertigo [facility] Past Medical History Medical History Depression Arthritis On beta ervin at home CVA (cerebral vascular accident) History of COVID-19 HTN (hypertension) Hypothyroid Other and unspecified hyperlipidemia Essential hypertension History of gastroscopy GERD (gastroesophageal reflux disease) Chronic headaches Cervicalgia Thyroid nodule Fecal incontinence Benign neoplasm of colon Morbid obesity due to excess calories Hiatal hernia Carlson esophagus Pulmonary nodule, right Obstructive sleep apnea Asthma Dyslipidemia Surgical History S/P placement of nerve stimulator H/O colonoscopy History of esophagogastroduodenoscopy (EGD) History of carpal tunnel release History of dacryocystorhinostomy S/p bilateral blepharoplasty History of bilateral tubal ligation H/O tooth extraction History of herniorrhaphy History of cholecystectomy History of total abdominal hysterectomy and bilateral salpingo-oophorectomy History of bilateral knee replacement History of laparoscopic appendectomy History of sleeve gastrectomy Family History Family History Father No problems noted. Mother No problems noted. Social History Social History Household Members: Family Household Members Other:: grandson Housing: Apartment Do you presently have visiting nurse or other home services: Yes Alcohol intake: current Alcohol intake frequency: does not drink Comment: intubated. sedated. restrained Patient Tobacco Use Status: Never used Tobacco Advance Directives: Yes Advance Directives on File: Yes Advance Directives Date on File: 02/10/20 service: No Current occupational status: disabled Physical Exam ED Vital Signs: Vital Signs - 24 hr 05/21/23 21:41 05/22/23 00:41 Temperature 98.1 F Pulse Rate 101 H 89 Respiratory Rate 19 16 Blood Pressure 151/79 H 125/63 Pulse Oximetry 95 93 Oxygen Delivery Method Room Air Room Air BMI result Body Mass Index 44.8 Const General: healthy appearing, comfortable, no acute distress, alert and awake Nutritional Appearance: well nourished Orientation/consciousness: patient oriented x3 HENMT Head: Yes normocephalic and Yes atraumatic Eyes Eyelids: Yes eyelids normal Conjunctivae: conjunctivae normal Sclerae: sclerae normal Corneas: corneas normal Pupils: Equal, round and reactive pupils present EOM: EOMs intact bilaterally Neck Neck: Yes full ROM Resp Effort & Inspection: normal respiratory effort, able to speak in complete sentences and not labored Skin General skin exam: elasticity normal Neuro General: patient oriented x3 Cranial nerves: Yes Equal, round and reactive pupils present and Yes Bilaterally intact EOM present Cognition (Neuro): normal cognition Extrem Other: Patient has no obvious visual or palpable deformity to the entire right upper extremity including the shoulder and elbow. However she is exquisitely tender in the right bicipital groove of the right anterior shoulder. She is reduced range of motion of the right shoulder. Distal sensation and capillary refill is intact to the fingers of the right hand. Radial pulses are 2+ and equal. Medical Decision Making Medical Decision Making MDM Narrative: 72-year-old female presents for evaluation of continued right shoulder and elbow pain. She reports that the shoulder pain is worse in the elbow pain. On x-ray she has calcific tendinitis but no evidence of acute fracture. I do not see any indication for further emergent workup. Will discharge her with tramadol and lidocaine patches. She reports that she can not take NSAIDs due to ?stomach issues. ? Differential Diagnosis Differential Diagnoses: The differential diagnosis associated with the presentation includes Calcific tendinitis Arthritis Shoulder pain Avulsion fracture Independent Interpretation I performed an independent interpretation of an: Plain X-Ray (No obvious fracture of the right shoulder or elbow) Radiology Impression Discussion of test interpretation with radiology: I have reviewed the radiologist's reading. Radiologist Impression: Findings consistent with calcific tendinitis of the right shoulder. No obvious acute fracture of the right elbow Discharge Plan Discharge Clinical Impression: Calcific tendonitis of right shoulder Patient Disposition: Home, Self-Care Instructions: Calcific Tendinitis (ED) Additional Instructions: You may continue to use Tylenol as needed for pain. Use lidocaine patches as well. Use tramadol for more severe breakthrough pain This may make you sleepy, did not drink alcohol or drive after taking it. Is important that you still follow-up with orthopedics You should call again on Wednesday if you have not received a phone call for an appointment Prescriptions: New tramadol 50 mg tablet 50 mg PO Q6H PRN (Reason: severe pain (scale score 7-10)) Qty: 20 0RF lidocaine HCl 4 % adhesive patch,medicated 1 patch topical TID PRN (Reason: pain) Qty: 30 0RF No Action Myrbetriq 50 mg tablet extended release 24 hr 50 mg PO DAILY 90 Days Qty: 90 1RF levothyroxine 75 mcg tablet 75 mcg PO QAM acetaminophen [Tylenol Extra Strength] 500 mg tablet 500 mg PO Q6H PRN (Reason: fever or pain) Qty: 14 0RF lidocaine [Lidoderm] 5 % adhesive patch,medicated 1 patch topical DAILY MDD remove after 12 hours PRN (Reason: pain) Qty: 30 0RF Rx Instructions: leave on most painful area for up to 12 hrs naproxen 500 mg tablet 500 mg PO BID PRN (Reason: pain) 10 Days Qty: 20 0RF cyclobenzaprine 5 mg tablet 5 mg PO Q8H PRN (Reason: pain (scale score 7-10)) 5 Days Qty: 14 0RF loperamide 2 mg Capsule 2 mg PO DAILY Rx Instructions: administer after each loose stool until symptoms controlled; do not exceed 8 mg per 24 hrs albuterol sulfate 90 mcg/actuation HFA aerosol inhaler 2 puff inhalation Q4-6H PRN (Reason: shortness of breath or wheezing) cefuroxime axetil 500 mg tablet 500 mg PO BID Qty: 10 0RF azithromycin 500 mg tablet 500 mg PO DAILY 5 Days Qty: 5 0RF prednisone 20 mg tablet 40 mg PO DAILY Qty: 10 0RF IBgard 90 mg capsule,delayed,extend.release 90 mg PO BID Qty: 90 1RF albuterol sulfate 2.5 mg /3 mL (0.083 %) solution for nebulization 2.5 mg inhalation Q4-6H PRN (Reason: Wheezing) metoprolol tartrate 25 mg tablet 25 mg PO BID pyridoxine (vitamin B6) 50 mg tablet 50 mg PO DAILY omeprazole 40 mg capsule,delayed release(DR/EC) 40 mg PO BID clonazepam 0.5 mg tablet 0.5 mg PO DAILY trazodone 50 mg tablet 50 mg PO BEDTIME venlafaxine 75 mg capsule,extended release 24hr 75 mg PO QAM pravastatin 40 mg tablet 40 mg PO BEDTIME loratadine 10 mg tablet 10 mg PO DAILY mirtazapine 30 mg tablet 30 mg PO BEDTIME Salonpas (capsaicin-menthol) 0.025-1.25 % adhesive patch,medicated 1 patch topical BID PRN (Reason: pain) 30 Days Qty: 60 0RF Rx Instructions: may leave on area for up to 8 hrs cholecalciferol (vitamin D3) 50 mcg (2,000 unit) tablet 50 mcg PO DAILY calcium citrate-vitamin D3 315 mg-5 mcg (200 unit) tablet 1 tab PO BID bumetanide 1 mg tablet 1 mg PO DAILY 30 Days Qty: 30 6RF lidocaine 5 % adhesive patch,medicated 2 patch topical DAILY 15 Days Qty: 30 0RF Trelegy Ellipta 200-62.5-25 mcg blister with device 1 inh inhalation Q24H Qty: 1 6RF Referrals: Britt Fair MD [Physician] - (calcific tendonitis right shoulder)
[2023-05-22] MEDS: traMADoL HCL 50 MG TABLET PO (01:50)
--- NOTE | 2023-05-22 02:08 | PC.NURSE ---
pt medicated according to josselyn vickersdispute specialist utilized pt ambulatory at discharge awaiting ride home from friend. pt provided with discharge packet pt verbalized understanding of discharge plan
== END 2023-05-22 02:09 | disposition home or self-care (01) ==
PROVIDERS: Emergency Provider Internal Medicine
DX: M75.31 Calcific tendinitis of right shoulder (principal); M25.511 Pain in right shoulder; M25.521 Pain in right elbow; Z91.81 History of falling
CPT/HCPCS: 73030; 73070; 99284

== ENCOUNTER 2023-05-25 06:33 | Outpatient (REF) | payer OTHER, SELFPAY ==
--- NOTE | ~2023-05-25 | FL_ITS ---
EXAMINATION: XR FLUOROSCOPY WITH IMAGES CLINICAL INFORMATION: Spondylosis without myelopathy or radiculopathy of lumbar region. COMPARISON: Radiographs of lumbar spine from 04/29/2023. TECHNIQUE: Fluoroscopy Supervised By: Dr. Freed. Fluoroscopy Time: 0.7 min Cumulative Dose: 35.3 mGy. DAP: 0.613 mGym2. Images: 6. FL/FL guidance in treatment room FINDINGS AND IMPRESSION: This report is provided for administration purposes (not diagnostic purposes) to document use of fluoroscopic imaging equipment during injection procedures of the lumbar spine.
== END 2023-05-25 06:34 | disposition home or self-care (01) ==
LOC: CF 06:33
PROVIDERS: Visit Provider Anesthesiology
DX: M47.816 Spondylosis without myelopathy or radiculopathy, lumbar region (principal); M25.511 Pain in right shoulder; M25.561 Pain in right knee; M25.562 Pain in left knee; G89.4 Chronic pain syndrome; E66.01 Morbid (severe) obesity due to excess calories
CPT/HCPCS: 64493; 64494; J2795; Q9967

== ENCOUNTER 2023-05-25 10:03 | Outpatient (AMB) | payer OTHER, SELFPAY ==
[2023-05-25 10:13] VITALS: BP 130/70; PULSE 87; RESP 16; O2SAT 98; BMI 43.9
--- NOTE | 2023-05-25 10:13 | A.OFFVIS_ITS ---
Intake Vital Signs 05/25/23 10:13 05/25/23 11:11 Height 5 ft 2 in 5 ft 2 in Weight 240 lb 240 lb BMI 43.9 43.9 BP 130/70 130/68 Blood Pressure Location Lt brachial Lt brachial Position Sitting Sitting Respiration 16 16 Pulse 87 71 Pulse Source Pulse Oximeter Pulse Oximeter Pulse Oximetry (%) 98 96 Oxygen Delivery Method Room Air Room Air Comment Pre-Op Post-op Intake Visit Reasons: BILATERAL DIAGNOSTIC L3, L4, DRL5 MBB Restaurant Management Internship Required: Yes Restaurant Management Internship Language: Salon Assistant Name: Valeria #[id number] Accompanied by: Self / Same As Patient Allergies atorvastatin [From Lipitor] Allergy (Mild, Verified 05/21/23 21:41) HIVES [facility] Medical History Depression Arthritis On beta ervin at home CVA (cerebral vascular accident) History of COVID-19 HTN (hypertension) Hypothyroid Other and unspecified hyperlipidemia Essential hypertension History of gastroscopy GERD (gastroesophageal reflux disease) Chronic headaches Cervicalgia Thyroid nodule Fecal incontinence Benign neoplasm of colon Morbid obesity due to excess calories Hiatal hernia Carlson esophagus Pulmonary nodule, right Obstructive sleep apnea Asthma Dyslipidemia Surgical History S/P placement of nerve stimulator H/O colonoscopy History of esophagogastroduodenoscopy (EGD) History of carpal tunnel release History of dacryocystorhinostomy S/p bilateral blepharoplasty History of bilateral tubal ligation H/O tooth extraction History of herniorrhaphy History of cholecystectomy History of total abdominal hysterectomy and bilateral salpingo-oophorectomy History of bilateral knee replacement History of laparoscopic appendectomy History of sleeve gastrectomy Family History Father No problems noted. Mother No problems noted. Social History Household Members: Family Household Members Other:: grandson Housing: Apartment Do you presently have visiting nurse or other home services: Yes Alcohol intake: current Alcohol intake frequency: does not drink Comment: intubated. sedated. restrained Patient Tobacco Use Status: Never used Tobacco Advance Directives Date on File: 02/10/20 service: No Current occupational status: disabled Physical Exam Vital Signs: Last Vital Signs Pulse 71 05/25/23 11:11 Resp 16 05/25/23 11:11 BP 130/68 05/25/23 11:11 Pulse Ox 96 05/25/23 11:11 Oxygen Delivery Method Room Air 05/25/23 11:11 BMI result Body Mass Index 43.9 Assessment & Plan Assessment & Plan (1) Chronic right shoulder pain: Code(s): M25.511 - Pain in right shoulder; G89.29 - Other chronic pain Plan: Diagnostic medial branch block L3,L4 dorsal ramus L5 bilateral.? ? ?Informed consent was explained to the patient. All questions were explained and? answered.? The patient was taken inside the operating room where she was positioned prone on the operating table. Time-out was performed delineating correct site, side, the nature of the procedure, patient's allergy, . All operating room staff was participating in OR time-out procedure. ? ? The lower back was prepped with ChloraPrep and draped with sterile towels.? C- arm was brought over the operating field and sq picture of L4-, L5 vertebra and S1 AREA were delineated on the screen.? Point of interest were delineated as confluence of superior articular process of L4 and L5 vertebra bilaterally with corresponding transverse processes as well as confluence of the sacral alae bilaterally with superior articular process of S1.? The projection of the point of interest to the skin were injected with the small amount of local anesthetic lidocaine 2% 1-1.5 cc.? After that 22 gauge 3.5 inch spinal needle was driven sequentially to the points of interest in tunnel vision fashion. After needles gently contacted the bone at the point of interests the needle was injected with small amount of the contrast.? The injection of the contrast did not demonstrate any intravascular or intrathecal spread of the contrast.? After that injection of the? ropivacaine 0.5%-1cc was performed at each needle location.??after that the needles were removed and Bandaids were applied. ? Upon completion of the injections? needle was? removed and sterile Band-Aids were applied.? The patient tolerated procedure very well. (2) Chronic pain syndrome: Code(s): G89.4 - Chronic pain syndrome (3) Bilateral knee pain: Code(s): M25.561 - Pain in right knee; M25.562 - Pain in left knee (4) Lumbar spondylosis: Code(s): M47.816 - Spondylosis without myelopathy or radiculopathy, lumbar region (5) Morbid obesity due to excess calories: Comment: she has a history of untreated obstructive sleep apnea and background of reflux with Carlson's esophagus and most recent H pylori positivity was in September Code(s): E66.01 - Morbid (severe) obesity due to excess calories Plan 1. Repeat Bilateral L3-L4-L5 medial branch blocks with local and fluoroscopy for axial chronic LBP. Consider therapeutic injections or RFA for ongoing relief if positive response. Patient is not interested in Sprint PNS trial. 2. Right shoulder xray to assess degree of right shoulder. Tentatively plan for right shoulder intra-articular steroid injection with local and fluoroscopy. 3. Script for lidocaine patches provided today. 4. Dietitian/Nutrition Consult for morbind obesity which affects patient's low back pain, shoulder and knee joints significantly. All questions and concerns have been answered and patient agreed with the plan. Follow up after injections and sooner if needed. Orders: Orders FL guidance in treatment room 05/25/23 M47.816 - Spondylosis without myelopathy or radiculopathy, lumbar region Coding Level of Care Code Procedure Only Diagnoses Chronic right shoulder pain M25.511; G89.29 Chronic pain syndrome G89.4 Bilateral knee pain M25.561; M25.562 Lumbar spondylosis M47.816 Morbid obesity due to excess calories E66.01
[2023-05-25 11:11] VITALS: BP 130/68; PULSE 71; RESP 16; O2SAT 96; BMI 43.9
== END 2023-05-25 11:14 | disposition home or self-care (01) ==
LOC: HO.PMCPRC 10:04
PROVIDERS: Visit Provider Anesthesiology
DX: M47.816 Spondylosis without myelopathy or radiculopathy, lumbar region (principal)
CPT/HCPCS: 64493; 64494

== ENCOUNTER 2023-05-31 11:30 | Outpatient (AMB) | payer OTHER, SELFPAY ==
--- NOTE | 2023-05-31 11:39 | MHC.OFFVIS ---
Intake Vital Signs 05/31/23 11:43 Height 5 ft 2 in Weight 245 lb BMI 44.8 BP 138/79 Blood Pressure Location Lt brachial Position Sitting Pulse 74 Pulse Source Pulse Oximeter Pulse Oximetry (%) 98 Oxygen Delivery Method Room Air Intake Visit Reasons: BILATERAL DIAGNOSTIC L3, L4, DRL5 MBB/05/25/23 Intake Note: Pain today 07/06 Wind Field Manager Required: Yes Wind Field Manager Language: Travel Occupational Therapist Name: Rosa Accompanied by: Self / Same As Patient Allergies atorvastatin [From Lipitor] Allergy (Mild, Verified 05/31/23 11:43) HIVES HPI HPI Comments History of Present Illness Details Patient presents today to assess response to bilateral diagnostic L3-L4 DR L5 MBB on 05/25/[address] Freed. She reports 50% pain relief for 6 hours after procedure is minimal improvement in her daily functioning, mobility or sleep. Patient reports significant exacerbation of lower back pain with movements, daily activities, changing positioning, prolonged standing or walking and bending. She also reports significant right shoulder pain and requests steroidal injection for this prior to Orthopedic evaluation. Most recent shoulder x-ray showed advanced degenerative osteoarthritis of the glenohumeral and acromioclavicular joints. She has been managing her pain with Tylenol, NSAIDs and tramadol prescribed by her PCP. Patient reports chronic urinary incontinence. Denies bowel incontinence or saddle anesthesia. 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 with multiple pain generators. Her most troublesome pain generators are right shoulder pain and lower axial back pain. She also reports neck pain, bilateral knee and leg pain, bilateral hand and wrist pain, and numbness and tingling in her feet. Her back pain is mostly axial with significantly limited back extension due to pain. Patient also presents with mild tenderness in the projection of bilateral SIJ areas and mild bilateral hip pain. She has limited range of motion of the right shoulder and cannot raise her right arm or reach her back side pocket. Patient is right hand dominant and is able to make fists bilaterally. She has decreased supervisor transferring and boxing and grasp strength on the right. Patient reports left lateral knee pain and right medial knee pain with previous history of total knee replacement and multiple cortisone injections. Pain is described as constant pulsing, throbbing, pounding, stabbing, lancinating, aching, sore, hurting, dull, heavy and exhausting. Patient reports her multiple generators pain increases with any movement, walking, standing, bending, changing positions, and weather changes. Rheumatology workup was negative in 2014. Per referral notes, the patient has a history of divergence of chronic opiates and was not able to comply with chronic opiate contact in the past. Patient has been treating her pain with supportive care, physical therapy, cortisone injections, ice and heat therapy, and Tylenol. She is undergoing Pelvic Floor therapy on 04/15/22 for mixed urinary incontinence and is also considering an Interstim device. Patient denies any fever, weight loss, abdominal or groin pain [facility] Medical History Depression Arthritis On beta ervin at home CVA (cerebral vascular accident) History of COVID-19 HTN (hypertension) Hypothyroid Other and unspecified hyperlipidemia Essential hypertension History of gastroscopy GERD (gastroesophageal reflux disease) Chronic headaches Cervicalgia Thyroid nodule Fecal incontinence Benign neoplasm of colon Morbid obesity due to excess calories Hiatal hernia Carlson esophagus Pulmonary nodule, right Obstructive sleep apnea Asthma Dyslipidemia Surgical History S/P placement of nerve stimulator H/O colonoscopy History of esophagogastroduodenoscopy (EGD) History of carpal tunnel release History of dacryocystorhinostomy S/p bilateral blepharoplasty History of bilateral tubal ligation H/O tooth extraction History of herniorrhaphy History of cholecystectomy History of total abdominal hysterectomy and bilateral salpingo-oophorectomy History of bilateral knee replacement History of laparoscopic appendectomy History of sleeve gastrectomy Family History Father No problems noted. Mother No problems noted. Social History Household Members: Family Household Members Other:: grandson Housing: Apartment Do you presently have visiting nurse or other home services: Yes Alcohol intake: current Alcohol intake frequency: does not drink Comment: intubated. sedated. restrained Patient Tobacco Use Status: Never used Tobacco Advance Directives Date on File: 02/10/20 service: No Current occupational status: disabled Review of Systems Const All systems reviewed & are unremarkable except as noted in HPI and below Physical Exam Vital Signs: Last Vital Signs Pulse 74 05/31/23 11:43 BP 138/79 05/31/23 11:43 Pulse Ox 98 05/31/23 11:43 Oxygen Delivery Method Room Air 05/31/23 11:43 BMI result Body Mass Index 44.8 General: Appears afebrile. Alert and oriented. Mood and affect appropriate. Follows and participates in conversation appropriately. Respiratory effort is unlabored. No cough. Able to transition from sit to stand unassisted. Ambulates with bilaterally normal heel strike and toe off. Back/Spine/Pelvis Other: Limited lumbar ROM due to pain. Lumbar forward flexion, extension, axial lateral rotation reproduce significant pain. Antalgic gait with mild limping. Demonstrates 5/5 strength of quadriceps bilaterally as well as flexion/dorsiflexion of bilateral feet against resistance. 2+ pedal pulses bilaterally. Straight leg rise with dorsiflexion negative bilaterally. Diminished patellar and achilles reflexes bilaterally. Facet loading test positive bilaterally. Connor signs positive bilaterally. Multiple tender points of upper and lower extremities and trunk. Cervical Spine: cervical muscular tenderness and No Cervical spine tenderness Thoracic/Lumbar Spine: thoracic and lumbar spine normal to inspection, No Thoracic/lumbar spine scar(s), Lasegue's sign negative, straight leg raise negative bilaterally, pain with thoraco-lumbar ROM, paraspinal muscle tenderness, thoraco-lumbar ROM limited, No thoracic spinal tenderness and lumbar spinal tenderness (L3-S1) Pelvis: buttock tenderness bilaterally Sacroiliac joints: bilaterally tender to palpation Extrem Right upper extremity: shoulder/upper arm (Pain, limited ROM with overhead reach or reaching her back pockets) Details: tenderness (Significant tenderness to palpation to the anterior aspects of shoulder) Location: of the A-C joint, over the biceps tendon and over the subacromial bursa and crepitus; no swelling, no ecchymosis and no unusual warmth Results Reviewed Results Reviewed: CT ABDOMEN AND PELVIS WITH CONTRAST 08/23/2020 OSSEOUS STRUCTURES: No acute or suspicious osseous abnormality. Mild degenerative change of the spine and hips. MR LUMBAR SPINE WITHOUT CONTRAST 01/03/2019 CLINICAL INFORMATION: Rule out cauda equina. Decreasing sphincter tone and saddle anesthesia. COMPARISON: Lumbar spine MRI 06/19/2016. FINDINGS: The lumbar vertebral bodies maintain normal heights. There is mild grade 1 anterolisthesis of L4 on L5 which is stable compared with prior. A few scattered hemangiomata moderate are noted including at L4 and L5. There is unchanged moderate disc height loss at L5-S1 with the remaining disc heights preserved. Chronic fatty endplate changes are seen anteriorly at T10-T11. New mild edematous endplate changes are seen posteriorly at L2-L3 and L3-L4. The distal spinal cord appears normal. The conus medullaris terminates normally at the L1 level. Left-sided T2 hyperintense renal cysts are noted. The extraspinal soft tissues otherwise appear normal. SPINAL LEVELS: L1-L2: No posterior disc abnormality. No spinal canal or neural foraminal stenosis. L2-L3: Disc bulging with mild to moderate facet arthropathy. No spinal canal or neural foraminal stenosis. Mild progression facet arthropathy. L3-L4: Disc bulging, ligamentum flavum infolding, and moderate facet arthropathy with mild spinal canal stenosis and mild bilateral neural foraminal stenosis, progressed from prior. L4-L5: Grade 1 anterolisthesis with underlying disc bulging and progressive severe facet arthropathy resulting in mild flattening of the ventral thecal sac and mild narrowing of both neural foramina without foraminal nerve root compression. Both subarticular zones are narrowed but similar to prior. L5-S1: Disc bulging with posterior osseous ridging causing some mass effect on the traversing left S1 nerve root, similar to prior. Moderate to severe facet arthropathy. No spinal canal stenosis or foraminal nerve root compression. No interval change. IMPRESSION: Multilevel degenerative spondylotic changes with new endplate edema seen at L2-L3 and L3-L4. Stable moderate disc height loss at L5-S1. Grade 1 anterolisthesis at L4-L5 related to severe facet arthropathy is noted with stable flattening of the thecal sac, mild narrowing of both neural foramina, and narrowing of both subarticular zones. No new nerve root compression is seen. XR SHOULDER , RIGHT 05/21/23 FINDINGS: BONES: There is no fracture or dislocation, no osteolytic or osteoblastic lesion. JOINTS: Advanced degenerative osteoarthritic changes of the glenohumeral joints evident by loss of joint space and developed osteophyte from articular edges. Degenerative changes of the acromioclavicular joint as well. SOFT TISSUE AND INCLUDED LUNG: Soft tissue calcifications around the humeral head suggesting calcific tendinosis. IMPRESSION: 1. Advanced degenerative osteoarthritis of the glenohumeral and acromioclavicular joints. 2. Soft tissue calcifications around the humeral head suggesting calcific tendinosis. 3. No fracture or dislocation. Assessment & Plan Assessment & Plan (1) Lumbar spondylosis: Code(s): M47.816 - Spondylosis without myelopathy or radiculopathy, lumbar region (2) Lumbar radiculopathy: Code(s): M54.16 - Radiculopathy, lumbar region (3) Vertebrogenic low back pain: Code(s): M54.51 - Vertebrogenic low back pain (4) Chronic right shoulder pain: Code(s): M25.511 - Pain in right shoulder; G89.29 - Other chronic pain (5) Chronic pain syndrome: Code(s): G89.4 - Chronic pain syndrome (6) Morbid obesity due to excess calories: Comment: she has a history of untreated obstructive sleep apnea and background of reflux with Carlson's esophagus and most recent H pylori positivity was in September Code(s): E66.01 - Morbid (severe) obesity due to excess calories Plan Patient is status post repeat bilateral L3-L4-L5 medial branch blocks with 50% pain relief and minimal improvement in her functioning. She continues to endorse lower back pain with exacerbation of pain with lumbar flexion indicating a discogenic source. We will proceed with lumbar spine MRI to assess for neural integrity and compression and follow up on previous MRI findings. Schedule for right shoulder intra-articular steroid injection with local and fluoroscopy. Expectations, risks and benefits were reviewed. Patient is aware she will be contacted to schedule this procedure. All questions were answered and the patient is in agreement of plan. Follow-up after injections/MRI results and sooner as needed. Orders: Orders MR lumbar spine wo con Today M47.816 - Spondylosis without myelopathy or radiculopathy, lumbar region, M54.16 - Radiculopathy, lumbar region, M54.51 - Vertebrogenic low back pain Coding Level of Care Code Est Pt Level 4 (10738) Diagnoses Lumbar spondylosis M47.816 Lumbar radiculopathy M54.16 Vertebrogenic low back pain M54.51 Chronic right shoulder pain M25.511; G89.29 Chronic pain syndrome G89.4 Morbid obesity due to excess calories E66.01
[2023-05-31 11:43] VITALS: BP 138/79; PULSE 74; O2SAT 98; BMI 44.8
== END 2023-05-31 11:53 | disposition home or self-care (01) ==
PROVIDERS: PCP Family Medicine; Visit Provider Nurse Practitioner Family
DX: G89.4 Chronic pain syndrome (principal); M47.816 Spondylosis without myelopathy or radiculopathy, lumbar region; M54.16 Radiculopathy, lumbar region; M54.51 Vertebrogenic low back pain; M25.511 Pain in right shoulder; G89.29 Other chronic pain; E66.01 Morbid (severe) obesity due to excess calories
CPT/HCPCS: 99214

== ENCOUNTER → 2023-05-31 11:30 | Outpatient (BNVA) | payer OTHER, SELFPAY | PROVIDERS: PCP Family Medicine; Visit Provider Nurse Practitioner Family | DX: M19.011 Primary osteoarthritis, right shoulder (principal); M47.816 Spondylosis without myelopathy or radiculopathy, lumbar region; M54.16 Radiculopathy, lumbar region; M54.51 Vertebrogenic low back pain; M25.511 Pain in right shoulder; E66.01 Morbid (severe) obesity due to excess calories; G89.29 Other chronic pain; Z68.41 Body mass index [BMI] 40.0-44.9, adult | CPT/HCPCS: 99212 ==

== ENCOUNTER 2023-06-03 15:09 | Outpatient (AMB) | payer OTHER, SELFPAY ==
--- NOTE | 2023-06-03 15:23 | A.OFFVIS_ITS ---
Intake Intake Visit Reasons: F/u Incontinence Intake Note: Patient presents today for a follow-up on Incontinence: Meds- Cipro & Myrbetriq Allergies to Antibiotic- None Blood Thinner- None PVR 16 mL Kennel Helper Required: Yes Kennel Helper Language: Protective Service Specialist Name: CRISTOPHER Garcia, CMNakul Span Information Interpreted: non-clinical & clinical Accompanied by: Self / Same As Patient Allergies atorvastatin [From Lipitor] Allergy (Mild, Verified 06/29/23 14:07) HIVES HPI HPI Comments History of Present Illness Details 06/03/23--Reyes is a 71-year-old fema le who presents to the office s/p stage 2 InterStim pacemaker implant. Status post InterStim pacemaker implant 09/15/2022. The patient states she continues to have good bladder control. Denies dysuria. Denies urinary incontinence. Review of chart: 09/24/22-- The patient is S/P stage 2 InterStim pacemaker implant on 09/15/22 for urinary frequency and urgency. The patient states she is doing well. I removed the dressing and the incision is clean. There are no signs of infection. Plan: Follow-up after 2 weeks with nurse for incision check. Follow-up with me after 3 months. 06/03/2023--follow-up in 6 months [facility] Medical History Depression Arthritis On beta ervin at home CVA (cerebral vascular accident) History of COVID-19 HTN (hypertension) Hypothyroid Other and unspecified hyperlipidemia Essential hypertension History of gastroscopy GERD (gastroesophageal reflux disease) Chronic headaches Cervicalgia Thyroid nodule Fecal incontinence Benign neoplasm of colon Morbid obesity due to excess calories Hiatal hernia Carlson esophagus Pulmonary nodule, right Obstructive sleep apnea Asthma Dyslipidemia Surgical History S/P placement of nerve stimulator H/O colonoscopy History of esophagogastroduodenoscopy (EGD) History of carpal tunnel release History of dacryocystorhinostomy S/p bilateral blepharoplasty History of bilateral tubal ligation H/O tooth extraction History of herniorrhaphy History of cholecystectomy History of total abdominal hysterectomy and bilateral salpingo-oophorectomy History of bilateral knee replacement History of laparoscopic appendectomy History of sleeve gastrectomy Family History Father No problems noted. Mother No problems noted. Social History Household Members: Family Household Members Other:: grandson Housing: Apartment Do you presently have visiting nurse or other home services: Yes Alcohol intake: current Alcohol intake frequency: does not drink Comment: intubated. sedated. restrained Patient Tobacco Use Status: Never used Tobacco Advance Directives Date on File: 02/10/20 service: No Current occupational status: disabled Review of Systems Const All systems reviewed & are unremarkable except as noted in HPI and below Reports no additional complaints Eyes Reports no additional complaints ENT Reports no additional complaints Card Denies dyspnea Resp Denies cough and Denies dyspnea GI Reports no additional complaints Reports no additional complaints Musc Reports no additional complaints Skin/Breast Denies rash and Denies unusual bruising Neuro Reports no additional complaints Psych Reports no additional complaints Endo Reports no additional complaints Dion/Lymph Reports no additional complaints Aller/Immun Reports no additional complaints Assessment & Plan Assessment & Plan (1) Urgency of urination: Code(s): R39.15 - Urgency of urination (2) Sensory urge incontinence: Code(s): N39.41 - Urge incontinence (3) Urinary frequency: Code(s): R35.0 - Frequency of micturition Plan Follow-up in 6 months Orders: Orders AMB Urinalysis Automated 06/03/23 Z13.9 - Encounter for screening, unspecified AMB Post Void Residual by ultrasound 06/03/23 N39.8 - Other specified disorders of urinary system Patient Instructions: The patient had an opportunity to ask questions regarding treatment plan. All questions were answered. Imaging, Laboratory studies and physical exam results were discussed and reviewed in detail. The patient expressed understanding and agreement with the above treatment plan. The patient is aware they should contact our office by phone for worsening of their current condition or the appearance of new symptoms. Compliance is encouraged with any medications and followup testing that is ordered. It is a privilege to be allowed the opportunity to participate in the urologic care of your patient. If you have any questions or concerns regarding treatment for the above conditions please do not hesitate to contact me. The office telephone contact is [phone]. This note is constructed in part using voice recognition software. While every effort has been made to ensure accuracy premises technician errors may have been included. Yours sincerely, Kirby Sahni MD Coding Level of Care Code Est Pt Level 3 (78987) Diagnoses Urgency of urination R39.15 Sensory urge incontinence N39.41 Urinary frequency R35.0
== END 2023-06-03 15:37 | disposition home or self-care (01) ==
PROVIDERS: PCP Family Medicine; Visit Provider Urology
DX: R39.15 Urgency of urination (principal); R35.0 Frequency of micturition
CPT/HCPCS: 99213

== ENCOUNTER → 2023-06-03 15:09 | Outpatient (BNVA) | payer OTHER, SELFPAY | PROVIDERS: PCP Family Medicine; Visit Provider Urology | DX: R39.15 Urgency of urination (principal); R35.0 Frequency of micturition; N39.41 Urge incontinence | CPT/HCPCS: 99212 ==

== ENCOUNTER 2023-06-15 11:09 | Outpatient (AMB) | payer OTHER, SELFPAY ==
[2023-06-15 11:10] VITALS: BMI 44.8
--- NOTE | 2023-06-15 11:10 | A.OFFVIS_ITS ---
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 Patient reports about a month ago she had a fall. Currently, she is having a lot of pain which starts from her elbow and up to her bicep. 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 Patient presented to the ED on 04/29/2023 status post a fall into a pothole that occurred on 04/27/2023. She reported she tripped landing face first and then to her right side. She was placed in a sling and referred to Orthopedics. She was prescribed Acetaminophen 500 mg PO Q6H PRN with 14 tabs, Lidocaine patches Q12H PRN with 30 patches, Naproxen 500 mg PO BID PRN with 20 tablets, and Cyclobenzaprine 5 mg PO QQ8H PRN with 14 tablets. The patient presented a second time to the ED on 05/21/2023 with a complaint of right shoulder and elbow pain. She expressed she did not like to wear the sling due to discomfort. She also stated she was unable to brick picker her prescriptions due to her insurance not covering them. She also reports she is unable to take NSAIDs due to stomach issues. She was prescribed Tramadol 50 mg PO Q6H PRN with 20 tablets and Lidocaine patches TID PRN with 30 patches. Patient was seen by Pain Management on 05/25/2023 where she underwent bilateral L3-L4-L5 medial branch blocks. While in the office today the patient reports a complaint of right shoulder and elbow pain. She reports having a fall about a month ago. She claims she is currently having a lot of pain which starts in her elbow and radiates to her bicep. [facility] Medical History Depression Arthritis On beta ervin at home CVA (cerebral vascular accident) History of COVID-19 HTN (hypertension) Hypothyroid Other and unspecified hyperlipidemia Essential hypertension History of gastroscopy GERD (gastroesophageal reflux disease) Chronic headaches Cervicalgia Thyroid nodule Fecal incontinence Benign neoplasm of colon Morbid obesity due to excess calories Hiatal hernia Carlson esophagus Pulmonary nodule, right Obstructive sleep apnea Asthma Dyslipidemia Surgical History S/P placement of nerve stimulator H/O colonoscopy History of esophagogastroduodenoscopy (EGD) History of carpal tunnel release History of dacryocystorhinostomy S/p bilateral blepharoplasty History of bilateral tubal ligation H/O tooth extraction History of herniorrhaphy History of cholecystectomy History of total abdominal hysterectomy and bilateral salpingo-oophorectomy History of bilateral knee replacement History of laparoscopic appendectomy History of sleeve gastrectomy Family History Father No problems noted. Mother No problems noted. Social History Household Members: Family Household Members Other:: grandson Housing: Apartment Do you presently have visiting nurse or other home services: Yes Alcohol intake: current Alcohol intake frequency: does not drink Comment: intubated. sedated. restrained Patient Tobacco Use Status: Never used Tobacco Advance Directives Date on File: 02/10/20 service: No Current occupational status: disabled Review of Systems Const All systems reviewed & are unremarkable except as noted in HPI and below Physical Exam Vital Signs: BMI result Body Mass Index 44.8 Const General: cooperative, healthy appearing and no acute distress Resp Effort & Inspection: normal respiratory effort and able to speak in complete sentences Cardio Rate: regular rate Peripheral pulses: Peripheral pulses 2+ throughout GI Palpation (GI): Soft to palpation Skin Lesions: no lesions Rashes: no rashes Extrem Other: Right upper extremity normal to inspection no ecchymosis, erythema, or edema. FF and Abduction 40 degrees. Unable to perform any special tests due to pain and ROM restrictions. Extreme stiffness and pain with rotation of the head and neck. With C-spine ROM pain is reproducible down the left upper extremity. Assessment & Plan Assessment & Plan (1) Cervical radicular pain: Code(s): M54.12 - Radiculopathy, cervical region (2) Arthritis of right glenohumeral joint: Code(s): M19.011 - Primary osteoarthritis, right shoulder (3) Osteoarthritis of right elbow: Code(s): M19.021 - Primary osteoarthritis, right elbow Qualifiers: Osteoarthritis type: unspecified Qualified Code(s): M19.021 - Primary osteoarthritis, right elbow (4) Cervical spondylosis: Code(s): M47.812 - Spondylosis without myelopathy or radiculopathy, cervical region (5) Arthritis of right acromioclavicular joint: Code(s): M19.011 - Primary osteoarthritis, right shoulder Plan Ms. Ascencio is a 72-year-old right hand dominant female, who is Polish speaking, presents in the office today, as a new patient, for an evaluation of right elbow pain. Patient presented to the ED on 04/29/2023 status post a fall into a p othole that occurred on 04/27/2023. She reported she tripped landing face first and then to her right side. She was placed in a sling and referred to Orthopedics. She was prescribed Acetaminophen 500 mg PO Q6H PRN with 14 tabs, Lidocaine patches Q12H PRN with 30 patches, Naproxen 500 mg PO BID PRN with 20 tablets, and Cyclobenzaprine 5 mg PO QQ8H PRN with 14 tablets. The patient presented a second time to the ED on 05/21/2023 with a complaint of right shoulder and elbow pain. She expressed she did not like to wear the sling due to discomfort. She also stated she was unable to brick picker her prescriptions due to her insurance not covering them. She also reports she is unable to take NSAIDs due to stomach issues. She was prescribed Tramadol 50 mg PO Q6H PRN with 20 tablets and Lidocaine patches TID PRN with 30 patches. Patient was seen by Pain Management on 05/25/2023 where she underwent bilateral L3-L4-L5 medial branch blocks. While in the office today the patient reports a complaint of right shoulder and elbow pain. She reports having a fall about a month ago. She claims she is currently having a lot of pain which starts in her elbow and radiates to her bicep. Patient has a long standing history of spinal diagnosis. She is currently under the care of Pain Management. At her last appointment on 05/31/2023 she was scheduled for a right shoulder intra-articular injection, which is pending at this time. A referral for physical therapy to work on her c-spine ROM and modalities. I would also like for her to be evaluated by Physiatry for further evaluation and treatment. A prescription refill for the lidocaine patch and for a topical cream were sent to the pharmacy. Follow up with our office will be PRN, or sooner if needed. X-rays of the right elbow, obtained on 05/21/2023, revealed: The oseous structures and soft tissues are normal. No fracture or joint effusion. Alignment is anatomic. Joint spaces are maintained. Revealed arthritis. X-rays of the right elbow, obtained on 04/29/2023, revealed: 1.) Small bone fragment adjacent to the medial coronoid process of the elbow question old avulsion fracture versus enthesophyte. No acute fracture or dislocation seen. No abnormal joint effusion. 2.) Unremarkable right humerus. There is mild degenerative changes involving the glenohumeral and AC joint. 3.) Degenerative changes and spondylosis cervical spine with mild straightening of cervical lordosis likely spasm. No visible acute fracture or dislocation seen. Orders: Orders PT Evaluation and Treatment Today G89.29 - Other chronic pain, G89.4 - Chronic pain syndrome, M25.511 - Pain in right shoulder, M54.12 - Radiculopathy, cervical region Medications: New lidocaine 5% leave on most painful area for up to 12 hrs 3 patches topical DAILY 30 ea 0RF Patient Instructions: Scribed by Sharon Kelley medical art therapist, for Wendy Mondragon PA-C on 06/15/2023 at 11:15 am, EST. Coding Level of Care Code New Pt Level 4 (78532) Diagnoses Cervical radicular pain M54.12 Arthritis of right glenohumeral joint M19.011 Osteoarthritis of right elbow, unspecified osteoarthritis type M19.021 Osteoarthritis type: unspecified Cervical spondylosis M47.812 Arthritis of right acromioclavicular joint M19.011
== END 2023-06-15 11:49 | disposition home or self-care (01) ==
PROVIDERS: PCP Family Medicine; Visit Provider Physician Assistant
DX: M19.021 Primary osteoarthritis, right elbow (principal); M19.011 Primary osteoarthritis, right shoulder; M54.12 Radiculopathy, cervical region; M47.812 Spondylosis without myelopathy or radiculopathy, cervical region
CPT/HCPCS: 99204

== ENCOUNTER → 2023-06-15 11:09 | Outpatient (BNVA) | payer OTHER, SELFPAY | PROVIDERS: PCP Family Medicine; Visit Provider Physician Assistant | DX: M54.12 Radiculopathy, cervical region (principal); M47.812 Spondylosis without myelopathy or radiculopathy, cervical region; M19.011 Primary osteoarthritis, right shoulder; M19.021 Primary osteoarthritis, right elbow; Z91.81 History of falling; Z96.82 Presence of neurostimulator | CPT/HCPCS: 99202 ==

== ENCOUNTER 2023-06-17 08:15 | Outpatient (REF) | payer OTHER, SELFPAY ==
[2023-06-17 11:51] LABS: MANUAL DIFF FLAG NO
[2023-06-17 12:05] LABS: Basophils Percent Auto 0.3 % (0-2); Eosinophils Percent Auto 0.3 % (0-4); Hematocrit 43.4 % (37.0-47.0); Hemoglobin 13.6 g/dl (12.0-16.0); Imm Gran Abs Auto 0.01 X10*3/uL (0.00-0.03); Imm Gran Pct Auto 0.2 % (0.0-0.4); Lymphocytes Absolute Auto 0.9 X10*3/uL (1.2-4.9); Lymphocytes Percent Auto 15.7 % (20-40); Mean Corpuscular HGB Conc 31.3 g/dl (31.0-35.0); Mean Corpuscular Hemoglobin 26.5 pg (27.0-33.0); Mean Corpuscular Volume 84.4 fL (80.0-98.0); Mean Platelet Volume 12.4 fL (9.4-12.3); Monocytes Absolute Auto 0.5 X10*3/uL (0.1-1.2); Monocytes Percent Auto 9.3 % (2-11); Neutrophils Absolute Auto 4.3 x10*3/uL (2.0-8.3); Neutrophils Percent Auto 74.2 % (45-73); Platelet Count 173 X10*3/uL (160-400); Red Blood Count 5.14 X10*6/uL (4.20-5.50); Red Cell Distribution Width 16.9 % (11.0-16.0); White Blood Count 5.8 X10*3/uL (4.8-10.8)
[2023-06-17 12:16] LABS: Estimated Average Glucose 128 mg/dL; Hemoglobin A1c % 6.1 % (<6.0)
[2023-06-17 12:26] LABS: Alanine Aminotransferase 35 U/L (0-31); Albumin Level 4.1 g/dL (3.5-5.0); Alkaline Phosphatase 75 U/L (39-117); Anion Gap 14 (12-20); Aspartate Amino Transferase 33 U/L (5-31); Bilirubin Direct 0.2 mg/dL (0.0-0.5); Bilirubin Total 0.4 mg/dL (0.0-1.0); Blood Urea Nitrogen 18 mg/dL (9-16); Calcium 10.7 mg/dL (8.4-10.2); Carbon Dioxide 30 mmol/L (22-29); Chloride 101 mmol/L (96-108); Cholesterol 116 mg/dL (<200); Estimated Glomerular Filt Rate > 60; Glucose Random 123 mg/dL (60-115); HDL Cholesterol 42 mg/dL (>40); LDL Cholesterol Calculated 49 mg/dL (<100); Magnesium 1.7 mg/dL (1.6-2.6); Potassium 4.5 mmol/L (3.3-5.1); Sodium 140 mmol/L (135-145); Total Protein 7.6 g/dL (6.5-8.0); Triglycerides 126 mg/dL (<150)
[2023-06-17 12:41] LABS: TSH reflex Free T4 2.49 uIU/mL (0.32-4.0)
[2023-06-18 09:03] LABS: ~HepC Num1 0.12 S/CO (0.00-0.79); ~Hepatitis C Antibody Nonreactive (Nonreactive)
== END 2023-06-17 08:16 | disposition home or self-care (01) ==
LOC: HO.HHCL 08:15
PROVIDERS: Visit Provider Family Medicine
DX: I10 Essential (primary) hypertension (principal); E03.9 Hypothyroidism, unspecified; E78.5 Hyperlipidemia, unspecified; E55.9 Vitamin D deficiency, unspecified; K22.719 Barrett's esophagus with dysplasia, unspecified; Z11.59 Encounter for screening for other viral diseases
CPT/HCPCS: 36415; 80048; 80061; 80076; 82306; 83036; 83735; 84443; 85025; 86803

== ENCOUNTER 2023-06-22 14:00 | Outpatient (AMB) | payer OTHER, SELFPAY ==
[2023-06-22 14:06] VITALS: BMI 42.7
--- NOTE | 2023-06-22 14:06 | A.OFFVIS_ITS ---
Intake VS Expanded 06/22/23 14:06 Height 5 ft 2 in Weight 233 lb 7.512 oz BMI 42.7 Intake Visit Reasons: Obesity/CONFIRMED Allergies atorvastatin [From Lipitor] Allergy (Mild, Verified 06/29/23 14:07) HIVES HPI Nutrition Presentation Details Pt presents for MNT for obesity. Pt has no dentures Pt reports having had bariatric surgery over 12 yrs ago (was over 400 lbs and reached 175 lbs ) a Typical meal intake B: 8 am coffee with almond milk and stevia with 1 eggs and 1-2 crackers snack: fruits L: root vegetables with steamed chicken , water or selwyn tea 6 laney dinner : salad or cornflakes unsweetened cereal or with fruits added snack: fruits physical activity: sedentary ETOH: denies Smoking:denies fruits/d: 0-1 fish/wk: 0-1 vegetables: 0-1x/wk dairy: almond milk 2 x/d, cheese/ice cream 2-3 x/wk fried foods: 1-2 x/wk pastries and similar: 1/d GLZ-Mjdffcq-Cz.Jeor Equation Height 5 ft 2 in Weight 233 lb Resting Metabolic Rate 1514.98 Calculated Activity Level Sedentary Calories Needed to Maintain Weight 1817.98 Diagnosis Nutrition problem #1 excessive energy intake As related to (etiology) #1 diagnosis As evidenced by (sign/symptom) #1 high BMI (42.7 (05/2023)) Monitoring/Goals Nutrition problem monitoring total PRO intake, total CHO intake and weight Learning/Education Readiness to learn good Stages of change preparation Educational materials provided Yes (meal planning 1800 laney) Most Recent Diabetes Results: Cholesterol 116 mg/dL (<200) 06/17/23 HDL Cholesterol 42 mg/dL (>40) 06/17/23 Triglycerides 126 mg/dL (<150) 06/17/23 Creatinine 0.89 mg/dL (0.5-1.4) 06/17/23 Blood Urea Nitrogen 18 mg/dL (9-16) H 06/17/23 Sodium 140 mmol/L (135-145) 06/17/23 Potassium 4.5 mmol/L (3.3-5.1) 06/17/23 Chloride 101 mmol/L (96-108) 06/17/23 Carbon Dioxide 30 mmol/L (22-29) H 06/17/23 Calcium 10.7 mg/dL (8.4-10.2) H 06/17/23 AST 33 U/L (5-31) H 06/17/23 ALT 35 U/L (0-31) H 06/17/23 Total Protein 7.6 g/dL (6.5-8.0) 06/17/23 Albumin 4.1 g/dL (3.5-5.0) 06/17/23 [facility] Medical History Depression Arthritis On beta ervin at home CVA (cerebral vascular accident) History of COVID-19 HTN (hypertension) Hypothyroid Other and unspecified hyperlipidemia Essential hypertension History of gastroscopy GERD (gastroesophageal reflux disease) Chronic headaches Cervicalgia Thyroid nodule Fecal incontinence Benign neoplasm of colon Morbid obesity due to excess calories Hiatal hernia Carlson esophagus Pulmonary nodule, right Obstructive sleep apnea Asthma Dyslipidemia Surgical History S/P placement of nerve stimulator H/O colonoscopy History of esophagogastroduodenoscopy (EGD) History of carpal tunnel release History of dacryocystorhinostomy S/p bilateral blepharoplasty History of bilateral tubal ligation H/O tooth extraction History of herniorrhaphy History of cholecystectomy History of total abdominal hysterectomy and bilateral salpingo-oophorectomy History of bilateral knee replacement History of laparoscopic appendectomy History of sleeve gastrectomy Family History Father No problems noted. Mother No problems noted. Social History Household Members: Family Household Members Other:: grandson Housing: Apartment Do you presently have visiting nurse or other home services: Yes Alcohol intake: current Alcohol intake frequency: does not drink Comment: intubated. sedated. restrained Patient Tobacco Use Status: Never used Tobacco Advance Directives Date on File: 02/10/20 service: No Current occupational status: disabled Assessment & Plan Assessment & Plan (1) Morbid obesity due to excess calories: Comment: Code(s): E66.01 - Morbid (severe) obesity due to excess calories Plan: Wt: 106 Kg ( 05/2023 ) Est kcal needs as per MSJ: 1800 (40% carb, 30% protein/fat) Est fluid needs as per 30 ml/d: 3100 Est prot per day as per 1 g/kg bw: 106 Recommend fiber intake : 8-10 g per day and gradually increase to 25-28 g per day for women and 35-38 g for men or as tolerated Recommend sodium intake per day : less than 2000 mg Educated patient on: ( R = reviewed V = verbalizes understanding N/R = needs review N/A = not applicable * Food sources of carbohydrate, adequate serving sizes and its role in various health conditions: R * Differences between complex carbohydrates a simple carbohydrates, role of fiber in diet: N/R * Lean protein sources of foods: R V NR * Differences between types of fats and role in diet (mono on saturated fat fatty acids, saturated fatty acids, trans fats): R * Food sources of sodium in salt and healthy modifications for heart health in kidney health: N/R * Vitamins and minerals: N/R * Healthy plate method concept: R * Physical activity: Benefits a precaution: N/R Patient Instructions: Choose a fruit once a day in place of pastry at bedtime follow 1800 laney meal plan, low in fat Coding Level of Care Code Nutr Indiv Intake (56034) Diagnoses Morbid obesity due to excess calories E66.01 Time Spent (min) 30
[2023-07-05 11:24] VITALS: BMI 42.6
== END 2023-06-22 14:47 | disposition home or self-care (01) ==
PROVIDERS: PCP Family Medicine; Visit Provider Dietitian, Registered
DX: E66.01 Morbid (severe) obesity due to excess calories (principal)

== ENCOUNTER → 2023-06-22 14:00 | Outpatient (BNVA) | payer OTHER, SELFPAY | PROVIDERS: PCP Family Medicine; Visit Provider Dietitian, Registered | DX: E66.01 Morbid (severe) obesity due to excess calories (principal); Z71.3 Dietary counseling and surveillance; Z98.84 Bariatric surgery status; Z68.41 Body mass index [BMI] 40.0-44.9, adult | CPT/HCPCS: 97802 ==

== ENCOUNTER 2023-06-29 07:07 | Outpatient (REF) | payer OTHER, SELFPAY ==
--- NOTE | ~2023-06-29 | FL_ITS ---
EXAMINATION: XR FLUOROSCOPY WITH IMAGES CLINICAL INFORMATION: Primary osteoarthritis right shoulder. COMPARISON: Right shoulder radiographs dated 05/21/2023. TECHNIQUE: Fluoroscopy Supervised By: Dr. Emeka Freed. Fluoroscopy Time: 0.3 minutes. Cumulative Dose: 4.92 mGy. DAP: 0.866 Gycm2. Images: 2. FINDINGS: The submitted images show an injection needle and injected contrast in the vicinity of the upper right glenohumeral joint. FL/FL guidance in treatment room IMPRESSION: Intraoperative fluoroscopic guidance is provided during right shoulder pain management procedure. Please see the patient's Operative Report for full procedural details.
== END 2023-06-29 07:08 | disposition home or self-care (01) ==
LOC: CF 07:07
PROVIDERS: Visit Provider Anesthesiology
DX: M19.011 Primary osteoarthritis, right shoulder (principal); M25.511 Pain in right shoulder; G89.29 Other chronic pain; M54.51 Vertebrogenic low back pain; M47.26 Other spondylosis with radiculopathy, lumbar region; E66.01 Morbid (severe) obesity due to excess calories; Z68.41 Body mass index [BMI] 40.0-44.9, adult
CPT/HCPCS: 20610; J2795; J3301; Q9967

== ENCOUNTER 2023-06-29 11:35 | Outpatient (AMB) | payer OTHER, SELFPAY ==
[2023-06-29 14:05] VITALS: BP 132/86; PULSE 66; RESP 18; O2SAT 95; BMI 42.6
--- NOTE | 2023-06-29 14:05 | MHC.OFFVIS ---
Intake Vital Signs 06/29/23 14:05 06/29/23 14:06 Height 5 ft 2 in 5 ft 2 in Weight 233 lb 233 lb BMI 42.6 42.6 BP 132/86 130/80 Blood Pressure Location Rt brachial Rt brachial Position Sitting Sitting Respiration 18 18 Pulse 66 66 Pulse Source Pulse Oximeter Pulse Oximeter Pulse Oximetry (%) 95 97 Oxygen Delivery Method Room Air Room Air Comment PRE-OP POST-OP Intake Visit Reasons: RIGHT INTRA-ARTICULAR SHOULDER INJECTION Allergies atorvastatin [From Lipitor] Allergy (Mild, Verified 06/29/23 14:07) HIVES [facility] Medical History Depression Arthritis On beta ervin at home CVA (cerebral vascular accident) History of COVID-19 HTN (hypertension) Hypothyroid Other and unspecified hyperlipidemia Essential hypertension History of gastroscopy GERD (gastroesophageal reflux disease) Chronic headaches Cervicalgia Thyroid nodule Fecal incontinence Benign neoplasm of colon Morbid obesity due to excess calories Hiatal hernia Carlson esophagus Pulmonary nodule, right Obstructive sleep apnea Asthma Dyslipidemia Surgical History S/P placement of nerve stimulator H/O colonoscopy History of esophagogastroduodenoscopy (EGD) History of carpal tunnel release History of dacryocystorhinostomy S/p bilateral blepharoplasty History of bilateral tubal ligation H/O tooth extraction History of herniorrhaphy History of cholecystectomy History of total abdominal hysterectomy and bilateral salpingo-oophorectomy History of bilateral knee replacement History of laparoscopic appendectomy History of sleeve gastrectomy Family History Father No problems noted. Mother No problems noted. Social History Household Members: Family Household Members Other:: grandson Housing: Apartment Do you presently have visiting nurse or other home services: Yes Alcohol intake: current Alcohol intake frequency: does not drink Comment: intubated. sedated. restrained Patient Tobacco Use Status: Never used Tobacco Advance Directives Date on File: 02/10/20 service: No Current occupational status: disabled Physical Exam Vital Signs: Last Vital Signs Pulse 66 06/29/23 14:06 Resp 18 06/29/23 14:06 BP 130/80 06/29/23 14:06 Pulse Ox 97 06/29/23 14:06 Oxygen Delivery Method Room Air 06/29/23 14:06 BMI result Body Mass Index 42.6 Assessment & Plan Assessment & Plan (1) Lumbar spondylosis: Code(s): M47.816 - Spondylosis without myelopathy or radiculopathy, lumbar region (2) Lumbar radiculopathy: Code(s): M54.16 - Radiculopathy, lumbar region (3) Vertebrogenic low back pain: Code(s): M54.51 - Vertebrogenic low back pain (4) Chronic right shoulder pain: Code(s): M25.511 - Pain in right shoulder; G89.29 - Other chronic pain Plan: Therapeutic right shoulder glenohumeral joint injection. Informed consent was explained thoroughly to the patient. All questions about benefits and risks for the procedure were answered. Patient came to the operating room and was positioned prone on the operating table with the pillow under the chest and right shoulder. Time-out was performed delineating site and side of the procedure name minute of of the patient. The right shoulder , right side of the neck and right upper back of the patient were prepped with ChloraPrep and draped with sterile utility self adhesive towels. C-arm was brought over the operating field and the picture of patient's glenohumeral joint was demonstrated on the screen. Superior medial portion of the joint was chosen as the target of the injection. Projection of the target to the skin was injected with small amount of lidocaine 2% 2 mL. After that 22 gauge 3 and 1/2 inch needle was driven to the left joint in tunnel vision fashion. When needle entered the joint capsule injection of the contrast was performed demonstrating intra-articular r spread of the contrast. After that 4 cc. of ropivacaine 0.5% mixed with Kenalog 40 mg was injected into the left joint. Upon completion of the injections the needle was removed . Sterile dressing was applied. Upon completion of the injection patient was taken outside of the operating room to the recovery room where recovered uneventfully. (5) Chronic pain syndrome: Code(s): G89.4 - Chronic pain syndrome (6) Morbid obesity due to excess calories: Comment: she has a history of untreated obstructive sleep apnea and background of reflux with Carlson's esophagus and most recent H pylori positivity was in September Code(s): E66.01 - Morbid (severe) obesity due to excess calories Plan Patient is status post repeat bilateral L3-L4-L5 medial branch blocks with 50% pain relief and minimal improvement in her functioning. She continues to endorse lower back pain with exacerbation of pain with lumbar flexion indicating a discogenic source. We will proceed with lumbar spine MRI to assess for neural integrity and compression and follow up on previous MRI findings. Schedule for right shoulder intra-articular steroid injection with local and fluoroscopy. Expectations, risks and benefits were reviewed. Patient is aware she will be contacted to schedule this procedure. All questions were answered and the patient is in agreement of plan. Follow-up after injections/MRI results and sooner as needed. Orders: Orders FL guidance in treatment room Today M19.011 - Primary osteoarthritis, right shoulder Coding Level of Care Code Procedure Only Diagnoses Lumbar spondylosis M47.816 Lumbar radiculopathy M54.16 Vertebrogenic low back pain M54.51 Chronic right shoulder pain M25.511; G89.29 Chronic pain syndrome G89.4 Morbid obesity due to excess calories E66.01
[2023-06-29 14:06] VITALS: BP 130/80; PULSE 66; RESP 18; O2SAT 97; BMI 42.6
== END 2023-06-29 13:57 | disposition home or self-care (01) ==
LOC: HO.PMCPRC 11:35
PROVIDERS: PCP Family Medicine; Visit Provider Anesthesiology
DX: M25.511 Pain in right shoulder (principal)
CPT/HCPCS: 20610; 77002

== ENCOUNTER 2023-07-23 13:00 | Outpatient (AMB) | payer OTHER, SELFPAY ==
--- NOTE | 2023-07-23 13:01 | MHC.OFFVIS ---
Vital Signs 07/23/23 13:06 Height 5 ft 2 in Weight 238 lb 7 oz BMI 43.6 BP 138/70 Blood Pressure Location Lt brachial Position Sitting Pulse 68 Pulse Source Pulse Oximeter Pulse Oximetry (%) 97 Oxygen Delivery Method Room Air Intake Visit Reasons: RIGHT INTRA-ARTICULAR SHOULDER INJECTION Intake Note: Pain today 10/05 Coupon Manifest Clerk Required: Yes Coupon Manifest Clerk Language: Urologist Name: Aisha #[id number] Allergies atorvastatin [From Lipitor] Allergy (Mild, Verified 07/23/23 13:07) HIVES HPI Comments Details: Patient presents today to assess response to Therapeutic right shoulder glenohumeral joint injection on 06/29/[address] Freed. Patient reports less than 20% pain relief since procedure with no significant improvement in her functioning, range of motion and sleep. She was encouraged to start formal PT which was scheduled on 07/22/23. Patient reports she recently returned from [place] and will contact PT to reschedule visits. She has been taking Tylenol, naproxen, lidocaine patches, ice and heat applications with minimal pain relief. She also suffers from chronic neck and back pain. Denies any recent cough, cold, infection, fever, any significant changes in her medical history, medications or recent hospitalizations. 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 with multiple pain generators. Her most troublesome pain generators are right shoulder pain and lower axial back pain. She also reports neck pain, bilateral knee and leg pain, bilateral hand and wrist pain, and numbness and tingling in her feet. Her back pain is mostly axial with significantly limited back extension due to pain. Patient also presents with mild tenderness in the projection of bilateral SIJ areas and mild bilateral hip pain. She has limited range of motion of the right shoulder and cannot raise her right arm or reach her back side pocket. Patient is right hand dominant and is able to make fists bilaterally. 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 Patient reports left lateral knee pain and right medial knee pain with previous history of total knee replacement and multiple cortisone injections. Pain is described as constant pulsing, throbbing, pounding, stabbing, lancinating, aching, sore, hurting, dull, heavy and exhausting. Patient reports her multiple generators pain increases with any movement, walking, standing, bending, changing positions, and weather changes. Rheumatology workup was negative in 2013. Per referral notes, the patient has a history of divergence of chronic opiates and was not able to comply with chronic opiate contact in the past. Patient has been treating her pain with supportive care, physical therapy, cortisone injections, ice and heat therapy, and Tylenol. She is undergoing Pelvic Floor therapy on 04/15/22 for mixed urinary incontinence and is also considering an Interstim device. Patient denies any fever, weight loss, abdominal or groin pain [facility] Medical History Depression Arthritis On beta ervin at home CVA (cerebral vascular accident) History of COVID-19 HTN (hypertension) Hypothyroid Other and unspecified hyperlipidemia Essential hypertension History of gastroscopy GERD (gastroesophageal reflux disease) Chronic headaches Cervicalgia Thyroid nodule Fecal incontinence Benign neoplasm of colon Morbid obesity due to excess calories Hiatal hernia Carlson esophagus Pulmonary nodule, right Obstructive sleep apnea Asthma Dyslipidemia Surgical History S/P placement of nerve stimulator H/O colonoscopy History of esophagogastroduodenoscopy (EGD) History of carpal tunnel release History of dacryocystorhinostomy S/p bilateral blepharoplasty History of bilateral tubal ligation H/O tooth extraction History of herniorrhaphy History of cholecystectomy History of total abdominal hysterectomy and bilateral salpingo-oophorectomy History of bilateral knee replacement History of laparoscopic appendectomy History of sleeve gastrectomy Family History Father No problems noted. Mother No problems noted. Social History Household Members: Family Household Members Other:: grandson Housing: Apartment Do you presently have visiting nurse or other home services: Yes Alcohol intake: current Alcohol intake frequency: does not drink Comment: intubated. sedated. restrained Patient Tobacco Use Status: Never used Tobacco Advance Directives Date on File: 02/10/20 service: No Current occupational status: disabled Review of Systems Const All systems reviewed & are unremarkable except as noted in HPI and below Physical Exam Vital Signs: Last Vital Signs Pulse 68 07/23/23 13:06 BP 138/70 07/23/23 13:06 Pulse Ox 97 07/23/23 13:06 Oxygen Delivery Method Room Air 07/23/23 13:06 BMI result Body Mass Index 43.6 General: Appears afebrile. Alert and oriented. Mood and affect appropriate. Follows and participates in conversation appropriately. Respiratory effort is unlabored. No cough. Able to transition from sit to stand unassisted. Ambulates with bilaterally normal heel strike and toe off. Back/Spine/Pelvis Cervical Spine: cervical muscular tenderness, pain with cervical ROM, cervical spasm (left) and No Cervical spine tenderness Thoracic/Lumbar Spine: thoracic and lumbar spine normal to inspection, No Thoracic/lumbar spine scar(s), Lasegue's sign negative, straight leg raise negative bilaterally, pain with thoraco-lumbar ROM, paraspinal muscle tenderness, thoraco-lumbar ROM limited, No thoracic spinal tenderness and lumbar spinal tenderness (L3-S1) Pelvis: buttock tenderness bilaterally Sacroiliac joints: bilaterally tender to palpation Extrem General: Yes capillary refill normal, Yes no clubbing, cyanosis or edema and Yes no calf tenderness Right upper extremity: shoulder/upper arm (Limited ROM due to pain) Details: tenderness (Significant tenderness to palpation to the anterior aspects of shoulder) Location: of the A-C joint, over the biceps tendon and over the subacromial bursa and crepitus; no swelling, no ecchymosis and no unusual warmth Results Reviewed Results Reviewed: CT ABDOMEN AND PELVIS WITH CONTRAST 08/23/2020 OSSEOUS STRUCTURES: No acute or suspicious osseous abnormality. Mild degenerative change of the spine and hips. MR LUMBAR SPINE WITHOUT CONTRAST 01/03/2019 CLINICAL INFORMATION: Rule out cauda equina. Decreasing sphincter tone and saddle anesthesia. COMPARISON: Lumbar spine MRI 06/19/2016. FINDINGS: The lumbar vertebral bodies maintain normal heights. There is mild grade 1 anterolisthesis of L4 on L5 which is stable compared with prior. A few scattered hemangiomata moderate are noted including at L4 and L5. There is unchanged moderate disc height loss at L5-S1 with the remaining disc heights preserved. Chronic fatty endplate changes are seen anteriorly at T10-T11. New mild edematous endplate changes are seen posteriorly at L2-L3 and L3-L4. The distal spinal cord appears normal. The conus medullaris terminates normally at the L1 level. Left-sided T2 hyperintense renal cysts are noted. The extraspinal soft tissues otherwise appear normal. SPINAL LEVELS: L1-L2: No posterior disc abnormality. No spinal canal or neural foraminal stenosis. L2-L3: Disc bulging with mild to moderate facet arthropathy. No spinal canal or neural foraminal stenosis. Mild progression facet arthropathy. L3-L4: Disc bulging, ligamentum flavum infolding, and moderate facet arthropathy with mild spinal canal stenosis and mild bilateral neural foraminal stenosis, progressed from prior. L4-L5: Grade 1 anterolisthesis with underlying disc bulging and progressive severe facet arthropathy resulting in mild flattening of the ventral thecal sac and mild narrowing of both neural foramina without foraminal nerve root compression. Both subarticular zones are narrowed but similar to prior. L5-S1: Disc bulging with posterior osseous ridging causing some mass effect on the traversing left S1 nerve root, similar to prior. Moderate to severe facet arthropathy. No spinal canal stenosis or foraminal nerve root compression. No interval change. IMPRESSION: Multilevel degenerative spondylotic changes with new endplate edema seen at L2-L3 and L3-L4. Stable moderate disc height loss at L5-S1. Grade 1 anterolisthesis at L4-L5 related to severe facet arthropathy is noted with stable flattening of the thecal sac, mild narrowing of both neural foramina, and narrowing of both subarticular zones. No new nerve root compression is seen. XR SHOULDER , RIGHT 05/21/23 FINDINGS: BONES: There is no fracture or dislocation, no osteolytic or osteoblastic lesion. JOINTS: Advanced degenerative osteoarthritic changes of the glenohumeral joints evident by loss of joint space and developed osteophyte from articular edges. Degenerative changes of the acromioclavicular joint as well. SOFT TISSUE AND INCLUDED LUNG: Soft tissue calcifications around the humeral head suggesting calcific tendinosis. IMPRESSION: 1. Advanced degenerative osteoarthritis of the glenohumeral and acromioclavicular joints. 2. Soft tissue calcifications around the humeral head suggesting calcific tendinosis. 3. No fracture or dislocation. Assessment & Plan Assessment & Plan (1) Arthritis of right glenohumeral joint: Code(s): M19.011 - Primary osteoarthritis, right shoulder Category: Medical (2) Chronic right shoulder pain: Code(s): M25.511 - Pain in right shoulder; G89.29 - Other chronic pain Category: Medical (3) Lumbar spondylosis: Code(s): M47.816 - Spondylosis without myelopathy or radiculopathy, lumbar region Category: Medical (4) Cervical spondylosis: Code(s): M47.812 - Spondylosis without myelopathy or radiculopathy, cervical region Category: Medical (5) Muscle spasms of neck: Code(s): M62.838 - Other muscle spasm Category: Medical (6) Chronic pain syndrome: Code(s): G89.4 - Chronic pain syndrome Category: Medical (7) Morbid obesity due to excess calories: Comment: Code(s): E66.01 - Morbid (severe) obesity due to excess calories Category: Medical Plan Patient is status post right shoulder steroid injection with fluoroscopy guidance with minimal to no pain relief. She is recommended to proceed with PT and HEP and follow up with Orthopedics if no improvement. Patient encouraged daily physical activity, modify activities as needed, ice and heat therapy, elevation, adequate hydration, good posture, weight loss and avoid heavy lifting. Patient will start gabapentin at bedtime for one week, and advance to BID if well tolerated. Side effects and precautions were discussed with patient. All questions were answered and the patient is in agreement of plan. Follow-up for medication review and sooner as needed. Medications: New gabapentin 300 mg PO BID 30 days 60 caps 0RF pain M19.011 - Primary osteoarthritis, right shoulder, M54.16 - Radiculopathy, lumbar region, M54.51 - Vertebrogenic low back pain Discontinued tramadol Discontinued Reason: Patient Completed Course 50 mg PO Q6H PRN 20 tabs 0RF severe pain (scale score 7-10) Coding Level of Care Code Est Pt Level 4 (54700) Diagnoses Arthritis of right glenohumeral joint M19.011 Chronic right shoulder pain M25.511; G89.29 Lumbar spondylosis M47.816 Cervical spondylosis M47.812 Muscle spasms of neck M62.838 Chronic pain syndrome G89.4 Morbid obesity due to excess calories E66.01
[2023-07-23 13:06] VITALS: BP 138/70; PULSE 68; O2SAT 97; BMI 43.6
== END 2023-07-23 13:23 | disposition home or self-care (01) ==
LOC: HO.PMC 13:00
PROVIDERS: PCP Family Medicine; Visit Provider Nurse Practitioner Family
DX: M19.011 Primary osteoarthritis, right shoulder (principal); M25.511 Pain in right shoulder; G89.29 Other chronic pain; M47.816 Spondylosis without myelopathy or radiculopathy, lumbar region; M47.812 Spondylosis without myelopathy or radiculopathy, cervical region; M62.838 Other muscle spasm; G89.4 Chronic pain syndrome; E66.01 Morbid (severe) obesity due to excess calories
CPT/HCPCS: 99214

== ENCOUNTER → 2023-07-23 13:00 | Outpatient (BNVA) | payer OTHER, SELFPAY | PROVIDERS: PCP Family Medicine; Visit Provider Nurse Practitioner Family | DX: M19.011 Primary osteoarthritis, right shoulder (principal); G89.29 Other chronic pain; M25.511 Pain in right shoulder; M47.816 Spondylosis without myelopathy or radiculopathy, lumbar region; M47.812 Spondylosis without myelopathy or radiculopathy, cervical region; M62.838 Other muscle spasm; G89.4 Chronic pain syndrome; E66.01 Morbid (severe) obesity due to excess calories; Z68.41 Body mass index [BMI] 40.0-44.9, adult; Z98.890 Other specified postprocedural states | CPT/HCPCS: 99212 ==

== ENCOUNTER 2023-09-08 09:54 | Outpatient (AMB) | payer OTHER, SELFPAY ==
--- NOTE | 2023-09-08 09:56 | MHC.OFFVIS ---
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 Pt states her pain is all the time. Pt denies any previous surgeries but states she had an injection years ago that helped a little. 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 Cake Cutting Language: Handbag Parts Cutter Name: Vinicio Polk ([id number]) Allergies atorvastatin [From Lipitor] Allergy (Mild, Verified 09/08/23 09:57) HIVES Medication List - Last Reconciled 09/08/23 by Tia Johnson MD acetaminophen (Tylenol Extra Strength) 500 mg PO Q6H PRN albuterol sulfate 90 mcg/actuation 2 puffs inhalation Q4-6H PRN albuterol sulfate 2.5 mg inhalation Q4-6H PRN bumetanide 1 mg PO DAILY 30 days calcium citrate-vitamin D3 315 mg-5 mcg (200 unit) 1 tab PO BID capsaicin-menthol 0.025-1.25 % (Salonpas (capsaicin-menthol)) 1 patch topical BID PRN 30 days cholecalciferol (vitamin D3) 50 mcg PO DAILY clonazepam 1 mg PO BEDTIME PRN cyclobenzaprine 5 mg PO Q8H PRN 5 days fluticasone propion-salmeterol 250-50 mcg/dose 1 ea inhalation BID mdfwulvsrqk-xvialfnco-rfeyuqzh 200-62.5-25 mcg (Trelegy Ellipta) 1 inh inhalation Q24H gabapentin 300 mg PO BID 30 days levothyroxine 75 mcg PO QAM lidocaine 5% (Lidoderm) 1 patch topical DAILY PRN MDD remove after 12 hours lidocaine 5% 3 patches topical DAILY lidocaine HCl 4% 1 patch topical TID PRN loperamide 2 mg PO DAILY loratadine 10 mg PO DAILY metoprolol tartrate 25 mg PO BID mirabegron ER (Myrbetriq) 50 mg PO DAILY 90 days mirtazapine 30 mg PO BEDTIME naproxen 500 mg PO BID PRN 10 days omeprazole 40 mg PO BID peppermint oil DR-ER (IBgard) 90 mg PO BID pravastatin 40 mg PO BEDTIME pyridoxine (vitamin B6) 50 mg PO DAILY trazodone 50 mg PO BEDTIME venlafaxine ER 75 mg PO QAM HPI Comments Details: Previously seen by Pain Management for shoulder and back pain. Recently seen by Wendy QUINONES for shoulder pain right, then referred to Physiatry for neck pain. She points to back of her head/neck area for the pain. She has chronic right shoulder pain. She mentions hand numbness bilateral. She also mentions that she has lower back pain and feet numbness. No history of DM. Had a CT scan for cervical, no cervical MRI yet that she could remember. She did have a recent lumbar MRI which reported moderate-severe spinal stenosis. She mentions it was ordered by Pain Management. [facility] Medical History (Updated 09/08/23 @ 10:17 by Tia Johnson MD) Numbness in both hands Depression Arthritis On beta ervin at home CVA (cerebral vascular accident) History of COVID-19 HTN (hypertension) Hypothyroid Other and unspecified hyperlipidemia Essential hypertension History of gastroscopy GERD (gastroesophageal reflux disease) Chronic headaches Cervicalgia Thyroid nodule Fecal incontinence Benign neoplasm of colon Morbid obesity due to excess calories Hiatal hernia Carlson esophagus Pulmonary nodule, right Obstructive sleep apnea Asthma Dyslipidemia Surgical History S/P placement of nerve stimulator H/O colonoscopy History of esophagogastroduodenoscopy (EGD) History of carpal tunnel release History of dacryocystorhinostomy S/p bilateral blepharoplasty History of bilateral tubal ligation H/O tooth extraction History of herniorrhaphy History of cholecystectomy History of total abdominal hysterectomy and bilateral salpingo-oophorectomy History of bilateral knee replacement History of laparoscopic appendectomy History of sleeve gastrectomy Family History Father No problems noted. Mother No problems noted. Social History Household Members: Family Household Members Other:: grandson Housing: Apartment Do you presently have visiting nurse or other home services: Yes Alcohol intake: current Alcohol intake frequency: does not drink Comment: intubated. sedated. restrained Patient Tobacco Use Status: Never used Tobacco Advance Directives Date on File: 02/10/20 service: No Current occupational status: disabled Review of Systems Const All systems reviewed & are unremarkable except as noted in HPI and below Physical Exam Constitutional: Patient appears to be in no acute distress, well nourished and well developed. Patient was appropriately conversant and oriented. MSK: Inspection reveals appropriate head and neck positioning. No pain with palpation over the neck musculature. Cervical ROM was limited extension. Spurling's sign negative. Limited shoulder abduction and flexion range of motion, chronic. Upper extremity strength 5/5 except for limited shoulder range of motion. Neurological: Gait is antalgic from chronic back pain, uses cane. Negative Ta's sign. Results Reviewed Results Reviewed: Ordering Physician: Audra Crews Date of Service: 04/29/23 Procedure(s): CT cervical spine wo IV con Accession Number(s): [id number] cc: Ailyn Monge MD; Audra Crews~ EXAMINATION: CT cervical spine, right elbow and right humerus. CLINICAL INDICATIONS: Fall. TECHNIQUE: Right elbow 4 views. Right humerus 2 views. 3 mm thin axial and reformatted 2 mm thin sagittal and coronal images of cervical spine were obtained. DLP 622. This CT examination was performed using dose optimization technique as appropriate, variously including the following: Automated exposure control Adjustment of MA and/or KV according to patient size(this includes techniques or standardized protocols for targeted exams where dose is matched to indication/reason for exam; extremities or head. Use of iterative reconstruction techniques. FINDINGS: RIGHT ELBOW: The joint space is preserved. There is no visible acute fracture or dislocation seen. There are no loose bodies are bony erosive changes. There is a small enthesophyte along the medial coronoid process or an old avulsion bone fragment without displacement the anterior and posterior fat pad appears normal. RIGHT HUMERUS: There is no visible fracture or bony abnormality. There is mild loss of right glenohumeral and AC joint space with periarticular spurring. The soft tissues are normal. CERVICAL SPINE: On sagittal reconstructed images there is mild straightening of cervical lordosis. There is loss of C3-C4, C4-C5, C5-C6 and C6-C7 disc heights with moderate ventral and mild posterior spondylosis. The craniovertebral junction and C1-C2 alignment is normal. No visible acute fracture, dislocation or subluxation seen. There is moderate right C2-C3, left C3-C4, left C4-C5 and left C6-C7 facet joint arthropathy and hypertrophy. No visible acute fracture, dislocation or subluxation seen. The prevertebral and paravertebral soft tissues are normal. The airway is widely patent. There is a enlarged left thyroid gland with central gland calcification with substernal extension suggestive of goiter. The lung apices are clear. CT/CT cervical spine wo IV con IMPRESSION: Small bone fragment adjacent to the medial coronoid process of the elbow question old avulsion fracture versus enthesophyte. No acute fracture or dislocation seen. No abnormal joint effusion. Unremarkable right humerus. There is mild degenerative changes involving the glenohumeral and AC joint. Degenerative changes and spondylosis cervical spine with mild straightening of cervical lordosis likely spasm. No visible acute fracture or dislocation seen. I reviewed records from the following: Pain management Orthopedics Assessment & Plan Assessment & Plan (1) Cervical spondylosis: Code(s): M47.812 - Spondylosis without myelopathy or radiculopathy, cervical region Category: Medical (2) Numbness in both hands: Code(s): R20.0 - Anesthesia of skin Category: Medical Plan Limited shoulder ROM and neck ROM. Chronic neck pain, most likely spondylosis. She may benefit from cervical intervention such as MBB or facet injections. She's also received past shoulder injections from Pain Management. Discussed with patient and she is eager to proceed. We can schedule her for EMG for hand numbness. Assessment and plan discussed with patient, and patient was agreeable. All questions were answered thoroughly. Tia Johnson MD, DIONY Board Certified, [place] [employer] and Rehabilitation (ABPMR) Board Certified, [place] Board [employer] Electrodiagnostic Medicine (ABEM) Orders: Orders NE nerve conduction velocity Today M47.812 - Spondylosis without myelopathy or radiculopathy, cervical region, R20.0 - Anesthesia of skin NE electromyogram (EMG) Today M47.812 - Spondylosis without myelopathy or radiculopathy, cervical region, R20.0 - Anesthesia of skin Referrals Pain Management Referral M47.812 - Spondylosis without myelopathy or radiculopathy, cervical region Coding Level of Care Code New Pt Level 4 (72734) Diagnoses Cervical spondylosis M47.812 Numbness in both hands R20.0
== END 2023-09-08 10:31 | disposition home or self-care (01) ==
PROVIDERS: PCP Family Medicine; Visit Provider Physical Medicine & Rehabilitation
DX: M47.812 Spondylosis without myelopathy or radiculopathy, cervical region (principal); R20.0 Anesthesia of skin
CPT/HCPCS: 99204

== ENCOUNTER → 2023-09-08 09:54 | Outpatient (BNVA) | payer OTHER, SELFPAY | PROVIDERS: PCP Family Medicine; Visit Provider Physical Medicine & Rehabilitation | DX: M47.812 Spondylosis without myelopathy or radiculopathy, cervical region (principal); R20.0 Anesthesia of skin | CPT/HCPCS: 99202 ==

== ENCOUNTER 2023-09-24 09:15 | Outpatient (AMB) | payer OTHER, SELFPAY ==
--- NOTE | 2023-09-24 09:23 | MHC.OFFVIS ---
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 She also reports bilateral hand numbness and recently was seen by [facility] with pending EMG and NVC studies to further evaluate bilateral hand numbness and chronic right shoulder pain. Patient has moderate-severe lumbar spinal stenosis at L3-L4 and L4-L5 per MRI reading on 07/28/23. We were trying to schedule follow up for this but she was unreachable. To this point she was not been able to complete PT as she was in [place] for a while and now returns there again today to care for her who is fighting mental illness and was recently lost. Patient reports low back pain radiates into her anterior thighs and into shins bilaterally, worse on the right. She also reports bilateral knee pain and neck pain with movements, walking and most daily activities. Patient reports gabapentin has been partially beneficial and is interested in mild increase in the dose. She also continues to utilize Tylenol, naproxen, lidocaine patches and heat applications with minimal pain relief. Denies any bladder or bowel dysfunction or saddle anesthesia, except occasional mixed urinary incontinence for which she follows with Urology and had Pelvic floor PT in the past. Patient has lost significant amount of weight since last visit in June, over 30 lbs due to significant stress but also was trying to adjust her eating habits to loose weight. 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 with multiple pain generators. Her most troublesome pain generators are right shoulder pain and lower axial back pain. She also reports neck pain, bilateral knee and leg pain, bilateral hand and wrist pain, and numbness and tingling in her feet. Her back pain is mostly axial with significantly limited back extension due to pain. Patient also presents with mild tenderness in the projection of bilateral SIJ areas and mild bilateral hip pain. She has limited range of motion of the right shoulder and cannot raise her right arm or reach her back side pocket. Patient is right hand dominant and is able to make fists bilaterally. She has decreased bronze plater and grasp strength on the right. Patient reports left lateral knee pain and right medial knee pain with previous history of total knee replacement and multiple cortisone injections. Pain is described as constant pulsing, throbbing, pounding, stabbing, lancinating, aching, sore, hurting, dull, heavy and exhausting. Patient reports her multiple generators pain increases with any movement, walking, standing, bending, changing positions, and weather changes. Rheumatology workup was negative in 2013. Per referral notes, the patient has a history of divergence of chronic opiates and was not able to comply with chronic opiate contact in the past. Patient has been treating her pain with supportive care, physical therapy, cortisone injections, ice and heat therapy, and Tylenol. She is undergoing Pelvic Floor therapy on 04/15/22 for mixed urinary incontinence and is also considering an Interstim device. Patient denies any fever, weight loss, abdominal or groin pain [facility] Medical History Numbness in both hands Depression Arthritis On beta ervin at home CVA (cerebral vascular accident) History of COVID-19 HTN (hypertension) Hypothyroid Other and unspecified hyperlipidemia Essential hypertension History of gastroscopy GERD (gastroesophageal reflux disease) Chronic headaches Cervicalgia Thyroid nodule Fecal incontinence Benign neoplasm of colon Morbid obesity due to excess calories Hiatal hernia Carlson esophagus Pulmonary nodule, right Obstructive sleep apnea Asthma Dyslipidemia Surgical History (Reviewed 09/24/23 @ 09: by DARNELL Carrillo) S/P placement of nerve stimulator H/O colonoscopy History of esophagogastroduodenoscopy (EGD) History of carpal tunnel release History of dacryocystorhinostomy S/p bilateral blepharoplasty History of bilateral tubal ligation H/O tooth extraction History of herniorrhaphy History of cholecystectomy History of total abdominal hysterectomy and bilateral salpingo-oophorectomy History of bilateral knee replacement History of laparoscopic appendectomy History of sleeve gastrectomy Family History Father No problems noted. Mother No problems noted. Social History (Reviewed 09/24/23 @ 09: by DARNELL Carrillo) Household Members: Family Household Members Other:: grandson Housing: Apartment Do you presently have visiting nurse or other home services: Yes Alcohol intake: current Alcohol intake frequency: does not drink Comment: intubated. sedated. restrained Patient Tobacco Use Status: Never used Tobacco Advance Directives Date on File: 02/10/20 service: No Current occupational status: disabled Review of Systems Const All systems reviewed & are unremarkable except as noted in HPI and below Physical Exam General: Appears afebrile. Alert and oriented. Mood and affect appropriate. Follows and participates in conversation appropriately. Respiratory effort is unlabored. No cough. Able to transition from sit to stand unassisted. Ambulates with bilaterally normal heel strike and toe off, reports weakness and pain RLE with walking. Neck Neck: Yes no lymphadenopathy, Yes supple, No anterior neck swelling, No torticollis, Yes no JVD and Yes prominent dorsocervical fat pad General: Yes no CVA tenderness Back/Spine/Pelvis Other: TTP over paraspinals from L4-S1. Repetitive lumbar flexion and axial rotation reproduces moderate pain. Strength 5/5 left and 4/5 right hip flexion bilaterally. Mild TTP bilateral GTB. Diminished DTR intact, symmetric, no clonus. GALE test reproduces lateral hip but not lower back pain bilaterally. Limited back exam due to exacerbation of pain. Back: no CVA tenderness Cervical Spine: cervical muscular tenderness, pain with cervical ROM (worse with cervical extension), cervical spasm (left) and No Cervical spine tenderness Thoracic/Lumbar Spine: thoracic and lumbar spine normal to inspection, No Thoracic/lumbar spine scar(s), Lasegue's sign positive bilateral and localized, pain with thoraco-lumbar ROM, paraspinal muscle tenderness, thoraco-lumbar ROM limited, No thoracic spinal tenderness and lumbar spinal tenderness (L3-S1) Pelvis: buttock tenderness bilaterally and no sciatic notch tenderness Sacroiliac joints: bilaterally tender to palpation Results Reviewed Results Reviewed: MR SPINE LUMBAR without CONTRAST 08/07/23 at [facility] INDICATION: Spondylosis without myelopathy or radiculopathy, lumbar region. Low back pain. TECHNIQUE: Unenhanced multiplanar, multisequence MR imaging of the lumbar spine. COMPARISON: XR lumbar spine 04/29/2023, XR lumbar spine 04/14/2023. FINDINGS: For the purposes of this examination, the last well-formed inferior disc space will be labeled as L5-S1. There is mild residual grade 1 anterolisthesis L4 on L5. Vertebral heights are well maintained. There is severe intervertebral disc space narrowing at L5-S1 and moderate to severe narrowing at L2-L3. Bone marrow signal is within normal limits, and no suspicious osseous lesion is identified. Conus medullaris is unremarkable and terminates at L1. Small partially exophytic cyst measuring 1.2 cm involving the medial aspect the right kidney. Suggestion of a large left renal cyst which is partially imaged. Paraspinal soft tissues and visualized portions of the abdomen and pelvis are unremarkable. At L1-2 there is no significant disc herniation or protrusion. No central canal or neural foraminal stenosis is demonstrated. At L2-3, there is a disc bulge. There is mild bilateral facet joint hypertrophy and ligamentum flavum thickening. No significant central spinal canal or neural foraminal stenosis is demonstrated. At L3-4, there is a disc bulge. There is bilateral facet joint hypertrophy and ligamentum flavum thickening. There is a moderate to severe central spinal canal narrowing and bilateral lateral recess stenosis. There is a mild right neural foraminal narrowing. No significant left neural foraminal narrowing. At L4-5, there is a disc bulge with mild uncovering of the posterior disc. There is bilateral facet joint hypertrophy and ligamentum flavum thickening. These findings result in moderate to severe spinal canal narrowing. There is mild to moderate right and mild left neural foraminal narrowing. At L5-S1, there is no significant disc herniation or protrusion. No central canal or neural foraminal stenosis is demonstrated. IMPRESSION: 1. Moderate spondylitic changes of the cervical spine. 2. Multilevel disc bulges associated with moderate to severe central spinal canal narrowing and bilateral lateral recess stenosis at L3-L4. Moderate to severe bilateral spinal canal narrowing at L4-L5. There is mild to moderate right foraminal stenosis at L4-L5. 3. Bilateral renal cysts. Follow-up renal ultrasound can be performed for further evaluation. CT cervical spine, right elbow and right humerus 04/29/23 CLINICAL INDICATIONS: Fall FINDINGS: RIGHT ELBOW: The joint space is preserved. There is no visible acute fracture or dislocation seen. There are no loose bodies are bony erosive changes. There is a small enthesophyte along the medial coronoid process or an old avulsion bone fragment without displacement the anterior and posterior fat pad appears normal. RIGHT HUMERUS: There is no visible fracture or bony abnormality. There is mild loss of right glenohumeral and AC joint space with periarticular spurring. The soft tissues are normal. CERVICAL SPINE: On sagittal reconstructed images there is mild straightening of cervical lordosis. There is loss of C3-C4, C4-C5, C5-C6 and C6-C7 disc heights with moderate ventral and mild posterior spondylosis. The craniovertebral junction and C1-C2 alignment is normal. No visible acute fracture, dislocation or subluxation seen. There is moderate right C2-C3, left C3-C4, left C4-C5 and left C6-C7 facet joint arthropathy and hypertrophy. No visible acute fracture, dislocation or subluxation seen. The prevertebral and paravertebral soft tissues are normal. The airway is widely patent. There is a enlarged left thyroid gland with central gland calcification with substernal extension suggestive of goiter. The lung apices are clear. IMPRESSION: Small bone fragment adjacent to the medial coronoid process of the elbow question old avulsion fracture versus enthesophyte. No acute fracture or dislocation seen. No abnormal joint effusion. Unremarkable right humerus. There is mild degenerative changes involving the glenohumeral and AC joint. Degenerative changes and spondylosis cervical spine with mild straightening of cervical lordosis likely spasm. No visible acute fracture or dislocation seen. Assessment & Plan Assessment & Plan (1) Lumbar radiculopathy: Code(s): M54.16 - Radiculopathy, lumbar region Category: Medical (2) Cervical radicular pain: Code(s): M54.12 - Radiculopathy, cervical region Category: Medical (3) Cervical spondylosis: Code(s): M47.812 - Spondylosis without myelopathy or radiculopathy, cervical region Category: Medical (4) Numbness in both hands: Code(s): R20.0 - Anesthesia of skin Category: Medical (5) Muscle spasms of neck: Code(s): M62.838 - Other muscle spasm Category: Medical (6) Vertebrogenic low back pain: Code(s): M54.51 - Vertebrogenic low back pain Category: Medical (7) Lumbar spondylosis: Code(s): M47.816 - Spondylosis without myelopathy or radiculopathy, lumbar region Category: Medical (8) Chronic pain syndrome: Code(s): G89.4 - Chronic pain syndrome Category: Medical Plan For ongoing radicular pain, we will schedule for Bilateral L4-L5 TFESI with local and fluoroscopy. Expectations, risks and benefits were reviewed. Patient is aware she will be contacted to schedule this procedure. Patient is leaving to [place] today to be with her and will notify our office when she returns. Copy of MRI report provided to patient, along with cervical CT scan report to take with her to [place]. Patient is aware to call if pain worsens or if she develops any red flag symptoms to seek emergency care or call 911. Patient denies any cauda equina syndrome symptoms at this time. For axial cervical spine pain will tentatively plan for diagnostic bilateral C4-C5-C6 medial branch blocks with local and fluoroscopy. If she has significant relief from the diagnostic blocks for her axial cervical pain, will consider either therapeutic injections, Sprint PNS or RFA depending on her preference. She also has pending EMG and NVC studies per Physiatry to further evaluate bilateral hand numbness. Script provided for increased dose of gabapentin 400 mg TID. Continue to monitor for any side effects, precautions were reviewed. All questions and concerns have been answered and patient agreed with the plan. Follow up after injections and sooner as needed. Medications: Changed From gabapentin 300 mg PO BID 30 days 60 caps 0RF pain M47.812 - Spondylosis without myelopathy or radiculopathy, cervical region, M54.12 - Radiculopathy, cervical region, M54.16 - Radiculopathy, lumbar region, R20.0 - Anesthesia of skin To gabapentin 400 mg PO TID 30 days 90 caps 0RF pain M47.812 - Spondylosis without myelopathy or radiculopathy, cervical region, M54.12 - Radiculopathy, cervical region, M54.16 - Radiculopathy, lumbar region, R20.0 - Anesthesia of skin Refilled capsaicin-menthol 0.025-1.25 % (Salonpas (capsaicin-menthol)) may leave on area for up to 8 hrs 1 patch topical BID 30 days PRN 60 ea 0RF pain M25.561 - Pain in right knee, M25.562 - Pain in left knee, M47.816 - Spondylosis without myelopathy or radiculopathy, lumbar region Coding Level of Care Code Est Pt Level 4 (45869) Diagnoses Lumbar radiculopathy M54.16 Cervical radicular pain M54.12 Cervical spondylosis M47.812 Numbness in both hands R20.0 Muscle spasms of neck M62.838 Vertebrogenic low back pain M54.51 Lumbar spondylosis M47.816 Chronic pain syndrome G89.4
[2023-09-24 09:32] VITALS: BP 151/77; PULSE 75; O2SAT 96; BMI 37.5
== END 2023-09-24 09:51 | disposition home or self-care (01) ==
PROVIDERS: PCP Family Medicine; Visit Provider Nurse Practitioner Family
DX: M54.16 Radiculopathy, lumbar region (principal); M54.12 Radiculopathy, cervical region; M47.812 Spondylosis without myelopathy or radiculopathy, cervical region; R20.0 Anesthesia of skin; M62.838 Other muscle spasm; M54.51 Vertebrogenic low back pain; M47.816 Spondylosis without myelopathy or radiculopathy, lumbar region; G89.4 Chronic pain syndrome
CPT/HCPCS: 99214

== ENCOUNTER → 2023-09-24 09:15 | Outpatient (BNVA) | payer OTHER, SELFPAY | PROVIDERS: PCP Family Medicine; Visit Provider Nurse Practitioner Family | DX: M54.16 Radiculopathy, lumbar region (principal); M54.12 Radiculopathy, cervical region; M47.812 Spondylosis without myelopathy or radiculopathy, cervical region; M62.838 Other muscle spasm; M54.51 Vertebrogenic low back pain; M47.816 Spondylosis without myelopathy or radiculopathy, lumbar region; R20.0 Anesthesia of skin; G89.4 Chronic pain syndrome | CPT/HCPCS: 99212 ==